=== PATIENT | female | born 1935 | race Caucasian/White ===

== ENCOUNTER → 2017-08-11 07:05 | Outpatient (REF) | payer MEDICARE, SELFPAY ==
[2017-08-11 09:21] LABS: Hematocrit 38.3 % (37-47); Hemoglobin 11.3 g/dl (12.0-15.0); Mean Corp Hgb Conc 29.5 g/gl (32-36); Mean Corpuscular Hgb 29.2 pg (27.0-32.0); Platelet Count 316 K/mm3 (150-450); RBC Distribution Width CV 13.9 % (11.6-14.6); RBC Distribution Width SD 49.9 fl (35.1-43.9); Red Blood Count 3.87 M/mm3 (4.2-5.4); White Blood Count 6.2 K/mm3 (4.4-11.0)
[2017-08-11 09:26] LABS: Scan Indicated on CBC? Y/N NO
[2017-08-11 09:39] LABS: Anion Gap 5 (5-15); BUN 55 mg/dL (7-18); BUN/Creat Ratio 31.4 RATIO (10-20); Calcium,Total 8.6 mg/dL (8.5-10.1); Chloride 108 mmol/L (98-107); Creatinine, Serum 1.75 mg/dL (0.55-1.02); EST Glomerular Filtration Rate 30 mL/min (>60); Est Glom Filt Rate - Afr Amer 36 mL/min (>60); Glucose 93 mg/dL (70-110); Sodium Level 140 mmol/L (136-145)
== END ==
LOC: OLS.WHLEAS 07:05
PROVIDERS: Visit Provider Family Medicine
DX: I10 Essential (primary) hypertension (principal); E03.9 Hypothyroidism, unspecified
CPT/HCPCS: 36415; 80048; 84443; 85027

== ENCOUNTER 2017-09-12 11:13 | Day surgery (SDC) | payer MEDICARE, SELFPAY ==
[2017-09-12] VITALS (7 sets, daily range): BP systolic 92–156; BP diastolic 38–65; PULSE 58–120; RESP 16–18; TEMP 36.4–36.6; O2SAT 94–100; BMI 54.5
--- OUTSIDE RECORDS SUMMARY | 2017-09-12 12:10 | XMS RPT_ITS ---
:1935 Author Organization OHIP Support Name Relationship Address Phone R Unavailable Unavailable Unavailable Maegan, Arianna Unavailable [address] [phone] [place] [address] R Unavailable Unavailable Unavailable MAEGAN, ARIANNA Unavailable [address] [facility] + [place] [address] R Unavailable Unavailable Unavailable MAEGAN, ARIANNA Unavailable [address] [phone] [place] [address] R Unavailable Unavailable Unavailable MAEGAN ARIANNA Unavailable [address] [facility] + [place] [address] R Unavailable Unavailable Unavailable MAEGAN, ARIANNA Unavailable [address] [phone] [place] [address] R Unavailable Unavailable Unavailable MAEGAN ARIANNA Unavailable [address] [facility] + [place] [address] R Unavailable Unavailable Unavailable MAEGAN, ARIANNA Unavailable [address] [phone] [place] [address] R Unavailable Unavailable Unavailable Care Team Providers Name Role Phone Tom Ramirez Attending Unavailable Tom Ramirez Attending Unavailable Tom Ramirez Primary Care Unavailable Chavo Richardson Admitting Unavailable Mildred Ochoa Attending Unavailable Tom Ramirez Attending Unavailable Tom Ramirez Primary Care Unavailable Tom Ramirez Attending Unavailable Tom Ramirez Attending Unavailable Tom Ramirez Attending Unavailable Lucho Mayen Attending Unavailable Lucho Mayen Referring Unavailable Tom Ramirez Primary Care Unavailable PROBLEMS PROBLEMS DATE TYPE CONDITION / CODE ATTENDING STATUS SOURCE 07/06/2017 Unknown CHRONIC KIDNEY Tom Ramirez Active [facility], Community UNSPECIFIED / Hospital N18.9(ICD-10) Repository 07/06/2017 Unknown ANEMIA, Tom Ramirez Active [facility] UNSPECIFIED / Community D64.9(ICD-10) Hospital Repository 07/06/2017 Unknown HYPOTHYROIDISM, Tom Ramirez Active [facility] UNSPECIFIED / Community E03.9(ICD-10) Hospital Repository 07/06/2017 Unknown HYPERTENSIVE HEART Tom Ramirez Active [facility] DISEASE WITH HEART Community FAILURE / Hospital I11.0(ICD-10) Repository 07/06/2017 Unknown HEART FAILURE, Tom Ramirez Active [facility] UNSPECIFIED / Community I50.9(ICD-10) Hospital Repository 03/02/2017 Unknown ACUTE ON CHRONIC Sementi, Active [facility] DIASTOLIC [facility] (CONGESTIVE) HEART Hospital FAILURE / Repository I50.33(ICD-10) 03/02/2017 Unknown ACUTE RESPIRATORY Sementi, Active [facility] FAILURE WITH [facility] HYPOXIA / Hospital J96.01(ICD-10) Repository 03/02/2017 Unknown HYP HRT [facility] Sementi, Active [facility] DIS W HRT FAIL AND [facility] STG 1-4/UNSP [facility] Hospital KDNY / Repository I13.0(ICD-10) 03/02/2017 Unknown URINARY TRACT Sementi, Active [facility] INFECTION, SITE [facility] NOT SPECIFIED / Hospital N39.0(ICD-10) Repository 03/02/2017 Unknown BODY MASS INDEX Sementi, Active [facility] (BMI) 50-59.9 , [facility] ADULT / Hospital Z68.43(ICD-10) Repository 03/02/2017 Unknown ANEMIA IN CHRONIC S[facility]i, Active [facility] KIDNEY DISEASE / [facility] D63.1(ICD-10) Hospital Repository 03/02/2017 Unknown MAJOR DEPRESSIVE Sementi, Active [facility] DISORDER, SINGLE [facility] EPISODE, Hospital UNSPECIFIED / Repository F32.9(ICD-10) 03/02/2017 Unknown CHRONIC KIDNEY Sementi, Active [facility] DISEASE, STAGE 3 [facility] (MODERATE) / Hospital N18.3(ICD-10) Repository 03/02/2017 Unknown POLYNEUROPATHY, Sementi, Active [facility] UNSPECIFIED / [facility] G62.9(ICD-10) Hospital Repository 03/02/2017 Unknown TREMOR, Sementi, Active [facility] UNSPECIFIED / [facility] R25.1(ICD-10) Hospital Repository 03/02/2017 Unknown MORBID (SEVERE) [facility], Active [facility] OBESITY DUE TO [facility] EXCESS CALORIES / Hospital E66.01(ICD-10) Repository 03/02/2017 Unknown ESSENTIAL Tom Ramirez Active [facility] (PRIMARY) Community HYPERTENSION / Hospital I10(ICD-10) Repository 03/02/2017 Unknown HYPERLIPIDEMIA, Tom Ramirez Active [facility] UNSPECIFIED / Community E78.5(ICD-10) Hospital Repository PROCEDURES PROCEDURES DATE CODE DESCRIPTION STATUS SOURCE 11/11/2016 [id number](ICD-10 ASSISTANCE WITH Completed [facility] ) RESPIRATORY Hospital Repository VENTILATION, <24 HRS, CPAP RESULTS RESULTS CBC-COMPLETE BLOOD CNT Collected: 08/11/2017 Status: F Source: [facility] NO DIFF 7:05 AM [facility] REPOSITORY TYPE CODE TESTS RESULT OUT OF RANGE REFERENCE UNITS LAB L100.1000 Normal 4.4-11.0 K/mm3 WBC 6.2 LAB L100.1200 Low 4.2-5.4 M/mm3 RBC 3.87 LAB L100.1300 Low 12.0-15.0 g/dl HGB 11.3 LAB L100.1400 Normal 37-47 % HCT 38.3 LAB L100.1500 Normal 81-99 fL MCV 99.0 LAB L100.1600 Normal 27.0-32.0 pg MCH 29.2 LAB L100.1700 Low 32-36 g/gl MCHC 29.5 LAB L100.1810 Normal 11.6-14.6 % RDW 13.9 CV LAB L100.1820 High 35.1-43.9 fl RDW 49.9 SD LAB L100.1900 Normal 150-450 K/mm3 PLT 316 LAB L100.2000 Normal 6.2-12.0 fl MPV 10.0 Performed By: #### L100.0500 ####[facility] [address] [place], [address] BASIC METABOLIC Collected: 08/11/2017 Status: F Source: [facility] PROFILE (BMP) 7:05 AM [facility] REPOSITORY TYPE CODE TESTS RESULT OUT OF RANGE REFERENCE UNITS LAB L501.0100 Normal 70-110 mg/dL GLU 93 LAB L501.1000 High 7-18 mg/dL BUN 55 LAB L501.1100 High 0.55-1.02 mg/dL 1.75 CREAT,SERUM Result Comment: The validity of the calculated GFR AND GFRAA in patients over70 years has not been determined. Clinical correlation isessential. LAB L501.1110 Low >60 mL/min EST GFR 30 Result Comment: Non- GFR Calc LAB L501.1115 Low >60 mL/min EST GFR - AA 36 Result Comment: GFR Calc LAB L501.1300 High 10-20 RATIO BUN/CRE 31.4 LAB L501.2200 Normal 8.5-10.1 mg/dL CA 8.6 LAB L501.5300 Normal 136-145 mmol/L NA 140 LAB L501.5600 Normal 3.5-5.1 mmol/L K 5.0 LAB L501.5900 High 98-107 mmol/L CL 108 LAB L501.6100 Normal 21.0-32.0 mmol/L CO2 27.0 LAB L501.6200 Normal 5-15 GAP 5 Performed By: #### L500.2500, L501.9520 ####[facility] [address] [facility] [place], [place], [address] THYROID STIM HORMONE Collected: 08/11/2017 Status: F Source: [facility] (TSH) 7:05 AM [facility] REPOSITORY TYPE CODE TESTS RESULT OUT OF RANGE REFERENCE UNITS LAB L501.9520 Normal 0.358-3.74 uIU/mL TSH 0.70 Performed By: #### L500.2500, L501.9520 ####[facility] [address] [place], [place], [address] BASIC METABOLIC Collected: 05/16/2017 Status: F Source: [facility] PROFILE (BMP) 6:07 AM [facility] REPOSITORY Order Comment: 501-1 TYPE CODE TESTS RESULT OUT OF RANGE REFERENCE UNITS LAB L501.0100 Normal 70-110 mg/dL GLU 91 LAB L501.1000 High 7-18 mg/dL BUN 63 LAB L501.1100 High 0.55-1.02 mg/dL 1.95 CREAT,SERUM Result Comment: The validity of the calculated GFR AND GFRAA in patients over70 years has not been determined. Clinical correlation isessential. LAB L501.1110 Low >60 mL/min EST GFR 26 Result Comment: Non- GFR Calc LAB L501.1115 Low >60 mL/min EST GFR - AA 32 Result Comment: GFR Calc LAB L501.1300 High 10-20 RATIO BUN/CRE 32.3 LAB L501.2200 Normal 8.5-10.1 mg/dL CA 8.5 LAB L501.5300 Normal 136-145 mmol/L NA 142 LAB L501.5600 Normal 3.5-5.1 mmol/L K 5.0 LAB L501.5900 High 98-107 mmol/L CL 112 LAB L501.6100 Normal 21.0-32.0 mmol/L CO2 22.0 LAB L501.6200 Normal 5-15 GAP 8 Performed By: #### L500.2500 ####[facility] [address] [place], [address] CBC W/DIFF, AUTOMATED Collected: 05/09/2017 Status: F Source: [place] 6:30 AM [facility] REPOSITORY Order Comment: 501-1 TYPE CODE TESTS RESULT OUT OF RANGE REFERENCE UNITS LAB L100.1000 Normal 4.4-11.0 K/mm3 WBC 6.2 LAB L100.1200 Low 4.2-5.4 M/mm3 RBC 3.72 LAB L100.1300 Low 12.0-15.0 g/dl HGB 11.2 LAB L100.1400 Low 37-47 % HCT 36.4 LAB L100.1500 Normal 81-99 fL MCV 97.8 LAB L100.1600 Normal 27.0-32.0 pg MCH 30.1 LAB L100.1700 Low 32-36 g/gl MCHC 30.8 LAB L100.1810 Normal 11.6-14.6 % RDW 14.0 CV LAB L100.1820 High 35.1-43.9 fl RDW 48.0 SD LAB L100.1900 Normal 150-450 K/mm3 PLT 240 LAB L100.2000 Normal 6.2-12.0 fl MPV 10.5 LAB L100.2100 Normal 47-70 % NEUT% 63.0 LAB L100.2200 Normal 19-41 % LY% 19.7 LAB L100.2300 High 0-10 % MONO% 11.2 LAB L100.2400 High 0-5 % EO% 5.3 LAB L100.2500 Normal 0-1 % BASO% 0.6 LAB L100.2550 Normal 0.0-0.9 % IM 0.200 GRAN % Result Comment: IG% - Immature Granulocytes (promyelocytes, myelocytes andmetamyelocytes) > 1% indicates that a LEFT SHIFT is Present. LAB L100.2620 Normal 2.0-7.7 X10 3/uL Absolute Neut 3.9 LAB L100.2720 Normal 0.83-4.51 X10 3/ul Absolute Lymph 1.23 Performed By: #### L100.0100 ####[facility] [address] [facility] [address] [place], [place], [id number] BASIC METABOLIC Collected: 05/09/2017 Status: F Source: [facility] PROFILE (BMP) 6:30 AM [facility] REPOSITORY Order Comment: 501-1 TYPE CODE TESTS RESULT OUT OF RANGE REFERENCE UNITS LAB L501.0100 Normal 70-110 mg/dL GLU 84 LAB L501.1000 High 7-18 mg/dL BUN 90 LAB L501.1100 High 0.55-1.02 mg/dL 2.60 CREAT,SERUM Result Comment: The validity of the calculated GFR AND GFRAA in patients over70 years has not been determined. Clinical correlation isessential. LAB L501.1110 Low >60 mL/min EST GFR 19 Result Comment: Non- GFR Calc LAB L501.1115 Low >60 mL/min EST GFR - AA 23 Result Comment: GFR Calc LAB L501.1300 High 10-20 RATIO BUN/CRE 34.6 LAB L501.2200 Normal 8.5-10.1 mg/dL CA 8.5 LAB L501.5300 Normal 136-145 mmol/L NA 141 LAB L501.5600 High 3.5-5.1 mmol/L K 5.2 LAB L501.5900 High 98-107 mmol/L CL 111 LAB L501.6100 Normal 21.0-32.0 mmol/L CO2 24.0 LAB L501.6200 Normal 5-15 GAP 6 Performed By: #### L500.2500 ####[facility] [address] [facility] [address] [place], [place], [address] CBC W/DIFF, AUTOMATED Collected: 03/02/2017 Status: F Source: [facility] 6:40 AM [facility] REPOSITORY Order Comment: 501-1 TYPE CODE TESTS RESULT OUT OF RANGE REFERENCE UNITS LAB L100.1000 Normal 4.4-11.0 K/mm3 WBC 6.9 LAB L100.1200 Low 4.2-5.4 M/mm3 RBC 3.82 LAB L100.1300 Low 12.0-15.0 g/dl HGB 11.3 LAB L100.1400 Normal 37-47 % HCT 37.0 LAB L100.1500 Normal 81-99 fL MCV 96.9 LAB L100.1600 Normal 27.0-32.0 pg MCH 29.6 LAB L100.1700 Low 32-36 g/gl MCHC 30.5 LAB L100.1810 Normal 11.6-14.6 % RDW 14.2 CV LAB L100.1820 High 35.1-43.9 fl RDW 50.3 SD LAB L100.1900 Normal 150-450 K/mm3 PLT 264 LAB L100.2000 Normal 6.2-12.0 fl MPV 9.7 LAB L100.2100 Normal 47-70 % NEUT% 62.9 LAB L100.2200 Normal 19-41 % LY% 20.3 LAB L100.2300 High 0-10 % MONO% 11.5 LAB L100.2400 Normal 0-5 % EO% 4.7 LAB L100.2500 Normal 0-1 % BASO% 0.3 LAB L100.2550 Normal 0.0-0.9 % IM 0.300 GRAN % Result Comment: IG% - Immature Granulocytes (promyelocytes, myelocytes andmetamyelocytes) > 1% indicates that a LEFT SHIFT is Present. LAB L100.2620 Normal 2.0-7.7 X10 3/uL Absolute Neut 4.3 LAB L100.2720 Normal 0.83-4.51 X10 3/ul Absolute Lymph 1.39 Performed By: #### L100.0100 ####[facility] [address] [place], [address] BASIC METABOLIC Collected: 03/02/2017 Status: F Source: [facility] PROFILE (BMP) 6:40 AM [facility] REPOSITORY Order Comment: 501-1 TYPE CODE TESTS RESULT OUT OF RANGE REFERENCE UNITS LAB L501.0100 Normal 70-110 mg/dL GLU 83 LAB L501.1000 High 7-18 mg/dL BUN 48 LAB L501.1100 High 0.55-1.02 mg/dL 1.54 CREAT,SERUM Result Comment: The validity of the calculated GFR AND GFRAA in patients over70 years has not been determined. Clinical correlation isessential. LAB L501.1110 Low >60 mL/min EST GFR 34 Result Comment: Non- GFR Calc LAB L501.1115 Low >60 mL/min EST GFR - AA 42 Result Comment: GFR Calc LAB L501.1300 High 10-20 RATIO BUN/CRE 31.2 LAB L501.2200 Normal 8.5-10.1 mg/dL CA 8.8 LAB L501.5300 Normal 136-145 mmol/L NA 141 LAB L501.5600 Normal 3.5-5.1 mmol/L K 5.1 LAB L501.5900 High 98-107 mmol/L CL 111 LAB L501.6100 Normal 21.0-32.0 mmol/L CO2 26.0 LAB L501.6200 Low 5-15 GAP 4 Performed By: #### L500.2500, L501.9520 ####[facility] [address] [facility] [place], [address] THYROID STIM HORMONE Collected: 03/02/2017 Status: F Source: [facility] (TSH) 6:40 AM [facility] REPOSITORY Order Comment: 501-1 TYPE CODE TESTS RESULT OUT OF RANGE REFERENCE UNITS LAB L501.9520 Normal 0.358-3.74 uIU/mL TSH 0.72 Performed By: #### L500.2500, L501.9520 ####[facility] [address] [facility] [place], [address] DISCHARGE SUMMARY Observed: 11/13/2016 Status: F Source: [facility] 9:20 AM [facility] RE[facility]ORY [facility] [address] [place], [place] [address]Hetotffyv Blwmvwk06/08/17 0911#: [id number] Acct : [id number]: KAILASH GILES Rep #: [id number]: 1935 80 From: Mustapha Kahn PAPCP: Tom Ramirez MD Status: ADM IN [facility] [id number] Date and Diagnosis- Problem ListPatient Problems:Active and Suspected ProblemsAcute exacerbation of CHF (congestive heart failure) (Acute)Respiratory failure with hypoxia (Acute)Date of Admission: 11/10/16Date of Discharge: 11/13/16- Primary Discharge DiagnosisActive and Suspected ProblemsAcute exacerbation of CHF (congestive heart failure) (Acute)Respiratory failure with hypoxia (Acute)- Secondary Discharge DiagnosisChronic ProblemsAnemia in chronic kidney disease (Chronic)CKD (chronic kidney disease) stage 3, GFR 30-59 ml/min (Chronic)Depression (Chronic)Generalized weakness (Chronic)HTN (hypertension) (Chronic)Hypothyroidism (Chronic)Neuropathy (Chronic)Tremor (Chronic)Hospital Course and TreatmentImaging Results:Last chest x-ray shows worsening aeration with increased interstitial pattern, inflammatoryprocess, interstitial lung disease, COPD, mild chronic vascular congestion, moderate cardiacenlargement.2D echo shows EF of 65 % in stage I diastolic dysfunction. Mild pulmonary hypertension.Severely enlarged left atrium. Mild to moderate aortic stenosis.NAProcedures: 2-D EchocardiogramSummary of Care Provided:The patient is a 80 year old F who presented to the ER from custodial facility withshortness of breath, productive cough with yellow-green mucus, and wheezing. Chest x-raydemonstrated congestive heart failure, she also had hypoxia in the ER. She was admitted put onIV Lasix as well as steroids and duo nebs. She diuresed well, respiratory panel demonstratedparainfluenza virus. Second day of admission patient had poor mentation. She was also foundto have a UTI and was treated with Rocephin for 3 days. Culture was sensitive. Hermedications were adjusted and this improved by the next day. Respiratory status improveddaily. She initially required BiPAP at night however this was not required after the firstnight and the patient did not want to continue using it. She was stable on as needed nasalcannula. We will adjust her medications going forward to the snf. She is chronicallyincontinent of urine, she can have her Howard removed going forward, it was in place for goodmeasurements of intake and output while she was here. She is stable and discharged back toskilled nursing. []Discharge Diet: 2000 mg Sodium DietDischarge Activity: Return to Normal ActivityHome Medications:Medications to take at DischargeAspirin [Aspirin, Baby] 81 mg PO DAILY@0800 05/15/16Docusate Sodium [Colace] 100 mg PO DAILY PRN PRN 05/15/16Escitalopram Oxalate [Lexapro] 20 mg PO DAILY 05/15/16Furosemide 40 mg PO DAILY 05/15/16Gabapentin 600 mg PO TID 05/15/16Levothyroxine [Synthroid] 100 mcg PO DAILY 05/15/16Amlodipine [Norvasc ] 10 mg PO DAILY tablet 05/18/16Zolpidem Tartrate [Ambien] 5 mg PO QHS PRN #10 tablet 05/18/16Acetaminophen [Tylenol Extra Strength] 500 mg PO Q4H PRN PRN 11/10/16cetaminophen [Tylenol] 650 mg PO Q4H PRN 11/10/16Dextran 70/ Hypromellose [Nature's Tears Eye Drops] 2 drop EACH EYE 4X/DAY PRN PRN 11/10/16Guaifenesin [Mucinex] 600 mg PO BID PRN 11/10/16Oxycodone HCl/Acetaminophen [Percocet 5/325 ] 1 - 2 tablet PO Q6H PRN 11/10/16Primidone [Mysoline] 100 mg PO QHS Trimethoprim [Trimpex] 100 mg PO QHS 11/10/16Primary Care Physician:Tom Ramirez MD [ Primary Care Provider] -Please follow up with your Primary Care Physician in: 4 weeksDis[facility] facilityMinutes spent on discharge:: 40Patient Condition:: StableMeaningful Use InfoMeaningful Use Diagnoses (Choose all that apply): CHF- AMIAspirin given w/in 24hrs of arrival?: Yes- CHFACE/ARB ordered at discharge?: YesDocumented LVEF (%): 0920 <Electronically signed by Mustapha PERAZA>Date Mustapha Kahn PACosigner Signature (if applicable): Date CC: KARMEN Kahn; Tom Ramirez MD Signed TRANSFER TO [facility] Observed: 11/13/2016 Status: F Source: [facility] 9:04 AM [facility]ORY [facility] [id number] [place] [address]Xvqxvxrw to [facility] CareMR#: [id number] Acct: [id number]: KAILASH GILES Rep #: [id number]: 1935 80 From: Mustapha Kahn PAPCP: Tom Ramirez MD Status: ADM INHUTKAILASH DAVILA(Patient) (Health Ins. Claim No.) (Day of Discharge to Facility) Certification of patient admission REQUIRED AT TIME OF ADMISSION. I CERTIFYTHAT POST- HOSPITAL ECF SERVICES ARE REQUIRED TO BE GIVEN ON AN IN-PATIENT BASIS BECAUSE OF THEABOVE NAMED PATIENT'S NEED FOR CUSTODIAL CARE ON A CONTINUING BASIS FOR THE CONDITION(S) FORWHICH HE/SHE WAS RECEIVING IN-PATIENT HOSPITAL SERVICES PRIOR TO HIS/HER TRANSFER TO THE ECF.11/13/16 0904 <Electronically signed by Mustapha PERAZA>Date Mustapha PERAZA- Diet11/10/16 13:10Diet:Sodium restricted not to exceed to G per day- Routine Orders/Code StatusO2 Liters per Minute: 3O2 Frequency: PRN - And at nightKeep PO Greater than or Equal to (%): 90Routine Lab Work: CBC, BMP- TherapiesWeight Bearing: Weight bearing as toleratedPhysical Therapy: Eval and TreatOccupational Therapy: Eval and Treat- Problem/Diagnosis(1) Acute exacerbation of CHF (congestive heart failure)Status : Acute Current Visit: Yes(2) Respiratory failure with hypoxiaStatus: Acute Current Visit: Yes(3) CKD (chronic kidney disease) stage 3, GFR 30-59 ml/minStatus: Chronic Current Visit: Yes(4) HypothyroidismStatus: Chronic Current Visit: Yes(5) NeuropathyStatus: Chronic Current Visit: Yes(6) TremorStatus: Chronic Current Visit: Yes(7) DepressionStatus: Chronic Current Visit: Yes(8) HTN (hypertension)Status: Chronic Current Visit: Yes(9) Generalized weaknessStatus: Chronic Current Visit: Yes(10) Anemia in chronic kidney diseaseStatus: Chronic Current Visit: Yes- Allergies/Procedures Done in HospitalAllergies/Adverse Reactions:AllergiesSulfa (Sulfonamide Antibiotics) Allergy (Verified 11/10/16 11:34)Hivesmorphine Adverse Reaction (Verified 11/11/16 17:22)Other- Type of Care/Length of StayEstimated LOS: More Than 30 DaysType of Care Needed: SkilledRehab Potential: PoorPrognosis: Fair- Additional Orders/Day of DischargeDay of Discharge: 11/13/16- Dietary and Speech RecommendationsDietitian Recommendations/Changes: Recommend diet change to low sodium, fluid restriction asneeded.- Follow Up CarePrimary Care Physician:Tom Ramirez MD [Primary Care Provider] -Please follow up with your Primary Care Physician in: 4 weeks11/13/16 0904 < Electronically signed by Mustapha PERAZA>Date Mustapha Kahn PACC: Tom Ramirez MD Signed CBC W/DIFF, AUTOMATED Collected: 11/13/2016 Status: F Source: TAMIKO 6:50 AM [facility] REPOSITORY TYPE CODE TESTS RESULT OUT OF RANGE REFERENCE UNITS LAB L100.1000 Normal 4.4-11.0 K/mm3 WBC 6.2 LAB L100.1200 Low 4.2-5.4 M/mm3 RBC 3.71 LAB L100.1300 Low 12.0-15.0 g/dl HGB 10.9 LAB L100.1400 Normal 37-47 % HCT 37.3 LAB L100.1500 High 81-99 fL MCV 100.5 LAB L100.1600 Normal 27.0-32.0 pg MCH 29.4 LAB L100.1700 Low 32-36 g/gl MCHC 29.2 LAB L100.1810 High 11.6-14.6 % RDW 14.7 CV LAB L100.1820 High 35.1-43.9 fl RDW 54.6 SD LAB L100.1900 Normal 150-450 K/mm3 PLT 254 LAB L100.2000 Normal 6.2-12.0 fl MPV 9.3 LAB L100.2100 High 47-70 % NEUT% 81.5 LAB L100.2200 Low 19-41 % LY% 11.2 LAB L100.2300 Normal 0-10 % MONO% 7.1 LAB L100.2400 Normal 0-5 % EO% 0.0 LAB L100.2500 Normal 0-1 % BASO% 0.0 LAB L100.2550 Normal 0.0-0.9 % IM 0.200 GRAN % Result Comment: IG% - Immature Granulocytes (promyelocytes, myelocytes andmetamyelocytes) > 1% indicates that a LEFT SHIFT is Present. LAB L100.2620 Normal 2.0-7.7 X10 3/uL Absolute Neut 5.0 LAB L100.2720 Low 0.83-4.51 X10 3/ul Absolute Lymph 0.69 Performed By: #### L100.0100 ####[facility] [address] [place], [place], [address] BASIC METABOLIC Collected: 11/13/2016 Status: F Source: [place] PROFILE (BMP) 6:50 AM [facility] REPOSITORY TYPE CODE TESTS RESULT OUT OF RANGE REFERENCE UNITS LAB L501.0100 High 70-110 mg/dL GLU 127 Result Comment: Fasting Glucose result greater than or equal to 126 mg/ dLsuggests DIABETES MELLITUS per A.D.A. criteria. LAB L501.1000 High 7-18 mg/dL BUN 67 LAB L501.1100 High 0.55-1.02 mg/dL CREAT,SERUM 1.55 Result Comment: The validity of the calculated GFR AND GFRAA in patients over70 years has not been determined. Clinical correlation isessential. LAB L501.1110 Low >60 mL/min EST GFR 34 Result Comment: Non- GFR Calc LAB L501.1115 Low >60 mL/min EST GFR - AA 41 Result Comment: GFR Calc LAB L501.1255 Normal ml/min Estimated 49.52 CRCL LAB L501.1300 High 10-20 RATIO BUN/CRE 43.2 LAB L501.2200 Low 8.5-10 mg/dL CA 8.3 .1 LAB L501.5300 Normal 136-14 mmol/L NA 139 5 LAB L501.5600 Normal 3.5-5. mmol/L K 5.0 1 LAB L501.5900 Normal 98-107 mmol/L CL 102 LAB L501.6100 Normal 21.0-3 mmol/L CO2 30.0 2.0 LAB L501.6200 Normal 5-15 GAP 7 Performed By: #### L500.2500 ####[facility] [address] [facility] [place], [address] 12 LEAD ELECTROCARDIOGRAM Observed: 11/12/2016 Status: F Source: [place] 1:41 PM [facility] RE[facility] [address] [place], [place] [address] Lead EKG04/12/22 1131MR#: [id number] Acct: [id number]: KAILASH GILES Rep #: [id number]: 1935 80 From: Luis Alonso MDAttending Dr: Mildred Ochoa Status: ADM INOrdering Dr: Edwin Willis MD Date: 11/10/16Location: PCU Sex: F CAdmitted: 11/10/16Test Reason : SOBBlood Pressure : / mmHGVent. Rate : 062 BPM Atrial Rate : 062 BPMP-R Int : 136 ms QRS Dur : 098 msQT Int : 428 ms P-R-T Axes : 062 -13 091 degreesQTc Int : 434 msSinus rhythm with marked sinus arrhythmiaT wave abnormality, consider lateral ischemiaAbnormal ECGConfirmed by LUIS ALONSO ([id number]), acquisition editor ZAHC RAMIREZ ([id number]) on 11/12/2016 1:41:02 PMReferred By: Confirmed By:LUIS ALONSO11/12/16 1341Date Luis Alonso [facility]: Tom Ramirez MD Date Dictated: 11/10/16 1131Date Transcribed: 11/10/16 1131Transcriptionist:Signed BASIC METABOLIC Collected: 11/12/2016 Status: F Source: TAMIKO PROFILE (BMP) 5:50 AM [facility] REPOSITORY TYPE CODE TESTS RESULT OUT OF RANGE REFERENCE UNITS LAB L501.0100 High 70-110 mg/dL GLU 123 Result Comment: Fasting Glucose result from 110 to <126 mg/dLsuggests IMPAIRED HOMEOSTASIS per A.D.A. criteria. LAB L501.1000 High 7-18 mg/dL BUN 53 LAB L501.1100 High 0.55-1.02 mg/dL CREAT,SERUM 1.82 Result Comment: The validity of the calculated GFR AND GFRAA in patients over70 years has not been determined. Clinical correlation isessential. LAB L501.1110 Low >60 mL/min EST GFR 28 Result Comment: Non- GFR Calc LAB L501.1115 Low >60 mL/min EST GFR - AA 34 Result Comment: GFR Calc LAB L501.1255 Normal ml/min Estimated 42.48 CRCL LAB L501.1300 High 10-20 RATIO BUN/CRE 29.1 LAB L501.2200 Normal 8.5-10 mg/dL CA 8.7 .1 LAB L501.5300 Normal 136-14 mmol/L NA 140 5 LAB L501.5600 Normal 3.5-5. mmol/L K 4.6 1 LAB L501.5900 Normal 98-107 mmol/L CL 104 LAB L501.6100 Normal 21.0-3 mmol/L CO2 30.0 2.0 LAB L501.6200 Normal 5-15 GAP 6 Performed By: #### L500.2500 ####[facility] [address] [place], [place], [id number] CBC W/DIFF, AUTOMATED Collected: 11/12/2016 Status: F Source: TAMIKO 5:50 AM [facility] REPOSITORY TYPE CODE TESTS RESULT OUT OF RANGE REFERENCE UNITS LAB L100.1000 Normal 4.4-11.0 K/mm3 WBC 4.7 LAB L100.1200 Low 4.2-5.4 M/mm3 RBC 3.63 LAB L100.1300 Low 12.0-15.0 g/dl HGB 10.7 LAB L100.1400 Low 37-47 % HCT 36.6 LAB L100.1500 High 81-99 fL MCV 100.8 LAB L100.1600 Normal 27.0-32.0 pg MCH 29.5 LAB L100.1700 Low 32-36 g/gl MCHC 29.2 LAB L100.1810 High 11.6-14.6 % RDW 15.0 CV LAB L100.1820 High 35.1-43.9 fl RDW 55.9 SD LAB L100.1900 Normal 150-450 K/mm3 PLT 255 LAB L100.2000 Normal 6.2-12.0 fl MPV 9.4 LAB L100.2100 High 47-70 % NEUT% 74.2 LAB L100.2200 Low 19-41 % LY% 16.2 LAB L100.2300 Normal 0-10 % MONO% 9.2 LAB L100.2400 Normal 0-5 % EO% 0.0 LAB L100.2500 Normal 0-1 % BASO% 0.2 LAB L100.2550 Normal 0.0-0.9 % IM 0.200 GRAN % Result Comment: IG% - Immature Granulocytes (promyelocytes, myelocytes andmetamyelocytes) > 1% indicates that a LEFT SHIFT is Present. LAB L100.2620 Normal 2.0-7.7 X10 3/uL Absolute Neut 3.5 LAB L100.2720 Low 0.83-4.51 X10 3/ul Absolute Lymph 0.76 Performed By: #### L100.0100 ####[facility] [address] [facility] [place], [address] CHEST 1 VIEW Observed: 11/12/2016 Status: F Source: [place] (PORTABLE) 12:01 AM [facility] REPOSITORY [facility] [address] [place], [place] [address]Tfnbsum 4dChest 1 View (Portable)MR#: [id number] Acct: [id number]: KAILASH GILES Rep #: [id number]: 1935 F 80 From: Juan Iniguez MDPCP: Tom Ramirez MD Status: ADM INStudy: Chest 1 View (Portable) Date of Exam: 11/12/16Exam# [id number] Ordering Dr: Chavo Richardson DOSTUDY: X-RAY CHESTREASON FOR EXAM: Female, 80 years old. Shortness of breath. CHF.TECHNIQUE: Single AP portable view of the chest.COMPARISON: Comparison is made with prior study dated November 11, 2016. FINDINGS:EKG electrodes are seen.There is evidence of vascular congestion. Mild degree of increasedmarkings of the lung bases suggestive of superimposed bibasilaratelectasis. There is no demonstrated pleural abnormality.There is moderate cardiac enlargement. Normal mediastinum and yolis.Normal visualized pulmonary arteries. There is atheroscleroticcalcification of the aortic arch with tortuosity.There are diffuse degenerative changes of the visualized thoracic spine.Normal visualized ribs, clavicles, and shoulders.There is no demonstrated abnormality of the visualized soft tissuestructures of the upper abdomen. ORDER #: [id number] RAD/Chest 1 View (Portable)IMPRESSION:Cardiomegaly and mild degree of CHF. This has worsened as compared [facility] study.Electronically Signed:Juan Iniguez MD at 8:32 EDTTel [phone], Service support [phone], RE: Tom Ramirez MD; Chavo Richardson DO Line Analyst:Signed ECHO, COMPLETE W/ Observed: 11/11/2016 Status: F Source: TAMIKO CONTRAST 12:44 PM [facility] REPOSITORY [facility] [address] [place], [place] [address]Uili Complete W/ Vdmrlazu90/06/17 0946MR#: [id number] Acct: [id number]: KAILASH GILES Rep #: [id number]: 1935 80 From: Luis Alonso MDAdejan Dr: Chavo Richardson DO Status: ADM INOrdering Dr: Chavo Richardson DO Date: 11/10/16Location: [facility] Sex: F CAdmitted: 11/10/16Reason For Study: CHFProcedureThis was a 2D Doppler, Color Flow transthoracic echocardiogram. The study was technicallydifficult. Contrast injection was performed. Exam performed portable in patient room.Left VentricleMild concentric left ventricular hypertrophy. The estimated ejection fraction is 65 %. Stage 1diastolic dysfunction. No regional wall motion abnormalities noted.Right VentricleNormal size and thickness. Normal systolic function.AtriaThe left atrium is severely enlarged. Normal right atrium. Normal atrial septum.Mitral ValveThe mitral valve is structurally normal. No prolapse or stenosis seen. Trivial mitral valveinsufficiency.Tricuspid ValveNormal tricuspid valve. Trivial tricuspid valve insufficiency. Right ventricular systolicpressureestimated to be 38 mmHg. Mild pulmonary hypertension.Aortic ValveTrisinus/trileaflet aortic valve. Mild diffuse aortic valve thickening. Moderate focal aorticvalvethickening. Mild restriction of the aortic valve. Mild to moderate aortic stenosis. Peakaorticvalve gradient 40 mmHg. Mean aortic valve gradient 18 mmHg.Pulmonic ValveNormal pulmonic valve.Great VesselsNormal aortic root. Normal arch. The inferior vena cava is dilated. Inferior vena cavacollapsewith sniff.Pericardium/PleuralNo pericardial effusion.MedicationDefinity0.5ml given slow IV push to enhance endocardial definition.MMode/2D Measurements & CalculationsLVIDd: 4.2 cm IVSd: 1.5 cm Ao root diam: 3.2 cmLVIDs: 2.4 cm LVPWd: 1.3 cm LA dimension: 4.6 cmRVDd: 3.4 cm FS: 43.6 % __LAV(MOD-sp4): 100.3 ml LA A4 area: 29.5 cm2 RA A4 area: 15.4 qy1Msgsqwq Measurements & CalculationsMV E max jose luis: 113.5 cm/sec Lat Peak E' Jose Luis: 9.2 cm/sec Med Peak E' Jose Luis: 5.9 cm/secMV A max jose luis: 150.7 cm/ sec E/E' lat: 12.4 E/E' med: 19.1MV E/A: 0.75 Ao V2 max: 315.8 cm/sec LV V1 max: 151.0 cm/sec PA V2 max: 114.1 cm/ secAo max P.9 mmHg LV V1 max P.1 mmHgAo V2 mean: 196.8 cm/sec LV V1 mean P.9 mmHgAo mean P.8 mmHg LV V1 mean: 104.4 cm/secAo V2 VTI: 64.8 cm LV V1 VTI: 35.4 cm ___TR max jose luis: 265.4 cm/secTR max P.3 mmHgInterpretation SummaryMild concentric left ventricular hypertrophy.The estimated ejection fraction is 65 %.Stage 1 diastolic dysfunction.The left atrium is severely enlarged.Trivial mitral valve insufficiency.Trivial tricuspid valve insufficiency.Right ventricular systolic pressure estimated to be 38 mmHg.Mild pulmonary hypertension.Mild to moderate aortic stenosis.Compared to echo report dated 11/06/2012, LV function has remained the same. LA has gone frommoderate to severe left atrial enlargement. Ordering Physician: Hallie Richardson Physician: Tom RamirezPerformed By: Priscilla Lucia, [facility], RVT 11/11/16 1243Date _ Luis Alonso MDCC: Tom Ramirez MD; Chavo Richardson DO Date Dictated: 11/11/1646Date Transcribed: 11/11/16 1243Transcriptionist:Signed BLOOD GAS SPECIMEN Collected: 11/11/2016 Status: F Source: TAMIKO TYPE 8:52 AM [facility] REPOSITORY TYPE CODE TESTS RESULT OUT OF RANGE REFERENCE UNITS LAB L9000.9990 Normal BLD ART GAS TYPE Performed By: #### L9000.9990 ####[facility] LaboratoryPoint [address] [place] [address] PH - I-STAT Collected: 11/11/2016 Status: F Source: TAMIKO 8:52 AM [facility] REPOSITORY TYPE CODE TESTS RESULT OUT OF RANGE REFERENCE UNITS LAB L9001.1110 Low 7.35-7.45 pH - 7.29 I-STAT Performed By: #### L9001.1110 ####[facility] LaboratoryPoint [address] [place] [address] PCO2 - ISTAT Collected: 11/11/2016 Status: F Source: TAMIKO 8:52 AM [facility] REPOSITORY TYPE CODE TESTS RESULT OUT OF RANGE REFERENCE UNITS LAB L9001.1210 High 35-45 mmHg pCO2 60.0 - ISTAT Performed By: #### L9001.1210 ####[facility]Point [address] [place] [address] PO2 I-STAT Collected: 11/11/2016 Status: F Source: TAMIKO 8:52 AM [facility] REPOSITORY TYPE CODE TESTS RESULT OUT OF RANGE REFERENCE UNITS LAB L9001.1310 Low 75-100 mmHG PO2 74 I-STAT Performed By: #### L9001.1310 ####[facility] [place] [address] BICARBONATE ISTAT Collected: 11/11/2016 Status: F Source: TAMIKO 8:52 AM [facility] REPOSITORY TYPE CODE TESTS RESULT OUT OF RANGE REFERENCE UNITS LAB L9001.2300 High 22-26 mmol/L HCO3 28 ISTAT Result Comment: Site=R RadialAllens Test=POSDevice=Nasal CanLPM=3Results To= HOSP MDTime Zjsdr=199 Performed By: #### L9001.2300 ####[facility] [place] [address] [place] [address] BASE EXCESS ISTAT Collected: 11/11/2016 Status: F Source: [place]TH [place] 8:52 AM [facility] REPOSITORY TYPE CODE TESTS RESULT OUT OF RANGE REFERENCE UNITS LAB L9001.2400 Normal -2 to +2 mmol/L BE 2 ISTAT Performed By: #### L9001.2400 ####[facility] [place] [address] TOTAL CARBON DIOXIDE Collected: 11/11/2016 Status: F Source: TAMIKO ISTAT 8:52 AM [facility] REPOSITORY TYPE CODE TESTS RESULT OUT OF RANGE REFERENCE UNITS LAB L9001.2415 Normal mmol/L TOTAL 30 CO2 ISTAT Performed By: #### L9001.2415 ####[facility] [place] [address] SO2 ISTAT Collected: 11/11/2016 Status: F Source: TAMIKO 8:52 AM [facility] REPOSITORY TYPE CODE TESTS RESULT OUT OF RANGE REFERENCE UNITS LAB L9001.2425 Low 95-99 % SO2 92 ISTAT Performed By: #### L9001.2425 ####[facility] [address] [place] [address] BASIC METABOLIC Collected: 11/11/2016 Status: F Source: TAMIKO PROFILE (BMP) 5:45 AM [facility] REPOSITORY TYPE CODE TESTS RESULT OUT OF RANGE REFERENCE UNITS LAB L501.0100 High 70-110 mg/dL GLU 130 Result Comment: Fasting Glucose result greater than or equal to 126 mg/ dLsuggests DIABETES MELLITUS per A.D.A. criteria. LAB L501.1000 High 7-18 mg/dL BUN 45 LAB L501.1100 High 0.55-1.02 mg/dL CREAT,SERUM 1.81 Result Comment: The validity of the calculated GFR AND GFRAA in patients over70 years has not been determined. Clinical correlation isessential. LAB L501.1110 Low >60 mL/min EST GFR 29 Result Comment: Non- GFR Calc LAB L501.1115 Low >60 mL/min EST GFR - AA 34 Result Comment: GFR Calc LAB L501.1255 Normal ml/min Estimated 42.72 CRCL LAB L501.1300 High 10-20 RATIO BUN/CRE 24.9 LAB L501.2200 Normal 8.5-10 mg/dL CA 8.5 .1 LAB L501.5300 Normal 136-14 mmol/L NA 139 5 LAB L501.5600 High 3.5-5. mmol/L K 5.4 1 LAB L501.5900 Normal 98-107 mmol/L CL 105 LAB L501.6100 Normal 21.0-3 mmol/L CO2 28.0 2.0 LAB L501.6200 Normal 5-15 GAP 6 Performed By: #### L500.2500 ####[facility] [address] [facility] [place], [place], [address] BLOOD GAS SPECIMEN Collected: 11/11/2016 Status: F Source: TAMIKO TYPE 3:53 AM [facility] REPOSITORY TYPE CODE TESTS RESULT OUT OF RANGE REFERENCE UNITS LAB L9000.9990 Normal BLD ART GAS TYPE Performed By: #### L9000.9990 ####[facility] LaboratoryPoint of [address] [place], [place] [address] PH - I-STAT Collected: 11/11/2016 Status: F Source: TAMIKO 3:53 AM [facility] REPOSITORY TYPE CODE TESTS RESULT OUT OF RANGE REFERENCE UNITS LAB L9001.1110 Low 7.35-7.45 pH - 7.28 I-STAT Performed By: #### L9001.1110 ####[facility] [place] [address] PCO2 - ISTAT Collected: 11/11/2016 Status: F Source: M[place]TH [place] 3:53 AM [facility] REPOSITORY TYPE CODE TESTS RESULT OUT OF RANGE REFERENCE UNITS LAB L9001.1210 High 35-45 mmHg pCO2 58.0 - ISTAT Performed By: #### L9001.1210 ####[facility] [place] [address] PO2 I-STAT Collected: 11/11/2016 Status: F Source: [place] 3:53 AM [facility] REPOSITORY TYPE CODE TESTS RESULT OUT OF RANGE REFERENCE UNITS LAB L9001.1310 Normal 75-100 mmHG PO2 75 I-STAT Performed By: #### L9001.1310 ####[facility] [place] [address] BICARBONATE ISTAT Collected: 11/11/2016 Status: F Source: [place] 3:53 AM [facility] REPOSITORY TYPE CODE TESTS RESULT OUT OF RANGE REFERENCE UNITS LAB L9001.2300 High 22-26 mmol/L HCO3 27 ISTAT Result Comment: Site=L RadialAllens Test=POSDevice=Bi PAPFIO2=35Results To=HOSP MDTime Licxd=152MM=52UECH=84JARI=5 Performed By: #### L9001.2300 ####[facility] [place] [address] BASE EXCESS ISTAT Collected: 11/11/2016 Status: F Source: [place] 3:53 AM [facility] REPOSITORY TYPE CODE TESTS RESULT OUT OF RANGE REFERENCE UNITS LAB L9001.2400 Normal -2 to +2 mmol/L BE 0 ISTAT Performed By: #### L9001.2400 ####[facility] [place] [address] TOTAL CARBON DIOXIDE Collected: 11/11/2016 Status: F Source: TAMIKO ISTAT 3:53 AM [facility] REPOSITORY TYPE CODE TESTS RESULT OUT OF RANGE REFERENCE UNITS LAB L9001.2415 Normal mmol/L TOTAL 29 CO2 ISTAT Performed By: #### L9001.2415 ####[facility] LaboratoryPoint of [address] [place] [address] SO2 ISTAT Collected: 11/11/2016 Status: F Source: TAMIKO 3:53 AM [facility] REPOSITORY TYPE CODE TESTS RESULT OUT OF RANGE REFERENCE UNITS LAB L9001.2425 Low 95-99 % SO2 92 ISTAT Performed By: #### L9001.2425 ####[facility] LaboratoryPoint of [address] [place] [address] CHEST 1 VIEW Observed: 11/11/2016 Status: F Source: TAMIKO (PORTABLE) 3:42 AM [facility] REPOSITORY [facility]ITAL[facility] [address] [place], [place] [address]Inpxhql 4dChest 1 View (Portable)MR#: [id number] Acct: [id number]: KAILASH GILES Ara Rep #: [id number]: 1935 F 80 From: Taylor Newberry MDPCP: Tom Ramirez MD Status: ADM INStudy: Chest 1 View (Portable) Date of Exam: 11/11/16Exam# [id number] Ordering Dr: Luis Reeder MDSTUDY: X-RAY CHESTREASON FOR EXAM: Female , 80 years old. Shortness of breathTECHNIQUE: Single AP portable view of the chest.COMPARISON: 11/10/2016. 05/15/2016. FINDINGS:There are superimposed monitor leads.There is interstitial opacification left greater than right, areas ofhyperinflation likely underlying COPD. Aeration is worsened since 2015.There is no demonstrated pleural abnormality.There is moderate cardiac enlargement. There are calcified mediastinallymph nodes. There is widening of the right para tracheal soft tissue.Normal visualized pulmonary arteries. There is atheroscleroticcalcification of the aortic arch with tortuosity.There is demineralization of the osseous structures. 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 ORDER #: [id number] RAD/Chest 1 View (Portable)IMPRESSION:Worsening aeration with increased interstitial pattern particularly in thelung possible due to an inflammatory process. Chronic underlyinginterstitial lung disease, COPD and possible mild chronic vascularcongestion are suspected.Moderate cardiac enlargement increased since previous exam.Widening of the right paratracheal soft tissue possible due to slightrotation of the patient. Attention on follow-up examination andconsideration of CT recommended.Electronically Signed:Taylor Newberry MD at 4:35 EDTTel , Service support [phone], TB: Luis Reeder MD ; Tom Ramirez MD Line Analyst:Signed TROPONIN-I Collected: 11/11/2016 Status: F Source: MOUTH OF [place]ILSON 1:48 AM [facility] REPOSITORY Order Comment: 'TROP' Serial specimen #1, #2, #3, or #4: 4 TYPE CODE TESTS RESULT OUT OF RANGE REFERENCE UNITS LAB L501.4010 High <0.06 ng/mL 0.10 TROPONIN-I Result Comment: TROPONIN-I EXPECTED VALUES <0.05 NEGATIVE 0.06 - 0.59 AT RISK OF ND > OR =0.60 SUGGEST ND Performed By: #### L501.4010 ####[facility] [address] [place], [address] Observed: 11/10/2016 Status: F Source: MOUTH OF [place]SON RESPIRATORY PANEL 7:25 PM [facility] MOLECULAR REPOSITORY RP PANELCopy of report sent to Infection Control Printer MS#[id number] 11/11/16 Bk ZULETA. RESULTS CALLED TO RASHMI 11/11/16 Diaz Dotson. REPORT READ BACK BY JERMAN. ADENOVIRUS Not DetectedHUMAN METAPHNEUMO Not DetectedINFLUENZA A Not DetectedINFLUENZA A (SUBTYPE H1) Not DetectedINFLUENZA A (SUBTYPE H3) Not DetectedINFLUENZA B Not DetectedPARAINFLUENZA 1 Not DetectedPARAINFLUENZA 2 Not DetectedPARAINFLUENZA 3 Positive for PARAINFLUENZA 3 by NAAT technologyPARAINFLUENZA 4 Not DetectedRHINOVIRUS Not DetectedRSV A Not DetectedRSV B Not DetectedVERIGENE METHOD Testing was performed using nucleic acid amplification Performed By: #### M100.638 ####[facility] [address], [address] HISTORY AND PHYSICAL Observed: 11/10/2016 Status: F Source: [place]TH OF [place] EXAM 6:16 PM [facility] REPOSITORY [facility]ITALMedical [facility] [address] [place], [place] [address]Pplhjso and Zlsjmdkn96/05/17 1449MR#: [id number] Acct: [id number]: KAILASH GILES Rep #: [id number]: 1935 80 From: Mustapha Kahn PAPCP: Tom Ramirez MD Status: ADM IN YLocation: [facility] [id number] by Chavo Richardson DO on 11/10/16 at 1816Patient seen and examined today in conjunction with Mustapha Kahn, patient was admitted throughthe emergency room with complaints of shortness of breath from a local extended care facility.Workup in the emergency room included chest x-ray which showed changes indicative of CHF, whiteblood cell count was normal at 7.8, creatinine was elevated at 1.97 and BUN was 47. Patienthas a history of chronic kidney disease however. Troponin was mildly elevated at 0.13.Patient had no complaints of any chest discomfort. In reviewing the patient's medical records,she has a history of diastolic congestive heart failure, her last echocardiogram was in 2012.On examination today, patient had expiratory wheezes bilaterally, heart rate and rhythm wasregular without ectopy, no murmurs were auscultated. Patient's abdomen was soft nontenderbowel sounds were present in all 4 quadrants, patient was obese, no hernias were noted.Examination of the lower extremities revealed no edema, neurological examination was nonfocal,patient was alert and oriented 3 and was appropriate. Assessment of this patient was asdocumented by Mustapha Kahn, treatment was outlined by Mustapha Kahn.11/10/16 1816 <Electronically signed by Chavo Richardson DO>Date Chavo Richardson DOcc: KARMEN Kahn; Tom Ramirez MD; Chavo Richardson DO *SignedProblem List(1) Acute exacerbation of CHF (congestive heart failure)Status: AcuteQualifiers:Congestive heart failure type : diastolic Qualified Code(s): I50.33 - Acute on chronicdiastolic (congestive) heart failure(2) Respiratory failure with hypoxiaStatus: Acute(3) CKD (chronic kidney disease) stage 3, GFR 30-59 ml/minStatus: Chronic(4) HypothyroidismStatus: Chronic(5) NeuropathyStatus: Chronic(6) TremorStatus: Chronic(7) DepressionStatus: Chronic (8) HTN (hypertension)Status: Chronic(9) Generalized weaknessStatus: Chronic(10) Anemia in chronic kidney diseaseStatus: ChronicHistory of Present IllnessDate of Admission: 11/10/16Chief Complaint: SOBThe patient is a 80 year old F with shortness of breath. This began 3 days ago suddenly. Ithas been worsening gradually. She states that she started feeling more short of breath and shedeveloped a cough is productive of yellow-green mucus. She states this is worse with any typeof exertion. Pulmonary her activity level is low as she has a snf resident who has hadmultiple back surgeries and is currently not ambulatory. Her usual activity level is workingwith physical therapy trying to stand and balance. She also describes an associated chestprint pain that has been going on for about 3 days as well. She describes this chest pain aspresent when she is coughing it is across her anterior chest wall bilaterally. She has notnoticed any swelling of her legs. In the emergency room she was satting in the 80s withoutoxygen. She has never required oxygen use before. She was recently told that she has COPD bythe alf. She denies fevers and chills, lightheadedness dizziness, worsening shortnessof breath when laying flat or at night. She is chronically incontinent and she does not haveany burning or dysuria she denies nausea vomiting diarrhea or constipation. []Past Medical HistoryPast Medical History (Chronic Problems):Chronic ProblemsAnemia in chronic kidney disease (Chronic)CKD (chronic kidney disease) stage 3, GFR 30-59 ml/min (Chronic) Depression (Chronic)Generalized weakness (Chronic)HTN (hypertension) (Chronic) Hypothyroidism (Chronic)Neuropathy (Chronic)Tremor (Chronic)AllergiesSulfa (Sulfonamide Antibiotics) Allergy (Verified 11/10/16 11:34)HivesHome Medications:Ambulatory OrdersMedication Instructions RecordedAspirin [Aspirin, Baby] 81 mg PO DAILY@0800 05/15/16Docusate Sodium [Colace] 100 mg PO DAILY PRN PRN 05/15/16Escitalopram Oxalate [Lexapro] 20 mg PO DAILY Furosemide 40 mg PO DAILY 05/15/16Gabapentin 600 mg PO TID 05/15/16Levothyroxine [Synthroid] 100 mcg PO DAILY 05/15/16Amlodipine [Norvasc] 10 mg PO DAILY tablet 05/18/16Zolpidem Tartrate [Ambien] 5 mg PO QHS PRN #10 tablet 05/18/16Acetaminophen [Tylenol Extra 500 mg PO Q4H PRN PRN 11/10/16Strength]Acetaminophen [Tylenol] 650 mg PO Q4H PRN 11/10/16Dextran 70/Hypromellose [Nature's 2 drop EACH EYE 4X/DAY PRN PRN 11/10/16Tears Eye Drops]Guaifenesin [Mucinex] 600 mg PO BID PRN 11/10/16Oxycodone HCl/Acetaminophen 1 - 2 tablet PO Q6H PRN 11/10/16[Percocet 5/325]Primidone [Mysoline] 100 mg PO QHS 11/10/16Trimethoprim [Trimpex] 100 mg PO QHS 11/10/16Surgical History: hysterectomy, - - 7 unspecified foot surgeries for her MRSA infection.Unspecified back surgeriesPsychiatric History: Anxiety, Depression, - - InsomniaGYN History: uterine fibroidsSmoking Status: Former smokerTobacco Use: Non-smoker.Review of SystemsConstitutional: Reports: Weakness. Denies: Chills, Fever, Weight ChangeEyes: Denies: Blurred vision, Cataracts, Vision ChangeHEENT : Denies: Difficulty Hearing, Hard of Hearing, Head AchesCardiovascular: Reports : Chest Pain. Denies: Chest Pressure, Edema, Light Headedness,Orthopnea, Palpitations, Paroxysmal Noc. DyspneaRespiratory: Reports: Cough, Shortness of Breath, Shortness of breath at rest, Shortness ofbreath upon exertion, Sputum production, - - Yellow -green mucus productionGastrointestinal: Denies: Constipation, Diarrhea, Nausea, VomitingGenitourinary: Reports: Incontinence. Denies: DysuriaSkin: Denies: Lesions, Rash, Skin Changes, WoundsNeurological: Reports: Tremor. Denies: Blurred vision, Confusion, Headaches, SeizuresHematologic/ Lymphatic: Reports: AnemiaVTE Information - Inpt OnlyVTE Present on Admission: NoVTE Mechan Device Prophylaxis: NoneVTE Pharm Prophylaxis ordered?: YesPatient Problems:Active and Suspected ProblemsAcute exacerbation of CHF (congestive heart failure) (Acute)Respiratory failure with hypoxia (Acute)- Physical ExamGeneral: Alert, Oriented [id number]: Atraumatic, PERRLA, NormocephalicOral: Moist MucosaNeck: Supple, No Nuchal Rigidity, Trachea Midline, Thyroid Normal Size and TextureLungs: Diminished, Rales, Short of Breath, WheezesCardiovascular: Regular rate, Regular Rhythm, Murmur, - - 3/6 systolic murmur best heard overthe aortic valveAbdomen: Bowel Sounds Present, Soft, Non Tender, Non-Distended, ObeseExtremities: No edema, - - Peripheral pulses 2+ and equal bilaterallySkin: No rashes, - - Warm and dry with normal turgorLymphatic: No Cervical, Supraclavicular, or Inguinal AdenopathyNeurological: Cranial nerves II-XII grossly intact, Neuro grossly intactPsych/Mental Status: Normal Affect, Alert and oriented to time, place, person, mood and affectVital SignsTemp Pulse Resp BP Pulse Ox98.3 F 66 17 165/64 11:52 11/10/16 13:36 11/10/16 13: 36 11/10/16 13:36 11/10/16 13:36Oxygen Flow Rate 4Oxygen Delivery Method Nasal CannulaWeight: 111.9 kgBody Mass Index (BMI) 51.5Assessment/PlanActive and Suspected ProblemsAcute exacerbation of CHF (congestive heart failure) (Acute)Respiratory failure with hypoxia (Acute)Assessment:#1 acute on chronic congestive heart failure diastolic. Patient has known CHF, indeterminantcardiac enzyme, she has both rales and wheezing on exam. She has a chest x-ray indicative ofCHF exacerbation, she has a productive cough, there is currently no swelling of the lowerextremities, BNP is pending, no fever or white count. She also has gurgling respirations andpossibly some dysphasia contributing to this.2. Acute hypoxic respiratory failure secondary to above- patient was hypoxic at 80% in theemergency room if you before being placed on oxygen by nasal cannula she is currently requiring3 L/min3. Questionable acute exacerbation of underlying COPD - on exam the patient is very wheezy andwas recently told that she has COPD by the nursing facility where she lives4. Chronic kidney disease stage III-patient appears at baseline creatinine5. Anemia of chronic disease secondary to chronic kidney disease6. Generalized weakness secondary to multiple back and foot surgeries. [facility] currently non[facility]ulatory.8. History includes hypothyroidism arthritis neuropathy spinal stenosis depression anxietyinsomnia urinary incontinence9. Morbid obesityPlan1. Patient will be admitted to telemetry2. IV Lasix was given in the ER and this will be continued at 20 q. 83. Oxygen will be continued, a new chest x-ray will be obtained tomorrow for interval changes.4. Speech-language pathology evaluation for possible dysphagia as patient does not seem to beclearing mucus properly.5. Consider aerosols and Solu-Medrol for possible COPD exacerbation6. Cycle troponin and repeat EKG in the morning7. Measure intake and output. Howard catheter as the patient is incontinent so we can getaccurate readings.8. Lovenox at renal dose9. 2D echo in the morningEstimated length of stay is greater than 2 midnights. Discharge planning is for patient to bestabilized and returned to the SNF.11/10/16 1525 <Electronically signed by Mustapha PERAZA>Date Mustapha Kahn PACosigner Signature (if applicable): Date CC: KARMEN Kahn; Tom Ramirez MD; Chavo Richardson DO Signed EMERGENCY DEPARTMENT Observed: 11/10/2016 Status: F Source: MOUTH OF WILSON SUMMARY 4:21 PM [facility] [address] [place], [place] [address]Ezorxljgm Department SummaryMR#: [id number] Acct: [id number]: CHANKATYALETTY Bullock Rep #: [id number]: 1935 80 From: Edwin Willis MDPCP: Tom Ramirez MD Status: ADM INDATE OF SERVICE: 11/10/2016CHIEF COMPLAINT:Shortness of breath.HISTORY OF PRESENT ILLNESS:An 80-year-old female in the alf secondary to a femur fracture presentingsecondary to 3 days of worsening shortness of breath. The patient states that it isassociated with a significant cough productive of yellow sputum. She denies any fevers.She has had 4 days of continuous chest pain, not necessarily worse with taking deepbreaths or coughing, it is a dull ache. The patient typically is not on any oxygen, butis required supplemental oxygen in the alf the last couple of days.REVIEW OF SYSTEMS:Otherwise, negative.PAST MEDICAL HISTORY:CHF, hypertension and hypothyroidism.PHYSICAL EXAMINATION:VITAL SIGNS: Notable pulse ox 88% on room air with hypoxia.GENERAL: Obese female in no acute distress.HEENT: Moist mucous membranes.NECK: Supple.HEART: Bradycardic with a regular rhythm.LUNGS: Lung sounds showed evidence of rhonchi and wheezes in the lower lung gill. Norespiratory distress or retractions.ABDOMEN: Soft.EXTREMITIES: Nontender. No significant peripheral edema noted.SKIN: No skin rashes.NEUROLOGIC: The patient alert and oriented.Remainder of physical otherwise unremarkable.EMERGENCY DEPARTMENT COURSE AND DECISION MAKING:The patient was evaluated with an EKG showed sinus rate of 62. Isoelectric ST segments,chronic T-wave flattening laterally, sinus arrhythmia was grossly unchanged from prior.Chest x-ray showed some pulmonary vascular congestion and interstitial infiltratesconsistent with CHF. Chemistry showed some renal insufficiency, creatinine 1.97.Troponin indeterminately elevated at 0.13. Lactate found to be negative. The patient wasgiven albuterol breathing treatment with some minimal improvement. At this point, Ibelieve the patient's presentation most consistent with CHF exacerbation. She was given adose of Lasix in the Emergency Department, I believe she requires admission. I discussedthis with the hospitalist.DISPOSITION:Admission.DIAGNOSES:1. Congestive heart failure exacerbation.2. Hypoxia.3. Elevated troponin.4. Acute kidney injury.Edwin Willis M.D.T: NTSJOB: [id number]/12/22 1621 <Electronically signed by Edwin Willis MD>Date Edwin Willis [facility] Signature (If Indicated): Date CC: Tom Ramirez MD Date Dictated: 1255Date Transcribed: 11/10/16 1255Transcriptionist:Signed Observed: 11/10/2016 Status: F Source: TAMIKO CULTURE, URINE 1:02 PM [facility] REPOSITORY Order Date: 11/10/16 Has pt arrived? Y Urine CultureRESULTS CALLED TO SAADIA STARKEY 11/12/16 1441 Alyssa Moss. REPORT READ BACK BY SAME. ORGANISM 1: Providencia stuartiiColony Count 50,000-80,000 Providencia stuartii: REACTION Amikacin $ <=2 S Aztreonam $$$ <=1 S Cefoxitin *NF $$ <=4 S Cefotaxime $ <=1 S Cefotetan $$ <=4 S Meropenem $ 0.5 S Tetracycline NF >=16 R(NF) indicates non-formulary drug at [facility]. Approval by Infectious Disease Specialist required before non- formulary drugs may be ordered and/or dispensed. Providencia stuartii: REACTION Ampicillin $ <=2 R Ampicillin/Sulbactam $ <=2 S Cefazolin $ <=4 R Cefepime $ <=1 S Ceftriaxone $ <=1 S Ciprofloxacin $ >=4 R Gentamicin $ 2 R Levofloxacin $ >=8 R Nitrofurantoin $ 128 R Piperacillin/Tazobactam $$ <=4 S Tobramycin $ 4 R Trimethoprim/Sulfametho $ >=320 R(NF) indicates non-formulary drug at [facility]. Approval by Infectious Disease Specialist required before non- formulary drugs may be ordered and/or dispensed. Performed By: #### M100.0650 ####[facility] [address] [place], [address] URINALYSIS, COMPLETE Collected: 11/10/2016 Status: F Source: MOUTH OF WILSON 1:00 PM [facility] REPOSITORY Order Comment: Order Date: 11/10/16Order Date: 11/10/16How was Urine Obtained? 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 Cloudy LAB L400.3200 Normal Normal mg/dl GLUCOSE, UR Normal LAB L400.3300 Normal Negative mg/dL BILIRUBIN Negative URINE LAB L400.3400 Normal Negative mg/dl KETONE UR Negative LAB L400.3465 Normal 1.002-1.030 SP.GR. 1.015 DIPSTX LAB L400.3550 Normal 5.0 - 8.0 pH UR 5.0 LAB L400.3600 High Negative mg/dl PROT DIPSTX 15 LAB L400.3700 Normal Normal mg/dl UROBILI Normal LAB L400.3750 Normal Negative NITRITE UR Negative LAB L400.3780 High Negative /ul OCCULT 250 BLOOD-UR LAB L400.3800 High Negative /ul LEUK 500 ESTERASE LAB L400.4050 Normal 0-5 /hpf WBC 50-100 SEEN LAB L400.4100 Normal 0-5 /hpf RBC-UA 25-50 SEEN LAB L400.4150 Normal 5-10 /hpf SQUAM EPI 0-5 SEEN LAB L400.4300 Normal None Seen /hpf BACTERIA 1+ LAB L400.4350 Normal <or=2+ /hpf MUCUS, 0 SEEN URINE Performed By: #### L400.0001 ####[facility] [address] [place], [address] Observed: 11/10/2016 Status: F Source: MOUTH OF [place] CULTURE, BLOOD (WB) 12:33 PM [facility] REPOSITORY BCNo growth in 5 days. Performed By: #### L500.4050, L501.4010, M200.1000 ####[facility] [address] [place], [address] CBC W/DIFF, AUTOMATED Collected: 11/10/2016 Status: F Source: TAMIKO 11:50 AM [facility] REPOSITORY TYPE CODE TESTS RESULT OUT OF RANGE REFERENCE UNITS LAB L100.1000 Normal 4.4-11.0 K/mm3 WBC 7.8 LAB L100.1200 Low 4.2-5.4 M/mm3 RBC 3.62 LAB L100.1300 Low 12.0-15.0 g/dl HGB 10.8 LAB L100.1400 Low 37-47 % HCT 36.9 LAB L100.1500 High 81-99 fL MCV 101.9 LAB L100.1600 Normal 27.0-32.0 pg MCH 29.8 LAB L100.1700 Low 32-36 g/gl MCHC 29.3 LAB L100.1810 High 11.6-14.6 % RDW 15.9 CV LAB L100.1820 High 35.1-43.9 fl RDW 58.4 SD LAB L100.1900 Normal 150-450 K/mm3 PLT 234 LAB L100.2000 Normal 6.2-12.0 fl MPV 9.7 LAB L100.2100 High 47-70 % NEUT% 75.3 LAB L100.2200 Low 19-41 % LY% 14.8 LAB L100.2300 Normal 0-10 % MONO% 7.3 LAB L100.2400 Normal 0-5 % EO% 1.8 LAB L100.2500 Normal 0-1 % BASO% 0.4 LAB L100.2550 Normal 0.0-0.9 % IM 0.400 GRAN % Result Comment: IG% - Immature Granulocytes (promyelocytes, myelocytes andmetamyelocytes) > 1% indicates that a LEFT SHIFT is Present. LAB L100.2620 Normal 2.0-7.7 X10 3/uL Absolute Neut 5.9 LAB L100.2720 Normal 0.83-4.51 X10 3/ul Absolute Lymph 1.15 Performed By: #### L100.0100, L503.6620 ####[facility] [address] [place], [place], [address] BNP,B-TYPE NATRIURETIC Collected: 11/10/2016 Status: F Source: MOUTH OF W[place] PEPTIDE 11:50 AM [facility] REPOSITORY TYPE CODE TESTS RESULT OUT OF RANGE REFERENCE UNITS LAB L503.6620 High 0-100 pg/mL 875.0 B-TYPE BAILEE PEP Performed By: #### L100.0100, L503.6620 ####[facility] [address] [place], [address] COMPREHENSIVE METABOLIC Collected: 11/10/2016 Status: F Source: TAMIKO PROFIL 11:50 AM [facility] REPOSITORY Order Comment: 'TROP' Serial specimen #1, #2, #3, or #4: 1 TYPE CODE TESTS RESULT OUT OF RANGE REFERENCE UNITS LAB L501.0100 High 70-110 mg/dL GLU 113 Result Comment: Fasting Glucose result from 110 to <126 mg/dLsuggests IMPAIRED HOMEOSTASIS per A.D.A. criteria. LAB L501.1000 High 7-18 mg/dL BUN 47 LAB L501.1100 High 0.55-1.02 mg/dL CREAT,SERUM 1.97 Result Comment: The validity of the calculated GFR AND GFRAA in patients over70 years has not been determined. Clinical correlation isessential. LAB L501.1110 Low >60 mL/min EST GFR 26 Result Comment: Non- GFR Calc LAB L501.1115 Low >60 mL/min EST GFR - AA 31 Result Comment: GFR Calc LAB L501.1255 Normal ml/min Estimated 43.84 CRCL LAB L501.1300 High 10-20 RATIO BUN/CRE 23.9 LAB L501.1500 Normal 6.4-8. g/dL T PROT 6.7 2 LAB L501.1800 Low 3.4-5. g/dL ALB 3.0 0 LAB L501.1950 High 2.3-3. g/dL GLOB 3.7 5 LAB L501.2000 Low 0.9-2. RATIO A/G 0.8 4 LAB L501.2200 Low 8.5-10 mg/dL CA 8.3 .1 LAB L501.4100 Normal 15-37 U/L AST 17 LAB L501.4305 Normal 45-117 U/L ALK P 93 LAB L501.4405 Normal 12-78 U/L ALT 22 LAB L501.4600 Normal 0.20-1 mg/dL T BILI 0.40 .00 LAB L501.5300 Normal 136-14 mmol/L NA 143 5 LAB L501.5600 Normal 3.5-5. mmol/L K 5.1 1 LAB L501.5900 Normal 98-107 mmol/L CL 106 LAB L501.6100 Normal 21.0-3 mmol/L CO2 26.0 2.0 LAB L501.6200 Normal 5-15 GAP 11 Performed By: #### L500.4050, L501.4010, M200.1000 ####[facility] [address] [place], [place], [address] TROPONIN-I Collected: 11/10/2016 Status: F Source: MOUTH OF WILSON 11:50 AM [facility] REPOSITORY Order Comment: 'TROP' Serial specimen #1, #2, #3, or #4: 1 TYPE CODE TESTS RESULT OUT OF RANGE REFERENCE UNITS LAB L501.4010 High <0.06 ng/mL 0.13 TROPONIN-I Result Comment: TROPONIN-I EXPECTED VALUES <0.05 NEGATIVE 0.06 - 0.59 AT RISK OF ND > OR =0.60 SUGGEST ND Performed By: #### L500.4050, L501.4010, M200.1000 ####[facility] [address] [place], [place], [address] LACTIC ACID Collected: 11/10/2016 Status: F Source: TAMIKO 11:50 AM [facility] REPOSITORY TYPE CODE TESTS RESULT OUT OF RANGE REFERENCE UNITS LAB L503.6005 Normal 0.4-2.0 mmol/L LACTIC 1.0 ACID Performed By: #### L503.6005, L300.3900, L300.4310 ####[facility] [address] [place], [address] PROTHROMBIN TIME W/INR Collected: 11/10/2016 Status: F Source: TAMIKO 11:50 AM [facility] REPOSITORY TYPE CODE TESTS RESULT OUT OF RANGE REFERENCE UNITS LAB L300.4150 Normal 11.7-14.9 SECONDS PROTIME 13.8 LAB L300.4200 Normal INR 1.1 Performed By: #### L503.6005, L300.3900, L300.4310 ####[facility] [address] [place], [place], [address] PARTIAL THROMBOPLAST Collected: 11/10/2016 Status: F Source: TAMIKO TIME 11:50 AM [facility] REPOSITORY TYPE CODE TESTS RESULT OUT OF REFERENCE UNITS RANGE LAB L300.4310 High 24.1-36.2 Seconds PTT 36.5 Performed By: #### L503.6005, L300.3900, L300.4310 ####[facility] [address] [place], [address] Observed: 11/10/2016 Status: F Source: TAMIKO CULTURE, BLOOD (WB) 11:50 AM [facility] REPOSITORY BCNo growth in 5 days. Performed By: #### M200.1000 ####[facility] [address] [place], [place], [address] CHEST 1 VIEW Observed: 11/10/2016 Status: F Source: TAMIKO (PORTABLE) 11:44 AM [facility] RE[facility]ITORY [facility] [address] [place], [place] [address]Rxxuyel 4dChest 1 View (Portable)MR#: [id number] Acct: [id number]: KAILASH GILES Rep #: [id number]: 1935 F 80 From: Juan Iniguze MDPCP: Tom Ramirez MD Status: REG ERStudy: Chest 1 View (Portable) Date of Exam: 11/10/16Exam# [id number] Ordering Dr: Edwin Willis MDSTUDY: X-RAY CHESTREASON FOR EXAM: Female, 80 years old. Shortness of breath. History ofcoronary artery disease.TECHNIQUE: Single AP portable view of the chest.COMPARISON: Comparison is made with prior study dated May 15, 2016. FINDINGS:EKG electrodes are seen.There is evidence of vascular congestion and mild CHF. There is nodemonstrated pleural abnormality.There is mild cardiac enlargement. Normal mediastinum and yolis. Normalvisualized pulmonary arteries. There is atherosclerotic calcification ofthe aortic arch with tortuosity.Normal visualized thoracic spine. Normal visualized ribs, clavicles, andshoulders.There is no demonstrated abnormality of the visualized soft tissuestructures of the upper abdomen. RAD/Chest 1 View (Portable)IMPRESSION:Basilar congestion and mild CHF.Electronically Signed:Juan Iniguez MD at 12:23 EDTTel [phone], Service support [phone], ZI: Tom Ramirez MD; Edwin Willis Line Analyst:Signed CBC-COMPLETE BLOOD CNT Collected: 11/08/2016 Status: F Source: TAMIKO NO DIFF 6:45 AM [facility] REPOSITORY Order Comment: 501*1501*1 TYPE CODE TESTS RESULT OUT OF RANGE REFERENCE UNITS LAB L100.1000 Normal 4.4-11.0 K/mm3 WBC 6.8 LAB L100.1200 Low 4.2-5.4 M/mm3 RBC 3.77 LAB L100.1300 Low 12.0-15.0 g/dl HGB 11.3 LAB L100.1400 Normal 37-47 % HCT 37.3 LAB L100.1500 Normal 81-99 fL MCV 98.9 LAB L100.1600 Normal 27.0-32.0 pg MCH 30.0 LAB L100.1700 Low 32-36 g/gl MCHC 30.3 LAB L100.1810 High 11.6-14.6 % RDW 15.6 CV LAB L100.1820 High 35.1-43.9 fl RDW 54.7 SD LAB L100.1900 Normal 150-450 K/mm3 PLT 248 LAB L100.2000 Normal 6.2-12.0 fl MPV 9.9 Performed By: #### L100.0500 ####[facility] [address] [place], [address] BASIC METABOLIC Collected: 11/08/2016 Status: F Source: MOUTH OF WILSON PROFILE (BMP) 6:45 AM [facility] REPOSITORY Order Comment: 501*1 TYPE CODE TESTS RESULT OUT OF RANGE REFERENCE UNITS LAB L501.0100 Normal 70-110 mg/dL GLU 107 LAB L501.1000 High 7-18 mg/dL BUN 37 LAB L501.1100 High 0.55-1.02 mg/dL 1.59 CREAT,SERUM Result Comment: The validity of the calculated GFR AND GFRAA in patients over70 years has not been determined. Clinical correlation isessential. LAB L501.1110 Low >60 mL/min EST GFR 33 Result Comment: Non- GFR Calc LAB L501.1115 Low >60 mL/min EST GFR - AA 40 Result Comment: GFR Calc LAB L501.1300 High 10-20 RATIO BUN/CRE 23.3 LAB L501.2200 Low 8.5-10.1 mg/dL CA 8.3 LAB L501.5300 Normal 136-145 mmol/L NA 142 LAB L501.5600 Normal 3.5-5.1 mmol/L K 4.9 LAB L501.5900 High 98-107 mmol/L CL 108 LAB L501.6100 Normal 21.0-32.0 mmol/L CO2 24.0 LAB L501.6200 Normal 5-15 GAP 10 Performed By: #### L500.2500 ####[facility] [address] [place], [place], [address] CBC-COMPLETE BLOOD CNT Collected: 10/04/2016 Status: F Source: TAMIKO NO DIFF 7:25 AM [facility] REPOSITORY Order Comment: [id number] TYPE CODE TESTS RESULT OUT OF RANGE REFERENCE UNITS LAB L100.1000 Normal 4.4-11.0 K/mm3 WBC 7.2 LAB L100.1200 Low 4.2-5.4 M/mm3 RBC 4.04 LAB L100.1300 Low 12.0-15.0 g/dl HGB 11.7 LAB L100.1400 Normal 37-47 % HCT 38.8 LAB L100.1500 Normal 81-99 fL MCV 96.0 LAB L100.1600 Normal 27.0-32.0 pg MCH 29.0 LAB L100.1700 Low 32-36 g/gl MCHC 30.2 LAB L100.1810 High 11.6-14.6 % RDW 15.5 CV LAB L100.1820 High 35.1-43.9 fl RDW 52.9 SD LAB L100.1900 Normal 150-450 K/mm3 PLT 411 LAB L100.2000 Normal 6.2-12.0 fl MPV 9.8 Performed By: #### L100.0500 ####[facility] [address] [place], [place], [address] BASIC METABOLIC Collected: 10/04/2016 Status: F Source: TAMIKO PROFILE (BMP) 7:25 AM [facility] REPOSITORY Order Comment: 409 TYPE CODE TESTS RESULT OUT OF RANGE REFERENCE UNITS LAB L501.0100 Normal 70-110 mg/dL GLU 83 LAB L501.1000 High 7-18 mg/dL BUN 38 LAB L501.1100 High 0.55-1.02 mg/dL 1.81 CREAT,SERUM Result Comment: The validity of the calculated GFR AND GFRAA in patients over70 years has not been determined. Clinical correlation isessential. LAB L501.1110 Low >60 mL/min EST GFR 29 Result Comment: Non- GFR Calc LAB L501.1115 Low >60 mL/min EST GFR - AA 34 Result Comment: GFR Calc LAB L501.1300 High 10-20 RATIO BUN/CRE 21.0 LAB L501.2200 Normal 8.5-10.1 mg/dL CA 9.0 LAB L501.5300 Normal 136-145 mmol/L NA 144 LAB L501.5600 Normal 3.5-5.1 mmol/L K 5.1 LAB L501.5900 Normal 98-107 mmol/L CL 107 LAB L501.6100 Normal 21.0-32.0 mmol/L CO2 28.0 LAB L501.6200 Normal 5-15 GAP 9 Performed By: #### L500.2500 ####[facility] [address] [place], [address] ALLERGIES ALLERGIES DATE TYPE / CODE NAME / CODE REACTION SEVERITY SOURCE 09/08/2017 Drug Sulfa Swelling Unknown [facility]/4160 ([place] [address](SNOMED Antibiotics)/ Repository CT) [id number](RX NORM) 09/08/2017 Drug morphine/F006 Unknown Unknown [facility]/4160 370214([place] 1434502(SNOMED ) Repository CT) 11/11/2016 Drug morphine/F006 Other [facility] Allergy/4160 354790([place] 1434[address](SNOMED ) Repository CT) 11/10/2016 Drug Sulfa Hives [facility] Allergy/4160 ([place] [address](SNOMED Antibiotics)/ Repository CT) [id number](RX NORM) ENCOUNTERS ENCOUNTERS ADMIT/DISCHARGE ACCOUNT ADMITTING ENCOUNTER LOCATION SOURCE NUMBER CLASS 09/12/2017 [id number] Ambulatory [facility] ing:ACRoom: Repository VW78Lvs: 1 08/11/2017 [id number] Ambulatory Tamiko [facility] ing:JANIE Repository S 05/16/2017 [id number] Ambulatory Tamiko [facility] ing:JANIE Repository S 05/09/2017 [id number] Ambulatory Tamiko [facility] ing:JANIE Repository S 03/02/2017 [id number] Ambulatory [facility] ing:BUFFYA Repository S 11/10/2016/ [id number] [place]re[place], Inpatient Tamiko [facility] 6 Chavo Encounter [facility] ing:PCURoom: Repository [id number]: 1 11/08/2016 [id number] Ambulatory Tamiko [facility] ing:BUFFYA Repository S 10/04/2016 [id number] Ambulatory Tamiko [facility] ing:NIMCO.WHLTC Repository C PAYERS PAYERS ENCOUNTER GUARANTOR PAYER SUBSCRIBER SOURCE 09/12/2017 LEOTA Ara Primary LEOTA M [facility] [id number] Insurance:MEDICARE HUTCHISONDOB: [facility] [id number], Number: Repository [place] [address]Yrt: 330 [id number] [phone] (HP) Date:2017-09-06 09/12/2017 Secondary NOT GIVENUNK Tamiko Insurance:SELF PAY [facility], [place] Number: Effective Repository Date:2017-09-06 08/11/2017 Dubach Ara Primary NOT GIVENUNK Tamiko [id number] Insurance:SELF PAY [place], [place] Number: Effective Repository [id number]: (330) Date:2017-08-11 [phone] (HP) 05/16/2017 KAILASH Bullock Primary LEOTA Ara Tamiko [id number] Insurance:MEDICARE HUTCHISONDOB: [facility] [id number] [place] Number: Repository [address]Tfx: 330 [id number] [phone] (HP) Date:1999-12-07 05/09/2017 LEOTA M Primary LEOTA M [facility] [id number] Insurance:MEDICARE HUTCHISONDOB: [facility] [id number], [place] Number: Repository [address]Ewi: 330 [id number] [phone] (HP) Date:1999-12-07 03/02/2017 LEOTA M Primary LEOTA M [facility] [id number] Insurance:MEDICARE HUTCHISONDOB: [facility] A [facility] [id number] [place] Number: Repository [address]Nxb: 330 [id number] [phone] (HP) Date:1999-12-07 11/10/2016 KATYALETTY Bullock Primary KAILASH Morrison [id number] Insurance:MEDICARE HUTCHISONDOB: [facility] [id number], [place] Number: Repository [address]Eoh: 330 [id number] [phone] (HP) Date:1999-12-07 11/08/2016 KAILASH Ara Primary KAILASH Morrison [id number] Insurance:MEDICARE HUTCHISONDOB: [facility] [id number] [place] Number: Repository [address]Fhz: 330 [id number] [phone] (HP) Date:1999-12-07 10/04/2016 KATYALETTY Bullock Primary KAILASH Morrison [id number] Insurance:MEDICARE HUTCHISONDOB: [facility] [id number] [place] Number: Repository [address]Kfh: 330 [id number] [phone] (HP) Date:1999-12-07
--- NOTE | 2017-09-12 12:40 | RAD_ITS ---
PROCEDURE: Caudal block. DATE OF EXAMINATION: September 12, 2017. INDICATION: Female, 81 years old. Chronic low back pain. FLUOROSCOPY TIME (if supplied): (0:08) minutes/seconds Imaging provided for caudal block. RAD/Fluor Guidance for Spine Inj IMPRESSION: Intraoperative imaging provided for caudal block. Electronically Signed: Juan Iniguez MD at 13:47 EST Tel [phone], Service support ,
[2017-09-12] MEDS: MethylPREDNISolone Acetate 80 MG/ML Vial (12:48)
[2017-09-12] MEDS: Bupivacaine 0.25% 30 ML Vial (12:49)
--- NOTE | 2017-09-12 14:39 | PCM.OPRPT ---
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 Report of Operation Date of Procedure: 09/12/17 Pre-Operative Diagnosis: Lumbosacral radiculopathy, lumbosacral degenerative disc disease, lumbosacral spinal stenosis, postlaminectomy syndrome of the lumbar spine Post-Operative Diagnosis: Lumbosacral radiculopathy, lumbosacral degenerative disc disease, lumbosacral spinal stenosis, postlaminectomy syndrome of the lumbar spine Surgery/Procedure Performed:: Diagnostic/therapeutic caudal epidural steroid injection Description of Surgical Findings:: PROCEDURE: Diagnostic/therapeutic caudal epidural steroid injection PREOPERATIVE DIAGNOSIS: Lumbosacral radiculopathy, lumbosacral degenerative disc disease, lumbosacral spinal stenosis, post laminectomy syndrome of the lumbar spine POSTOPERATIVE DIAGNOSIS: Lumbosacral radiculopathy, lumbosacral degenerative disc disease, lumbosacral spinal stenosis, postlaminectomy syndrome of the lumbar spine ANESTHESIA: MAC COMPLICATIONS: None BLOOD LOSS: Minimal PROCEDURE IN DETAIL: History and physical today was reviewed. Risks and benefits of the procedure were explained. The patient understood, agreed to our procedure, and informed consent was obtained. IV inserted per routine protocol. The patient was taken to the operating room, placed in a prone position with a pillow positioned underneath the abdomen. Lower back and tailbone area was prepped and draped in a sterile fashion using iodine ?3 under fluoroscopy guidance on the lateral view the caudal space was identified the skin and subcutaneous tissue and size approximately 3 cc of 1% lidocaine using a 25-gauge regular needle under direct visualization with fluoroscopy using a 22-gauge 3-1/2 inch spinal needle the needle was advanced via the skin through the sacral hiatus the peroneal passed through the sacrococcygeal ligament advanced approximately S4 area after negative aspiration for blood or CSF a total of 3 cc of contrast were injected to confirm correct placement of the needle as well as cephalad spread the spread was followed to approximately L5 area after confirmation AP as well as lateral view repeated negative aspiration a total of 15 cc of preservative-free 0.125% Marcaine with 80 mg of Depo-Medrol was injected easily. The needles were then removed intact. The patient experienced no signs or symptoms intrathecal, intravascular injection. The patient experienced no paraesthesia. The procedure was completed without any apparent difficult, any complication. The patient appeared to tolerate well. ASSESSMENT AND PLAN: This is a 81-year-old female with lumbosacral radiculopathy, lumbosacral degenerative disc disease, lumbosacral spinal stenosis, postlaminectomy syndrome of the lumbar spine status post diagnostic/therapeutic caudal epidural steroid injection. The patient will continue her current medications. The patient will follow in approximately 2 weeks for possible repeat of the procedure if indicated.
== END 2017-09-12 14:15 | disposition home or self-care (01) ==
LOC: SDC 11:16 → AC 11:16
PROVIDERS: Family Provider Family Medicine; PCP Family Medicine; Visit Provider Anesthesiology Pain Medicine
PROC: 3E0S3BZ Introduction of Anesthetic Agent into Epidural Space, Percutaneous Approach (ICD-10-PCS; CPT 62282; principal; 2017-09-12 12:35)
DX: M51.17 Intervertebral disc disorders with radiculopathy, lumbosacral region (principal); M48.07 Spinal stenosis, lumbosacral region; M96.1 Postlaminectomy syndrome, not elsewhere classified; I13.2 Hypertensive heart and chronic kidney disease with heart failure and with stage 5 chronic kidney disease, or end stage renal disease; N18.6 End stage renal disease; I50.9 Heart failure, unspecified; I35.0 Nonrheumatic aortic (valve) stenosis; G25.81 Restless legs syndrome; F32.9 Major depressive disorder, single episode, unspecified; F41.9 Anxiety disorder, unspecified; E06.9 Thyroiditis, unspecified; R06.09 Other forms of dyspnea; Z79.82 Long term (current) use of aspirin; Z79.899 Other long term (current) drug therapy
CPT/HCPCS: 62323; 64483; 77003; J7120; J3490

== ENCOUNTER 2017-10-10 09:13 | Day surgery (SDC) | payer MEDICARE, SELFPAY ==
[2017-10-10 09:39] VITALS: BP 140/59; PULSE 59; RESP 16; TEMP 36.1; O2SAT 99; BMI 55.0
--- NOTE | 2017-10-10 10:50 | RAD_ITS ---
STUDY: X-RAY - LEFT KNEE REASON FOR EXAM: Female, 81 years old. Intraoperative digital documentation images of left knee injection of the genicular nerve. TECHNIQUE: 3 intraoperative digital nondiagnostic documentation view(s) of the knee. COMPARISON: None. FINDINGS: 3 intraoperative digital nondiagnostic documentation views show a needle adjacent to the tibia. RAD/Knee 3 Views IMPRESSION: Intraoperative digital diagnostic views as described. Electronically Signed: Carlos Fuller MD at 17:03 EST , Service support ,
--- NOTE | 2017-10-10 11:00 | RAD_ITS ---
STUDY: X-RAY - LEFT KNEE REASON FOR EXAM: Female, 81 years old. . TECHNIQUE: 2 intraoperative digital documentation view(s) of the knee. COMPARISON: None. FINDINGS: 2 digital nondiagnostic documentation views show a vertical slightly oblique fracture of the distal femur with intra-articular extension and exuberant callus formation proximally. No distal callus formation is noted. RAD/Knee 1 or 2 Views IMPRESSION: Nondiagnostic digital documentation images. Electronically Signed: Carlos Fuller MD at 17:04 EST , Service support ,
[2017-10-10] MEDS: Bupivacaine 0.25% 30 ML Vial (11:05)
[2017-10-10] MEDS: MethylPREDNISolone Acetate 80 MG/ML Vial (11:05)
[2017-10-10 11:13] VITALS: BP 125/52; BP 140/59; PULSE 60; RESP 14; TEMP 36.2; O2SAT 100
[2017-10-10 11:20] VITALS: BP 140/59; BP 161/73; PULSE 62; RESP 16; O2SAT 97
[2017-10-10 11:25] VITALS: BP 140/59; BP 175/75; PULSE 61; RESP 16; O2SAT 98
[2017-10-10 11:30] VITALS: BP 140/59; BP 187/76; PULSE 66; RESP 16; TEMP 36.4; O2SAT 99
[2017-10-10 11:43] VITALS: BP 140/59
--- NOTE | 2017-10-10 11:55 | OP.PCM_ITS ---
Problem List (1) Primary osteoarthritis of left knee Status: Chronic Report of Operation Date of Procedure: 10/10/17 Pre-Operative Diagnosis: Osteoarthritis of the left knee Post-Operative Diagnosis: Osteoarthritis of the left knee Surgery/Procedure Performed:: Left knee superior medial, superior lateral, inferior medial genicular nerves steroid injection under fluoroscopic guidance Description of Surgical Findings:: PROCEDURE: Left knee superior medial, superior lateral, inferior medial genicular nerves steroid injection under fluoroscopic guidance PREOPERATIVE DIAGNOSES: None operative osteoarthritis of the left knee POSTOPERATIVE DIAGNOSES: Nonoperative osteoarthritis of the left knee ANESTHESIA: MAC COMPLICATIONS: None BLOOD LOSS: Minimal PROCEDURE IN DETAIL: History and physical today was reviewed. Risks and benefits of the procedure were explained. The patient understood, agreed to our procedure, and informed consent was obtained. IV inserted per routine protocol. The patient was taken to the operating room, placed in a supine position the left knee area was prepped and draped in a sterile fashion using iodine ?3 under direct visualization with fluoroscopy on AP view the left knee was visualized the skin and subcutaneous tissue and size approximately 5 cc of 1% lidocaine using a 25-gauge regular needle at the vicinity of the superior medial, superior lateral, inferior medial genicular nerves. Under direct visualization fluoroscopy on AP view using a 22-gauge 3-1/ 2 inch spinal needle starting on the left superior medial ending on the left inferior medial passing through the left superior lateral genicular nerves the needle passed through the skin the tip of the needle's maneuver and directed towards the diaphyseal junction of each corresponding nerve, once at the vicinity of the nerve and confirmation on AP as well as lateral view a total of 12 cc of preservative-free 0.25% Marcaine with 80 mg of Depo-Medrol were injected in divided doses between those 3 levels after negative aspiration for blood, the needle was then removed intact patient experienced no sinus symptoms or intravascular injection patient experienced no paresthesia the procedure was completed without any apparent difficulty any complication the patient appeared to tolerate well. ASSESSMENT AND PLAN: This is a 81-year-old female with osteoarthritis of the left knee status post super superior medial, superior lateral, inferior medial genicular nerve steroid injection under fluoroscopic guidance, patient will continue his current medications patient will follow approximately 2 weeks for reevaluation.
== END 2017-10-10 11:57 | disposition home or self-care (01) ==
LOC: SDC 09:13 → AC 09:16
PROVIDERS: Family Provider Family Medicine; PCP Family Medicine; Visit Provider Anesthesiology Pain Medicine
PROC: 3E0U3GC Introduction of Other Therapeutic Substance into Joints, Percutaneous Approach (ICD-10-PCS; CPT 20610; principal; 2017-10-10 10:45)
DX: M17.12 Unilateral primary osteoarthritis, left knee (principal); G89.29 Other chronic pain; I13.0 Hypertensive heart and chronic kidney disease with heart failure and stage 1 through stage 4 chronic kidney disease, or unspecified chronic kidney disease; N18.4 Chronic kidney disease, stage 4 (severe); I50.9 Heart failure, unspecified; Z87.891 Personal history of nicotine dependence; I49.9 Cardiac arrhythmia, unspecified; I42.9 Cardiomyopathy, unspecified; G25.81 Restless legs syndrome; E03.9 Hypothyroidism, unspecified; F32.9 Major depressive disorder, single episode, unspecified; F41.9 Anxiety disorder, unspecified; G40.909 Epilepsy, unspecified, not intractable, without status epilepticus; Z86.14 Personal history of Methicillin resistant Staphylococcus aureus infection; Z79.82 Long term (current) use of aspirin; Z79.891 Long term (current) use of opiate analgesic; Z79.899 Other long term (current) drug therapy; M96.1 Postlaminectomy syndrome, not elsewhere classified; M48.062 Spinal stenosis, lumbar region with neurogenic claudication; M47.817 Spondylosis without myelopathy or radiculopathy, lumbosacral region; M51.17 Intervertebral disc disorders with radiculopathy, lumbosacral region; M79.7 Fibromyalgia; M46.96 Unspecified inflammatory spondylopathy, lumbar region
CPT/HCPCS: 20610; 73560; 73562; 76000; J7120

== ENCOUNTER 2017-11-07 06:37 | Day surgery (SDC) | payer MEDICARE, SELFPAY ==
[2017-11-07 07:22] VITALS: BP 122/36; PULSE 57; RESP 16; TEMP 36.8; O2SAT 97; BMI 50.6
--- NOTE | 2017-11-07 08:20 | RAD_ITS ---
STUDY: X-RAY - LEFT KNEE REASON FOR EXAM: Female, 81 years old. Radiofrequency ablation in the genicular nerve TECHNIQUE: 9 view(s) of the knee. COMPARISON: None. FINDINGS: 9 views were performed , as radiology support for c-arm imaging in the operating room. This is not a diagnostic examination. Images for for documentation purposes only. Reported fluoroscopy time 0.18. RAD/Knee 1 or 2 Views IMPRESSION: Intraoperative fluoroscopic guidance. Electronically Signed: Taylor Newberry MD at 4:37 EDT , Service support ,
[2017-11-07] MEDS: Bupivacaine 0.25% 30 ML Vial (08:26)
[2017-11-07] MEDS: MethylPREDNISolone Acetate 80 MG/ML Vial (08:26)
[2017-11-07 08:45] VITALS: BP 111/58; BP 122/36; PULSE 47; RESP 16; TEMP 36.6; O2SAT 98
[2017-11-07 08:52] VITALS: BP 122/36; BP 149/58; PULSE 55; RESP 16; O2SAT 95
[2017-11-07 08:55] VITALS: BP 122/36; BP 137/53; PULSE 49; RESP 16; O2SAT 98
[2017-11-07 09:00] VITALS: BP 122/36; BP 153/60; PULSE 54; RESP 16; TEMP 36.7; O2SAT 98
[2017-11-07 09:56] VITALS: BP 122/36
--- NOTE | 2017-11-07 10:16 | PCM.OPRPT ---
Problem List (1) Unilateral primary osteoarthritis, left knee Status: Chronic (2) Chronic pain of left knee Status: Chronic Report of Operation Date of Procedure: 11/07/17 Pre-Operative Diagnosis: Osteoarthritis of the left knee, chronic nonoperative left knee pain Post-Operative Diagnosis: Osteoarthritis of the left knee, chronic nonoperative left knee pain Surgery/Procedure Performed:: Left sided radiofrequency ablation of the knee superior medial, superior lateral, inferior medial genicular nerves under fluoroscopic guidance Description of Surgical Findings:: PROCEDURE: Left sided radiofrequency ablation of the knee superior medial, superior lateral, inferior medial genicular nerves under fluoroscopic guidance PREOPERATIVE DIAGNOSIS: Osteoarthritis of the left knee, chronic nonoperative left knee pain POSTOPERATIVE DIAGNOSIS: Osteoarthritis of the left knee, chronic nonoperative left knee pain ANESTHESIA: MAC COMPLICATIONS: None BLOOD LOSS: Minimal PROCEDURE IN DETAIL: History and physical today was reviewed. Risks and benefits of the procedure were explained. The patient understood, agreed to our procedure, and informed consent was obtained. IV inserted per routine protocol. The patient was taken to the operating room, placed in a supine position with a pillow position underneath the left knee the left knee was prepped and draped in a sterile fashion using iodine ?3 under direct visualization fluoroscopy on AP view the left knee joint was visualized the skin and subcutaneous tissue were anesthetized with approximately 10 cc of 1% lidocaine using a 25-gauge regular needle under direct visualization fluoroscopy starting at the left superior medial ending at the left inferior medial passing through the left superior lateral genicular nerves using a 20-gauge 10 cm with a 10 mm curved active tip radiofrequency ablation needle the needle passed through the skin the tip of the needle's maneuver and directed towards the diaphyseal junction of each corresponding nerve once the tip of the needle was at the vicinity of the nerve and contact with the bone after confirmation of AP as well as lateral and oblique view the stylette of each needle was then removed after negative aspiration for blood the radiofrequency ablation probe was then inserted at each level impedance was recorded at the superior medial 274 at the superior lateral 272 at the inferior medial 230 ohm motor evoked potential was then initiated to 1.5 V without any motor response at each corresponding level the radiofrequency ablation probe was then removed after repeated negative aspiration for blood a total of 6 cc of preservative-free 1% lidocaine were injected in divided doses between those 3 levels the radiofrequency ablation probe was then reinserted after confirmation AP as well as lateral view radiofrequency ablation was then initiated to 80?C for 90 seconds at each level once concluded the probe was then removed intact and a total of 6 cc of preservative-free 0.25% Marcaine with 40 mg of Depo-Medrol were injected in divided doses between those 3 levels the needles were then removed intact patient experienced no sinus symptoms of intravascular injection patient experienced no paresthesia the procedure was completed without any apparent difficulty any complication the patient appeared to tolerate well sensory as well as motor exam was unchanged from prior to the procedure. ASSESSMENT AND PLAN: This is a 81-year-old female with osteoarthritis of the left knee, chronic nonoperative left knee pain status post left-sided radiofrequency ablation of the knee superior medial, superior lateral, inferior medial genicular nerves under fluoroscopic guidance guidance, patient will continue her current medications. The patient will follow in approximately 2 weeks for reevaluation.
--- NOTE | 2017-11-07 10:25 | OP.PCM_ITS ---
Problem List (1) Unilateral primary osteoarthritis, left knee Status: Chronic (2) Chronic pain of left knee Status: Chronic Report of Operation Date of Procedure: 11/07/17 Pre-Operative Diagnosis: Osteoarthritis of the left knee, chronic nonoperative left knee pain Post-Operative Diagnosis: Osteoarthritis of the left knee, chronic nonoperative left knee pain Surgery/Procedure Performed:: Left sided radiofrequency ablation of the knee superior medial, superior lateral, inferior medial genicular nerves under fluoroscopic guidance Description of Surgical Findings:: PROCEDURE: Left sided radiofrequency ablation of the knee superior medial, superior lateral , inferior medial genicular nerves under fluoroscopic guidance PREOPERATIVE DIAGNOSIS: Osteoarthritis of the left knee, chronic nonoperative left knee pain POSTOPERATIVE DIAGNOSIS: Osteoarthritis of the left knee, chronic nonoperative left knee pain ANESTHESIA: MAC COMPLICATIONS: None BLOOD LOSS: Minimal PROCEDURE IN DETAIL: History and physical today was reviewed. Risks and benefits of the procedure were explained. The patient understood, agreed to our procedure, and informed consent was obtained. IV inserted per routine protocol. The patient was taken to the operating room, placed in a supine position with a pillow position underneath the left knee the left knee was prepped and draped in a sterile fashion using iodine ?3 under direct visualization fluoroscopy on AP view the left knee joint was visualized the skin and subcutaneous tissue were anesthetized with approximately 10 cc of 1 % lidocaine using a 25-gauge regular needle under direct visualization fluoroscopy starting at the left superior medial ending at the left inferior medial passing through the left superior lateral genicular nerves using a 20- gauge 10 cm with a 10 mm curved active tip radiofrequency ablation needle the needle passed through the skin the tip of the needle's maneuver and directed towards the diaphyseal junction of each corresponding nerve once the tip of the needle was at the vicinity of the nerve and contact with the bone after confirmation of AP as well as lateral and oblique view the stylette of each needle was then removed after negative aspiration for blood the radiofrequency ablation probe was then inserted at each level impedance was recorded at the superior medial 274 at the superior lateral 272 at the inferior medial 230 ohm motor evoked potential was then initiated to 1.5 V without any motor response at each corresponding level the radiofrequency ablation probe was then removed after repeated negative aspiration for blood a total of 6 cc of preservative- free 1% lidocaine were injected in divided doses between those 3 levels the radiofrequency ablation probe was then reinserted after confirmation AP as well as lateral view radiofrequency ablation was then initiated to 80?C for 90 seconds at each level once concluded the probe was then removed intact and a total of 6 cc of preservative-free 0.25% Marcaine with 40 mg of Depo-Medrol were injected in divided doses between those 3 levels the needles were then removed intact patient experienced no sinus symptoms of intravascular injection patient experienced no paresthesia the procedure was completed without any apparent difficulty any complication the patient appeared to tolerate well sensory as well as motor exam was unchanged from prior to the procedure. ASSESSMENT AND PLAN: This is a 81-year-old female with osteoarthritis of the left knee, chronic nonoperative left knee pain status post left-sided radiofrequency ablation of the knee superior medial, superior lateral, inferior medial genicular nerves under fluoroscopic guidance guidance, patient will continue her current medications. The patient will follow in approximately 2 weeks for reevaluation.
== END 2017-11-07 09:57 | disposition home or self-care (01) ==
LOC: SDC 06:38 → AC 06:40
PROVIDERS: Visit Provider Anesthesiology Pain Medicine
PROC: (CPT 64640; principal; 2017-11-07 08:05)
DX: M17.12 Unilateral primary osteoarthritis, left knee (principal); G89.29 Other chronic pain; I13.0 Hypertensive heart and chronic kidney disease with heart failure and stage 1 through stage 4 chronic kidney disease, or unspecified chronic kidney disease; N18.3 Chronic kidney disease, stage 3 (moderate); I50.9 Heart failure, unspecified; Z87.891 Personal history of nicotine dependence; I42.9 Cardiomyopathy, unspecified; I49.9 Cardiac arrhythmia, unspecified; E03.9 Hypothyroidism, unspecified; F32.9 Major depressive disorder, single episode, unspecified; F41.9 Anxiety disorder, unspecified; Z86.14 Personal history of Methicillin resistant Staphylococcus aureus infection; M96.1 Postlaminectomy syndrome, not elsewhere classified; M48.062 Spinal stenosis, lumbar region with neurogenic claudication; M47.897 Other spondylosis, lumbosacral region; M51.17 Intervertebral disc disorders with radiculopathy, lumbosacral region; M79.1 Myalgia; Z79.82 Long term (current) use of aspirin; Z79.891 Long term (current) use of opiate analgesic; Z79.899 Other long term (current) drug therapy
CPT/HCPCS: 64640; 73560; 76000; J7120

== ENCOUNTER → 2017-11-09 05:00 | Outpatient (REF) | payer MEDICARE, SELFPAY ==
[2017-11-09 08:37] LABS: Hematocrit 37.2 % (37-47); Hemoglobin 11.5 g/dl (12.0-15.0); Mean Corp Hgb Conc 30.9 g/gl (32-36); Mean Corpuscular Hgb 30.5 pg (27.0-32.0); Mean Corpuscular Volume 98.7 fL (81-99); Mean Platelet Vol. 10.6 fl (6.2-12.0); Platelet Count 261 K/mm3 (150-450); RBC Distribution Width CV 13.9 % (11.6-14.6); Red Blood Count 3.77 M/mm3 (4.2-5.4); White Blood Count 5.4 K/mm3 (4.4-11.0)
[2017-11-09 09:00] LABS: Anion Gap 6 (5-15); BUN 53 mg/dL (7-18); BUN/Creat Ratio 27.3 RATIO (10-20); Calcium,Total 8.4 mg/dL (8.5-10.1); Chloride 111 mmol/L (98-107); Creatinine, Serum 1.94 mg/dL (0.55-1.02); EST Glomerular Filtration Rate 26 mL/min (>60); Est Glom Filt Rate - Afr Amer 32 mL/min (>60); Glucose 86 mg/dL (74-106); Potassium 5.8 mmol/L (3.5-5.1); Sodium Level 144 mmol/L (136-145)
[2017-11-09 09:02] LABS: Scan Indicated on CBC? Y/N NO
== END ==
LOC: OLS.WHLEAS 05:00
PROVIDERS: Visit Provider Family Medicine
DX: I10 Essential (primary) hypertension (principal)
CPT/HCPCS: 36415; 80048; 85027

== ENCOUNTER 2017-12-12 10:16 | Day surgery (SDC) | payer SELFPAY ==
[2017-12-12 10:48] VITALS: BP 113/94; PULSE 56; RESP 16; TEMP 36.4; O2SAT 95; BMI 50.5
--- NOTE | 2017-12-12 11:10 | RAD_ITS ---
STUDY: X-RAY - LUMBAR SPINE REASON FOR EXAM: Female, 81 years old. Nondiagnostic digital intraprocedural images. TECHNIQUE: 2 view(s) of the lumbar spine were obtained. COMPARISON: None FINDINGS: 2 nondiagnostic digital intraprocedural images show a needle with contrast. Post-fusion changes are noted in the lower cervical spine. RAD/Lumbar Spine 2 or 3 Views IMPRESSION: Nondiagnostic digital intraprocedural images as described. Electronically Signed: Carlos Fuller MD at 13:05 EDT , Service support ,
[2017-12-12 11:19] VITALS: BP 103/65; BP 113/94; PULSE 59; RESP 16; TEMP 36.1; O2SAT 96
[2017-12-12 11:24] VITALS: BP 113/94; BP 116/52; PULSE 57; RESP 16; O2SAT 97
[2017-12-12 11:29] VITALS: BP 106/73; BP 113/94; PULSE 57; RESP 16; O2SAT 94
[2017-12-12 11:34] VITALS: BP 107/52; BP 113/94; PULSE 55; RESP 16; TEMP 36; O2SAT 98
--- NOTE | 2017-12-12 11:46 | OP.PCM_ITS ---
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 (2) Radiculopathy of lumbosacral region Status: Chronic (3) Spinal stenosis of lumbosacral region Status: Chronic Report of Operation Date of Procedure: 12/12/17 Pre-Operative Diagnosis: Lumbosacral radiculopathy, lumbosacral degenerative disc disease, lumbosacral spinal stenosis, postlaminectomy syndrome of the lumbar spine Post-Operative Diagnosis: Lumbosacral radiculopathy, lumbosacral degenerative disc disease, lumbosacral spinal stenosis, postlaminectomy syndrome of the lumbar spine Surgery/Procedure Performed:: Left sided lumbar transforaminal epidural steroid injection L4-5, L5-S1 Description of Surgical Findings:: PROCEDURE: Left sided lumbar transforaminal epidural steroid injection L4-5, L5-S1 PREOPERATIVE DIAGNOSIS: Lumbosacral radiculopathy, lumbosacral degenerative disc disease, lumbosacral spinal stenosis, postlaminectomy syndrome of the lumbar spine POSTOPERATIVE DIAGNOSIS: Lumbosacral radiculopathy, lumbosacral degenerative disc disease, lumbosacral spinal stenosis, postlaminectomy syndrome of the lumbar spine ANESTHESIA: MAC COMPLICATIONS: None BLOOD LOSS: Minimal PROCEDURE IN DETAIL: History and physical today was reviewed. Risks and benefits of the procedure were explained. The patient understood, agreed to our procedure, and informed consent was obtained. IV inserted per routine protocol. The patient was taken to the operating room, placed in a prone position with a pillow positioned underneath the abdomen. The right side of his lower back was prepped and draped in a sterile fashion using iodine x3. Under fluoroscopy guidance, on AP view, the L4 through S1 vertebral bodies are visualized the skin and subcutaneous tissue anesthetized approximately 5 cc of 1 % lidocaine using a 25-gauge regular needle under direct visualization fluoroscopy at approximately 35? angle starting on the left L4 ending on the left L5 using a 22-gauge 5 inch spinal needle the needle was advanced via the skin the tip of the needle's maneuver and directed towards the inferior and medial gutter of the transverse process at the superiormost aspect of the neuroforamen once the tip of the needle is at the vicinity of the foramen after negative aspiration for blood or CSF a total of 1 cc of contrast was injected in divided doses between both levels to confirm correct placement of the needle as well as medial spread the confirmation was obtained on AP as well as lateral view after repeated negative aspiration for blood or CSF a total of 6 cc of preservative-free 0.25% Marcaine with 80 mg of Depo-Medrol were injected in divided doses between both levels, the needles were then removed intact. The patient experienced no signs or symptoms intrathecal, intravascular injection. The patient experienced no paraesthesia. The procedure was completed without any apparent difficult, any complication. The patient appeared to tolerate well. ASSESSMENT AND PLAN: This is a 81-year-old Female with Lumbosacral radiculopathy, lumbosacral degenerative disc disease, lumbosacral spinal stenosis, postlaminectomy syndrome of the lumbar spine status post left-sided lumbar transforaminal epidural steroid injection L4-5, L5-S1. The patient will continue her current medications. The patient will follow in approximately 2 weeks for possible repeat of the procedure if indicated.
[2017-12-12 12:08] VITALS: BP 113/94
== END 2017-12-12 12:15 | disposition home or self-care (01) ==
LOC: SDC 10:17 → AC 10:17
PROVIDERS: Family Provider Family Medicine; PCP Family Medicine; Visit Provider Anesthesiology Pain Medicine
PROC: 3E0S3BZ Introduction of Anesthetic Agent into Epidural Space, Percutaneous Approach (ICD-10-PCS; CPT 64484; principal; 2017-12-12 11:05)
DX: M51.17 Intervertebral disc disorders with radiculopathy, lumbosacral region (principal); M48.07 Spinal stenosis, lumbosacral region; M96.1 Postlaminectomy syndrome, not elsewhere classified; I13.0 Hypertensive heart and chronic kidney disease with heart failure and stage 1 through stage 4 chronic kidney disease, or unspecified chronic kidney disease; N18.3 Chronic kidney disease, stage 3 (moderate); I50.9 Heart failure, unspecified; I42.9 Cardiomyopathy, unspecified; E03.9 Hypothyroidism, unspecified; E55.9 Vitamin D deficiency, unspecified; Z86.14 Personal history of Methicillin resistant Staphylococcus aureus infection; E53.8 Deficiency of other specified B group vitamins; B19.20 Unspecified viral hepatitis C without hepatic coma; Z87.891 Personal history of nicotine dependence; Z79.82 Long term (current) use of aspirin; Z79.891 Long term (current) use of opiate analgesic; Z79.899 Other long term (current) drug therapy
CPT/HCPCS: 64484; 64483; 72100; J7120

== ENCOUNTER → 2018-02-10 06:15 | Outpatient (REF) | payer MEDICARE, SELFPAY ==
[2018-02-10 08:09] LABS: Absolute Lymphocyte Count 1.95 X10^3/ul (0.83-4.51); Absolute Neutrophil Count 4.9 X10^3/uL (2.0-7.7); Basophil# 0.05 X10^3/uL; Basophil% 0.6 % (0-1); Eosinophil# 0.46 X10^3/uL; Eosinophils% 5.8 % (0-5); Hematocrit 37.5 % (37-47); Hemoglobin 11.4 g/dl (12.0-15.0); Lymphocyte # 1.95 X10^3/ul (4.0); Lymphocyte % 24.7 % (19-41); Mean Corp Hgb Conc 30.4 g/gl (32-36); Mean Corpuscular Hgb 29.7 pg (27.0-32.0); Mean Corpuscular Volume 97.7 fL (81-99); Mean Platelet Vol. 9.8 fl (6.2-12.0); Monocyte% 5.1 % (0-10); Neutrophil # 4.94 X10^3/uL (2.7-7.7); Neutrophil % 62.8 % (47-70); Platelet Count 353 K/mm3 (150-450); RBC Distribution Width CV 13.7 % (11.6-14.6); Red Blood Count 3.84 M/mm3 (4.2-5.4); White Blood Count 7.9 K/mm3 (4.4-11.0)
[2018-02-10 08:10] LABS: POSITIVE COUNT NO; POSITIVE DIFFERENTIAL NO; POSITIVE MORPHOLOGY NO
[2018-02-10 08:29] LABS: Anion Gap 7 (5-15); BUN 61 mg/dL (7-18); BUN/Creat Ratio 30.2 RATIO (10-20); Calcium,Total 8.9 mg/dL (8.5-10.1); Chloride 111 mmol/L (98-107); Creatinine, Serum 2.02 mg/dL (0.55-1.02); EST Glomerular Filtration Rate 25 mL/min (>60); Est Glom Filt Rate - Afr Amer 30 mL/min (>60); Glucose 82 mg/dL (74-106); Potassium 4.9 mmol/L (3.5-5.1); Sodium Level 146 mmol/L (136-145); Thyroid Stim Hormone (TSH) 0.85 uIU/mL (0.358-3.74)
[2018-02-14 08:33] LABS: Phenobarbital,Serum 4 ug/mL (15-40); Primidone, Serum 4.3 ug/mL (5.0-12.0)
== END ==
LOC: OLS.WHLEAS 06:15
PROVIDERS: Visit Provider Family Medicine
DX: D64.9 Anemia, unspecified (principal); I50.9 Heart failure, unspecified; E03.9 Hypothyroidism, unspecified
CPT/HCPCS: 36415; 80048; 80184; 80188; 84443; 85025

== ENCOUNTER 2018-03-13 08:00 | Day surgery (SDC) | payer MEDICARE, SELFPAY ==
[2018-03-13 08:37] VITALS: BP 134/60; PULSE 58; RESP 18; TEMP 36.3; O2SAT 97; BMI 50.5
[2018-03-13] MEDS: Bupivacaine 0.25% 30 ML Vial (09:15)
[2018-03-13] MEDS: MethylPREDNISolone Acetate 80 MG/ML Vial (09:15)
[2018-03-13 09:26] VITALS: BP 119/61; BP 134/60; PULSE 55; RESP 16; TEMP 36.7; O2SAT 95
[2018-03-13 09:31] VITALS: BP 134/60; BP 137/53; PULSE 53; RESP 16; O2SAT 94
[2018-03-13 09:36] VITALS: BP 127/111; BP 134/60; PULSE 60; RESP 16; O2SAT 93
[2018-03-13 09:41] VITALS: BP 134/60; BP 151/51; PULSE 52; RESP 18; TEMP 36.6; O2SAT 95
[2018-03-13 09:51] VITALS: BP 134/60
--- NOTE | 2018-03-13 11:55 | PCM.OPRPT ---
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 (2) Failed back surgical syndrome Status: Chronic (3) Radiculopathy of lumbosacral region Status: Chronic (4) Spinal stenosis of lumbosacral region Status: Chronic Report of Operation Date of Procedure: 03/13/18 Pre-Operative Diagnosis: Lumbosacral radiculopathy, lumbosacral degenerative disc disease, lumbosacral spinal stenosis Post-Operative Diagnosis: Lumbosacral radiculopathy, lumbosacral degenerative disc disease, lumbosacral spinal stenosis Surgery/Procedure Performed:: Left-sided lumbar transforaminal epidural steroid injection L4-5, L5-S1 Description of Surgical Findings:: PROCEDURE: Left sided lumbar transforaminal epidural steroid injection L4-5, L5-S1 PREOPERATIVE DIAGNOSIS: Lumbosacral radiculopathy, lumbosacral degenerative disc disease, lumbosacral spinal stenosis POSTOPERATIVE DIAGNOSIS: Lumbosacral radiculopathy, lumbosacral degenerative disc disease, lumbosacral spinal stenosis ANESTHESIA: MAC COMPLICATIONS: None BLOOD LOSS: Minimal PROCEDURE IN DETAIL: History and physical today was reviewed. Risks and benefits of the procedure were explained. The patient understood, agreed to our procedure, and informed consent was obtained. IV inserted per routine protocol. The patient was taken to the operating room, placed in a prone position with a pillow positioned underneath the abdomen. The left side of the lower back was prepped and draped in a sterile fashion using iodine ?3 under direct visualization fluoroscopy at approximately 25? angle starting on the left L4 ending on the left L5 using a 22-gauge 5 inch spinal needle the needle was advanced via the skin tip of the needle's maneuver and directed towards the inferior and medial gutter of the transverse process at the superiormost aspect of the neuroforamen once the tip of the needle was at the vicinity of the foramen after negative aspiration for blood or CSF a total of 1 cc of contrast were injected in divided doses between both levels confirm correct placement of the needle as well as medial spread the confirmation was obtained on AP as well as lateral view after repeated negative aspiration and confirmation a total of 6 cc of preservative-free 0.25% Marcaine with 80 mg of Depo-Medrol were injected in divided doses between both levels , the needles were then removed intact. The patient experienced no signs or symptoms intrathecal, intravascular injection. The patient experienced no paraesthesia. The procedure was completed without any apparent difficult, any complication. The patient appeared to tolerate well. ASSESSMENT AND PLAN: This is a 82-year-old F female with lumbosacral radiculopathy, lumbosacral degenerative disc disease, lumbosacral spinal stenosis status post left-sided lumbar transforaminal epidural steroid injection L4-5, L5-S1. The patient will continue her current medications. The patient will follow in approximately 2 weeks for possible repeat of the procedure if indicated.
== END 2018-03-13 10:27 | disposition home or self-care (01) ==
LOC: SDC 08:01 → AC 08:04
PROVIDERS: Family Provider Family Medicine; PCP Family Medicine; Visit Provider Anesthesiology Pain Medicine
PROC: 3E0S3BZ Introduction of Anesthetic Agent into Epidural Space, Percutaneous Approach (ICD-10-PCS; CPT 64483; principal; 2018-03-13 09:05)
DX: M47.27 Other spondylosis with radiculopathy, lumbosacral region (principal); M51.37 Other intervertebral disc degeneration, lumbosacral region; M96.1 Postlaminectomy syndrome, not elsewhere classified; M48.061 Spinal stenosis, lumbar region without neurogenic claudication; M46.96 Unspecified inflammatory spondylopathy, lumbar region; M17.12 Unilateral primary osteoarthritis, left knee; I13.0 Hypertensive heart and chronic kidney disease with heart failure and stage 1 through stage 4 chronic kidney disease, or unspecified chronic kidney disease; N18.3 Chronic kidney disease, stage 3 (moderate); I50.9 Heart failure, unspecified; I42.9 Cardiomyopathy, unspecified; E03.9 Hypothyroidism, unspecified; Z86.14 Personal history of Methicillin resistant Staphylococcus aureus infection; Z86.19 Personal history of other infectious and parasitic diseases; Z79.82 Long term (current) use of aspirin; Z79.891 Long term (current) use of opiate analgesic; Z79.899 Other long term (current) drug therapy; Z87.891 Personal history of nicotine dependence
CPT/HCPCS: 01992; 64483; 64484; 72110; J7120

== ENCOUNTER → 2018-05-15 05:00 | Outpatient (REF) | payer MEDICARE, SELFPAY ==
[2018-05-15 08:13] LABS: Hematocrit 35.6 % (37-47); Mean Corp Hgb Conc 30.9 g/gl (32-36); Mean Corpuscular Hgb 30.3 pg (27.0-32.0); Mean Corpuscular Volume 98.1 fL (81-99); Mean Platelet Vol. 10.3 fl (6.2-12.0); Platelet Count 252 K/mm3 (150-450); RBC Distribution Width CV 14.4 % (11.6-14.6); RBC Distribution Width SD 49.8 fl (35.1-43.9); Red Blood Count 3.63 M/mm3 (4.2-5.4); White Blood Count 6.6 K/mm3 (4.4-11.0)
[2018-05-15 08:16] LABS: Anion Gap 8 (5-15); BUN 33 mg/dL (7-18); BUN/Creat Ratio 19.9 RATIO (10-20); Calcium,Total 8.5 mg/dL (8.5-10.1); Chloride 115 mmol/L (98-107); Creatinine, Serum 1.66 mg/dL (0.55-1.02); EST Glomerular Filtration Rate 31 mL/min (>60); Est Glom Filt Rate - Afr Amer 38 mL/min (>60); Glucose 81 mg/dL (74-106); Potassium 5.2 mmol/L (3.5-5.1); Sodium Level 146 mmol/L (136-145)
[2018-05-15 08:20] LABS: Scan Indicated on CBC? Y/N NO
== END ==
LOC: OLS.WHLEAS 05:00
PROVIDERS: Visit Provider Family Medicine
DX: D64.9 Anemia, unspecified (principal); I50.9 Heart failure, unspecified; E03.9 Hypothyroidism, unspecified
CPT/HCPCS: 36415; 80048; 85027

== ENCOUNTER → 2018-08-10 05:00 | Outpatient (REF) | payer MEDICARE, SELFPAY ==
[2018-08-10 06:39] LABS: Absolute Lymphocyte Count 1.05 X10^3/ul (0.83-4.51); Absolute Neutrophil Count 3.7 X10^3/uL (2.0-7.7); Basophil# 0.07 X10^3/uL; Basophil% 1.2 % (0-1); Eosinophil# 0.46 X10^3/uL; Eosinophils% 7.8 % (0-5); Hematocrit 38.2 % (37-47); Hemoglobin 11.5 g/dl (12.0-15.0); Lymphocyte # 1.05 X10^3/ul (4.0); Lymphocyte % 17.8 % (19-41); Mean Corp Hgb Conc 30.1 g/gl (32-36); Mean Corpuscular Hgb 29.9 pg (27.0-32.0); Mean Corpuscular Volume 99.2 fL (81-99); Mean Platelet Vol. 10.2 fl (6.2-12.0); Monocyte# 0.62 X10^3/uL; Monocyte% 10.5 % (0-10); Neutrophil % 62.5 % (47-70); Platelet Count 282 K/mm3 (150-450); RBC Distribution Width CV 14.3 % (11.6-14.6); RBC Distribution Width SD 50.8 fl (35.1-43.9); Red Blood Count 3.85 M/mm3 (4.2-5.4); White Blood Count 5.9 K/mm3 (4.4-11.0)
[2018-08-10 06:46] LABS: POSITIVE COUNT NO; POSITIVE DIFFERENTIAL NO; POSITIVE MORPHOLOGY NO
[2018-08-10 07:18] LABS: Anion Gap 7 (5-15); BUN 46 mg/dL (7-18); BUN/Creat Ratio 26.7 RATIO (10-20); Calcium,Total 8.5 mg/dL (8.5-10.1); Chloride 109 mmol/L (98-107); Creatinine, Serum 1.72 mg/dL (0.55-1.02); EST Glomerular Filtration Rate 30 mL/min (>60); Est Glom Filt Rate - Afr Amer 36 mL/min (>60); Glucose 91 mg/dL (74-106); Potassium 4.3 mmol/L (3.5-5.1); Sodium Level 143 mmol/L (136-145); Thyroid Stim Hormone (TSH) 1.29 uIU/mL (0.358-3.74)
[2018-08-14 08:18] LABS: Phenobarbital,Serum 3 ug/mL (15-40); Primidone, Serum 3.5 ug/mL (5.0-12.0)
== END ==
LOC: OLS.WHLEAS 05:00
PROVIDERS: Visit Provider Family Medicine
DX: D64.9 Anemia, unspecified (principal); I11.0 Hypertensive heart disease with heart failure; I50.9 Heart failure, unspecified; Z79.899 Other long term (current) drug therapy
CPT/HCPCS: 36415; 80048; 80184; 80188; 84443; 85025

== ENCOUNTER → 2018-08-28 04:30 | Outpatient (REF) | payer MEDICARE, SELFPAY ==
[2018-08-28 07:09] LABS: Hematocrit 38.8 % (37-47); Hemoglobin 10.8 g/dl (12.0-15.0); Mean Corp Hgb Conc 27.8 g/gl (32-36); Mean Corpuscular Hgb 28.7 pg (27.0-32.0); Mean Corpuscular Volume 103.2 fL (81-99); Mean Platelet Vol. 10.2 fl (6.2-12.0); Platelet Count 260 K/mm3 (150-450); RBC Distribution Width SD 52.6 fl (35.1-43.9); Red Blood Count 3.76 M/mm3 (4.2-5.4); White Blood Count 6.1 K/mm3 (4.4-11.0)
[2018-08-28 07:25] LABS: Scan Indicated on CBC? Y/N NO
[2018-08-28 07:35] LABS: ALB/GLOB Ratio 0.9 RATIO (0.9-2.4); AST(SGOT) 22 U/L (15-37); Alanine Aminotransfer ALT/SGPT 16 U/L (13-56); Albumin, Serum 2.8 g/dL (3.2-5.0); Alkaline Phosphatase 59 U/L (45-117); Anion Gap 7 (5-15); BUN 57 mg/dL (7-18); BUN/Creat Ratio 25.8 RATIO (10-20); Calcium,Total 8.3 mg/dL (8.5-10.1); Chloride 108 mmol/L (98-107); Creatinine, Serum 2.21 mg/dL (0.55-1.02); EST Glomerular Filtration Rate 23 mL/min (>60); Est Glom Filt Rate - Afr Amer 27 mL/min (>60); Globulin 3.2 g/dL (2.2-4.2); Glucose 93 mg/dL (74-106); Potassium 5.6 mmol/L (3.5-5.1); Prealbumin 16.2 mg/dL (20.0-40.0); Sodium Level 144 mmol/L (136-145)
[2018-08-28 08:04] LABS: Digoxin Level 0.08 ng/mL (0.80-2.00)
[2018-09-05 12:05] VITALS: BMI 54.5
--- OUTSIDE RECORDS SUMMARY | 2018-10-30 13:53 | XMS RPT_ITS ---
:1935 Author Organization OHIP Support Name Relationship Address Phone Arianna Issa Unavailable [address] + [place] [address] R Unavailable Unavailable Unavailable Arianna Issa Unavailable [address] + [place] [address] R Unavailable Unavailable Unavailable Arianna Issa Unavailable [address] + [place] [address] R Unavailable Unavailable Unavailable Arianna Issa Unavailable [address] + [place] [address] R Unavailable Unavailable Unavailable ARIANNA ISSA Unavailable [address] + [place] [address] R Unavailable Unavailable Unavailable ARIANNA ISSA Unavailable [address] + [place] [address] R Unavailable Unavailable Unavailable ARIANNA ISSA Unavailable [address] + [place] [address] R Unavailable Unavailable Unavailable ARIANNA ISSA Unavailable [address] + [place] [address] R Unavailable Unavailable Unavailable ARIANNA ISSA Unavailable [address] + [place] [address] R Unavailable Unavailable Unavailable ARIANNA ZAVALA Unavailable Unavailable + [place] [address] R Unavailable Unavailable Unavailable Arianna Issa Unavailable [address] + [place] [address] R Unavailable Unavailable Unavailable R Unavailable Unavailable Unavailable Care Team Providers Name Role Phone Tom Hernandez Attending Unavailable Tom Hernandez Attending Unavailable Lucho Mayen Attending Unavailable Lucho Mayen Referring Unavailable Tom Hernandez Primary Care Unavailable Tom Hernandez Attending Unavailable Faheem, Lucho Attending Unavailable Faheem, Lucho Referring Unavailable Hernandez, Tom Primary Care Unavailable Hernandez, Tom Attending Unavailable Faheem, Lucho Attending Unavailable Faheem, Lucho Referring Unavailable Primay Care Physicia, No Primary Care Unavailable David, Tom Attending Unavailable Faheem, Lucho Attending Unavailable Faheem, Lucho Referring Unavailable Hernandez, Tom Primary Care Unavailable Hernandez, Tom Attending Unavailable Faheem, Lucho Attending Unavailable Faheem, Lucho Referring Unavailable Hernandez, Tom Primary Care Unavailable Hernandez, Tom Attending Unavailable PROBLEMS PROBLEMS DATE TYPE CONDITION / CODE ATTENDING STATUS SOURCE 08/25/2018 Unknown D64.9 - Anemia, Tom Hernandez [place] unspecified / Community D64.9(ICD-10) Hospital Repository 08/25/2018 Unknown I50.9 - Heart Tom Hernandez Active [place] failure, Community unspecified / Hospital I50.9(ICD-10) Repository 08/25/2018 Unknown 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.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 Hospital therapy / Repository Z79.899(ICD-10) 06/15/2018 Unknown E03.9 - Tom Hernandez Active [place] Hypothyroidism, Community unspecified / Hospital E03.9(ICD-10) Repository 12/13/2017 Unknown I10 - Essential Tom Hernandez [place] (primary) Community hypertension / Hospital I10(ICD-10) Repository PROCEDURES PROCEDURES No Procedure Records FoundRESULTS RESULTS BASIC METABOLIC Collected: 08/30/2018 Status: F Source: [place] PROFILE (BMP) 6:50 AM [facility] REPOSITORY Order Comment: 510-1 TYPE CODE TESTS RESULT OUT OF RANGE REFERENCE UNITS LAB L501.0100 74-106 mg/dL Normal GLU 99 Result Comment: Please note revised GLUCOSE reference range effective 2017. LAB L501.1000 7-18 mg/dL High BUN 55 LAB L501.1100 0.55-1.02 mg/dL High CREAT,SERUM 1.56 Result Comment: The validity of the calculated GFR AND GFRAA in patients over 70 years has not been determined. Clinical correlation is essential. LAB L501.1110 >60 mL/min Low EST GFR 34 Result Comment: Non- GFR Calc LAB L501.1115 >60 mL/min Low EST GFR - AA 41 Result Comment: GFR Calc LAB L501.1300 10-20 RATIO High BUN/CRE 35.3 LAB L501.2200 8.5-10.1 mg/dL Low CA 8.1 LAB L501.5300 136-145 mmol/L High NA 147 LAB L501.5600 3.5-5.1 mmol/L K Normal 4.4 LAB L501.5900 98-107 mmol/L High CL 110 LAB L501.6100 21.0-32.0 mmol/L Normal CO2 32.0 LAB L501.6200 5-15 Normal GAP 5 Performed By: #### L500.2500 #### [facility] [address] [place], [place], [id number] CBC-COMPLETE BLOOD CNT Collected: 08/28/2018 Status: F Source: [place] NO DIFF 5:20 AM [facility] REPOSITORY Order Comment: 510/1 TYPE CODE TESTS RESULT OUT OF RANGE REFERENCE UNITS LAB L100.1000 4.4-11.0 K/mm3 Normal WBC 6.1 LAB L100.1200 4.2-5.4 M/mm3 Low RBC 3.76 LAB L100.1300 12.0-15.0 g/dl Low HGB 10.8 LAB L100.1400 37-47 % Normal HCT 38.8 LAB L100.1500 81-99 fL High MCV 103.2 LAB L100.1600 27.0-32.0 pg Normal MCH 28.7 LAB L100.1700 32-36 g/gl Low MCHC 27.8 LAB L100.1810 11.6-14.6 % Normal RDW CV 14.0 LAB L100.1820 35.1-43.9 fl High RDW SD 52.6 LAB L100.1900 150-450 K/mm3 Normal PLT 260 LAB L100.2000 6.2-12.0 fl Normal MPV 10.2 Performed By: #### L100.0500 #### [facility] [address] [place], [place], [id number] COMPREHENSIVE METABOLIC Collected: 08/28/2018 Status: F Source: [place] PROFIL 5:20 AM [facility] REPOSITORY Order Comment: 510/1 TYPE CODE TESTS RESULT OUT OF RANGE REFERENCE UNITS LAB L501.0100 74-106 mg/dL Normal GLU 93 Result Comment: Please note revised GLUCOSE reference range effective 2017. LAB L501.1000 7-18 mg/dL High BUN 57 LAB L501.1100 0.55-1.02 mg/dL High CREAT,SERUM 2.21 Result Comment: The validity of the calculated GFR AND GFRAA in patients over 70 years has not been determined. Clinical correlation is essential. LAB L501.1110 >60 mL/min Low EST GFR 23 Result Comment: Non- GFR Calc LAB L501.1115 >60 mL/min Low EST GFR - AA 27 Result Comment: GFR Calc LAB L501.1300 10-20 RATIO High BUN/CRE 25.8 LAB L501.1500 6.4-8.2 g/dL Low T PROT 6.0 LAB L501.1800 3.2-5.0 g/dL Low ALB 2.8 LAB L501.1950 2.2-4.2 g/dL Normal GLOB 3.2 LAB L501.2000 0.9-2.4 RATIO Normal A/G 0.9 LAB L501.2200 8.5-10.1 mg/dL Low CA 8.3 LAB L501.4100 15-37 U/L Normal AST 22 Result Comment: Moderate Hemolysis, Result may be falsely increased. LAB L501.4305 45-117 U/L Normal ALK P 59 LAB L501.4405 13-56 U/L Normal ALT 16 LAB L501.4600 0.20-1.00 mg/dL Normal T BILI 0.30 LAB L501.5300 136-145 mmol/L Normal NA 144 LAB L501.5600 3.5-5.1 mmol/L High K 5.6 Result Comment: Moderate Hemolysis, Result may be falsely increased. LAB L501.5900 98-107 mmol/L High CL 108 LAB L501.6100 21.0-32.0 mmol/L Normal CO2 29.0 LAB L501.6200 5-15 Normal 7 GAP Performed By: #### L500.4050, L506.0500 #### [facility] [address] [place], [address] PREALBUMIN Collected: 08/28/2018 Status: F Source: [place] 5:20 AM [facility] REPOSITORY Order Comment: 510/1 TYPE CODE TESTS RESULT OUT OF REFERENCE UNITS RANGE LAB L506.0500 20.0-40.0 mg/dL Low PREALBUMIN 16.2 Performed By: #### L500.4050, L506.0500 #### [facility] [address] [place], [address] DIGOXIN LEVEL Collected: 08/28/2018 Status: F Source: [place] 5:20 AM [facility] REPOSITORY Order Comment: 510/1 TYPE CODE TESTS RESULT OUT OF RANGE REFERENCE UNITS LAB L501.7510 0.80-2.00 ng/mL Low DIG 0.08 Performed By: #### L501.7510 #### [facility] [address] [facility] [place], [address] CBC W/DIFF, AUTOMATED Collected: 08/10/2018 Status: F Source: [place] 5:20 AM [facility] REPOSITORY Order Comment: 510/1 TYPE CODE TESTS RESULT OUT OF RANGE REFERENCE UNITS LAB L100.1000 4.4-11.0 K/mm3 Normal WBC 5.9 LAB L100.1200 4.2-5.4 M/mm3 Low RBC 3.85 LAB L100.1300 12.0-15.0 g/dl Low HGB 11.5 LAB L100.1400 37-47 % Normal HCT 38.2 LAB L100.1500 81-99 fL High MCV 99.2 LAB L100.1600 27.0-32.0 pg Normal MCH 29.9 LAB L100.1700 32-36 g/gl Low MCHC 30.1 LAB L100.1810 11.6-14.6 % Normal RDW CV 14.3 LAB L100.1820 35.1-43.9 fl High RDW SD 50.8 LAB L100.1900 150-450 K/mm3 Normal PLT 282 LAB L100.2000 6.2-12.0 fl Normal MPV 10.2 LAB L100.2100 47-70 % Normal NEUT% 62.5 LAB L100.2200 19-41 % Low LY% 17.8 LAB L100.2300 0-10 % High MONO% 10.5 LAB L100.2400 0-5 % High EO% 7.8 LAB L100.2500 0-1 % High BASO% 1.2 LAB L100.2550 0.0-0.9 % Normal IM GRAN % 0.200 Result Comment: IG% - Immature Granulocytes (promyelocytes, myelocytes and metamyelocytes) > 1% indicates that a LEFT SHIFT is Present. LAB L100.2620 2.0-7.7 X10 3/uL Normal Absolute Neut 3.7 LAB L100.2720 0.83-4.51 X10 3/ul Normal Absolute Lymph 1.05 Performed By: #### L100.0100 #### [facility] [address] [place], [address] PHENOBARBITAL Collected: 08/10/2018 Status: F Source: [place] 5:20 AM [facility] REPOSITORY Order Comment: 510/1 TYPE CODE TESTS RESULT OUT OF REFERENCE UNITS RANGE LAB L501.8500 10.0-40.0 ug/mL Low PHENOBARB 4.9 Performed By: #### L501.8500 #### [facility] [address] [place], [address] BASIC METABOLIC Collected: 08/10/2018 Status: F Source: [place] PROFILE (BMP) 5:20 AM [facility] REPOSITORY Order Comment: 510/1 TYPE CODE TESTS RESULT OUT OF RANGE REFERENCE UNITS LAB L501.0100 74-106 mg/dL Normal GLU 91 Result Comment: Please note revised GLUCOSE reference range effective 2017. LAB L501.1000 7-18 mg/dL High BUN 46 LAB L501.1100 0.55-1.02 mg/dL High CREAT,SERUM 1.72 Result Comment: The validity of the calculated GFR AND GFRAA in patients over 70 years has not been determined. Clinical correlation is essential. LAB L501.1110 >60 mL/min Low EST GFR 30 Result Comment: Non- GFR Calc LAB L501.1115 >60 mL/min Low EST GFR - AA 36 Result Comment: GFR Calc LAB L501.1300 10-20 RATIO High BUN/CRE 26.7 LAB L501.2200 8.5-10.1 mg/dL CA Normal 8.5 LAB L501.5300 136-145 mmol/L NA Normal 143 LAB L501.5600 3.5-5.1 mmol/L K Normal 4.3 LAB L501.5900 98-107 mmol/L High CL 109 LAB L501.6100 21.0-32.0 mmol/L Normal CO2 27.0 LAB L501.6200 5-15 Normal GAP 7 Performed By: #### L500.2500, L501.9520 #### [facility] [address] [facility]. [place], [place], [address] THYROID STIM HORMONE Collected: 08/10/2018 Status: F Source: [place] (TSH) 5:20 AM [facility] REPOSITORY Order Comment: 510/1 TYPE CODE TESTS RESULT OUT OF RANGE REFERENCE UNITS LAB L501.9520 0.358-3.74 uIU/mL Normal TSH 1.29 Performed By: #### L500.2500, L501.9520 #### [facility] [address] [facility] [place], [address] MYSOLINE (PRIMIDONE) Collected: 08/10/2018 Status: F Source: [place] 5:20 AM [facility] REPOSITORY Order Comment: 510/1 TYPE CODE TESTS RESULT OUT OF RANGE REFERENCE UNITS LAB L3400.2220 5.0-12.0 ug/mL Low 3.5 PRIMIDONE,SE RUM Result Comment: Detection Limit = 0.3 <0.3 indicates None Detected LAB L3400.2240 15-40 ug/mL PHENOBARB,SERUM Low 3 Result Comment: Detection Limit = 3 Performed at: - [address] [id number] Hospital Insurance Representative: Raul Carmichael MD, Phone: [phone] Performed By: #### L3400.2205 #### [facility] (refer to report for specific site) refer to report for address and phone number BASIC METABOLIC Collected: 05/15/2018 Status: F Source: [place] PROFILE (BMP) 5:50 AM [facility] REPOSITORY Order Comment: 510-1 TYPE CODE TESTS RESULT OUT OF RANGE REFERENCE UNITS LAB L501.0100 74-106 mg/dL Normal GLU 81 Result Comment: Please note revised GLUCOSE reference range effective 2017. LAB L501.1000 7-18 mg/dL High BUN 33 LAB L501.1100 0.55-1.02 mg/dL High CREAT,SERUM 1.66 Result Comment: The validity of the calculated GFR AND GFRAA in patients over 70 years has not been determined. Clinical correlation is essential. LAB L501.1110 >60 mL/min Low EST GFR 31 Result Comment: Non- GFR Calc LAB L501.1115 >60 mL/min Low EST GFR - AA 38 Result Comment: GFR Calc LAB L501.1300 10-20 RATIO Normal BUN/CRE 19.9 LAB L501.2200 8.5-10.1 mg/dL CA Normal 8.5 LAB L501.5300 136-145 mmol/L High NA 146 LAB L501.5600 3.5-5.1 mmol/L High K 5.2 LAB L501.5900 98-107 mmol/L High CL 115 LAB L501.6100 21.0-32.0 mmol/L Normal CO2 23.0 LAB L501.6200 5-15 Normal GAP 8 Performed By: #### L500.2500 #### [facility] [address] [place], [place], [address] CBC-COMPLETE BLOOD CNT Collected: 05/15/2018 Status: F Source: [place] NO DIFF 5:50 AM [facility] REPOSITORY Order Comment: 510-1 TYPE CODE TESTS RESULT OUT OF RANGE REFERENCE UNITS LAB L100.1000 4.4-11.0 K/mm3 Normal WBC 6.6 LAB L100.1200 4.2-5.4 M/mm3 Low RBC 3.63 LAB L100.1300 12.0-15.0 g/dl Low HGB 11.0 LAB L100.1400 37-47 % Low HCT 35.6 LAB L100.1500 81-99 fL Normal MCV 98.1 LAB L100.1600 27.0-32.0 pg Normal MCH 30.3 LAB L100.1700 32-36 g/gl Low MCHC 30.9 LAB L100.1810 11.6-14.6 % Normal RDW CV 14.4 LAB L100.1820 35.1-43.9 fl High RDW SD 49.8 LAB L100.1900 150-450 K/mm3 Normal PLT 252 LAB L100.2000 6.2-12.0 fl Normal MPV 10.3 Performed By: #### L100.0500 #### [facility] [address] [place], [address] OPERATIVE REPORT Observed: 03/13/2018 Status: F Source: [place] 12:00 PM [facility] REPOSITORY 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 (3) Radiculopathy of lumbosacral region Status: Chronic (4) Spinal stenosis of lumbosacral region Status: Chronic Report of Operation Date of Procedure: 03/13/18 Pre-Operative Diagnosis: Lumbosacral radiculopathy, lumbosacral degenerative disc disease, lumbosacral spinal stenosis Post-Operative Diagnosis: Lumbosacral radiculopathy, lumbosacral degenerative disc disease, lumbosacral spinal stenosis Surgery/Procedure Performed:: Left-sided lumbar transforaminal epidural steroid injection L4-5, L5-S1 Description of Surgical Findings:: PROCEDURE: Left sided lumbar transforaminal epidural steroid injection L4-5, L5-S1 PREOPERATIVE DIAGNOSIS: Lumbosacral radiculopathy, lumbosacral degenerative disc disease, lumbosacral spinal stenosis POSTOPERATIVE DIAGNOSIS: Lumbosacral radiculopathy, lumbosacral degenerative disc disease, lumbosacral spinal stenosis ANESTHESIA: MAC COMPLICATIONS: None BLOOD LOSS: Minimal PROCEDURE IN DETAIL: History and physical today was reviewed. Risks and benefits of the procedure were explained. The patient understood, agreed to our procedure, and informed consent was obtained. IV inserted per routine protocol. The patient was taken to the operating room, placed in a prone position with a pillow positioned underneath the abdomen. The left side of the lower back was prepped and draped in a sterile fashion using iodine 3 under direct visualization fluoroscopy at approximately 25 angle starting on the left L4 ending on the left L5 using a 22-gauge 5 inch spinal needle the needle was advanced via the skin tip of the needle's maneuver and directed towards the inferior and medial gutter of the transverse process at the superiormost aspect of the neuroforamen once the tip of the needle was at the vicinity of the foramen after negative aspiration for blood or CSF a total of 1 cc of contrast were injected in divided doses between both levels confirm correct placement of the needle as well as medial spread the confirmation was obtained on AP as well as lateral view after repeated negative aspiration and confirmation a total of 6 cc of preservative- free 0.25% Marcaine with 80 mg of Depo-Medrol were injected in divided doses between both levels , the needles were then removed intact. The patient experienced no signs or symptoms intrathecal, intravascular injection. The patient experienced no paraesthesia. The procedure was completed without any apparent difficult, any complication. The patient appeared to tolerate well. ASSESSMENT AND PLAN: This is a 82-year-old F female with lumbosacral radiculopathy, lumbosacral degenerative disc disease, lumbosacral spinal stenosis status post left-sided lumbar transforaminal epidural steroid injection L4-5, L5-S1. The patient will continue her current medications. The patient will follow in approximately 2 weeks for possible repeat of the procedure if indicated. 03/13/18 1200 <Electronically signed by Lucho Mayen MD> Date Lucho Mayen MD CC: Lucho Mayen; Tom Hernandez MD Signed L/S SPINE MIN 4 Observed: 03/13/2018 Status: F Source: [place] VIEWS 4:56 AM [facility] REPOSITORY [facility] Imaging Services [address] [place] [address] L/S Spine Min 4 Views MR#: [id number] Acct: [id number] Name: CORINNE GILES Rep #: [id number] : 1935 F 82 From: Juan Iniguez MD PCP: Tom Hernandez MD Status: [facility] Study: L/S Spine Min 4 Views Date of Exam: 03/13/18 Exam# [id number] Ordering Dr: Lucho Mayen MD PROCEDURE: Transforaminal block. DATE OF EXAMINATION: March 13, 2018. INDICATION: Female, 82 years old. Chronic low back pain. FLUOROSCOPY TIME (if supplied): (0:27) minutes/seconds Intraoperative fluoroscopic imaging provided for left L4-S1 transforaminal block. RAD/L/S Spine Min 4 Views IMPRESSION: Fluoroscopic services provided for left L4-S1 transforaminal block. Electronically Signed: Juan Iniguez MD at 8:27 EDT Tel [phone], Service support , CC: Lucho Mayen; Tom Hernandez MD Business Office Manager: Signed CBC W/DIFF, AUTOMATED Collected: 02/10/2018 Status: F Source: [place] 6:15 AM [facility] REPOSITORY TYPE CODE TESTS RESULT OUT OF RANGE REFERENCE UNITS LAB L100.1000 4.4-11.0 K/mm3 Normal WBC 7.9 LAB L100.1200 4.2-5.4 M/mm3 Low RBC 3.84 LAB L100.1300 12.0-15.0 g/dl Low HGB 11.4 LAB L100.1400 37-47 % Normal HCT 37.5 LAB L100.1500 81-99 fL Normal MCV 97.7 LAB L100.1600 27.0-32.0 pg Normal MCH 29.7 LAB L100.1700 32-36 g/gl Low MCHC 30.4 LAB L100.1810 11.6-14.6 % Normal RDW CV 13.7 LAB L100.1820 35.1-43.9 fl High RDW SD 49.0 LAB L100.1900 150-450 K/mm3 Normal PLT 353 LAB L100.2000 6.2-12.0 fl Normal MPV 9.8 LAB L100.2100 47-70 % Normal NEUT% 62.8 LAB L100.2200 19-41 % Normal LY% 24.7 LAB L100.2300 0-10 % Normal MONO% 5.1 LAB L100.2400 0-5 % High EO% 5.8 LAB L100.2500 0-1 % Normal BASO% 0.6 LAB L100.2550 0.0-0.9 % High IM GRAN % 1.000 Result Comment: IG% - Immature Granulocytes (promyelocytes, myelocytes and metamyelocytes) > 1% indicates that a LEFT SHIFT is Present. LAB L100.2620 2.0-7.7 X10 3/uL Normal Absolute Neut 4.9 LAB L100.2720 0.83-4.51 X10 3/ul Normal Absolute Lymph 1.95 Performed By: #### L100.0100 #### [facility] [address] [place], [place], [address] BASIC METABOLIC Collected: 02/10/2018 Status: F Source: [place] PROFILE (BMP) 6:15 AM [facility] REPOSITORY TYPE CODE TESTS RESULT OUT OF RANGE REFERENCE UNITS LAB L501.0100 74-106 mg/dL Normal GLU 82 Result Comment: Please note revised GLUCOSE reference range effective 2017. LAB L501.1000 7-18 mg/dL High BUN 61 LAB L501.1100 0.55-1.02 mg/dL High CREAT,SERUM 2.02 Result Comment: The validity of the calculated GFR AND GFRAA in patients over 70 years has not been determined. Clinical correlation is essential. LAB L501.1110 >60 mL/min Low EST GFR 25 Result Comment: Non- GFR Calc LAB L501.1115 >60 mL/min Low EST GFR - AA 30 Result Comment: GFR Calc LAB L501.1300 10-20 RATIO High BUN/CRE 30.2 LAB L501.2200 8.5-10.1 mg/dL CA Normal 8.9 LAB L501.5300 136-145 mmol/L High NA 146 LAB L501.5600 3.5-5.1 mmol/L K Normal 4.9 LAB L501.5900 98-107 mmol/L High CL 111 LAB L501.6100 21.0-32.0 mmol/L Normal CO2 28.0 LAB L501.6200 5-15 Normal GAP 7 Performed By: #### L500.2500, L501.9520 #### [facility] [address] [place], [address] THYROID STIM HORMONE Collected: 02/10/2018 Status: F Source: [place] (TSH) 6:15 AM [facility] REPOSITORY TYPE CODE TESTS RESULT OUT OF RANGE REFERENCE UNITS LAB L501.9520 0.358-3.74 uIU/mL Normal TSH 0.85 Performed By: #### L500.2500, L501.9520 #### [facility] [address] [place], [address] PHENOBARBITAL Collected: 02/10/2018 Status: F Source: [place] 6:15 AM [facility] REPOSITORY TYPE CODE TESTS RESULT OUT OF REFERENCE UNITS RANGE LAB L501.8500 10.0-40.0 ug/mL Low PHENOBARB 4.6 Performed By: #### L501.8500 #### [facility] [address] [place], [address] MYSOLINE (PRIMIDONE) Collected: 02/10/2018 Status: F Source: [place] 6:15 AM [facility] REPOSITORY TYPE CODE TESTS RESULT OUT OF RANGE REFERENCE UNITS LAB L3400.2220 5.0-12.0 ug/mL Low 4.3 PRIMIDONE,SE RUM Result Comment: Detection Limit = 0.3 <0.3 indicates None Detected LAB L3400.2240 15-40 ug/mL PHENOBARB,SERUM Low 4 Result Comment: Detection Limit = 3 Performed at: [address] [id number] Hospital Insurance Representative: Gopi Davila MD, Phone: [phone] Performed By: #### L3400.2205 #### [facility] (refer to report for specific site) refer to report for address and phone number OPERATIVE REPORT Observed: 12/12/2017 Status: F Source: [place] 11:46 AM [facility] REPOSITORY [facility] Medical Records Department [address] [place] [address] Operative Report 12/12/17 1141 MR#: [id number] Acct: [id number] Name: CORINNE GILES Rep #: [id number] : 1935 81 From: Lucho Mayen MD PCP: Tom Hernandez MD Status: [facility] Y Location: [place] [address] 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 (2) Radiculopathy of lumbosacral region Status: Chronic (3) Spinal stenosis of lumbosacral region Status: Chronic Report of Operation Date of Procedure: 12/12/17 Pre-Operative Diagnosis: Lumbosacral radiculopathy, lumbosacral degenerative disc disease, lumbosacral spinal stenosis, postlaminectomy syndrome of the lumbar spine Post-Operative Diagnosis: Lumbosacral radiculopathy, lumbosacral degenerative disc disease, lumbosacral spinal stenosis, postlaminectomy syndrome of the lumbar spine Surgery/Procedure Performed:: Left sided lumbar transforaminal epidural steroid injection L4-5, L5-S1 Description of Surgical Findings:: PROCEDURE: Left sided lumbar transforaminal epidural steroid injection L4-5, L5-S1 PREOPERATIVE DIAGNOSIS: Lumbosacral radiculopathy, lumbosacral degenerative disc disease, lumbosacral spinal stenosis, postlaminectomy syndrome of the lumbar spine POSTOPERATIVE DIAGNOSIS: Lumbosacral radiculopathy, lumbosacral degenerative disc disease, lumbosacral spinal stenosis, postlaminectomy syndrome of the lumbar spine ANESTHESIA: MAC COMPLICATIONS: None BLOOD LOSS: Minimal PROCEDURE IN DETAIL: History and physical today was reviewed. Risks and benefits of the procedure were explained. The patient understood, agreed to our procedure, and informed consent was obtained. IV inserted per routine protocol. The patient was taken to the operating room, placed in a prone position with a pillow positioned underneath the abdomen. The right side of his lower back was prepped and draped in a sterile fashion using iodine x3. Under fluoroscopy guidance, on AP view, the L4 through S1 vertebral bodies are visualized the skin and subcutaneous tissue anesthetized approximately 5 cc of 1% lidocaine using a 25-gauge regular needle under direct visualization fluoroscopy at approximately 35 angle starting on the left L4 ending on the left L5 using a 22-gauge 5 inch spinal needle the needle was advanced via the skin the tip of the needle's maneuver and directed towards the inferior and medial gutter of the transverse process at the superiormost aspect of the neuroforamen once the tip of the needle is at the vicinity of the foramen after negative aspiration for blood or CSF a total of 1 cc of contrast was injected in divided doses between both levels to confirm correct placement of the needle as well as medial spread the confirmation was obtained on AP as well as lateral view after repeated negative aspiration for blood or CSF a total of 6 cc of preservative-free 0.25% Marcaine with 80 mg of Depo-Medrol were injected in divided doses between both levels, the needles were then removed intact. The patient experienced no signs or symptoms intrathecal, intravascular injection. The patient experienced no paraesthesia. The procedure was completed without any apparent difficult, any complication. The patient appeared to tolerate well. ASSESSMENT AND PLAN: This is a 81-year-old Female with Lumbosacral radiculopathy, lumbosacral degenerative disc disease, lumbosacral spinal stenosis, postlaminectomy syndrome of the lumbar spine status post left-sided lumbar transforaminal epidural steroid injection L4-5, L5-S1. The patient will continue her current medications. The patient will follow in approximately 2 weeks for possible repeat of the procedure if indicated. 12/12/17 1146 <Electronically signed by Lucho Mayen MD> Date Lucho Mayen MD CC: Lucho Mayen; Tom Hernandez MD Signed LUMBAR SPINE 2 OR 3 Observed: 12/12/2017 Status: F Source: [place] VIEWS 1:01 AM [facility] REPOSITORY [facility] Imaging Services [address] [place] [address] Lumbar Spine 2 or 3 Views MR#: [id number] Acct: [id number] Name: CORINNE GILES Rep #: [id number] : 1935 F 81 From: Carlos Fuller MD PCP: Tom Hernandez MD Status: [facility] Study: Lumbar Spine 2 or 3 Views Date of Exam: 12/12/17 Exam# [id number] Ordering Dr: Lucho Mayen MD STUDY: X-RAY - LUMBAR SPINE REASON FOR EXAM: Female, 81 years old. Nondiagnostic digital intraprocedural images. TECHNIQUE: 2 view(s) of the lumbar spine were obtained. COMPARISON: None FINDINGS: 2 nondiagnostic digital intraprocedural images show a needle with contrast. Post-fusion changes are noted in the lower cervical spine. RAD/Lumbar Spine 2 or 3 Views IMPRESSION: Nondiagnostic digital intraprocedural images as described. Electronically Signed: Carlos Fuller MD at 13:05 EDT , Service support , CC: Lucho Mayen; Tom Hernandez MD Business Office Manager: Signed BASIC METABOLIC Collected: 11/09/2017 Status: F Source: [place] PROFILE (BMP) 6:12 AM [facility] REPOSITORY Order Comment: 501-1 TYPE CODE TESTS RESULT OUT OF RANGE REFERENCE UNITS LAB L501.0100 74-106 mg/dL Normal GLU 86 Result Comment: Please note revised GLUCOSE reference range effective 2017. LAB L501.1000 7-18 mg/dL High BUN 53 LAB L501.1100 0.55-1.02 mg/dL High CREAT,SERUM 1.94 Result Comment: The validity of the calculated GFR AND GFRAA in patients over 70 years has not been determined. Clinical correlation is essential. LAB L501.1110 >60 mL/min Low EST GFR 26 Result Comment: Non- GFR Calc LAB L501.1115 >60 mL/min Low EST GFR - AA 32 Result Comment: GFR Calc LAB L501.1300 10-20 RATIO High BUN/CRE 27.3 LAB L501.2200 8.5-10.1 mg/dL Low CA 8.4 LAB L501.5300 136-145 mmol/L NA Normal 144 LAB L501.5600 3.5-5.1 mmol/L High K 5.8 LAB L501.5900 98-107 mmol/L High CL 111 LAB L501.6100 21.0-32.0 mmol/L Normal CO2 27.0 LAB L501.6200 5-15 Normal GAP 6 Performed By: #### L500.2500 #### [facility] [address] [place], [address] CBC-COMPLETE BLOOD CNT Collected: 11/09/2017 Status: F Source: [place] NO DIFF 6:12 AM [facility] REPOSITORY Order Comment: 501-1 TYPE CODE TESTS RESULT OUT OF RANGE REFERENCE UNITS LAB L100.1000 4.4-11.0 K/mm3 Normal WBC 5.4 LAB L100.1200 4.2-5.4 M/mm3 Low RBC 3.77 LAB L100.1300 12.0-15.0 g/dl Low HGB 11.5 LAB L100.1400 37-47 % Normal HCT 37.2 LAB L100.1500 81-99 fL Normal MCV 98.7 LAB L100.1600 27.0-32.0 pg Normal MCH 30.5 LAB L100.1700 32-36 g/gl Low MCHC 30.9 LAB L100.1810 11.6-14.6 % Normal RDW CV 13.9 LAB L100.1820 35.1-43.9 fl High RDW SD 49.0 LAB L100.1900 150-450 K/mm3 Normal PLT 261 LAB L100.2000 6.2-12.0 fl Normal MPV 10.6 Performed By: #### L100.0500 #### [facility] [address] [place], [address] OPERATIVE REPORT Observed: 11/07/2017 Status: F Source: [place] 10:25 AM [facility] REPOSITORY [facility] Medical Records Department [address] [place] [address] Operative Report 11/07/17 1016 MR#: [id number] Acct: [id number] Name: CORINNE GILES Rep #: [id number] : 1935 81 From: Lucho Mayen MD PCP: Care Physician, No Primary Status: [facility] Y Location: [facility] Problem List (1) Unilateral primary osteoarthritis, left knee Status: Chronic (2) Chronic pain of left knee Status: Chronic Report of Operation Date of Procedure: 11/07/17 Pre-Operative Diagnosis: Osteoarthritis of the left knee, chronic nonoperative left knee pain Post-Operative Diagnosis: Osteoarthritis of the left knee, chronic nonoperative left knee pain Surgery/Procedure Performed:: Left sided radiofrequency ablation of the knee superior medial, superior lateral, inferior medial genicular nerves under fluoroscopic guidance Description of Surgical Findings:: PROCEDURE: Left sided radiofrequency ablation of the knee superior medial, superior lateral, inferior medial genicular nerves under fluoroscopic guidance PREOPERATIVE DIAGNOSIS: Osteoarthritis of the left knee, chronic nonoperative left knee pain POSTOPERATIVE DIAGNOSIS: Osteoarthritis of the left knee, chronic nonoperative left knee pain ANESTHESIA: MAC COMPLICATIONS: None BLOOD LOSS: Minimal PROCEDURE IN DETAIL: History and physical today was reviewed. Risks and benefits of the procedure were explained. The patient understood, agreed to our procedure, and informed consent was obtained. IV inserted per routine protocol. The patient was taken to the operating room, placed in a supine position with a pillow position underneath the left knee the left knee was prepped and draped in a sterile fashion using iodine 3 under direct visualization fluoroscopy on AP view the left knee joint was visualized the skin and subcutaneous tissue were anesthetized with approximately 10 cc of 1% lidocaine using a 25-gauge regular needle under direct visualization fluoroscopy starting at the left superior medial ending at the left inferior medial passing through the left superior lateral genicular nerves using a 20-gauge 10 cm with a 10 mm curved active tip radiofrequency ablation needle the needle passed through the skin the tip of the needle's maneuver and directed towards the diaphyseal junction of each corresponding nerve once the tip of the needle was at the vicinity of the nerve and contact with the bone after confirmation of AP as well as lateral and oblique view the stylette of each needle was then removed after negative aspiration for blood the radiofrequency ablation probe was then inserted at each level impedance was recorded at the superior medial 274 at the superior lateral 272 at the inferior medial 230 ohm motor evoked potential was then initiated to 1.5 V without any motor response at each corresponding level the radiofrequency ablation probe was then removed after repeated negative aspiration for blood a total of 6 cc of preservative-free 1% lidocaine were injected in divided doses between those 3 levels the radiofrequency ablation probe was then reinserted after confirmation AP as well as lateral view radiofrequency ablation was then initiated to 80 C for 90 seconds at each level once concluded the probe was then removed intact and a total of 6 cc of preservative- free 0.25% Marcaine with 40 mg of Depo-Medrol were injected in divided doses between those 3 levels the needles were then removed intact patient experienced no sinus symptoms of intravascular injection patient experienced no paresthesia the procedure was completed without any apparent difficulty any complication the patient appeared to tolerate well sensory as well as motor exam was unchanged from prior to the procedure. ASSESSMENT AND PLAN: This is a 81-year-old female with osteoarthritis of the left knee, chronic nonoperative left knee pain status post left-sided radiofrequency ablation of the knee superior medial, superior lateral, inferior medial genicular nerves under fluoroscopic guidance guidance, patient will continue her current medications. The patient will follow in approximately 2 weeks for reevaluation. 11/07/17 1025 <Electronically signed by Lucho Mayen MD> Date Lucho Mayen MD CC: No Primary Care Physician; Lucho Mayen Signed KNEE 1 OR 2 VIEWS Observed: 11/07/2017 Status: F Source: [place] 4:51 AM [facility] REPOSITORY [facility] Imaging Services [address] [place] [address] Knee 1 or 2 Views MR#: [id number] Acct: [id number] Name: CORINNE GILES Rep #: [id number] : 1935 F 81 From: Taylor Newberry MD PCP: Care Physician, No Primary Status: [facility] Study: Knee 1 or 2 Views Date of Exam: 11/07/17 Exam# [id number] Ordering Dr: Lucho Mayen MD STUDY: X-RAY - LEFT KNEE REASON FOR EXAM: Female, 81 years old. Radiofrequency ablation in the genicular nerve TECHNIQUE: 9 view(s) of the knee. COMPARISON: None. FINDINGS: 9 views were performed , as radiology support for c-arm imaging in the operating room. This is not a diagnostic examination. Images for for documentation purposes only. Reported fluoroscopy time 0.18. RAD/Knee 1 or 2 Views IMPRESSION: Intraoperative fluoroscopic guidance. Electronically Signed: Taylor Newberry MD at 4:37 EDT , Service support , CC: No Primary Care Physician; Lucho Mayen Business Office Manager: Signed OPERATIVE REPORT Observed: 10/10/2017 Status: F Source: [place] 11:55 AM [facility] REPOSITORY [facility] Medical Records Department [address] [place] [address] Operative Report 10/10/17 1151 MR#: [id number] Acct: [id number] Name: CORINNE GILES Rep #: [id number] : 1935 81 From: Lucho Mayen MD PCP: Tom Hernandez MD Status: [facility] Y Location: [place] [address] Problem List (1) Primary osteoarthritis of left knee Status: Chronic Report of Operation Date of Procedure: 10/10/17 Pre-Operative Diagnosis: Osteoarthritis of the left knee Post-Operative Diagnosis: Osteoarthritis of the left knee Surgery/Procedure Performed:: Left knee superior medial, superior lateral, inferior medial genicular nerves steroid injection under fluoroscopic guidance Description of Surgical Findings:: PROCEDURE: Left knee superior medial, superior lateral, inferior medial genicular nerves steroid injection under fluoroscopic guidance PREOPERATIVE DIAGNOSES: None operative osteoarthritis of the left knee POSTOPERATIVE DIAGNOSES: Nonoperative osteoarthritis of the left knee ANESTHESIA: MAC COMPLICATIONS: None BLOOD LOSS: Minimal PROCEDURE IN DETAIL: History and physical today was reviewed. Risks and benefits of the procedure were explained. The patient understood, agreed to our procedure, and informed consent was obtained. IV inserted per routine protocol. The patient was taken to the operating room, placed in a supine position the left knee area was prepped and draped in a sterile fashion using iodine 3 under direct visualization with fluoroscopy on AP view the left knee was visualized the skin and subcutaneous tissue and size approximately 5 cc of 1% lidocaine using a 25-gauge regular needle at the vicinity of the superior medial, superior lateral, inferior medial genicular nerves. Under direct visualization fluoroscopy on AP view using a 22-gauge 3-1/2 inch spinal needle starting on the left superior medial ending on the left inferior medial passing through the left superior lateral genicular nerves the needle passed through the skin the tip of the needle's maneuver and directed towards the diaphyseal junction of each corresponding nerve, once at the vicinity of the nerve and confirmation on AP as well as lateral view a total of 12 cc of preservative-free 0.25% Marcaine with 80 mg of Depo-Medrol were injected in divided doses between those 3 levels after negative aspiration for blood, the needle was then removed intact patient experienced no sinus symptoms or intravascular injection patient experienced no paresthesia the procedure was completed without any apparent difficulty any complication the patient appeared to tolerate well. ASSESSMENT AND PLAN: This is a 81-year-old female with osteoarthritis of the left knee status post super superior medial, superior lateral, inferior medial genicular nerve steroid injection under fluoroscopic guidance, patient will continue his current medications patient will follow approximately 2 weeks for reevaluation. 10/10/17 1155 <Electronically signed by Lucho Mayen MD> Date Lucho Mayen MD CC: Lucho Mayen; Tom Hernandez MD Signed KNEE 1 OR 2 VIEWS Observed: 10/10/2017 Status: F Source: [place] 11:29 AM [facility] REPOSITORY [facility] Imaging Services [address] [place] [address] Knee 1 or 2 Views MR#: [id number] Acct: [id number] Name: CORINNE GILES Rep #: [id number] : 1935 F 81 From: Carlos Fuller MD PCP: Tom Hernandez MD Status: [facility] Study: Knee 1 or 2 Views Date of Exam: 10/10/17 Exam# [id number] Ordering Dr: Lucho Mayen MD STUDY: X-RAY - LEFT KNEE REASON FOR EXAM: Female, 81 years old. . TECHNIQUE: 2 intraoperative digital documentation view(s) of the knee. COMPARISON: None. FINDINGS: 2 digital nondiagnostic documentation views show a vertical slightly oblique fracture of the distal femur with intra-articular extension and exuberant callus formation proximally. No distal callus formation is noted. RAD/Knee 1 or 2 Views IMPRESSION: Nondiagnostic digital documentation images. Electronically Signed: Carlos Fuller MD at 17:04 EST , Service support , CC: Lucho Mayen; Tom Hernandez MD Business Office Manager: Signed KNEE 3 VIEWS Observed: 10/09/2017 Status: F Source: [place] 11:54 PM [facility] REPOSITORY [facility] Imaging Services [address] [place], [place] [address] [place] [address] Knee 3 Views MR#: [id number] Acct: [id number] Name: CORINNE GILES Rep #: [id number] : 1935 81 From: Carlos Fuller MD PCP: Tom Hernandez MD Status: [facility] Study: Knee 3 Views Date of Exam: 10/10/17 Exam# [id number] Ordering Dr: Lucho Mayen MD STUDY: X-RAY - LEFT KNEE REASON FOR EXAM: Female, 81 years old. Intraoperative digital documentation images of left knee injection of the genicular nerve. TECHNIQUE: 3 intraoperative digital nondiagnostic documentation view(s) of the knee. COMPARISON: None. FINDINGS: 3 intraoperative digital nondiagnostic documentation views show a needle adjacent to the tibia. RAD/Knee 3 Views IMPRESSION: Intraoperative digital diagnostic views as described. Electronically Signed: Carlos Fuller MD at 17:03 EST , Service support , CC: Lucho Hernandez MD Business Office Manager: Signed Observed: 09/19/2017 Status: F Source: [place] CULTURE, URINE 10:00 PM [facility] REPOSITORY Urine Culture ORGANISM 1: Proteus mirabilis [place] Count >100,000 Proteus mirabilis: REACTION Amoxacillin/Clavulanic Acid $ 4 S Ampicillin $ >=32 R Ampicillin/Sulbactam $ 16 I Cefazolin $ <=4 S Cefepime $ <=1 S Ceftriaxone $ <=1 S Ciprofloxacin $ >=4 R Ertapenim $$$ <=0.5 S Gentamicin $ >=16 R Levofloxacin $ 4 I Nitrofurantoin $ 128 R Piperacillin/Tazobactam $$ <=4 S Tobramycin $ >=16 R Trimethoprim/Sulfametho $ >=320 R (NF) indicates non-formulary drug at [facility]. Approval by Infectious Disease Specialist required before non-formulary drugs may be ordered and/or dispensed. Performed By: #### M100.0650 #### [facility] [address] [facility] [place], [address] OPERATIVE REPORT Observed: 09/12/2017 Status: F Source: [place] 2:43 PM [facility] REPOSITORY [facility] Medical Records Department [address] [place] [address] Operative Report 09/12/17 1439 MR#: [id number] Acct: [id number] Name: CORINNE GILES Rep #: [id number] : 1935 81 From: Lucho Mayen MD PCP: Tom Hernandez MD Status: 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 Report of Operation Date of Procedure: 09/12/17 Pre-Operative Diagnosis: Lumbosacral radiculopathy, lumbosacral degenerative disc disease, lumbosacral spinal stenosis, postlaminectomy syndrome of the lumbar spine Post-Operative Diagnosis: Lumbosacral radiculopathy, lumbosacral degenerative disc disease, lumbosacral spinal stenosis, postlaminectomy syndrome of the lumbar spine Surgery/Procedure Performed:: Diagnostic/therapeutic caudal epidural steroid injection Description of Surgical Findings:: PROCEDURE: Diagnostic/therapeutic caudal epidural steroid injection PREOPERATIVE DIAGNOSIS: Lumbosacral radiculopathy, lumbosacral degenerative disc disease, lumbosacral spinal stenosis, post laminectomy syndrome of the lumbar spine POSTOPERATIVE DIAGNOSIS: Lumbosacral radiculopathy, lumbosacral degenerative disc disease, lumbosacral spinal stenosis, postlaminectomy syndrome of the lumbar spine ANESTHESIA: MAC COMPLICATIONS: None BLOOD LOSS: Minimal PROCEDURE IN DETAIL: History and physical today was reviewed. Risks and benefits of the procedure were explained. The patient understood, agreed to our procedure, and informed consent was obtained. IV inserted per routine protocol. The patient was taken to the operating room, placed in a prone position with a pillow positioned underneath the abdomen. Lower back and tailbone area was prepped and draped in a sterile fashion using iodine 3 under fluoroscopy guidance on the lateral view the caudal space was identified the skin and subcutaneous tissue and size approximately 3 cc of 1% lidocaine using a 25-gauge regular needle under direct visualization with fluoroscopy using a 22-gauge 3-1/2 inch spinal needle the needle was advanced via the skin through the sacral hiatus the peroneal passed through the sacrococcygeal ligament advanced approximately S4 area after negative aspiration for blood or CSF a total of 3 cc of contrast were injected to confirm correct placement of the needle as well as cephalad spread the spread was followed to approximately L5 area after confirmation AP as well as lateral view repeated negative aspiration a total of 15 cc of preservative-free 0.125% Marcaine with 80 mg of Depo-Medrol was injected easily. The needles were then removed intact. The patient experienced no signs or symptoms intrathecal, intravascular injection. The patient experienced no paraesthesia. The procedure was completed without any apparent difficult, any complication. The patient appeared to tolerate well. ASSESSMENT AND PLAN: This is a 81-year-old female with lumbosacral radiculopathy, lumbosacral degenerative disc disease, lumbosacral spinal stenosis, postlaminectomy syndrome of the lumbar spine status post diagnostic/therapeutic caudal epidural steroid injection. The patient will continue her current medications. The patient will follow in approximately 2 weeks for possible repeat of the procedure if indicated. 09/12/17 7252 <Electronically signed by Lucho Mayen MD> Date Lucho Mayen MD CC: Lucho Mayen; Tom Hernandez MD Signed FLUOR GUIDANCE FOR Observed: 09/12/2017 Status: F Source: [place] SPINE INJ 3:10 AM [facility] REPOSITORY [facility] Imaging Services [address] [place] [address] Fluor Guidance for Spine Inj MR#: [id number] Acct: [id number] Name: CORINNE GILES Rep #: [id number] : 1935 F 81 From: Juan Iniguez MD PCP: Tom Hernandez MD Status: [facility] Study: Fluor Guidance for Spine Inj Date of Exam: 09/12/17 Exam# [id number] Ordering Dr: Lucho Mayen MD PROCEDURE: Caudal block. DATE OF EXAMINATION: September 12, 2017. INDICATION: Female, 81 years old. Chronic low back pain. FLUOROSCOPY TIME (if supplied): (0:08) minutes/seconds Imaging provided for caudal block. RAD/Fluor Guidance for Spine Inj IMPRESSION: Intraoperative imaging provided for caudal block. Electronically Signed: Juan Iniguez MD at 13:47 EST Tel [phone], Service support , CC: Lucho Mayen; Tom Hernandez MD Business Office Manager: Signed ALLERGIES ALLERGIES DATE TYPE / CODE NAME / CODE REACTION SEVERITY SOURCE 09/08/2017 Drug Sulfa Swelling Unknown [facility] [facility] Allergy/4160 (Sulfonamide [facility] 98226(SNOMED Antibiotics)/ Repository CT) [id number](RX NORM) 09/08/2017 Drug morphine/F006 Unknown Unknown [facility] Allergy/4160 723153(RXNORM [facility] 37226(SNOMED ) Repository CT) ENCOUNTERS ENCOUNTERS ADMIT/DISCHARGE ACCOUNT ADMITTING ENCOUNTER LOCATION SOURCE NUMBER CLASS 08/30/2018 [id number] Ambulatory [place] [facility] 5 [facility] Repository S 08/28/2018 [id number] Ambulatory [place] 3 [facility] ing:[place]AN[place] Repository S 08/10/2018 [id number] Ambulatory [place] 3 [facility] ing[facility] Repository S 05/15/2018 [id number] Ambulatory [place] [facility] 6 [facility] ing:[place]ANIE Repository S 03/13/2018/ [id number] Ambulatory [place] 8 3 [facility] ing:[facility] Repository 02/10/2018 [id number] Ambulatory [place] 3 [facility] ing:JANIE Repository S 12/12/2017/ [id number] Ambulatory [place] 8 0 [facility] Hospital ing:[facility] Repository 11/09/2017 [id number] Ambulatory [place] [facility] 3 [facility] ing:[place]ANIE Repository S 11/07/2017/ [id number] Ambulatory [place] 8 1 [facility] ing:[place] Repository 10/10/2017/ [id number] Ambulatory [place] 8 8 [facility] ing:[facility] Repository 09/19/2017 [id number] Ambulatory [place] 7 [facility] ing:[place]ANIE Repository S 09/12/2017/ [id number] Ambulatory [place] 8 8 [facility] ing:[place]CRoom: Repository AC12 PAYERS PAYERS ENCOUNTER GUARANTOR PAYER SUBSCRIBER SOURCE 08/30/2018 CORINNE Ara Primary NOT GIVENUNK [place] Insurance:SELF PAY [address] Number: Effective Repository [place], ar Date:2018-08-30 [id number]: () 08/28/2018 KATYALETTY Bullock Primary NOT GIVENUNK [place] Insurance:SELF PAY [address] [facility] [place] Number: Effective Repository MAN ar Date:2018-08-28 [id number]: () 08/10/2018 CORINNE Bullock Primary CORINNE Bullock [place] Insurance:MEDICARE [place]: Community HEALTHY [id number] PART [address] [id number] Repository MAN ar [id number] [id number]: (330) Date:2018-08-10 [id number] (HP) 08/10/2018 Secondary NOT GIVENUNK [place] Insurance:SELF PAY [facility] Number: Effective Repository Date:2018-08-10 05/15/2018 CORINNE Bullock Primary CORINNE Bullock [place] Insurance:MEDICARE [place]ISONDOB: Community HEALTHY [id number] PART [address] [id number] Number: Repository CELINEWJHOAN ar [id number] [id number]: (330) Date:2018-05-15 [id number] () 05/15/2018 Secondary NOT GIVENUNK [place] Insurance:SELF PAY [facility] Number: Effective Repository Date:2018-05-15 03/13/2018 CORINNE Bullock Primary CORINNE Bullock [place] Insurance:MEDICARE HUTCHISONDOB: [facility] HEALTHY [id number] PART [address] [facility] [id number] Number: Repository CELINEWJHOAN ar [id number]: (330) Date:2018-03-08 [phone] () 03/13/2018 Secondary NOT GIVENUNK [place] Insurance:SELF PAY [facility] Number: Effective Repository Date:2018-03-08 02/10/2018 CORINNE Bullock Primary CORINNE Bullock [place] Insurance:MEDICARE [place]UT[place]ISONDOB: Community HEALTHY [id number] PART [address] [facility] [id number] Number: Repository MAN ar [id number]: (330) Date:2018-02-10 [id number] () 02/10/2018 Secondary NOT GIVENUNK Tamiko Insurance:SELF PAY [facility] Number: Effective Repository Date:2018-02-10 12/12/2017 Corinne Bullock Primary NOT GIVENUNK [place]SELF [place]Y [facility] HEALTHY [id number] [facility] Number: Effective Repository MAN ar Date:2017-12-07 [id number]: [phone]~330-6 (HP) 11/09/2017 CORINNE Bullock Primary CORINNE Bullock [place]MED[place]ARE H[place]ISONDOB: [facility] HEALTHY [id number] [id number] Number: [place] [id number]: Date:2017-11-09 ~330-6 (HP) 11/09/2017 Secondary NOT GIVENUNK [place] Insurance:SELF PAY [facility] Number: Effective Repository Date:2017-11-09 11/07/2017 Corinne Bullock Primary Corinne Bullock [place] Insurance:MEDICARE HutchisonDOB: [facility] HEALTHY [id number] [facility] [id number] Number: Repository [place], [place] [id number]: Date:2017-10-31 ~330-6 (HP) 11/07/2017 Secondary NOT GIVENUNK Tamiko Insurance:SELF PAY [facility] Number: Effective Repository Date:2017-10-31 10/10/2017 CORINNE LIZARRAGASON1715 Primary CORINNE Bullock [facility] [place] Insurance:MEDICARE HUTCHISONDOB: [address] [facility] [id number] [address]Qyj: (330) Number: Repository [phone] () [id number] Date:2017-10-04 10/10/2017 Secondary NOT GIVENUNK Tamiko Insurance:SELF PAY [facility] Number: Effective Repository Date:2017-10-04 09/19/2017 Corinne Lizarragason1715 Primary NOT GIVENUNK [facility] Insurance:SELF PAY [facility] [address]Kxe: (330) Number: Effective Repository [phone] () Date:2017-09-19 09/12/2017 CORINNE LIZARRAGASON1715 Primary CORINNE Morrison [facility] Insurance:MEDICARE [facility] [address] [place] [address], ar [address] [facility] [id number] [address]Eug: (330) Number: Repository [phone] () [id number] Date:2017-09-06 09/12/2017 [facility]Y [facility] Effective Repository Date:2017-09-06
== END ==
LOC: OLS.WHLEAS 04:30
PROVIDERS: Visit Provider Family Medicine
DX: I10 Essential (primary) hypertension (principal); Z79.899 Other long term (current) drug therapy
CPT/HCPCS: 36415; 80053; 80162; 84134; 85027

== ENCOUNTER → 2018-08-30 05:00 | Outpatient (REF) | payer MEDICARE, SELFPAY ==
[2018-08-30 08:33] LABS: Anion Gap 5 (5-15); BUN 55 mg/dL (7-18); BUN/Creat Ratio 35.3 RATIO (10-20); Calcium,Total 8.1 mg/dL (8.5-10.1); Chloride 110 mmol/L (98-107); Creatinine, Serum 1.56 mg/dL (0.55-1.02); EST Glomerular Filtration Rate 34 mL/min (>60); Est Glom Filt Rate - Afr Amer 41 mL/min (>60); Glucose 99 mg/dL (74-106); Potassium 4.4 mmol/L (3.5-5.1); Sodium Level 147 mmol/L (136-145)
[2018-09-05 12:05] VITALS: BMI 54.5
--- OUTSIDE RECORDS SUMMARY | 2018-11-01 01:18 | XMS RPT_ITS ---
:1935 Author Organization OHIP Support Name Relationship Address Phone Arianna Issa Unavailable [address] + [place] [address] R Unavailable Unavailable Unavailable Arianna Issa Unavailable [address] + [place] [address] R Unavailable Unavailable Unavailable Arianna Issa Unavailable [address] + [place] [address] R Unavailable Unavailable Unavailable Arianna Issa Unavailable [address] + [place] [address] R Unavailable Unavailable Unavailable ARIANNA ISSA Unavailable [address] + [place] [address] R Unavailable Unavailable Unavailable ARIANNA ISSA Unavailable [address] + [place] [address] R Unavailable Unavailable Unavailable ARIANNA ISSA Unavailable [address] + [place] [address] R Unavailable Unavailable Unavailable ARIANNA ISSA Unavailable [address] + [place] [address] R Unavailable Unavailable Unavailable ARIANNA ISSA Unavailable [address] + [place] [address] R Unavailable Unavailable Unavailable ARIANNA ZAVALA Unavailable Unavailable + [place] [address] R Unavailable Unavailable Unavailable Arianna Issa Unavailable [address] + [place] [address] R Unavailable Unavailable Unavailable R Unavailable Unavailable Unavailable Care Team Providers Name Role Phone Tom Hernandez Attending Unavailable Tom Hernandez Attending Unavailable Tom Hernandez Attending Unavailable Lucho Mayen Attending Unavailable Lucho Mayen Referring Unavailable Tom Hernandez Primary Care Unavailable Tom Hernandez Attending Unavailable Faheem, Lucho Attending Unavailable Faheem, Lucho Referring Unavailable Hernandez, Tom Primary Care Unavailable Faheem, Lucho Attending Unavailable Faheem, Lucho [...] 08/25/2018 Unknown I50.9 - Heart Tom Hernandez [place] failure, Community unspecified / Hospital I50.9(ICD-10) Repository 08/25/2018 Unknown 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 (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) drug Hospital therapy / Repository Z79.899(ICD-10) 06/15/2018 Unknown E03.9 - Tom Hernandez Active [place] Hypothyroidism, Community unspecified / Hospital E03.9(ICD-10) Repository 12/13/2017 Unknown I10 - Essential Tom Hernandez [place] (primary) Community hypertension / Hospital I10(ICD-10) Repository PROCEDURES PROCEDURES No Procedure Records FoundRESULTS RESULTS BASIC METABOLIC Collected: 08/30/2018 Status: F Source: [place] PROFILE (BMP) 6:50 AM [facility] REPOSITORY Order Comment: 510-1 TYPE CODE [...] GAP 5 Performed By: #### L500.2500 #### [facility] [address] [place], [place], [id number] CBC-COMPLETE BLOOD CNT Collected: 08/28/2018 Status: F [...] MPV 10.2 Performed By: #### L100.0500 #### [facility] [address] [place], [place], [address] COMPREHENSIVE METABOLIC Collected: 08/28/2018 Status: F Source: [...] GAP Performed By: #### L500.4050, L506.0500 #### [facility] [address] [place], [address] PREALBUMIN Collected: 08/28/2018 Status: F Source: [place] 5:20 AM [facility] REPOSITORY Order Comment: 510/1 TYPE CODE TESTS RESULT OUT OF REFERENCE UNITS RANGE LAB L506.0500 20.0-40.0 mg/dL Low PREALBUMIN 16.2 Performed By: #### L500.4050, L506.0500 #### [facility] [address] [place], [address] DIGOXIN LEVEL Collected: 08/28/2018 Status: F Source: [place] 5:20 AM [facility] REPOSITORY Order Comment: 510/1 TYPE CODE TESTS RESULT OUT OF RANGE REFERENCE UNITS LAB L501.7510 0.80-2.00 ng/mL Low DIG 0.08 Performed By: #### L501.7510 #### [facility] [address] [facility] [place], [address] CBC W/DIFF, AUTOMATED Collected: 08/10/2018 Status: F Source: [place] 5:20 AM [facility] REPOSITORY Order [...] Lymph 1.05 Performed By: #### L100.0100 #### [facility] [address] [place], [address] PHENOBARBITAL Collected: 08/10/2018 Status: F Source: [place] 5:20 AM [facility] REPOSITORY Order Comment: 510/1 TYPE CODE TESTS RESULT OUT OF REFERENCE UNITS RANGE LAB L501.8500 10.0-40.0 ug/mL Low PHENOBARB 4.9 Performed By: #### L501.8500 #### [facility] [address] [place], [address] BASIC METABOLIC Collected: 08/10/2018 Status: F Source: [place] PROFILE (BMP) 5:20 AM [facility] [...] 7 Performed By: #### L500.2500, L501.9520 #### [facility] [address] [facility] [place], [place], [address] THYROID STIM HORMONE Collected: 08/10/2018 Status: F Source: [place] (TSH) 5:20 AM [facility] REPOSITORY Order Comment: 510/1 TYPE CODE TESTS RESULT OUT OF RANGE REFERENCE UNITS LAB L501.9520 0.358-3.74 uIU/mL Normal TSH 1.29 Performed By: #### L500.2500, L501.9520 #### [facility] [address] [facility] [place], [address] MYSOLINE (PRIMIDONE) Collected: 08/10/2018 Status: F Source: [place] 5:20 AM [facility] REPOSITORY Order Comment: 510/1 TYPE CODE TESTS RESULT OUT OF RANGE REFERENCE UNITS LAB L3400.2220 5.0-12.0 ug/mL Low 3.5 PRIMIDONE,SE RUM Result Comment: Detection Limit = 0.3 <0.3 indicates None Detected LAB L3400.2240 15-40 ug/mL PHENOBARB,SERUM Low 3 Result Comment: Detection Limit = 3 Performed at: - [address] [id number] Warehouse Record Clerk: Raul Carmichael MD, Phone: [phone] Performed By: #### L3400.2205 #### [facility] (refer [...] GAP 8 Performed By: #### L500.2500 #### [facility] [address] [place], [place], [address] CBC-COMPLETE BLOOD CNT Collected: 05/15/2018 Status: F Source: [place] NO DIFF 5:50 AM [facility] [...] [facility] [address] [place], [address] OPERATIVE REPORT Observed: 03/13/2018 Status: F Source: [place] 12:00 PM [facility] REPOSITORY [facility] Medical Records Department [address] [place] [address] Operative Report 03/13/18 1155 MR#: [id number] Acct: [id number] Name: CORINNE GILES Rep #: [id number] : 1935 82 From: Lucho Mayen MD PCP: Tom Hernandez MD Status: [facility] Y Location: [facility] Problem List (1) Degeneration of intervertebral disc [...] MIN 4 Observed: 03/13/2018 Status: F Source: [place] VIEWS 4:56 AM [facility] REPOSITORY [facility] Imaging Services [address] [place] [address] L/S Spine Min 4 Views MR#: [id number] Acct: [id number] Name: CORINNE GILES Rep #: [id number] : 1935 F 82 From: Juan Iniguez MD PCP: Tom Hernandez MD Status: [facility] Study: L/S Spine Min 4 Views Date of Exam: 03/13/18 Exam# [id number] Ordering Dr: Lucho Mayen MD PROCEDURE: Transforaminal block. DATE OF EXAMINATION: March 13, 2018. INDICATION: Female, 82 years old. Chronic low back pain. FLUOROSCOPY TIME (if supplied): (0:27) minutes/seconds Intraoperative fluoroscopic imaging provided for left L4-S1 transforaminal block. RAD/L/S Spine Min 4 Views IMPRESSION: Fluoroscopic services provided for left L4-S1 transforaminal block. Electronically Signed: Juan Iniguez MD at 8:27 EDT Tel [phone], Service support , CC: Lucho Mayen; Tom Hernandez MD Patient Admitting Representative: Signed CBC W/DIFF, AUTOMATED Collected: 02/10/2018 Status: [...] Lymph 1.95 Performed By: #### L100.0100 #### [facility] [address] [place], [place], [address] BASIC METABOLIC Collected: 02/10/2018 Status: F Source: [place] PROFILE (BMP) 6:15 AM [facility] [...] 7 Performed By: #### L500.2500, L501.9520 #### [facility] [address] [place], [address] THYROID STIM HORMONE Collected: 02/10/2018 Status: F Source: [place] (TSH) 6:15 AM [facility] REPOSITORY TYPE CODE TESTS RESULT OUT OF RANGE REFERENCE UNITS LAB L501.9520 0.358-3.74 uIU/mL Normal TSH 0.85 Performed By: #### L500.2500, L501.9520 #### [facility] [address] [place], [address] PHENOBARBITAL Collected: 02/10/2018 Status: F Source: [place] 6:15 AM [facility] REPOSITORY TYPE CODE TESTS RESULT OUT OF REFERENCE UNITS RANGE LAB L501.8500 10.0-40.0 ug/mL Low PHENOBARB 4.6 Performed By: #### L501.8500 #### [facility] [address] [place], [address] MYSOLINE (PRIMIDONE) Collected: 02/10/2018 Status: F Source: [place] 6:15 AM [facility] REPOSITORY TYPE CODE TESTS RESULT OUT OF RANGE REFERENCE UNITS LAB L3400.2220 5.0-12.0 ug/mL Low 4.3 PRIMIDONE,SE RUM Result Comment: Detection Limit = 0.3 <0.3 indicates None Detected LAB L3400.2240 15-40 ug/mL PHENOBARB,SERUM Low 4 Result Comment: Detection Limit = 3 Performed at: [address] [id number] Warehouse Record Clerk: Gopi Davila MD, Phone: [phone] Performed By: #### L3400.2205 #### [facility]er to [facility] for specific site) refer to report for address and phone number OPERATIVE REPORT Observed: 12/12/2017 Status: F Source: [place] 11:46 AM [facility] REPOSITORY [facility] Medical Records Department [address] [place] [address] Operative Report 12/12/17 1141 MR#: [id number] Acct: [id number] Name: CORINNE GILES Rep #: [id number] : 1935 81 From: Lucho Mayen MD PCP: Tom Hernandez MD Status: REG [facility] Y Location: [place] [address] Problem List (1) Failed back surgical syndrome [...] OR 3 Observed: 12/12/2017 Status: F Source: [place] VIEWS 1:01 AM [facility] REPOSITORY [facility] Imaging Services [address] [place] [address] Lumbar Spine 2 or 3 Views MR#: [id number] Acct: [id number] Name: CORINNE GILES Rep #: [id number] : 1935 F 81 From: Carlos Fuller MD PCP: Tom Hernandez MD Status: [facility] Study: Lumbar Spine 2 or 3 Views Date of Exam: 12/12/17 Exam# [id number] Ordering Dr: Lucho Mayen MD STUDY: X-RAY [...] , CC: Lucho Mayen; Tom Hernandez MD Patient Admitting Representative: Signed BASIC METABOLIC Collected: 11/09/2017 Status: F Source: [place] PROFILE (BMP) 6:12 AM [facility] [...] GAP 6 Performed By: #### L500.2500 #### [facility] [address] [place], [address] CBC-COMPLETE BLOOD CNT Collected: 11/09/2017 Status: F [...] MPV 10.6 Performed By: #### L100.0500 #### [facility] [address] [place], [address] OPERATIVE REPORT Observed: 11/07/2017 Status: F Source: [place] 10:25 AM [facility] REPOSITORY [facility] Medical Records Department [address] [place] [address] Operative Report 11/07/17 1016 MR#: [id number] Acct: [id number] Name: CORINNE GILES Rep #: [id number] : 1935 81 From: Lucho Mayen MD PCP: Care Physician, No Primary Status: [facility] Y Location: [facility] Problem List (1) Unilateral primary osteoarthritis, left [...] 2 VIEWS Observed: 11/07/2017 Status: F Source: [place] 4:51 AM [facility] REPOSITORY [facility] Imaging Services [address] [place] [address] Knee 1 or 2 Views MR#: [id number] Acct: [id number] Name: CORINNE GILES Rep #: [id number] : 1935 F 81 From: Taylor Newberry MD PCP: Care Physician, No Primary Status: [facility] Study: Knee 1 or 2 Views Date of Exam: 11/07/17 Exam# [id number] Ordering Dr: Lucho Mayen MD STUDY: X-RAY [...] CC: No Primary Care Physician; Lucho Mayen Patient Admitting Representative: Signed OPERATIVE REPORT Observed: 10/10/2017 Status: F Source: [place] 11:55 AM [facility] REPOSITORY [facility] Medical Records Department [address] [place] [address] Operative Report 10/10/17 1151 MR#: [id number] Acct: [id number] Name: CORINNE GILES Rep #: [id number] : 1935 81 From: Lucho Mayen MD PCP: Tom Hernandez MD Status: REG [facility] Y Location: [place] [address] Problem List (1) Primary osteoarthritis of left [...] 2 VIEWS Observed: 10/10/2017 Status: F Source: [place] 11:29 AM [facility] REPOSITORY [facility] Imaging Services [address] [place] [address] Knee 1 or 2 Views MR#: [id number] Acct: [id number] Name: CORINNE GILES Rep #: [id number] : 1935 F 81 From: Carlos Fuller MD PCP: oTm Hernandez MD Status: [facility] Study: Knee 1 or 2 Views Date of Exam: 10/10/17 Exam# [id number] Ordering Dr: Lucho Mayen MD STUDY: X-RAY [...] , CC: Lucho Mayen; Tom Hernandez MD Patient Admitting Representative: Signed KNEE 3 VIEWS Observed: 10/09/2017 Status: F Source: [place] 11:54 PM [facility] REPOSITORY [facility] Imaging Services [address] [place], [place] [address] [place] [address] Knee 3 Views MR#: [id number] Acct: [id number] Name: CORINNE GILES Rep #: [id number] : 1935 81 From: Carlos Fuller MD PCP: Tom Hernandez MD Status: [facility] Study: Knee 3 Views Date of Exam: 10/10/17 Exam# [id number] Ordering Dr: Lucho Mayen MD STUDY: X-RAY [...] Service support , CC: Lucho Hernandez MD Patient Admitting Representative: Signed Observed: 09/19/2017 Status: F Source: [place] CULTURE, URINE 10:00 PM [facility] REPOSITORY Urine Culture ORGANISM 1: Proteus mirabilis [place] Count >100,000 Proteus mirabilis: REACTION Amoxacillin/Clavulanic Acid [...] >=320 R (NF) indicates non-formulary drug at [facility]. Approval by Infectious Disease Specialist required before non-formulary drugs may be ordered and/or dispensed. Performed By: #### M100.0650 #### [facility] [address] [facility] [place], [address] OPERATIVE REPORT Observed: 09/12/2017 Status: F Source: [place] 2:43 PM [facility] REPOSITORY [facility] Medical Records Department [address] [place] [address] Operative Report 09/12/17 1439 MR#: [id number] Acct: [id number] Name: CORINNE GILES Rep #: [id number] : 1935 81 From: Lucho Mayen MD PCP: Tom Hernandez MD Status: [facility] Y Location: [place] [address] Problem List (1) Radiculopathy of lumbosacral region [...] repeat of the procedure if indicated. 09/12/17 8732 <Electronically signed by Lucho Mayen MD> Date Lucho Mayen MD CC: Lucho Mayen; Tom Heranndez MD Signed FLUOR GUIDANCE FOR Observed: 09/12/2017 Status: F Source: [place] SPINE INJ 3:10 AM [facility] REPOSITORY [facility] Imaging Services [address] [place] [address] Fluor Guidance for Spine Inj MR#: [id number] Acct: [id number] Name: CORINNE GILES Rep #: [id number] : 1935 F 81 From: Juan Iniguez MD PCP: Tom Hernandez MD Status: [facility] Study: Fluor Guidance for Spine Inj Date of Exam: 09/12/17 Exam# [id number] Ordering Dr: Lucho Mayen MD PROCEDURE: Caudal block. DATE OF EXAMINATION: September 12, 2017. INDICATION: Female, 81 years old. Chronic low back pain. FLUOROSCOPY TIME (if supplied): (0:08) minutes/seconds Imaging provided for caudal block. RAD/Fluor Guidance for Spine Inj IMPRESSION: Intraoperative imaging provided for caudal block. Electronically Signed: Juan Iniguez MD at 13:47 EST Tel [phone], Service support , CC: Lucho Mayen; Tom Hernandez MD Patient Admitting Representative: Signed ALLERGIES ALLERGIES DATE TYPE / CODE NAME / CODE REACTION SEVERITY SOURCE 09/08/2017 Drug Sulfa Swelling Unknown [place] [facility] Allergy/4160 (Sulfonamide Hospital 10591(SNOMED Antibiotics)/ Repository CT) [id number](RX NORM) 09/08/2017 Drug morphine/F006 Unknown Unknown [place] [facility] Allergy/4160 764701(RXNORM Hospital 02032(SNOMED ) Repository CT) ENCOUNTERS ENCOUNTERS ADMIT/DISCHARGE ACCOUNT ADMITTING ENCOUNTER LOCATION SOURCE NUMBER CLASS 08/30/2018 [id number] Ambulatory [place] 5 [facility] ing:JANIE Repository S 08/28/2018 [id number] Ambulatory [place] 3 [facility] ing:JANIE Repository S 08/10/2018 [id number] Ambulatory [place] 3 [facility] ing:JANIE Repository S 05/15/2018 [id number] Ambulatory [place] 6 [facility] ing:JANIE Repository S 03/13/2018/ [id number] Ambulatory [place] 8 3 [facility] ing:[facility] Repository 02/10/2018 [id number] Ambulatory [place] 3 [facility] ing:JANIE Repository S 12/12/2017/ [id number] Ambulatory [place] 8 0 [facility] ing:[facility] Repository 11/09/2017 [id number] Ambulatory [place] 3 [facility] ing:JANIE Repository S 11/07/2017/ [id number] Ambulatory [place] 8 1 [facility] ing:DCC Repository 10/10/2017/ [id number] Ambulatory [place] 8 8 [facility] ing:[facility] Repository 09/19/2017 [id number] Ambulatory [place] 7 [facility] ing:JANIE Repository S 09/12/2017/ [id number] Ambulatory [place] 8 8 [facility] ing:SDCRoom: Repository AC12 PAYERS PAYERS ENCOUNTER GUARANTOR PAYER SUBSCRIBER SOURCE 08/30/2018 CORINNE Ara Primary NOT GIVENUNK [place] Insurance:SELF PAY [address] Number: Effective [place] Date:2018-08-30 [id number]: () 08/28/2018 KATYALETTY [place] Primary NOT GIVENUNK [place] Insurance:SELF PAY [address] [facility] [place] Number: Effective Repository [place] Date:2018-08-28 [id number]: () 08/10/2018 CORINNE Bullock Primary CORINNE Bullock [place] Insurance:MEDICARE [place]: Community HEALTHY [id number] PART A [facility] [id number] Number: [place]ository [place] [id number]: (330) Date:2018-08-10 [phone] (HP) 08/10/2018 Secondary NOT GIVENUNK [place] Insurance:SELF PAY [facility] Number: Effective Repository Date:2018-08-10 05/15/2018 CORINNE Bullock Primary CORINNE Bullock [place] Insurance:MEDICARE HUTCHISONDOB: Community HEALTHY [id number] PART A [facility] [id number] Number: [place]ository [place] [id number]: (330) Date:2018-05-15 [id number] () 05/15/2018 Secondary NOT GIVENUNK [place] Insurance:SELF PAY [facility] Number: Effective Repository Date:2018-05-15 03/13/2018 CORINNE Bullock Primary CORINNE Bullock [place] Insurance:MEDICARE HUTCHISONDOB: [facility]ly [facility] HEALTHY [id number] PART A [facility] [id number] For[facility] Number: [place]ository [place] [id number]: (330) Date:2018-03-08 [id number] () 03/13/2018 Secondary NOT GIVENUNK [place] Insurance:SELF PAY [facility] Number: Effective Repository Date:2018-03-08 02/10/2018 CORINNE Bullock Primary CORINNE Bullock [place] Insurance:MEDICARE [place]ISONDOB: Community HEALTHY [id number] PART A [facility] [id number] Forge [facility] Number: Repository [place] [id number]: (330) Date:2018-02-10 [phone] () 02/10/2018 Secondary NOT GIVENUNK [place] Insurance:SELF PAY [facility] Number: Effective Repository Date:2018-02-10 12/12/2017 Corinne Bullock Primary NOT GIVENUNK [place]SELF [place]Y [facility] HEALTHY [id number] [facility] Number: Effective Repository [place] Date:2017-12-07 657[address]Vlg: [phone]~330-6 (HP) 11/09/2017 CORINNE Bullock Primary CORINNE Bullock [place] Insurance:MEDICARE HUTCHISONDOB: [facility] HEALTHY [id number] PART A [facility] [id number] Forge [facility] Number: [place] [id number]: Date:2017-11-09 ~330-6 (HP) 11/09/2017 Secondary NOT GIVENUNK [place] Insurance:SELF PAY [facility] Number: Effective Repository Date:2017-11-09 11/07/2017 Corinne Bullock Primary Corinne Bullock [place] Insurance:MEDICARE HutchisonDOB: [facility]ly [facility] HEALTHY [id number] PART A [facility] [id number] Forge [facility] Number: Repository [place], [place] [id number]: Date:2017-10-31 ~330-6 (HP) 11/07/2017 Secondary NOT GIVENUNK [place] Insurance:SELF PAY [facility] Number: Effective Repository Date:2017-10-31 10/10/2017 CORINNE LIZARRAGASON1715 Primary CORINNE Bullock [facility] RDROOM Insurance:MEDICARE HUTCHISONDOB: [address] PART A [facility] [id number] Hospital [address]Ljs: (330) Number: Repository [phone] () [id number] Date:2017-10-04 10/10/2017 Secondary NOT GIVENUNK [place] Insurance:SELF PAY [facility] Number: Effective Repository Date:2017-10-04 09/19/2017 Corinne Lizarragason1715 Primary NOT GIVENUNK [facility] Insurance:SELF PAY [facility] [address]Yxy: (330) Number: Effective Repository [phone] () Date:2017-09-19 09/12/2017 CORINNE LIZARARGASON1715 Primary CORINNE Morrison [facility] Insurance:MEDICARE [facility]: Community [address] [place] [address], [place] PART A [facility] [id number] Hospital [address]Jic: (330) Number: Repository [phone] () [id number] Date:2017-09-06 09/12/2017 [facility]SELF [facility]Y [facility] Number: Effective Repository Date:2017-09-06
== END ==
LOC: OLS.WHLEAS 05:00
PROVIDERS: Visit Provider Family Medicine
DX: I50.9 Heart failure, unspecified (principal); R53.83 Other fatigue; E86.0 Dehydration; E87.5 Hyperkalemia
CPT/HCPCS: 36415; 80048

== ENCOUNTER 2018-09-25 08:10 | Day surgery (SDC) | payer MEDICARE, MEDICAID, SELFPAY ==
[2018-09-05 12:05] VITALS: BMI 54.5
[2018-09-25 08:47] VITALS: BP 95/65; PULSE 49; RESP 16; TEMP 36.3; O2SAT 95; BMI 50.5
[2018-09-25] MEDS: Bupivacaine 0.25% 30 ML Vial (09:27)
[2018-09-25] MEDS: MethylPREDNISolone Acetate 80 MG/ML Vial (09:27)
--- NOTE | 2018-09-25 09:30 | RAD_ITS ---
PROCEDURE: Left transforaminal L4-S1 block. DATE OF EXAMINATION: September 25, 2018. INDICATION: Female, 82 years old. Prior laminectomy and fusion. Pain. Intraoperative imaging was provided for left L4-S1 transforaminal block. RAD/Lumbar Spine 2 or 3 Views IMPRESSION: Intraoperative imaging provided for left L4-S1 transforaminal block. Electronically Signed: Juan Iniguez MD at 10:39 EST , Service support ,
[2018-09-25 09:35] VITALS: BP 102/65; BP 95/65; PULSE 73; RESP 16; TEMP 36.3; O2SAT 94
[2018-09-25 09:40] VITALS: BP 102/71; BP 95/65; PULSE 72; RESP 16; O2SAT 93
[2018-09-25 09:45] VITALS: BP 134/74; BP 95/65; PULSE 75; RESP 16; O2SAT 92
[2018-09-25 09:50] VITALS: BP 119/70; BP 95/65; PULSE 72; RESP 16; TEMP 36.3; O2SAT 92
--- NOTE | 2018-09-25 09:54 | PCM.OPRPT ---
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 (2) Radiculopathy of lumbosacral region Status: Chronic Report of Operation Date of Procedure: 09/25/18 Pre-Operative Diagnosis: Lumbosacral radiculopathy, lumbosacral degenerative disc disease, lumbosacral spinal stenosis Post-Operative Diagnosis: Lumbosacral radiculopathy, lumbosacral degenerative disc disease, lumbosacral spinal stenosis Surgery/Procedure Performed:: Left-sided lumbar transforaminal epidural steroid injection L4-5, L5-S1 Description of Surgical Findings:: PROCEDURE: Left-sided lumbar transforaminal epidural steroid injection L4-5, L5-S1 PREOPERATIVE DIAGNOSIS: Lumbosacral radiculopathy, lumbosacral degenerative disc disease, lumbosacral spinal stenosis POSTOPERATIVE DIAGNOSIS: Lumbosacral radiculopathy, lumbosacral degenerative disc disease, lumbosacral spinal stenosis ANESTHESIA: MAC COMPLICATIONS: None BLOOD LOSS: Minimal PROCEDURE IN DETAIL: History and physical today was reviewed. Risks and benefits of the procedure were explained. The patient understood, agreed to our procedure, and informed consent was obtained. IV inserted per routine protocol. The patient was taken to the operating room, placed in a prone position with a pillow positioned underneath the abdomen. The the left side of the back was prepped and draped in a sterile fashion using iodine x3 under fluoroscopy guidance on oblique view the L4 through S1 vertebral bodies are visualized the skin and subcutaneous tissue were anesthetized with approximately 5 cc of 1% lidocaine using a 25-gauge regular needle. Under direct visualization fluoroscopy at approximately 25 degree angle starting on the left L4 ending on the left L5 using a 22-gauge 5 inch spinal needle the needle was advanced via the skin tip of the needle's maneuver and directed towards the inferior medial gutter of the transverse process at the superiormost aspect of the neuroforamen once the tip of the needle was at the vicinity of the foramen after negative aspiration for blood or CSF a total of 1 cc of contrast were injected in divided doses between both levels to confirm correct placement of the needle as well as medial spread the confirmation was obtained on AP as well as lateral view after repeated negative aspiration and confirmation a total of 5 cc of preservative-free 0.25% Marcaine with 80 mg of Depo-Medrol were injected in divided doses between both levels the needles were then removed intact. The patient experienced no signs or symptoms intrathecal, intravascular injection. The patient experienced no paraesthesia. The procedure was completed without any apparent difficult, any complication. The patient appeared to tolerate well. ASSESSMENT AND PLAN: This is a 82-year-old female with lumbosacral radiculopathy lumbosacral degenerative disc disease and lumbosacral spinal stenosis status post left-sided lumbar transforaminal epidural steroid injection L4-5 L5-S1. The patient will continue her current medications. The patient will follow in approximately 2 weeks for reevaluation
== END 2018-09-25 10:38 | disposition home or self-care (01) ==
LOC: SDC 08:11 → AC 08:13
PROVIDERS: Family Provider Family Medicine; PCP Family Medicine; Referring Provider Anesthesiology Pain Medicine; Visit Provider Anesthesiology Pain Medicine
PROC: 3E0S3BZ Introduction of Anesthetic Agent into Epidural Space, Percutaneous Approach (ICD-10-PCS; CPT 64484; principal; 2018-09-25 09:25)
DX: M51.17 Intervertebral disc disorders with radiculopathy, lumbosacral region (principal); M48.07 Spinal stenosis, lumbosacral region; I25.10 Atherosclerotic heart disease of native coronary artery without angina pectoris; I11.0 Hypertensive heart disease with heart failure; I50.9 Heart failure, unspecified; E06.9 Thyroiditis, unspecified; B19.20 Unspecified viral hepatitis C without hepatic coma; Z79.82 Long term (current) use of aspirin; Z79.899 Other long term (current) drug therapy; Z87.891 Personal history of nicotine dependence
CPT/HCPCS: 01936; 64484; 64483; 72100; J7120

== ENCOUNTER → 2018-10-06 16:00 | Outpatient (REF) | payer MEDICARE, SELFPAY ==
[2018-09-25 08:47] VITALS: BMI 50.5
== END ==
LOC: OLS.WHLEAS 16:00
PROVIDERS: Visit Provider Family Medicine
DX: I11.0 Hypertensive heart disease with heart failure (principal); I50.9 Heart failure, unspecified
CPT/HCPCS: 87086; 87088

== ENCOUNTER → 2018-10-17 05:30 | Outpatient (REF) | payer MEDICARE, SELFPAY ==
[2018-09-25 08:47] VITALS: BMI 50.5
[2018-10-17 09:08] LABS: Hematocrit 35.9 % (37-47); Mean Corp Hgb Conc 30.6 g/gl (32-36); Mean Corpuscular Hgb 30.9 pg (27.0-32.0); Mean Corpuscular Volume 100.8 fL (81-99); Mean Platelet Vol. 11.5 fl (6.2-12.0); Platelet Count 164 K/mm3 (150-450); RBC Distribution Width CV 12.9 % (11.6-14.6); RBC Distribution Width SD 46.4 fl (35.1-43.9); Red Blood Count 3.56 M/mm3 (4.2-5.4); White Blood Count 4.9 K/mm3 (4.4-11.0)
[2018-10-17 09:09] LABS: Scan Indicated on CBC? Y/N NO
[2018-10-17 09:23] LABS: Anion Gap 9 (5-15); BUN 12 mg/dL (7-18); BUN/Creat Ratio 29.4 RATIO (10-20); Calcium,Total 8.2 mg/dL (8.5-10.1); Chloride 108 mmol/L (98-107); Creatinine, Serum 0.41 mg/dL (0.55-1.02); EST Glomerular Filtration Rate 158 mL/min (>60); Est Glom Filt Rate - Afr Amer 191 mL/min (>60); Glucose 91 mg/dL (74-106); Potassium 3.8 mmol/L (3.5-5.1); Sodium Level 143 mmol/L (136-145)
== END ==
LOC: OLS.WHLEAS 05:30
PROVIDERS: Visit Provider Family Medicine
DX: I10 Essential (primary) hypertension (principal); J44.9 Chronic obstructive pulmonary disease, unspecified
CPT/HCPCS: 36415; 80048; 85027

== ENCOUNTER 2018-11-06 08:31 | Day surgery (SDC) | payer MEDICARE, MEDICAID, SELFPAY ==
--- NOTE | 2018-11-02 08:53 | HP.PCM_ITS ---
History of Present Illness The patient is a 82 year old F [] Past Medical History Past Medical History (Chronic Problems): Chronic Problems (This Medical Record has been edited. Action required.) Unilateral primary osteoarthritis, left knee (Chronic) Chronic pain of left knee (Chronic) Radiculopathy of lumbosacral region (Chronic) Degeneration of intervertebral disc of lumbosacral region (Chronic) Spinal stenosis of lumbosacral region (Chronic) Failed back surgical syndrome (Chronic) Primary osteoarthritis of left knee (Chronic) Generalized weakness (Chronic) HTN (hypertension) (Chronic) Depression (Chronic) Tremor (Chronic) Neuropathy (Chronic) Hypothyroidism (Chronic) CKD (chronic kidney disease) stage 3, GFR 30-59 ml/min (Chronic) Anemia in chronic kidney disease (Chronic) Allergies Sulfa (Sulfonamide Antibiotics) Allergy (Verified 11/01/18 13:45) Hives morphine Adverse Reaction (Verified 11/01/18 13:45) Other Home Medications: Ambulatory Orders Medication Instructions Recorded Aspirin [Aspirin, Baby] 81 mg PO DAILY@0800 05/15/16 Levothyroxine [Synthroid] 100 mcg PO DAILY 05/15/16 Amlodipine [Norvasc] 10 mg PO DAILY tablet 05/18/16 Guaifenesin Dm [Robitussin Dm] 10 ml PO Q6H PRN PRN #0 udc 11/13/16 Docusate Sodium [Colace] 100 mg PO DAILY PRN PRN 09/08/17 Furosemide 40 mg PO BID 09/08/17 Gabapentin [Neurontin] 300 mg PO BID 09/08/17 Guaifenesin [Mucinex] 1,200 mg PO BID 09/08/17 Lisinopril [Prinivil] 5 mg PO DAILY 09/08/17 Loperamide HCl [Imodium A-D] 2 mg PO PRN PRN 09/08/17 Primidone [Mysoline] 25 mg PO DAILY 09/08/17 Primidone [Mysoline] 50 mg PO QHS 09/08/17 Ropinirole HCl [Requip] 1 mg PO QHS 09/08/17 Methylcellulose [Fiber Therapy] 1,250 mg PO DAILY 12/12/17 Hydrocodone/Acetaminophen [[place] 1 each PO TID PRN 09/25/18 5-325 Tablet] Albuterol Inhaler [Ventolin Hfa 2 puff INHALATION Q4H PRN PRN 11/01/18 (SP)] Diclofenac Sodium [Voltaren] 100 gm TP PRN PRN 11/01/18 Surgical History: hysterectomy, - - 7 unspecified foot surgeries for her MRSA infection. Unspecified back surgeries Psychiatric History: Anxiety, Depression, - - Insomnia [employer] History: uterine fibroids Smoking Status: Former smoker Subjective: NOTE (Tuesday October 23, 2018 10:58 AM) Chief Complaint: follow up for left hip pain History of Present Illness: This is a 82 Y/O Female who was seen and evaluated at our office today as a follow up. Pain: Lower back,left hip,left leg and left knee down to the toes (lt foot pain). Quality: constant but varies in intensity Region: Lower back radiates into left hip/leg.Pain in her left knee.Pain in lt foot/toes. Severity: dull-severe aching, burning in the lt hip,cramping in left foot.throbbing in left knee Timing: Since 1971 Aggravated by: everything Relieved by: medication, PT, injections Pain score (out of 10): 6/10 Other info: Patient is here for a follow up for left hip pain that goes into left leg down to ankle and is constant but varies in intensity. States pain is a severe aching and burning pain. States the last injection did help with her pain but it is starting to come back. Patient would like to discuss x-ray of right shoulder and injection. Review of Systems: Notes incontinence, sob on occasion, occasional headaches and has some wheezing and cough. Denies change in vision or hearing problems. Reports no change in weight.No cp or peripheral edema.They note no lumps or swollen glands, no new rashes, changing moles, or change in bowel function. Mood has been good overall. Past Medical History: h/o CHF h/o HTN h/o chronic kidney disease stage 3 h/o cardiomyopathy h/o hypothyroid h/o vitamin B12 deficiency h/o vitamin D deficiency h/o MRSA s/p hysterectomy s/p Left ankle sx. X7 s/p back surgery x2 Family History: Family History: Adopted/NA ======== Structured Family History ======== Patient does not know family's health history Social History: Patient denies any tobacco use or recreational drug use. Denies alcohol consumption. Pipe Smoker: No Cigar Smoker: No Chewing Tobacco User: No] Living situation: Occupation: retired Tobacco: former smoker EtOH: denies Rec. drugs: denies [Tobacco: Former smoker (0.5 pk yrs / 61 yrs quit) Start Date: 02/24/2015 End Date: 02/24/2015 Pipe Smoker: No Cigar Smoker: No Chewing Tobacco User: No] Allergies: sulfa drug, morphine Medications: 1) acetaminophen 325 mg oral tablet, 2 tabs po q6 hrs prn 2) amLODIPine 10 mg oral tablet, One tablet daily 3) aspirin 81 mg oral tablet, One tablet daily 4) benzonatate 100 mg oral capsule, Take 1 tablet by mouth 3 Times a Day prn 5) docusate sodium 100 mg oral capsule, One tablet daily prn 6) Ear Wax Removal 6.5% otic solution, 3 gtts effected ear qhs x3 days prn 7) fiber-lax tabs, 2 tabs po qday 8) furosemide 40 mg oral tablet, Take 1 tablet by mouth 2 times a Day 9) gabapentin 300 mg oral capsule, 1 PO BID 10) levothyroxine 100 mcg (0.1 mg) oral tablet, Take 1 tablet by mouth once daily 11) lisinopril 5 mg oral tablet, Take 1 tablet by mouth once daily 12) loperamide 2 mg oral capsule, as directed prn 13) Mucinex 600 mg oral tablet, extended release, Take 2 tablet by mouth 2 times a Day 14) natural balance tears eyedrop, 2 gtts each eye qid prn 15) [place] 5 mg-325 mg oral tablet, 1 PO TID PRN pain. 16) primidone 50 mg oral tablet, 1/2 tab po qam/1 tab po qhs 17) ProAir HFA 90 mcg/inh inhalation aerosol, 2 puffs every 4 hours prn 18) Proctosol-HC 2.5% rectal cream with applicator, as directed tid prn 19) PT Eval and Treat, Home Health Nursing for Admin and Discharge 20) rOPINIRole 1 mg oral tablet, Take 1 tablet by mouth every evening 21) Tessalon Perles 100 mg oral capsule, One tablet TID prn 22) Vitamin B12 Injection, 1x qmonth 23) Voltaren 1% topical gel, apply 4 gm to affected area up to 4 times a day 24) xray of left knee 25) xray of the lumbar spine, 3-4 views. Physical Examination: Wt: 238 lb Ht/Ln: 57 in BMI: 51.5 BP: 113/61 Pulse: 73 RR: 16 Temp: 98.4F Pain: 6 Well nourished and well developed in no acute distress. Affect is normal and appropriate. Mucosa pink and moist. Chest is labored breathing, pt is alert and oriented to place, person and time. Neck is supple without significant lymphadenopathy or thyromegaly. Abdomen soft & non-tender. No HSM or masses appreciated. Extremities show no cyanosis, clubbing, positive 2+ edema. Gait is Antalgic can stand with assist, in a motorized wheel chair Pain in left knee with light palpation worse on the medial aspect. Decrease ROM of right shoulder due to pain Pain elicited with light palpation of right shoulder. ROM of her left knee is limited due to pain. Lumbar paraspinal muscle tenderness much improved Bilateral lumbar facet loading is positive much improved. SLR is positive on the left. Motor and sensory exam is unchanged. 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 Xray of the right shoulder was reviewed with the pt today and they appear to understand. Reviewed her care home medications. UDS was reviewed and was compliant. SOAPP score is 4 PEG was reviewed today. OARRS was reviewed today and compliant. Life style modifications were also discussed today and the pt appears to understand. Weight loss was recommended today through diet and exercise. There are no signs of diversion or addiction with the pt, there is also no signs of abuse or misuse, continues to do well with their medications without any side effects, we will continue monitoring the pt closely. Risks and benefits of the above meds were discussed with the pt and they appear to understand. The common side effects of the medications were discussed and all of their questions and concerns were answered and they appear to understand. Pt is to continue with her HEP. Pt has tried multiple modalities with no success, we will schedule the pt for right shoulder intra articular steroid injection under fluoroscopy We have discussed the risks, benefits as well as alternatives of the procedure and the patient appears to understand and would like to proceed with the above plan. The above plan was discussed today with the pt in details and they appear to understand and agrees to continue with the plan. - Physical Exam Body Mass Index (BMI) 50.5 Assessment/Plan All Active Problems (This Medical Record has been edited. Action required.) Respiratory failure with hypoxia (Acute) Acute exacerbation of CHF (congestive heart failure) (Acute)
[2018-11-06 08:55] VITALS: BP 160/57; PULSE 67; RESP 16; TEMP 36.6; O2SAT 96; BMI 49.4
[2018-11-06] MEDS: Bupivacaine 0.25% 30 ML Vial (09:34)
[2018-11-06] MEDS: MethylPREDNISolone Acetate 80 MG/ML Vial (09:34)
[2018-11-06 09:40] VITALS: BP 154/136; BP 160/57; PULSE 57; RESP 16; TEMP 36.3; O2SAT 96
--- NOTE | 2018-11-06 09:40 | RAD_ITS ---
STUDY: X-RAY - RIGHT SHOULDER REASON FOR EXAM: Female, 82 years old. Intra-articular shoulder injection. TECHNIQUE: 2 intraoperative view(s) of the shoulder. COMPARISON: None. FINDINGS: A spinal needle is seen overlying the humeral head. Contrast is seen within the shoulder joint. RAD/Fluoro Guided Needle Placement IMPRESSION: Intra-articular injection. Electronically Signed: Juan Iniguez, at 8:49 EDT , Service support ,
[2018-11-06 09:45] VITALS: BP 151/64; BP 160/57; PULSE 60; RESP 16; O2SAT 92
--- NOTE | 2018-11-06 09:45 | OP.PCM_ITS ---
Problem List (1) Primary osteoarthritis of right shoulder Status: Chronic Report of Operation Date of Procedure: 11/06/18 Pre-Operative Diagnosis: Osteoarthritis of the right shoulder Post-Operative Diagnosis: Osteoarthritis of the right shoulder Surgery/Procedure Performed:: Right shoulder intra-articular steroid injection under fluoroscopic guidance Description of Surgical Findings:: PROCEDURE: Right shoulder intra-articular steroid injection under fluoroscopic guidance PREOPERATIVE DIAGNOSIS: Osteoarthritis of the right shoulder POSTOPERATIVE DIAGNOSIS: Osteoarthritis of the right shoulder ANESTHESIA: MAC COMPLICATIONS: None BLOOD LOSS: Minimal PROCEDURE IN DETAIL: History and physical today was reviewed. Risks and benefits of the procedure were explained. The patient understood, agreed to our procedure, and informed consent was obtained. IV inserted per routine protocol. The patient was taken to the operating room, placed in a supine position the right shoulder area was prepped and draped in a sterile fashion using iodine x3 and fluoroscopy guidance AP view of the right shoulder joint was visualized the skin and subcutaneous tissue and size approximately 3 cc of 1% lidocaine using a 25-gauge regular needle under direct visualization fluoroscopy on AP view using a 22-gauge 3-1/2 inch spinal needle the needle was advanced via the skin the tip of the needle's maneuver and directed towards the anterior articular joint on the right shoulder after negative aspiration for blood, positive aspiration of synovial fluid after repeated confirmation on AP as well as oblique view a total of 2 cc of contrast were injected to confirm correct placement of the needle as well as intra- articular spread of the contrast after repeated negative aspiration and confirmation a total of 4 cc of preservative-free 0.25% Marcaine with 40 mg of Depo-Medrol injected easily the needle was then removed intact patient experienced no signs or symptoms of intravascular injection patient experienced no paresthesia. The procedure was completed without any apparent difficult, any complication. The patient appeared to tolerate well. ASSESSMENT AND PLAN: This is a 82-year-old female with osteoarthritis of the right shoulder status post right shoulder intra-articular steroid injection under fluoroscopic guidance, the patient will continue her current medications. The patient will follow in approximately 2 weeks for reevaluation.
[2018-11-06 09:50] VITALS: BP 160/57; BP 172/55; PULSE 53; RESP 14; O2SAT 100
[2018-11-06 09:55] VITALS: BP 160/57; BP 178/57; PULSE 63; RESP 16; TEMP 36.7; O2SAT 92
[2018-11-06 10:15] VITALS: BP 160/57
== END 2018-11-06 10:43 | disposition intermediate care facility (04) ==
LOC: SDC 08:34 → AC 08:35
PROVIDERS: Family Provider Family Medicine; PCP Family Medicine; Referring Provider Anesthesiology Pain Medicine; Visit Provider Anesthesiology Pain Medicine
PROC: 3E0U3GC Introduction of Other Therapeutic Substance into Joints, Percutaneous Approach (ICD-10-PCS; CPT 20610; principal; 2018-11-06 09:35)
DX: M19.011 Primary osteoarthritis, right shoulder (principal); I13.0 Hypertensive heart and chronic kidney disease with heart failure and stage 1 through stage 4 chronic kidney disease, or unspecified chronic kidney disease; N18.3 Chronic kidney disease, stage 3 (moderate); I50.9 Heart failure, unspecified; E03.9 Hypothyroidism, unspecified; I42.9 Cardiomyopathy, unspecified; E55.9 Vitamin D deficiency, unspecified; E53.8 Deficiency of other specified B group vitamins; J44.9 Chronic obstructive pulmonary disease, unspecified; G25.81 Restless legs syndrome; Z99.81 Dependence on supplemental oxygen; Z79.82 Long term (current) use of aspirin; Z79.899 Other long term (current) drug therapy; Z79.891 Long term (current) use of opiate analgesic; Z87.891 Personal history of nicotine dependence
CPT/HCPCS: 20610; 76000; 77002; J7120

== ENCOUNTER → 2018-11-21 05:00 | Outpatient (REF) | payer MEDICARE, MEDICAID, SELFPAY ==
[2018-11-06 08:55] VITALS: BMI 49.4
[2018-11-21 08:52] LABS: Hematocrit 38.5 % (37-47); Hemoglobin 11.6 g/dl (12.0-15.0); Mean Corp Hgb Conc 30.1 g/gl (32-36); Mean Corpuscular Hgb 28.9 pg (27.0-32.0); Mean Platelet Vol. 10.3 fl (6.2-12.0); Platelet Count 279 K/mm3 (150-450); RBC Distribution Width CV 16.1 % (11.6-14.6); RBC Distribution Width SD 55.5 fl (35.1-43.9); Red Blood Count 4.01 M/mm3 (4.2-5.4); White Blood Count 6.5 K/mm3 (4.4-11.0)
[2018-11-21 09:01] LABS: Scan Indicated on CBC? Y/N NO
[2018-11-21 09:38] LABS: Anion Gap 2 (5-15); BUN 52 mg/dL (7-18); BUN/Creat Ratio 32.5 RATIO (10-20); Calcium,Total 8.8 mg/dL (8.5-10.1); Chloride 117 mmol/L (98-107); EST Glomerular Filtration Rate 33 mL/min (>60); Est Glom Filt Rate - Afr Amer 40 mL/min (>60); Glucose 81 mg/dL (74-106); Potassium 6.1 mmol/L (3.5-5.1); Sodium Level 141 mmol/L (136-145)
== END ==
LOC: OLS.WHLEAS 05:00
PROVIDERS: Visit Provider Family Medicine
DX: E03.9 Hypothyroidism, unspecified (principal); N18.3 Chronic kidney disease, stage 3 (moderate)
CPT/HCPCS: 36415; 80048; 85027

== ENCOUNTER → 2018-11-27 06:42 | Outpatient (REF) | payer MEDICARE, MEDICAID, SELFPAY ==
[2018-11-06 08:55] VITALS: BMI 49.4
[2018-11-27 08:12] LABS: Anion Gap 5 (5-15); BUN 62 mg/dL (7-18); BUN/Creat Ratio 35.6 RATIO (10-20); Calcium,Total 8.8 mg/dL (8.5-10.1); Chloride 116 mmol/L (98-107); Creatinine, Serum 1.74 mg/dL (0.55-1.02); EST Glomerular Filtration Rate 30 mL/min (>60); Est Glom Filt Rate - Afr Amer 36 mL/min (>60); Glucose 88 mg/dL (74-106); Potassium 5.3 mmol/L (3.5-5.1); Sodium Level 142 mmol/L (136-145)
== END ==
LOC: OLS.WHLEAS 06:42
PROVIDERS: Visit Provider Family Medicine
DX: I10 Essential (primary) hypertension (principal)
CPT/HCPCS: 36415; 80048

== ENCOUNTER 2019-01-08 09:44 | Day surgery (SDC) | payer MEDICARE, MEDICAID, SELFPAY ==
[2019-01-08] VITALS (7 sets, daily range): BP systolic 138–166; BP diastolic 59–67; PULSE 57–65; RESP 16; TEMP 36.3–36.6; O2SAT 94–100; BMI 50.5
[2019-01-08] MEDS: Bupivacaine 0.25% 30 ML Vial (11:43)
[2019-01-08] MEDS: MethylPREDNISolone Acetate 80 MG/ML Vial (11:43)
--- NOTE | 2019-01-08 11:46 | RAD_ITS ---
PROCEDURE: Caudal block. DATE OF EXAMINATION: January 08, 2019. INDICATION: Female, 83 years old. Chronic back pain. PHYSICIAN: FLUOROSCOPY TIME (if supplied): (0:12) minutes/seconds 2 intraoperative images were obtained. Fluoroscopic services provided for caudal block. RAD/Fluoro Guided Needle Placement IMPRESSION: Intraoperative fluoroscopic services provided for caudal block. Electronically Signed: Juan Iniguez, at 10:16 EDT , Service support ,
--- NOTE | 2019-01-08 12:29 | OP.PCM_ITS ---
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 (2) Failed back surgical syndrome Status: Chronic (3) Radiculopathy of lumbosacral region Status: Chronic (4) Spinal stenosis of lumbosacral region Status: Chronic Report of Operation Date of Procedure: 01/08/19 Pre-Operative Diagnosis: Lumbosacral radiculopathy, lumbosacral degenerative disc disease, lumbosacral spinal stenosis Post-Operative Diagnosis: Lumbosacral radiculopathy, lumbosacral degenerative disc disease, lumbosacral spinal stenosis Surgery/Procedure Performed:: Caudal epidural steroid injection Description of Surgical Findings:: PROCEDURE: Caudal epidural steroid injection PREOPERATIVE DIAGNOSIS: Lumbosacral radiculopathy, lumbosacral degenerative disc disease, lumbosacral spinal stenosis POSTOPERATIVE DIAGNOSIS: Lumbosacral radiculopathy, lumbosacral degenerative disc disease, lumbosacral spinal stenosis ANESTHESIA: MAC COMPLICATIONS: None BLOOD LOSS: Minimal PROCEDURE IN DETAIL: History and physical today was reviewed. Risks and benefits of the procedure were explained. The patient understood, agreed to our procedure, and informed consent was obtained. IV inserted per routine protocol. The patient was taken to the operating room, placed in a prone position with a pillow positioned underneath the abdomen. The lower back and tailbone area was prepped and draped in a sterile fashion using iodine ?3 under fluoroscopy guidance on the lateral view the caudal space was identified the skin and subcutaneous tissue and size approximately 3 cc of 1% lidocaine using a 25-gauge regular needle under direct visualization fluoroscopy using the lateral approach using a 22-gauge 3-1/2 inch spinal needle the needle was advanced via the skin through the sacral hiatus, tip of the needle passed through the sacrococcygeal ligament advanced approximately S4 area after negative aspiration for blood or CSF a total of 3 cc of contrast were injected to confirm correct placement of the needle as well as cephalad spread the spread was followed to approximately L5 area after confirmation on AP as well as lateral view and repeated negative aspiration, a total of 15 cc of preservative-free 0.125% Marcaine with 80 mg of the Depo-Medrol was injected easily. The needle was then removed intact. The patient experienced no signs or symptoms of intrathecal, intravascular injection. The patient experienced no paraesthesia. The procedure was completed without any apparent difficult, any complication. The patient appeared to tolerate well. ASSESSMENT AND PLAN: This is a 83-year-old female with lumbosacral radiculopathy, lumbosacral degen erative disc disease, lumbosacral spinal stenosis status post caudal epidural steroid injection. The patient will continue her current medications. The patient will follow in approximately 2 weeks for reevaluation.
== END 2019-01-08 13:02 | disposition home or self-care (01) ==
LOC: SDC 09:45 → AC 09:52
PROVIDERS: Family Provider Family Medicine; PCP Family Medicine; Referring Provider Anesthesiology Pain Medicine; Visit Provider Anesthesiology Pain Medicine
PROC: 3E0S3BZ Introduction of Anesthetic Agent into Epidural Space, Percutaneous Approach (ICD-10-PCS; CPT 62282; principal; 2019-01-08 11:05)
DX: M51.17 Intervertebral disc disorders with radiculopathy, lumbosacral region (principal); M48.07 Spinal stenosis, lumbosacral region; I13.0 Hypertensive heart and chronic kidney disease with heart failure and stage 1 through stage 4 chronic kidney disease, or unspecified chronic kidney disease; I50.9 Heart failure, unspecified; N18.3 Chronic kidney disease, stage 3 (moderate); J44.9 Chronic obstructive pulmonary disease, unspecified; E03.9 Hypothyroidism, unspecified; G25.81 Restless legs syndrome; F32.9 Major depressive disorder, single episode, unspecified; F41.9 Anxiety disorder, unspecified; E55.9 Vitamin D deficiency, unspecified; Z79.82 Long term (current) use of aspirin; Z79.891 Long term (current) use of opiate analgesic; Z79.899 Other long term (current) drug therapy; Z87.891 Personal history of nicotine dependence
CPT/HCPCS: 62323; 64483; 77002; J7120; J3490

== ENCOUNTER → 2019-02-21 | Outpatient (REF) | payer MEDICARE, MEDICAID, SELFPAY ==
[2019-01-08 10:18] VITALS: BMI 50.5
[2019-02-21 08:06] LABS: Hematocrit 40.3 % (37-47); Hemoglobin 12.2 g/dL (12.0-15.0); Mean Corp Hgb Conc 30.3 g/dL (32-36); Mean Corpuscular Hgb 30.6 pg (27.0-32.0); Platelet Count 285 K/mm3 (150-450); RBC Distribution Width CV 13.3 % (11.6-14.6); RBC Distribution Width SD 50.1 fl (35.1-43.9); Red Blood Count 3.99 M/mm3 (4.2-5.4); White Blood Count 6.3 K/mm3 (4.4-11.0)
[2019-02-21 08:31] LABS: Anion Gap 4 (5-15); BUN 46 mg/dL (7-18); BUN/Creat Ratio 34.3 RATIO (10-20); Calcium,Total 8.7 mg/dL (8.5-10.1); Chloride 114 mmol/L (98-107); Creatinine, Serum 1.34 mg/dL (0.55-1.02); EST Glomerular Filtration Rate 40 mL/min (>60); Est Glom Filt Rate - Afr Amer 48 mL/min (>60); Glucose 88 mg/dL (74-106); Potassium 4.9 mmol/L (3.5-5.1); Sodium Level 145 mmol/L (136-145); Thyroid Stim Hormone (TSH) 1.32 uIU/mL (0.358-3.74)
[2019-02-24 13:25] LABS: Phenobarbital,Serum 3 ug/mL (15-40); Primidone, Serum 3.8 ug/mL (5.0-12.0)
== END | disposition home or self-care (01) ==
LOC: OLS.WHLEAS 06:36
PROVIDERS: Visit Provider Family Medicine
DX: I11.0 Hypertensive heart disease with heart failure (principal); I50.9 Heart failure, unspecified; E03.9 Hypothyroidism, unspecified
CPT/HCPCS: 36415; 80048; 80184; 80188; 84443; 85027

== ENCOUNTER → 2019-02-27 | Outpatient (REF) | payer MEDICARE, MEDICAID, SELFPAY ==
[2019-01-08 10:18] VITALS: BMI 50.5
[2019-02-27 09:57] LABS: Color, Urine Brown (Yellow); Glucose, Dipstick Normal (Normal); Ketone-Dipstick 5 mg/dl (Negative); Leukocyte Esterase-Dipstick 500 /ul (Negative); Nitrite-Dipstick Negative (Negative); Occult Blood-Urine 250 /ul (Negative); Protein-Dipstick 100 mg/dl (Negative); Specific Gravity, Urine 1.015 (1.002-1.030); Urine Bilirubin Dipstick Negative (Negative); Urine Clarity Turbid (Clear); Urine Urobilinogen Normal (Normal)
== END | disposition home or self-care (01) ==
LOC: OLS.WHLEAS 07:00
PROVIDERS: Visit Provider Family Medicine
DX: R31.9 Hematuria, unspecified (principal); R35.0 Frequency of micturition
CPT/HCPCS: 81002; 87086; 87088

== ENCOUNTER → 2019-05-23 05:00 | Outpatient (REF) | payer MEDICARE, MEDICAID, SELFPAY ==
[2019-01-08 10:18] VITALS: BMI 50.5
[2019-05-23 07:54] LABS: Hematocrit 42.5 % (37-47); Hemoglobin 12.7 g/dL (12.0-15.0); Mean Corp Hgb Conc 29.9 g/dL (32-36); Mean Corpuscular Hgb 29.3 pg (27.0-32.0); Mean Corpuscular Volume 98.2 fL (81-99); Mean Platelet Vol. 9.5 fl (6.2-12.0); Platelet Count 421 K/mm3 (150-450); RBC Distribution Width CV 14.4 % (11.6-14.6); RBC Distribution Width SD 52.8 fl (35.1-43.9); Red Blood Count 4.33 M/mm3 (4.2-5.4); White Blood Count 7.1 K/mm3 (4.4-11.0)
[2019-05-23 08:05] LABS: Anion Gap 6 (5-15); BUN 56 mg/dL (7-18); BUN/Creat Ratio 29.6 RATIO (10-20); Calcium,Total 9.4 mg/dL (8.5-10.1); Chloride 110 mmol/L (98-107); Creatinine, Serum 1.89 mg/dL (0.55-1.02); EST Glomerular Filtration Rate 27 mL/min (>60); Est Glom Filt Rate - Afr Amer 33 mL/min (>60); Glucose 103 mg/dL (74-106); Potassium 5.4 mmol/L (3.5-5.1); Sodium Level 143 mmol/L (136-145)
== END ==
LOC: OLS.WHLEAS 05:00
PROVIDERS: Visit Provider Family Medicine
DX: I12.9 Hypertensive chronic kidney disease with stage 1 through stage 4 chronic kidney disease, or unspecified chronic kidney disease (principal); N18.3 Chronic kidney disease, stage 3 (moderate); I50.32 Chronic diastolic (congestive) heart failure; J44.9 Chronic obstructive pulmonary disease, unspecified
CPT/HCPCS: 36415; 80048; 85027

== ENCOUNTER → 2019-08-22 05:00 | Outpatient (REF) | payer MEDICARE, MEDICAID, SELFPAY ==
[2019-01-08 10:18] VITALS: BMI 50.5
[2019-08-22 08:31] LABS: Hematocrit 45.6 % (37-47); Hemoglobin 13.5 g/dL (12.0-15.0); Mean Corp Hgb Conc 29.6 g/dL (32-36); Mean Corpuscular Hgb 28.2 pg (27.0-32.0); Mean Corpuscular Volume 95.2 fL (81-99); Mean Platelet Vol. 9.6 fl (6.2-12.0); Platelet Count 330 K/mm3 (150-450); RBC Distribution Width SD 48.7 fl (35.1-43.9); Red Blood Count 4.79 M/mm3 (4.2-5.4); White Blood Count 6.4 K/mm3 (4.4-11.0)
[2019-08-22 09:02] LABS: Anion Gap 1 (5-15); BUN 44 mg/dL (7-18); BUN/Creat Ratio 24.6 RATIO (10-20); Calcium,Total 9.5 mg/dL (8.5-10.1); Chloride 110 mmol/L (98-107); Creatinine, Serum 1.79 mg/dL (0.55-1.02); EST Glomerular Filtration Rate 29 mL/min (>60); Est Glom Filt Rate - Afr Amer 35 mL/min (>60); Glucose 97 mg/dL (74-106); Potassium 4.2 mmol/L (3.5-5.1); Sodium Level 142 mmol/L (136-145); Thyroid Stim Hormone (TSH) 1.21 uIU/mL (0.358-3.74)
== END ==
LOC: OLS.WHLEAS 05:00
PROVIDERS: Family Provider Family Medicine; PCP Family Medicine; Visit Provider Family Medicine
DX: E03.9 Hypothyroidism, unspecified (principal); I50.32 Chronic diastolic (congestive) heart failure; J44.9 Chronic obstructive pulmonary disease, unspecified; I12.9 Hypertensive chronic kidney disease with stage 1 through stage 4 chronic kidney disease, or unspecified chronic kidney disease; N18.3 Chronic kidney disease, stage 3 (moderate)
CPT/HCPCS: 36415; 80048; 84443; 85027

== ENCOUNTER → 2019-12-07 06:30 | Outpatient (REF) | payer MEDICARE, SELFPAY ==
[2019-01-08 10:18] VITALS: BMI 50.5
== END ==
LOC: OLS.WHLEAS 06:30
PROVIDERS: PCP Family Medicine; Visit Provider Family Medicine
DX: R32 Unspecified urinary incontinence (principal); I50.32 Chronic diastolic (congestive) heart failure; J44.9 Chronic obstructive pulmonary disease, unspecified; I12.9 Hypertensive chronic kidney disease with stage 1 through stage 4 chronic kidney disease, or unspecified chronic kidney disease
CPT/HCPCS: 87077; 87086; 87088; 87186

== ENCOUNTER → 2020-02-20 05:00 | Outpatient (REF) | payer MEDICARE, SELFPAY ==
[2019-01-08 10:18] VITALS: BMI 50.5
[2020-02-20 07:06] LABS: Hematocrit 44.8 % (37-47); Hemoglobin 13.7 g/dL (12.0-15.0); Mean Corp Hgb Conc 30.6 g/dL (32-36); Mean Corpuscular Hgb 29.6 pg (27.0-32.0); Mean Corpuscular Volume 96.8 fL (81-99); Mean Platelet Vol. 9.5 fl (6.2-12.0); Platelet Count 440 K/mm3 (150-450); RBC Distribution Width CV 14.7 % (11.6-14.6); RBC Distribution Width SD 52.9 fl (35.1-43.9); Red Blood Count 4.63 M/mm3 (4.2-5.4); White Blood Count 6.8 K/mm3 (4.4-11.0)
[2020-02-20 07:27] LABS: Anion Gap 3 (5-15); BUN 46 mg/dL (7-18); BUN/Creat Ratio 26.4 RATIO (10-20); Calcium,Total 9.1 mg/dL (8.5-10.1); Chloride 105 mmol/L (98-107); Creatinine, Serum 1.74 mg/dL (0.55-1.02); EST Glomerular Filtration Rate 30 mL/min (>60); Est Glom Filt Rate - Afr Amer 36 mL/min (>60); Glucose 100 mg/dL (74-106); Potassium 4.4 mmol/L (3.5-5.1); Sodium Level 141 mmol/L (136-145); Thyroid Stim Hormone (TSH) 1.19 uIU/mL (0.358-3.74)
== END ==
LOC: OLS.WHLEAS 05:00
PROVIDERS: PCP Family Medicine; Referring Provider Family Medicine; Visit Provider Family Medicine
DX: I12.9 Hypertensive chronic kidney disease with stage 1 through stage 4 chronic kidney disease, or unspecified chronic kidney disease (principal); I50.32 Chronic diastolic (congestive) heart failure; N18.3 Chronic kidney disease, stage 3 (moderate); J44.9 Chronic obstructive pulmonary disease, unspecified; E03.9 Hypothyroidism, unspecified
CPT/HCPCS: 36415; 80048; 84443; 85027

== ENCOUNTER → 2020-05-28 05:00 | Outpatient (REF) | payer MEDICARE, SELFPAY ==
[2019-01-08 10:18] VITALS: BMI 50.5
[2020-05-28 08:28] LABS: Hematocrit 45.3 % (37-47); Hemoglobin 13.9 g/dL (12.0-15.0); Mean Corp Hgb Conc 30.7 g/dL (32-36); Mean Corpuscular Hgb 29.7 pg (27.0-32.0); Mean Corpuscular Volume 96.8 fL (81-99); Mean Platelet Vol. 9.6 fl (6.2-12.0); Platelet Count 250 K/mm3 (150-450); RBC Distribution Width CV 14.6 % (11.6-14.6); Red Blood Count 4.68 M/mm3 (4.2-5.4); White Blood Count 5.8 K/mm3 (4.4-11.0)
[2020-05-28 08:37] LABS: Anion Gap 4 (5-15); BUN 53 mg/dL (7-18); BUN/Creat Ratio 29.8 RATIO (10-20); Calcium,Total 9.4 mg/dL (8.5-10.1); Chloride 108 mmol/L (98-107); Creatinine, Serum 1.78 mg/dL (0.55-1.02); EST Glomerular Filtration Rate 29 mL/min (>60); Est Glom Filt Rate - Afr Amer 35 mL/min (>60); Glucose 103 mg/dL (74-106); Potassium 4.4 mmol/L (3.5-5.1); Sodium Level 141 mmol/L (136-145)
== END ==
LOC: OLS.WHLEAS 05:00
PROVIDERS: PCP Family Medicine; Referring Provider Family Medicine; Visit Provider Family Medicine
DX: I13.0 Hypertensive heart and chronic kidney disease with heart failure and stage 1 through stage 4 chronic kidney disease, or unspecified chronic kidney disease (principal); I50.32 Chronic diastolic (congestive) heart failure; N18.30 Chronic kidney disease, stage 3 unspecified; J44.9 Chronic obstructive pulmonary disease, unspecified
CPT/HCPCS: 36415; 80048; 85027

== ENCOUNTER 2020-07-08 14:15 | Inpatient (IN) | payer MEDICARE, MEDICAID, SELFPAY ==
[2019-01-08 10:18] VITALS: BMI 50.5
[2020-07-08] VITALS (19 sets, daily range): BP systolic 113–154; BP diastolic 57–79; PULSE 55–76; RESP 12–26; TEMP 35.9–36.8; O2SAT 88–98; BMI 33.8; BMI 32.8
--- NOTE | 2020-07-08 14:33 | ED.DCSUM_ITS ---
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 Her PCP did call ahead and she is from [facility] nursing [facility]. She was found to be hypoxic in the seventies. Per EMS on nonrebreather she was up to 88. In the room she is at 90 on nonrebreather. I initially asked her how she was feeling and she said fine however you but then began mumbling she is not able to give any medical history. - Past Medical History (1) Acute exacerbation of CHF (congestive heart failure) Status: Chronic (2) Anemia in chronic kidney disease Status: Chronic (3) CKD (chronic kidney disease) stage 3, GFR 30-59 ml/min Status: Chronic Past Medical History - Allergies and Home Meds Allergies/Adverse Reactions: Allergies Sulfa (Sulfonamide Antibiotics) Allergy (Verified 07/08/20 14:30) Hives morphine Adverse Reaction (Verified 07/08/20 17:39) confusion-difficult to wean off Prior records reviewed: Yes Surgical History: noncontributory, hysterectomy, - - 7 unspecified foot surgeries for her MRSA infection. Unspecified back surgeries Lives: Assisted Smoking Status: Former smoker Alcohol: None Drugs: None - Family History Maternal Family History: Reports: No pertinent history Paternal Family History: Reports: No pertinent history Review of Systems ROS: Unable to Obtain Physical Exam Vital Signs/Narrative: Vital Signs Temp Pulse Resp BP Pulse Ox 07/08/20 14:26 97.9 F 70 26 H 149/71 H 91 07/08/20 14:19 97.9 F 70 26 H 149/71 H 91 Inital Vital Signs reviewed: Yes General: Obese, Unkempt, Acute Distress Eyes: Perrl, EOMI ENT: Dry mucous membranes. Negative for: No rhinorrhea Neck: Supple, Nontender Cardiovascular: Regular rate, Regular rhythm Respiratory: Decreased Air Movement. Negative for: Wheezing Abdomen: Soft, Nontender, Nondistended, Normal bowel sounds Extremities: Nontender, No edema Skin: Normal color, Pallor Neurological: Alert, Oriented x3, Cranial nerves II-XII grossly intact Psychological: - - confused Diagnostic/Tx/Re-eval Clinical Impression(s) from Imaging Studies Chest X-Ray 07/08/20 15:43 IMPRESSION: 1. Hazy opacities consistent with pneumonia, including possible Covid pneumonia. Electronically Signed: Jackie Broussard MD at 17:39 EST Tel , Service support , Laboratory Data 07/08/20 07/08/20 07/08/20 14:54 15:05 15:05 WBC 7.2 RBC 4.95 Hgb 14.3 Hct 49.0 H MCV 99.0 MCH 28.9 MCHC 29.2 L RDW Std Deviation 52.0 H RDW Coeff of Toe 14.2 Plt Count 309 MPV 9.6 Immature Gran % (Auto) 0.600 Neut % (Auto) 87.8 H Lymph % (Auto) 6.1 L Andrews % (Auto) 5.1 Eos % (Auto) 0.0 Baso % (Auto) 0.4 Absolute Neuts (auto) 6.3 Absolute Lymphs (auto) 0.44 L Nucleated RBC % 0 Differential Comment SCANNED D-Dimer Quant (PE/DVT) Specimen Type ART Sample Site R Radial pH 7.18 L* Bicarbonate Actual 34.6 H Total CO2 38 Base Excess 6 H O2 Saturation 85 L ABG pCO2 93.0 H* ABG pO2 65 L O2 Delivery Device NRB Sodium Cancelled Potassium Cancelled Chloride Cancelled Carbon Dioxide Cancelled Anion Gap Cancelled BUN Cancelled Creatinine Cancelled Estim Creat Clear Calc Cancelled Est GFR (MDRD) Af Amer Cancelled Est GFR (MDRD) Non-Af Cancelled BUN/Creatinine Ratio Cancelled Glucose Cancelled Lactic Acid Calcium Cancelled Total Bilirubin Cancelled AST Cancelled ALT Cancelled Alkaline Phosphatase Cancelled Troponin I Cancelled B-Natriuretic Peptide Total Protein Cancelled Albumin Cancelled Globulin Cancelled Albumin/Globulin Ratio Cancelled Procalcitonin Urine Color Urine Clarity Urine pH Ur Specific Mcfall Urine Protein Urine Glucose (UA) Urine Ketones Urine Occult Blood Urine Nitrite Urine Bilirubin Urine Urobilinogen Ur Leukocyte Esterase Urine RBC Urine WBC Ur Squamous Epith Cells Urine Bacteria Urine Mucus 07/08/20 07/08/20 07/08/20 15:05 15:05 15:05 WBC RBC Hgb Hct MCV MCH MCHC RDW Std Deviation RDW Coeff of Teo Plt Count MPV Immature Gran % (Auto) Neut % (Auto) Lymph % (Auto) Andrews % (Auto) Eos % (Auto) Baso % (Auto) Absolute Neuts (auto) Absolute Lymphs (auto) Nucleated RBC % Differential Comment D-Dimer Quant (PE/DVT) Specimen Type Sample Site pH Bicarbonate Actual Total CO2 Base Excess O2 Saturation ABG pCO2 ABG pO2 O2 Delivery Device Sodium Potassium Chloride Carbon Dioxide Anion Gap BUN Creatinine Estim Creat Clear Calc Est GFR (MDRD) Af Amer Est GFR (MDRD) Non-Af BUN/Creatinine Ratio Glucose Lactic Acid Cancelled Calcium Total Bilirubin AST ALT Alkaline Phosphatase Troponin I B-Natriuretic Peptide 1165.2 H Total Protein Albumin Globulin Albumin/Globulin Ratio Procalcitonin 0.12 H Urine Color Urine Clarity Urine pH Ur Specific Mcfall Urine Protein Urine Glucose (UA) Urine Ketones Urine Occult Blood Urine Nitrite Urine Bilirubin Urine Urobilinogen Ur Leukocyte Esterase Urine RBC Urine WBC Ur Squamous Epith Cells Urine Bacteria Urine Mucus 07/08/20 07/08/20 15:05 15:20 WBC RBC Hgb Hct MCV MCH MCHC RDW Std Deviation RDW Coeff of Teo Plt Count MPV Immature Gran % (Auto) Neut % (Auto) Lymph % (Auto) Andrews % (Auto) Eos % (Auto) Baso % (Auto) Absolute Neuts (auto) Absolute Lymphs (auto) Nucleated RBC % Differential Comment D-Dimer Quant (PE/DVT) Cancelled Specimen Type Sample Site pH Bicarbonate Actual Total CO2 Base Excess O2 Saturation ABG pCO2 ABG pO2 O2 Delivery Device Sodium Potassium Chloride Carbon Dioxide Anion Gap BUN Creatinine Estim Creat Clear Calc Est GFR (MDRD) Af Amer Est GFR (MDRD) Non-Af BUN/Creatinine Ratio Glucose Lactic Acid Calcium Total Bilirubin AST ALT Alkaline Phosphatase Troponin I B-Natriuretic Peptide Total Protein Albumin Globulin Albumin/Globulin Ratio Procalcitonin Urine Color Yellow Urine Clarity Cloudy Urine pH 6.0 Ur Specific Mcfall 1.020 Urine Protein 30 H Urine Glucose (UA) Normal Urine Ketones Negative Urine Occult Blood 250 H Urine Nitrite Negative Urine Bilirubin Negative Urine Urobilinogen Normal Ur Leukocyte Esterase 500 H Urine RBC 0-5 SEEN Urine WBC >100 SEEN Ur Squamous Epith Cells 5-10 SEEN Urine Bacteria RARE Urine Mucus 0 SEEN - EKG Initial EKG Interpretation: Junctional, Non-Specific ST Changes - Medical Decision Making Patient was seen and evaluated on arrival. She was placed on BiPAP and did have some improvement in her oxygenation. Her ABG is abnormal her pH is 7.18 bicarb 34.6 PCO2 93. This was taken as she was placed on BiPAP. She is oxygenating much better currently on BiPAP. Her mentation is still about the same. I had a long discussion with her daughter Arianna Laguerre who confirmed that she is DNR CCA with no intubation. She talked with her mother's primary care about it today to confirm. She was okay with BiPAP. She reported that the patient has a devious history of alcohol abuse, codeine abuse, opioid abuse she states that she with Dr. Baugh for some of these medications. She also stated that she would sometimes drink mouthwash. This is distantly ever in the patient is currently does not have any narcotics or alcohol at the senior care. The daughter did request that we do not give her any morphine as it makes her more confused and she requested a limited amount of opioids are addictive because she will have trouble weaning off of them. Patient tested positive for Covid?18 already at outside facility. Her lab work is consistent with Covid. New a D- dimer which age-adjusted is negative. Hospitalist stated that they will anticoagulate her anyway. Patient was found to have UTI and treated with Rocephin. Impression: 1. Acute hypoxic hypercapnic respiratory failure 2. Covid?19 pneumonia 3. UTI ED Disposition - Plan for ED Patient: [facility]
--- NOTE | 2020-07-08 14:33 | EKG12_ITS ---
Test Reason : SOB Blood Pressure : / mmHG Vent. Rate : 077 BPM Atrial Rate : 234 BPM P-R Int : 000 ms QRS Dur : 114 ms QT Int : 418 ms P-R-T Axes : 000 -33 048 degrees QTc Int : 473 ms Sinus Tachycardia with 1st degree AV Block Left axis deviation Nonspecific ST and T wave abnormality Abnormal ECG Confirmed by ABBY IBARRA, MELLISA ([id number]), editor managing director GUADALUPE DELGADO ([id number]) on 07/11/2020 1:57:06 PM Referred By: QIAN Confirmed By:KIM MORA MD
--- NOTE | 2020-07-08 14:59 | CPS ---
Critical blood gas values, Dr. Holguin aware.
[2020-07-08 15:00] LABS: Base Excess 6 mmol/L (-2 to +2); Bicarbonate 34.6 mmol/L (22-26); Blood Gas Specimen Type ART; O2 Delivery Device NRB; PO2 65 mmHG (75-100); SITE R Radial; SO2 85 % (95-99); Total Carbon Dioxide 38 mmol/L; pH 7.18 (7.35-7.45)
--- NOTE | 2020-07-08 15:43 | RAD_ITS ---
STUDY: X-RAY CHEST REASON FOR EXAM: Female, 84 years old. hypoxia, decreased loc. pt 88% on 15l per ems. covid + TECHNIQUE: Single AP portable view of the chest. COMPARISON: 11/12/2016. FINDINGS: No pleural effusion. Bilateral hazy opacities suspicious for pneumonia. Normal size heart. Normal mediastinum and yolis. Normal visualized pulmonary arteries. Normal visualized aortic arch and descending thoracic aorta. Marked osteoarthrosis of the right shoulder. Thoracic spondylosis. Soft tissues and bony structures are otherwise unremarkable. RAD/Chest 1 View (Portable) IMPRESSION: 1. Hazy opacities consistent with pneumonia, including possible Covid pneumonia. Electronically Signed: Jackie Broussard MD at 17:39 EST Tel , Service support ,
[2020-07-08 15:53] LABS: Mucous, Urine 0 SEEN /hpf (<or=2+)
[2020-07-08 16:00] LABS: Color, Urine Yellow (Yellow); Glucose, Dipstick Normal (Normal); Ketone-Dipstick Negative (Negative); Leukocyte Esterase-Dipstick 500 /ul (Negative); Nitrite-Dipstick Negative (Negative); Occult Blood-Urine 250 /ul (Negative); Protein-Dipstick 30 mg/dl (Negative); Urine Bilirubin Dipstick Negative (Negative); Urine Clarity Cloudy (Clear); Urine Urobilinogen Normal (Normal)
[2020-07-08 16:13] LABS: Absolute Lymphocyte Count 0.44 X10^3/uL (0.83-4.51); Absolute Neutrophil Count 6.3 X10^3/uL (2.0-7.7); Basophil# 0.03 X10^3/uL; Basophil% 0.4 % (0-1); Hemoglobin 14.3 g/dL (12.0-15.0); Lymphocyte # 0.44 X10^3/ul (4.0); Lymphocyte % 6.1 % (19-41); Mean Corp Hgb Conc 29.2 g/dL (32-36); Mean Corpuscular Hgb 28.9 pg (27.0-32.0); Mean Platelet Vol. 9.6 fl (6.2-12.0); Monocyte# 0.37 X10^3/uL; Monocyte% 5.1 % (0-10); NRBC Flagged by Analyzer 0 % (0-5); Neutrophil # 6.33 X10^3/uL (2.7-7.7); Neutrophil % 87.8 % (47-70); POSITIVE DIFFERENTIAL YES; Platelet Count 309 K/mm3 (150-450); RBC Distribution Width CV 14.2 % (11.6-14.6); Red Blood Count 4.95 M/mm3 (4.2-5.4); White Blood Count 7.2 K/mm3 (4.4-11.0)
[2020-07-08 16:17] LABS: Differential Indicated SCAN CRITERIA MET
[2020-07-08 16:19] LABS: White Blood Cells >100 SEEN /hpf (0-5)
[2020-07-08 16:20] LABS: Bacteria RARE /hpf (None Seen); Red Blood Cells-Urine 0-5 SEEN /hpf (0-5); Squamous Epithelial Cells - UA 5-10 SEEN /hpf (5-10)
[2020-07-08 16:43] LABS: Differential Comment SCANNED
[2020-07-08 16:54] LABS: BNP,B-Type NATRIURETIC PEPTIDE 1165.2 pg/mL (0-100); Procalcitonin 0.12 ng/mL (0.00-0.09)
[2020-07-08] MEDS: Ceftriaxone 1 GM/50 ML BAG IV (17:06)
--- NOTE | 2020-07-08 18:10 | PCM.HP.STD ---
Problem List (1) Hypoxia Status: Acute (2) COVID-19 virus infection Status: Acute History of Present Illness Date of Admission: 07/08/20 Chief Complaint: Hypoxia, positive COVID-19 The patient is a 84 year old F who was seen in the emergency room at [facility] after being brought in from an extended care facility at which she resides due to a low pulse oximetry that was obtained at the detention along with a positive COVID-19 test that resulted in the last 2 days. Patient is on 15 L on admission to the ER and her pulse oximetry is only 88%. Conversations were carried out with the patient's POA (her daughter) who verified that the patient is a DNR CC arrest without intubation, patient is not alert enough to provide any information. Current medical problems at her nursing facility include chronic obstructive pulmonary disease, chronic kidney disease, and coronary artery disease. Patient is not on any oxygen at the detention. In the emergency room showed the patient to be hypoxic, on a nonrebreather her PO2 was 65 and her PCO2 was 93 on an arterial blood gas. Her pH was 7.18. Patient's white blood cell count was normal, chemistry profile showed a potassium of 5.4, creatinine of 2.29, BUN of 55, a glucose of 145, and her beta natruretic peptide was 1165. Patient's troponin was elevated at 0.269. Patient's urinalysis was indicative of a urinary tract infection with more than 100 white blood cells seen and positive leukocyte esterase. Patient's D-dimer had not resulted at the time of my dictation. Patient's chest x-ray showed bilateral infiltrates. Patient was not alert enough to give information to this examiner, she was placed on BiPAP and was able to maintain her pulse ox at 91. Patient will be admitted to [facility] 2, I feel that she should receive remdesivir even though her renal functions are not good, I have placed her on dexamethasone and I have written for infectious diseases to see the patient. Again the patient is a DNR CC arrest with no intubation. Prognosis is overall poor due to her age. Past Medical History Past Medical History (Chronic Problems): Chronic Problems (This Medical Record has been edited. Action required.) Unilateral primary osteoarthritis, left knee (Chronic) Chronic pain of left knee (Chronic) Primary osteoarthritis of right shoulder (Chronic) Radiculopathy of lumbosacral region (Chronic) Degeneration of intervertebral disc of lumbosacral region (Chronic) Spinal stenosis of lumbosacral region (Chronic) Failed back surgical syndrome (Chronic) Primary osteoarthritis of left knee (Chronic) Generalized weakness (Chronic) HTN (hypertension) (Chronic) Depression (Chronic) Tremor (Chronic) Neuropathy (Chronic) Hypothyroidism (Chronic) CKD (chronic kidney disease) stage 3, GFR 30-59 ml/min (Chronic) Anemia in chronic kidney disease (Chronic) Acute exacerbation of CHF (congestive heart failure) (Chronic) Allergies Sulfa (Sulfonamide Antibiotics) Allergy (Verified 07/08/20 14:30) Hives morphine Adverse Reaction (Verified 07/08/20 17:39) confusion-difficult to wean off Home Medications: Ambulatory Orders Medication Instructions Recorded Aspirin [Aspirin, Baby] 81 mg PO DAILY@0800 05/15/16 Levothyroxine [Synthroid] 100 mcg PO QHS 05/15/16 Furosemide 40 mg PO DAILY 09/08/17 Guaifenesin [Mucinex] 600 mg PO BID 09/08/17 Hydrocodone/Acetaminophen [[place] 1 each PO TID PRN 09/25/18 5-325 Tablet] Albuterol Inhaler [Ventolin Hfa 2 puff INHALATION Q2H PRN 11/01/18 (SP)] Amlodipine [Norvasc] 10 mg PO DAILY 07/08/20 Calcium Carbonate/Vitamin D3 1 tab PO DAILY 07/08/20 [Calcium 600 + Vit D Caplet] Calcium Polycarbophil [Fiber Lax] 1,250 mg PO DAILY 07/08/20 Cholecalciferol (Vitamin D3) 1,000 unit PO DAILY 07/08/20 [Vitamin D3] Dexamethasone [Decadron] 4 mg PO X1 07/08/20 Gabapentin [Neurontin] 300 mg PO BID 07/08/20 Loratadine 5 mg PO DAILY 07/08/20 Multivitamin with Minerals 1 tab PO DAILY 07/08/20 [Multiple Vitamin] Ropinirole HCl [Requip] 1 mg PO QHS 07/08/20 Zinc 50 mg PO DAILY 07/08/20 Surgical History: noncontributory, hysterectomy, - - 7 unspecified foot surgeries for her MRSA infection. Unspecified back surgeries Psychiatric History: Anxiety, Depression, - - Insomnia [employer] History: uterine fibroids Lives: [facility] Smoking Status: Unknown if ever smoked Tobacco Use: Non-smoker Alcohol: None Drugs: None - *Family History Maternal History Items: No pertinent history Paternal History Items: No pertinent history Review of Systems Comment: Review of systems was not obtainable from the patient due to her critical illness and severe respiratory failure. Information was gleaned from the patient's medical record VTE Information - Inpt Only VTE Present on Admission: No VTE Mechan Device Prophylaxis: None VTE Pharm Prophylaxis ordered?: Yes - Physical Exam Vitals/I&O's: Vital Signs Temp Pulse Resp BP Pulse Ox 97.3 F L 63 23 H 133/69 H 91 07/08/20 18:00 07/08/20 18:00 07/08/20 18:00 07/08/20 18:00 07/08/20 18:00 Oxygen Flow Rate (L/min) 15 Oxygen Delivery Method Bi-pap Weight: 107 kg Body Mass Index (BMI) 33.8 General: Well developed, Well nourished, Confused, Lethargic HEENT: Atraumatic, PERRLA, EOMI, Normocephalic Oral: Moist Mucosa Neck: Supple, No JVD, Negative Carotid Bruits, Trachea Midline, Thyroid Normal Size and Texture Lungs: No rhonchi, No wheeze, Diminished Cardiovascular: Regular rate, Regular Rhythm, Normal S1, Normal S2, No murmurs, PMI Normal, No rub noted, No Gallop Abdomen: Bowel Sounds Present, Soft, Non Tender, Non-Distended, No hernias noted Extremities: No clubbing, No cyanosis, No edema, Capillary Refill Less than 3 Seconds Skin: No rashes, No breakdown Musculoskeletal: No Tenderness to Palpation of Joints or Extremities Neurological: Cranial nerves II-XII grossly intact, Neuro grossly intact, Sensory exam intact to light touch and pain Psych/Mental Status: - - Patient is alert but confused, she was not able to answer questions appropriately Laboratory Results 07/08/20 14:54: Specimen Type ART, Sample Site R Radial, pH 7.18 L*, Bicarbonate Actual 34.6 H, Total CO2 38, Base Excess 6 H, O2 Saturation 85 L, ABG pCO2 93.0 H*, ABG pO2 65 L, O2 Delivery Device NRB 07/08/20 15:05: WBC 7.2, RBC 4.95, Hgb 14.3, Hct 49.0 H, MCV 99.0, MCH 28.9, MCHC 29.2 L, RDW Std Deviation 52.0 H, RDW Coeff of Teo 14.2, Plt Count 309, MPV 9.6, Immature Gran % (Auto) 0.600, Neut % (Auto) 87.8 H, Lymph % (Auto) 6.1 L, [place] % (Auto) 5.1, Eos % (Auto) 0.0, Baso % (Auto) 0.4, Absolute Neuts (auto) 6.3, Absolute Lymphs (auto) 0.44 L, Nucleated RBC % 0, Differential Comment SCANNED 07/08/20 15:05: Sodium Cancelled, Potassium Cancelled, Chloride Cancelled, Carbon Dioxide Cancelled, Anion Gap Cancelled, BUN Cancelled, Creatinine Cancelled, Estim Creat Clear Calc Cancelled, Est GFR (MDRD) Af Amer Cancelled, Est GFR (MDRD) Non-Af Cancelled, BUN/Creatinine Ratio Cancelled, Glucose Cancelled, Calcium Cancelled, Total Bilirubin Cancelled, AST Cancelled, ALT Cancelled, Alkaline Phosphatase Cancelled, Troponin I Cancelled, Total Protein Cancelled, Albumin Cancelled, Globulin Cancelled, Albumin/Globulin Ratio Cancelled 07/08/20 15:05: Lactic Acid Cancelled 07/08/20 15:05: B-Natriuretic Peptide 1165.2 H 07/08/20 15:05: Procalcitonin 0.12 H 07/08/20 15:05: D-Dimer Quant (PE/DVT) Cancelled 07/08/20 15:20: Urine Color Yellow, Urine Clarity Cloudy, Urine pH 6.0, Ur Specific [place] 1.020, Urine Protein 30 H, Urine Glucose (UA) Normal, Urine Ketones Negative, Urine Occult Blood 250 H, Urine Nitrite Negative, Urine Bilirubin Negative, Urine Urobilinogen Normal, Ur Leukocyte Esterase 500 H, Urine RBC 0-5 SEEN, Urine WBC >100 SEEN, Ur Squamous Epith Cells 5-10 SEEN, Urine Bacteria RARE, Urine Mucus 0 SEEN 07/08/20 17:18: Sodium Pending, Potassium Pending, Chloride Pending, Carbon Dioxide Pending, Anion Gap Pending, BUN Pending, Creatinine Pending, Est GFR (MDRD) Af Amer Pending, Est GFR (MDRD) Non-Af Pending, BUN/Creatinine Ratio Pending, Glucose Pending, Calcium Pending, Total Bilirubin Pending, AST Pending, ALT Pending, Alkaline Phosphatase Pending, Troponin I Pending, Total Protein Pending, Albumin Pending 07/08/20 17:48: Lactic Acid Pending 07/08/20 17:48: D-Dimer Quant (PE/DVT) Pending Current Medications Sodium Chloride (0.9% Saline Lock 10 Ml Syringe) 10 - 40 ml IV UD PRN PRN Reason: SALINE FLUSH Assessment/Plan All Active Problems (This Medical Record has been edited. Action required.) Hypoxia (Acute) COVID-19 virus infection (Acute) Respiratory failure with hypoxia (Acute) #1 COVID-19 pneumonia-patient will be admitted to [facility] 2, she will receive remdesivir, dexamethasone, and she will be seen by infectious diseases. #2 acute combined respiratory failure secondary to COVID-19 pneumonia with an overlie of COPD-patient will be maintained on BiPAP, again, family requests no intubation #3 stage IV chronic kidney disease-patient's most recent creatinine was in May of this year which was 1.78, her creatinine today is 2.29, part of this may be due to dehydration or acute kidney injury, I will give the patient fluids overnight and labs to be repeated #4 elevated troponin-etiology unknown, I do not think it would add to the patient's care to repeat her troponin #5 acute cystitis-patient was placed on Rocephin #6 elevated beta natruretic peptide-could be secondary to chronic kidney disease or undetected CHF, I believe that the patient is dehydrated at this time and would benefit from fluids, I am holding her furosemide #7 metabolic encephalopathy secondary to respiratory failure and [id number] will be n.p.o. and be reevaluated tomorrow for safety of oral administration of her meds. Overall prognosis is very guarded due to the patient's severe respiratory failure. Patient is a DNR CC arrest with no intubation. Inpatient E&M: 20059 Init Hosp L3
[2020-07-08 18:11] LABS: ALB/GLOB Ratio 0.7 RATIO (0.9-2.4); AST(SGOT) 44 U/L (15-37); Alanine Aminotransfer ALT/SGPT 40 U/L (13-56); Albumin, Serum 2.6 g/dL (3.2-5.0); Alkaline Phosphatase 78 U/L (45-117); Anion Gap 5 (5-15); BUN 55 mg/dL (7-18); Calcium,Total 9.5 mg/dL (8.5-10.1); Chloride 109 mmol/L (98-107); Creatinine, Serum 2.29 mg/dL (0.55-1.02); EST Glomerular Filtration Rate 22 mL/min (>60); Est Glom Filt Rate - Afr Amer 26 mL/min (>60); Estimated Creatinine Clearance 19.42 ml/min; Globulin 3.7 g/dL (2.2-4.2); Glucose 145 mg/dL (74-106); Potassium 5.4 mmol/L (3.5-5.1); Protein, Total 6.3 g/dL (6.4-8.2); Sodium Level 143 mmol/L (136-145)
[2020-07-08 18:30] LABS: Lactic Acid 1.1 mmol/L (0.4-1.9)
--- NOTE | 2020-07-08 18:39 | CPS ---
Patient IPAP increased to 18 during transport for shallow breathing with tidal volumes low 200s. Also, increased FiO2 to 60% for pulse ox 88% during transport.
[2020-07-08 18:52] LABS: D-Dimer Quantitative (DVT/PE) 0.82 FEU/ug/m (0.27-0.49)
[2020-07-08 19:10] LABS: Alkaline Phosphatase 81 U/L (45-117)
[2020-07-08] MEDS: 0.9% Normal Saline 1,000 ML 75 ML IV (19:22)
[2020-07-08] MEDS: Enoxaparin 30 MG/0.3 ML Syringe SC (20:17)
--- NOTE | 2020-07-08 22:30 | NURSING ---
pt removed bipap, cont pulse ox nursing in to assist, pt refused to have replaced, hitting at staff, confused, reorientation, reassurance not effective, call for additional assist, primary rn and cps into room assist. pt pulling at castano, iv tubing, bracelets. able to hold pt arms and get O2 @ 15L hi ravinder NC placed, cont pox back on, iv and castano tubing out of hands. pt blowing air at staff states she is going to spit shit balls at staff. pt can tell us her birthday and name only. notified dr, soft wrist restraints in place. abgs to be drawn. ativan x1 ordered. will monitor.
[2020-07-08 22:51] LABS: Allen Test Positive; Base Excess 4 mmol/L (-2 to +2); Bicarbonate 30.3 mmol/L (22-26); Blood Gas Specimen Type ART; O2 Delivery Device HFNC; PO2 79 mmHG (75-100); SITE L Radial; SO2 94 % (95-99); Total Carbon Dioxide 32 mmol/L; pH 7.32 (7.35-7.45)
[2020-07-08] MEDS: LORazepam 2 MG/ML Syringe 1 MG IV (22:59)
[2020-07-08] MEDS: 0.9% Saline Lock 10 ML Syringe IV (22:59)
[2020-07-09] VITALS (13 sets, daily range): BP systolic 116–186; BP diastolic 60–73; PULSE 59–70; RESP 12–31; TEMP 36.3–37.1; O2SAT 88–94
[2020-07-09 05:26] LABS: Hemoglobin 13.4 g/dL (12.0-15.0); Mean Corp Hgb Conc 28.5 g/dL (32-36); Mean Corpuscular Hgb 29.3 pg (27.0-32.0); Mean Corpuscular Volume 102.8 fL (81-99); Mean Platelet Vol. 9.4 fl (6.2-12.0); Platelet Count 261 K/mm3 (150-450); RBC Distribution Width CV 14.1 % (11.6-14.6); RBC Distribution Width SD 53.8 fl (35.1-43.9); Red Blood Count 4.57 M/mm3 (4.2-5.4); White Blood Count 7.7 K/mm3 (4.4-11.0)
[2020-07-09 05:57] LABS: ALB/GLOB Ratio 0.7 RATIO (0.9-2.4); AST(SGOT) 43 U/L (15-37); Alanine Aminotransfer ALT/SGPT 34 U/L (13-56); Albumin, Serum 2.3 g/dL (3.2-5.0); Alkaline Phosphatase 67 U/L (45-117); Anion Gap 8 (5-15); BUN 62 mg/dL (7-18); BUN/Creat Ratio 30.5 RATIO (10-20); Calcium,Total 8.9 mg/dL (8.5-10.1); Chloride 112 mmol/L (98-107); Creatinine, Serum 2.03 mg/dL (0.55-1.02); EST Glomerular Filtration Rate 25 mL/min (>60); Est Glom Filt Rate - Afr Amer 30 mL/min (>60); Estimated Creatinine Clearance 21.91 ml/min; Globulin 3.4 g/dL (2.2-4.2); Glucose 104 mg/dL (74-106); Potassium 5.2 mmol/L (3.5-5.1); Protein, Total 5.7 g/dL (6.4-8.2); Sodium Level 145 mmol/L (136-145)
--- NOTE | 2020-07-09 07:01 | NURSING ---
pt a & o x2. pt is cooperative with staff. removed left wrist restraint.
--- NOTE | 2020-07-09 07:21 | NURSING ---
pt removed oxygen and pulse ox sticker. reapplied oxygen and a new pulse ox sticker. re-applied left wrist restraint.
--- NOTE | 2020-07-09 08:33 | PCM.PN.HOSP ---
Patient Problems: Active and Suspected Problems (This Medical Record has been edited. Action required.) Hypoxia (Acute) COVID-19 virus infection (Acute) Reason for Visit: Follow-up for acute hypoxic respiratory failure secondary to COVID-19 pneumonia Objective: Patient found hypoxic 88% on 50 percent FiO2 . Requires BiPAP 80% FiO2 and AIRVO When I saw the patient, she was very hypoxic, tachypneic with labored breathing. Patient also revealed nasal cannula and is on soft restraint. Physical exam General: Awake, confused and disoriented x3. HEENT: Atraumatic, PERRLA, EOMI, Normocephalic Oral: No Gingival or Mucosal Lesions/ Ulcerations Neck: Supple, No JVD, Negative Carotid Bruits Lungs: Air entry severely diminished in bilateral lung bases. Bilateral expiratory rhonchi present Cardiovascular: Regular rate, Regular Rhythm, Normal S1, Normal S2, No murmurs Abdomen: Bowel Sounds Present, Soft, Non Tender, Non-Distended : No renal angle tenderness. No suprapubic tenderness. Extremities: No edema, Capillary Refill Less than 3 Seconds Skin: No rashes, No breakdown Musculoskeletal: No Tenderness to Palpation of Joints or Extremities Neurological: Cranial nerves II-XII grossly intact, patient does not follow command therefore complete neuro exam unobtainable Psych/Mental Status: Disoriented. baseline dementia. Vitals/I&O's: Vital Signs Temp Pulse Resp BP Pulse Ox 98.3 F 64 18 186/73 H 88 07/09/20 07:59 07/09/20 07:59 07/09/20 07:59 07/09/20 07:59 07/09/20 07:59 Oxygen Flow Rate (L/min) 15 Oxygen Delivery Method Nasal Cannula Weight: 229 lb 3.2 oz Body Mass Index (BMI) 32.8 Intake and Output for Last 24 Hours 07/07/20 07/08/20 07/09/20 23:59 23:59 23:59 Intake Total 361.25 / 361.25 Output Total 425 / 425 275 / 275 Balance -63.75 / -63.75 -275 / -275 Laboratory Results 07/08/20 14:54: Specimen Type ART, Sample Site R Radial, pH 7.18 L*, Bicarbonate Actual 34.6 H, Total CO2 38, Base Excess 6 H, O2 Saturation 85 L, ABG pCO2 93.0 H*, ABG pO2 65 L, O2 Delivery Device NRB 07/08/20 15:05: WBC 7.2, RBC 4.95, Hgb 14.3, Hct 49.0 H, MCV 99.0, MCH 28.9, MCHC 29.2 L, RDW Std Deviation 52.0 H, RDW Coeff of Teo 14.2, Plt Count 309, MPV 9.6, Immature Gran % (Auto) 0.600, Neut % (Auto) 87.8 H, Lymph % (Auto) 6.1 L, [place] % (Auto) 5.1, Eos % (Auto) 0.0, Baso % (Auto) 0.4, Absolute Neuts (auto) 6.3, Absolute Lymphs (auto) 0.44 L, Nucleated RBC % 0, Differential Comment SCANNED 07/08/20 15:05: Sodium Cancelled, Potassium Cancelled, Chloride Cancelled, Carbon Dioxide Cancelled, Anion Gap Cancelled, BUN Cancelled, Creatinine Cancelled, Estim Creat Clear Calc Cancelled, Est GFR (MDRD) Af Amer Cancelled, Est GFR (MDRD) Non-Af Cancelled, BUN/Creatinine Ratio Cancelled, Glucose Cancelled, Calcium Cancelled, Total Bilirubin Cancelled, AST Cancelled, ALT Cancelled, Alkaline Phosphatase Cancelled, Troponin I Cancelled, Total Protein Cancelled, Albumin Cancelled, Globulin Cancelled, Albumin/Globulin Ratio Cancelled 07/08/20 15:05: Lactic Acid Cancelled 07/08/20 15:05: B-Natriuretic Peptide 1165.2 H 07/08/20 15:05: Procalcitonin 0.12 H 07/08/20 15:05: D-Dimer Quant (PE/DVT) Cancelled 07/08/20 15:20: Urine Color Yellow, Urine Clarity Cloudy, Urine pH 6.0, Ur Specific [place] 1.020, Urine Protein 30 H, Urine Glucose (UA) Normal, Urine Ketones Negative, Urine Occult Blood 250 H, Urine Nitrite Negative, Urine Bilirubin Negative, Urine Urobilinogen Normal, Ur Leukocyte Esterase 500 H, Urine RBC 0-5 SEEN, Urine WBC >100 SEEN, Ur Squamous Epith Cells 5-10 SEEN, Urine Bacteria RARE, Urine Mucus 0 SEEN 07/08/20 17:18: Sodium 143, Potassium 5.4 H, Chloride 109 H, Carbon Dioxide 29.0, Anion Gap 5, BUN 55 H, Creatinine 2.29 H, Estim Creat Clear Calc 19.42, Est GFR (MDRD) Af Amer 26 L, Est GFR (MDRD) Non-Af 22 L, BUN/Creatinine Ratio 24.0 H, Glucose 145 H, Calcium 9.5, Total Bilirubin 0.40, AST 44 H, ALT 40, Alkaline Phosphatase 78, Troponin I 0.269 H, Total Protein 6.3 L, Albumin 2.6 L, Globulin 3.7, Albumin/Globulin Ratio 0.7 L 07/08/20 17:48: Lactic Acid 1.1 07/08/20 17:48: D-Dimer Quant (PE/DVT) 0.82 H* 07/08/20 17:48: Alkaline Phosphatase 81 07/08/20 22:45: Specimen Type ART, Sample Site L Radial, pH 7.32 L, Bicarbonate Actual 30.3 H, Total CO2 32, Base Excess 4 H, O2 Saturation 94 L, ABG pCO2 59.0 H, ABG pO2 79, Harshad Test Positive, O2 Delivery Device HFNC, Liter Flow 15.0 07/09/20 04:50: WBC 7.7, RBC 4.57, Hgb 13.4, Hct 47.0, MCV 102.8 H, MCH 29.3, MCHC 28.5 L, RDW Std Deviation 53.8 H, RDW Coeff of Teo 14.1, Plt Count 261, MPV 9.4 07/09/20 04:50: Sodium 145, Potassium 5.2 H, Chloride 112 H, Carbon Dioxide 25.0, Anion Gap 8, BUN 62 H, Creatinine 2.03 H, Estim Creat Clear Calc 21.91, Est GFR (MDRD) Af Amer 30 L, Est GFR (MDRD) Non-Af 25 L, BUN/Creatinine Ratio 30.5 H, Glucose 104, Calcium 8.9, Total Bilirubin 0.30, AST 43 H, ALT 34, Alkaline Phosphatase 67, Total Protein 5.7 L, Albumin 2.3 L, Globulin 3.4, Albumin/Globulin Ratio 0.7 L Current Medications Dexamethasone Sodium Phosphate (Dexamethasone 4 Mg/Ml Vial) 6 mg IV DAILY [facility] Enoxaparin Sodium (Enoxaparin 30 Mg/0.3 Ml Syringe) 30 mg SC BID [facility] Last Admin: 07/08/20 20:17 Dose: 30 mg Documented by: Sodium Chloride () 1,000 mls @ 75 mls/hr IV .[id number] YOBANI Last Infusion: 07/08/20 22:08 Dose: 75 mls/hr Documented by: Remdesivir 100 mg/ Sodium (Chloride) 250 mls @ 125 mls/hr IV DAILY@2200 YOBANI Stop: 07/12/20 23:59 Ceftriaxone Sodium (Rocephin) 1 gm in 50 mls @ 100 mls/hr IV Q24 [facility] Sodium Chloride (0.9% Saline Lock 10 Ml Syringe) 10 - 40 ml IV UD PRN PRN Reason: SALINE FLUSH Last Admin: 07/08/20 22:59 Dose: 10 ml Documented by: STROKE Vital Signs/Narrative: Vital Signs Temp Pulse Resp BP Pulse Ox 07/09/20 07:59 98.3 F 64 18 186/73 H 88 07/09/20 04:48 98.4 F 70 20 H 134/69 H 92 Medical Necessity - Tobacco Use Smoking Status: Unknown if ever smoked Tobacco Use: Non-smoker Assessment/Plan All Active Problems (This Medical Record has been edited. Action required.) Hypoxia (Acute) COVID-19 virus infection (Acute) Respiratory failure with hypoxia (Acute) This 84-year-old female was brought in for shortness of breath and hypoxia 88% on 50 L of oxygen from [facility] with 2-day history of COVID-19 positive and hypoxia. Patient is DNR CC arrest with no intubation #1 COVID-19 pneumonia: [facility], Decadron. ID consult. -patient will be admitted to [facility] 2, she will receive remdesivir, dexamethasone, and she will be seen by infectious diseases. D-dimer mildly elevated 0.82 but age corrected calculated D-dimer is 0.85 therefore in normal limit. ABG 7.1 on 15 L nonrebreather mask. Troponin mildly elevated 0.269, BNP 1165. #2 acute hypoxic and hypercarbic combined respiratory failure secondary to COVID-19 pneumonia with history of COPD-toppiece chopper has been consulted and consult reviewed and appreciated. On BiPAP alternating with AIR VO. No COPD exacerbation. On bronchodilator as needed. #3 stage IV chronic kidney disease-in May 2020 1.78. Admitted with his last creatinine 55/2.29. 07/09: Currently BUN/creatinine 62/2.03. BUN did not improve with IV fluid. #4 elevated troponin-May be inflammatory from COVID-19 infection. Patient does not have chest pain. #5 acute cystitis-UA WBC more than 100, RBC 0-5, LE 500 nitrite negative. Urine culture preliminary gram-negative gopi. Empirically on IV Rocephin. #6 HFpEF, chronic in nature: Echo in 2017 shows stage I diastolic dysfunction, EF 65% LA moderately enlarged and aortic is sclerosis no stenosis. BNP elevated. #7 metabolic encephalopathy, metabolic/infectious encephalopathy: Correct underlying disorder. Started on diet. As per nursing staff patient in afternoon more awake Prognosis guarded TO POOR. Patient is a DNR CC arrest with no intubation. Total time of the visit including total time spent in counseling or coordination of care, (more than 50% of the total time, spent in obtaining medical information from nurses and other ancillary care providers,explaining to the patient about labs, imaging, diagnosis and management), consult with consultants , review of labs and imaging is 30 minutes. Microbiology Past 72 Hours 07/08/20 15:20 Urine Catheter - Howard Urine Culture - Preliminary Gram negative gopi Laboratory Results 07/08/20 14:54: Specimen Type ART, Sample Site R Radial, pH 7.18 L*, Bicarbonate Actual 34.6 H, Total CO2 38, Base Excess 6 H, O2 Saturation 85 L, ABG pCO2 93.0 H*, ABG pO2 65 L, O2 Delivery Device NRB 07/08/20 15:05: WBC 7.2, RBC 4.95, Hgb 14.3, Hct 49.0 H, MCV 99.0, MCH 28.9, MCHC 29.2 L, RDW Std Deviation 52.0 H, RDW Coeff of Teo 14.2, Plt Count 309, MPV 9.6, Immature Gran % (Auto) 0.600, Neut % (Auto) 87.8 H, Lymph % (Auto) 6.1 L, [place] % (Auto) 5.1, Eos % (Auto) 0.0, Baso % (Auto) 0.4, Absolute Neuts (auto) 6.3, Absolute Lymphs (auto) 0.44 L, Nucleated RBC % 0, Differential Comment SCANNED 07/08/20 15:05: Lactic Acid Cancelled 07/08/20 15:05: B-Natriuretic Peptide 1165.2 H 07/08/20 15:05: Procalcitonin 0.12 H 07/08/20 15:05: D-Dimer Quant (PE/DVT) Cancelled 07/08/20 15:20: Urine Color Yellow, Urine Clarity Cloudy, Urine pH 6.0, Ur Specific [place] 1.020, Urine Protein 30 H, Urine Glucose (UA) Normal, Urine Ketones Negative, Urine Occult Blood 250 H, Urine Nitrite Negative, Urine Bilirubin Negative, Urine Urobilinogen Normal, Ur Leukocyte Esterase 500 H, Urine RBC 0-5 SEEN, Urine WBC >100 SEEN, Ur Squamous Epith Cells 5-10 SEEN, Urine Bacteria RARE, Urine Mucus 0 SEEN 07/08/20 17:18: Sodium 143, Potassium 5.4 H, Chloride 109 H, Carbon Dioxide 29.0, Anion Gap 5, BUN 55 H, Creatinine 2.29 H, Estim Creat Clear Calc 19.42, Est GFR (MDRD) Af Amer 26 L, Est GFR (MDRD) Non-Af 22 L, BUN/Creatinine Ratio 24.0 H, Glucose 145 H, Calcium 9.5, Total Bilirubin 0.40, AST 44 H, ALT 40, Alkaline Phosphatase 78, Troponin I 0.269 H, Total Protein 6.3 L, Albumin 2.6 L, Globulin 3.7, Albumin/Globulin Ratio 0.7 L 07/08/20 17:48: Lactic Acid 1.1 07/08/20 17:48: D-Dimer Quant (PE/DVT) 0.82 H* 07/08/20 17:48: Alkaline Phosphatase 81 07/08/20 22:45: Specimen Type ART, Sample Site L Radial, pH 7.32 L, Bicarbonate Actual 30.3 H, Total CO2 32, Base Excess 4 H, O2 Saturation 94 L, ABG pCO2 59.0 H, ABG pO2 79, Harshad Test Positive, O2 Delivery Device HFNC, Liter Flow 15.0 07/09/20 04:50: WBC 7.7, RBC 4.57, Hgb 13.4, Hct 47.0, MCV 102.8 H, MCH 29.3, MCHC 28.5 L, RDW Std Deviation 53.8 H, RDW Coeff of Teo 14.1, Plt Count 261, MPV 9.4 07/09/20 04:50: Sodium 145, Potassium 5.2 H, Chloride 112 H, Carbon Dioxide 25.0, Anion Gap 8, BUN 62 H, Creatinine 2.03 H, Estim Creat Clear Calc 21.91, Est GFR (MDRD) Af Amer 30 L, Est GFR (MDRD) Non-Af 25 L, BUN/Creatinine Ratio 30.5 H, Glucose 104, Calcium 8.9, Total Bilirubin 0.30, AST 43 H, ALT 34, Alkaline Phosphatase 67, Total Protein 5.7 L, Albumin 2.3 L, Globulin 3.4, Albumin/Globulin Ratio 0.7 L Clinical Impression(s) from Imaging Studies Chest X-Ray 07/08/20 15:43 IMPRESSION: 1. Hazy opacities consistent with pneumonia, including possible Covid pneumonia. Inpatient E&M: 20644 Subs Hosp L3
[2020-07-09] MEDS: Enoxaparin 30 MG/0.3 ML Syringe SC ×2 (08:40→23:03)
--- NOTE | 2020-07-09 09:52 | NURSING ---
Arianna Laguerre- pt daughter phones in for update. updated provided. Arianna states she can be combatitive, its normally when she is coming off of something but she was violent with me as a child. Arianna states pt has her marbles most days, but is forgetful. has history of drug-seeking behaviors/doctor shopping/sneaky about her drug addictions. states she is not aware of any mental-health diagnosis, does not receive any ETOH while in [facility], although i know she asks people to buy her stuff and bring it in. Arianna states that it is okay to give Angela information as well.
--- NOTE | 2020-07-09 09:53 | NURSING ---
cps notified of pt going back on bipap and sats.
--- NOTE | 2020-07-09 09:59 | NURSING ---
cps at bedside to eval bipap/status
--- NOTE | 2020-07-09 10:27 | CASEMGMT ---
Addendum entered by Susan Gomez 07/09/20 13:55: Social Work SW spoke with [facility] and pt is a [facility] [facility] [employer] resident. Pt can return to [facility] when medically ready. FORREST Sam Original Note: Social Work Pt is from [facility]. Clinical update faxed and VM left with [facility]. Will await return call. FORREST Sam
--- NOTE | 2020-07-09 11:44 | PCM.CONS.PUL ---
Reason for Consult Date of Consultation: 07/09/20 Reason for Consultation: Acute hypoxemic respiratory failure secondary to COVID-19 pneumonia History of Present Illness: The patient is an 84-year-old female, with a history as outlined below, who presented to the emergency department on [facility] with shortness of breath and hypoxemia. The patient apparently has a history of COPD, coronary artery disease and prior opiate dependency. She is not on supplemental oxygen at her baseline. Although the patient is a relatively poor historian, she does report the presence of both shortness of breath and nonproductive cough. She also reports the presence of generalized whole-body musculoskeletal pain. The exact chronicity of her symptoms is unclear in speaking with the patient. On presentation to the emergency department, the patient was noted to be afebrile and hemodynamically stable. She was, nevertheless, tachypneic and hypoxemic. Laboratory evaluation revealed a normal white blood cell count. D-dimer was mildly elevated to 0.82. Arterial blood gas obtained on a nonrebreather revealed a pH of 7.18 with a corresponding PCO2 of 93 and PO2 of 65. Troponin was elevated to 0.269. BNP was elevated to 1165. Creatinine was increased to 2.29. The patient had apparently been tested and found to be positive for coronavirus at an outside institution. She was also found to have signs concerning for urinary tract source of infection and was subsequently placed on antimicrobials. The patient did receive remdesivir and Decadron. She was subsequently admitted to the coronavirus cohort unit for further management. Past Medical History Past Medical History (Chronic Problems): Chronic Problems (This Medical Record has been edited. Action required.) Unilateral primary osteoarthritis, left knee (Chronic) Chronic pain of left knee (Chronic) Primary osteoarthritis of right shoulder (Chronic) Radiculopathy of lumbosacral region (Chronic) Degeneration of intervertebral disc of lumbosacral region (Chronic) Spinal stenosis of lumbosacral region (Chronic) Failed back surgical syndrome (Chronic) Primary osteoarthritis of left knee (Chronic) Generalized weakness (Chronic) HTN (hypertension) (Chronic) Depression (Chronic) Tremor (Chronic) Neuropathy (Chronic) Hypothyroidism (Chronic) CKD (chronic kidney disease) stage 3, GFR 30-59 ml/min (Chronic) Anemia in chronic kidney disease (Chronic) Acute exacerbation of CHF (congestive heart failure) (Chronic) Allergies Sulfa (Sulfonamide Antibiotics) Allergy (Verified 07/08/20 14:30) Hives morphine Adverse Reaction (Verified 07/08/20 17:39) confusion-difficult to wean off Home Medications: Ambulatory Orders Medication Instructions Recorded Aspirin [Aspirin, Baby] 81 mg PO DAILY@0800 05/15/16 Levothyroxine [Synthroid] 100 mcg PO QHS 05/15/16 Furosemide 40 mg PO DAILY 09/08/17 Guaifenesin [Mucinex] 600 mg PO BID 09/08/17 Hydrocodone/Acetaminophen [[place] 1 each PO TID PRN 09/25/18 5-325 Tablet] Albuterol Inhaler [Ventolin Hfa 2 puff INHALATION Q2H PRN 11/01/18 (SP)] Amlodipine [Norvasc] 10 mg PO DAILY 07/08/20 Calcium Carbonate/Vitamin D3 1 tab PO DAILY 07/08/20 [Calcium 600 + Vit D Caplet] Calcium Polycarbophil [Fiber Lax] 1,250 mg PO DAILY 07/08/20 Cholecalciferol (Vitamin D3) 1,000 unit PO DAILY 07/08/20 [Vitamin D3] Dexamethasone [Decadron] 4 mg PO X1 07/08/20 Gabapentin [Neurontin] 300 mg PO BID 07/08/20 Loratadine 5 mg PO DAILY 07/08/20 Multivitamin with Minerals 1 tab PO DAILY 07/08/20 [Multiple Vitamin] Ropinirole HCl [Requip] 1 mg PO QHS 07/08/20 Zinc 50 mg PO DAILY 07/08/20 Surgical History: noncontributory, hysterectomy, - - 7 unspecified foot surgeries for her MRSA infection. 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 Denies: Sputum production Gastrointestinal: Denies: Abdominal Pain, Nausea, Vomiting Genitourinary: Denies: Dysuria Musculoskeletal: Reports: Back Pain, Leg Pain Skin: Denies: Rash, Wounds Neurological: Denies: Numbness, Tingling, Focal weakness Psychiatric: Denies: Anxiety, Depression, Homicidal Ideations, Suicidal Ideations Hematologic/ Lymphatic: Denies: Easy Bruising, Easy Bleeding Patient Problems: Active and Suspected Problems (This Medical Record has been edited. Action required.) Hypoxia (Acute) COVID-19 virus infection (Acute) Objective: The patient's most recent lab work, culture data and imaging studies have all been personally reviewed. - Physical Exam Vitals/I&O's: Vital Signs Temp Pulse Resp BP Pulse Ox 98.8 F 69 20 H 138/62 H 89 07/09/20 09:48 07/09/20 09:48 07/09/20 09:48 07/09/20 09:48 07/09/20 09:48 Oxygen Flow Rate (L/min) 15 Oxygen Delivery Method Bi-pap Weight: 229 lb 3.2 oz Body Mass Index (BMI) 32.8 Intake and Output for Last 24 Hours 07/07/20 07/08/20 07/09/20 23:59 23:59 23:59 Intake Total 361.25 / 361.25 811.25 / 811.25 Output Total 425 / 425 275 / 275 Balance -63.75 / -63.75 536.25 / 536.25 General: Alert, Cooperative, No apparent distress HEENT: Atraumatic, Normocephalic Oral: No Gingival or Mucosal Lesions/ Ulcerations Neck: Supple, No Nodes, Trachea Midline Lungs: No rhonchi, No wheeze, No rales, Diminished Cardiovascular: Regular rate, Regular Rhythm Abdomen: Bowel Sounds Present, Soft, Non Tender, Obese Extremities: No clubbing, No cyanosis, No edema Skin: No breakdown Musculoskeletal: No Tenderness to Palpation of Joints or Extremities Lymphatic: No Cervical, Supraclavicular, or Inguinal Adenopathy Neurological: Cranial nerves II-XII grossly intact, Neuro grossly intact Psych/Mental Status: - - Somewhat forgetful at times. Labs (Last 48 Hours) 07/08/20 07/08/20 07/08/20 14:54 15:05 15:05 WBC 7.2 RBC 4.95 Hgb 14.3 Hct 49.0 H MCV 99.0 MCH 28.9 MCHC 29.2 L RDW Std Deviation 52.0 H RDW Coeff of Teo 14.2 Plt Count 309 MPV 9.6 Immature Gran % (Auto) 0.600 Neut % (Auto) 87.8 H Lymph % (Auto) 6.1 L [place] % (Auto) 5.1 Eos % (Auto) 0.0 Baso % (Auto) 0.4 Absolute Neuts (auto) 6.3 Absolute Lymphs (auto) 0.44 L Nucleated RBC % 0 Differential Comment SCANNED D-Dimer Quant (PE/DVT) Specimen Type ART Sample Site R Radial pH 7.18 L* Bicarbonate Actual 34.6 H Total CO2 38 Base Excess 6 H O2 Saturation 85 L ABG pCO2 93.0 H* ABG pO2 65 L Harshad Test O2 Delivery Device NRB Liter Flow Sodium Cancelled Potassium Cancelled Chloride Cancelled Carbon Dioxide Cancelled Anion Gap Cancelled BUN Cancelled Creatinine Cancelled Estim Creat Clear Calc Cancelled Est GFR (MDRD) Af Amer Cancelled Est GFR (MDRD) Non-Af Cancelled BUN/Creatinine Ratio Cancelled Glucose Cancelled Lactic Acid Calcium Cancelled Total Bilirubin Cancelled AST Cancelled ALT Cancelled Alkaline Phosphatase Cancelled Troponin I Cancelled B-Natriuretic Peptide Total Protein Cancelled Albumin Cancelled Globulin Cancelled Albumin/Globulin Ratio Cancelled Procalcitonin Urine Color Urine Clarity Urine pH Ur Specific [place] Urine Protein Urine Glucose (UA) Urine Ketones Urine Occult Blood Urine Nitrite Urine Bilirubin Urine Urobilinogen Ur Leukocyte Esterase Urine RBC Urine WBC Ur Squamous Epith Cells Urine Bacteria Urine Mucus 07/08/20 07/08/20 07/08/20 15:05 15:05 15:05 WBC RBC Hgb Hct MCV MCH MCHC RDW Std Deviation RDW Coeff of Teo Plt Count MPV Immature Gran % (Auto) Neut % (Auto) Lymph % (Auto) [place] % (Auto) Eos % (Auto) Baso % (Auto) Absolute Neuts (auto) Absolute Lymphs (auto) Nucleated RBC % Differential Comment D-Dimer Quant (PE/DVT) Specimen Type Sample Site pH Bicarbonate Actual Total CO2 Base Excess O2 Saturation ABG pCO2 ABG pO2 Harshad Test O2 Delivery Device Liter Flow Sodium Potassium Chloride Carbon Dioxide Anion Gap BUN Creatinine Estim Creat Clear Calc Est GFR (MDRD) Af Amer Est GFR (MDRD) Non-Af BUN/Creatinine Ratio Glucose Lactic Acid Cancelled Calcium Total Bilirubin AST ALT Alkaline Phosphatase Troponin I B-Natriuretic Peptide 1165.2 H Total Protein Albumin Globulin Albumin/Globulin Ratio Procalcitonin 0.12 H Urine Color Urine Clarity Urine pH Ur Specific [place] Urine Protein Urine Glucose (UA) Urine Ketones Urine Occult Blood Urine Nitrite Urine Bilirubin Urine Urobilinogen Ur Leukocyte Esterase Urine RBC Urine WBC Ur Squamous Epith Cells Urine Bacteria Urine Mucus 07/08/20 07/08/20 07/08/20 15:05 15:20 17:18 WBC RBC Hgb Hct MCV MCH MCHC RDW Std Deviation RDW Coeff of Teo Plt Count MPV Immature Gran % (Auto) Neut % (Auto) Lymph % (Auto) [place] % (Auto) Eos % (Auto) Baso % (Auto) Absolute Neuts (auto) Absolute Lymphs (auto) Nucleated RBC % Differential Comment D-Dimer Quant (PE/DVT) Cancelled Specimen Type Sample Site pH Bicarbonate Actual Total CO2 Base Excess O2 Saturation ABG pCO2 ABG pO2 Harshad Test O2 Delivery Device Liter Flow Sodium 143 Potassium 5.4 H Chloride 109 H Carbon Dioxide 29.0 Anion Gap 5 BUN 55 H Creatinine 2.29 H Estim Creat Clear Calc 19.42 Est GFR (MDRD) Af Amer 26 L Est GFR (MDRD) Non-Af 22 L BUN/Creatinine Ratio 24.0 H Glucose 145 H Lactic Acid Calcium 9.5 Total Bilirubin 0.40 AST 44 H ALT 40 Alkaline Phosphatase 78 Troponin I 0.269 H B-Natriuretic Peptide Total Protein 6.3 L Albumin 2.6 L Globulin 3.7 Albumin/Globulin Ratio 0.7 L Procalcitonin Urine Color Yellow Urine Clarity Cloudy Urine pH 6.0 Ur Specific [place] 1.020 Urine Protein 30 H Urine Glucose (UA) Normal Urine Ketones Negative Urine Occult Blood 250 H Urine Nitrite Negative Urine Bilirubin Negative Urine Urobilinogen Normal Ur Leukocyte Esterase 500 H Urine RBC 0-5 SEEN Urine WBC >100 SEEN Ur Squamous Epith Cells 5-10 SEEN Urine Bacteria RARE Urine Mucus 0 SEEN 07/08/20 07/08/20 07/08/20 17:48 17:48 17:48 WBC RBC Hgb Hct MCV MCH MCHC RDW Std Deviation RDW Coeff of Teo Plt Count MPV Immature Gran % (Auto) Neut % (Auto) Lymph % (Auto) [place] % (Auto) Eos % (Auto) Baso % (Auto) Absolute Neuts (auto) Absolute Lymphs (auto) Nucleated RBC % Differential Comment D-Dimer Quant (PE/DVT) 0.82 H* Specimen Type Sample Site pH Bicarbonate Actual Total CO2 Base Excess O2 Saturation ABG pCO2 ABG pO2 Harshad Test O2 Delivery Device Liter Flow Sodium Potassium Chloride Carbon Dioxide Anion Gap BUN Creatinine Estim Creat Clear Calc Est GFR (MDRD) Af Amer Est GFR (MDRD) Non-Af BUN/Creatinine Ratio Glucose Lactic Acid 1.1 Calcium Total Bilirubin AST ALT Alkaline Phosphatase 81 Troponin I B-Natriuretic Peptide Total Protein Albumin Globulin Albumin/Globulin Ratio Procalcitonin Urine Color Urine Clarity Urine pH Ur Specific [place] Urine Protein Urine Glucose (UA) Urine Ketones Urine Occult Blood Urine Nitrite Urine Bilirubin Urine Urobilinogen Ur Leukocyte Esterase Urine RBC Urine WBC Ur Squamous Epith Cells Urine Bacteria Urine Mucus 07/08/20 07/09/20 07/09/20 22:45 04:50 04:50 WBC 7.7 RBC 4.57 Hgb 13.4 Hct 47.0 MCV 102.8 H MCH 29.3 MCHC 28.5 L RDW Std Deviation 53.8 H RDW Coeff of Teo 14.1 Plt Count 261 MPV 9.4 Immature Gran % (Auto) Neut % (Auto) Lymph % (Auto) [place] % (Auto) Eos % (Auto) Baso % (Auto) Absolute Neuts (auto) Absolute Lymphs (auto) Nucleated RBC % Differential Comment D-Dimer Quant (PE/DVT) Specimen Type ART Sample Site L Radial pH 7.32 L Bicarbonate Actual 30.3 H Total CO2 32 Base Excess 4 H O2 Saturation 94 L ABG pCO2 59.0 H ABG pO2 79 Harshad Test Positive O2 Delivery Device HFNC Liter Flow 15.0 Sodium 145 Potassium 5.2 H Chloride 112 H Carbon Dioxide 25.0 Anion Gap 8 BUN 62 H Creatinine 2.03 H Estim Creat Clear Calc 21.91 Est GFR (MDRD) Af Amer 30 L Est GFR (MDRD) Non-Af 25 L BUN/Creatinine Ratio 30.5 H Glucose 104 Lactic Acid Calcium 8.9 Total Bilirubin 0.30 AST 43 H ALT 34 Alkaline Phosphatase 67 Troponin I B-Natriuretic Peptide Total Protein 5.7 L Albumin 2.3 L Globulin 3.4 Albumin/Globulin Ratio 0.7 L Procalcitonin Urine Color Urine Clarity Urine pH Ur Specific [place] Urine Protein Urine Glucose (UA) Urine Ketones Urine Occult Blood Urine Nitrite Urine Bilirubin Urine Urobilinogen Ur Leukocyte Esterase Urine RBC Urine WBC Ur Squamous Epith Cells Urine Bacteria Urine Mucus Microbiology 07/08/20 15:20 Urine Catheter - Howard Urine Culture - Preliminary Gram negative gopi Clinical Impression(s) from Imaging Studies Chest X-Ray 07/08/20 15:43 IMPRESSION: 1. Hazy opacities consistent with pneumonia, including possible Covid pneumonia. Electronically Signed: Jackie Broussard MD at 17:39 EST Tel , Service support , Current Medications Dexamethasone (Dexamethasone 4 Mg Tablet) 6 mg PO DAILY [facility] Enoxaparin Sodium (Enoxaparin 30 Mg/0.3 Ml Syringe) 30 mg SC BID YOBANI Last Admin: 07/09/20 08:40 Dose: 30 mg Documented by: Sodium Chloride () 1,000 mls @ 75 mls/hr IV .[id number] [facility] Last Infusion: 07/09/20 08:57 Dose: 0 mls/hr Documented by: Remdesivir 100 mg/ Sodium (Chloride) 250 mls @ 125 mls/hr IV DAILY@2200 YOBANI Stop: 07/12/20 23:59 Ceftriaxone Sodium (Rocephin) 1 gm in 50 mls @ 100 mls/hr IV Q24 [facility] Quetiapine Fumarate (Quetiapine 25 Mg Tablet) 25 mg PO BID [facility] Sodium Chloride (0.9% Saline Lock 10 Ml Syringe) 10 - 40 ml IV UD PRN PRN Reason: SALINE FLUSH Last Admin: 07/08/20 22:59 Dose: 10 ml Documented by: Assessment/Plan All Active Problems (This Medical Record has been edited. Action required.) Hypoxia (Acute) COVID-19 virus infection (Acute) Respiratory failure with hypoxia (Acute) RECOMMENDATIONS: 1. Wean supplemental oxygen to maintain saturations at or above 90%. 2. Start as needed bronchodilator therapy. 3. Continue BiPAP therapy as needed. 4. Avoid sedating medications. 5. Continue remdesivir and Decadron as ordered. Monitor liver and renal function closely. 6. Infectious diseases consultation is pending. 7. Encourage incentive spirometer use and mobilize patient as tolerated. IMPRESSIONS: 1. Acute combined respiratory failure secondary to COVID-19 pneumonia Clinical concern for underlying obstructive lung disease as well contributing to the patient's presenting symptoms. Although the patient initially required noninvasive positive pressure ventilatory support, she has been weaned to supplemental oxygen via nasal cannula. Recommend continuing to wean oxygen to maintain saturations at or above 90%. Infectious diseases consultation is currently pending. Recommend continuing remdesivir and Decadron as ordered. D-dimer was not significantly elevated. 2. Encephalopathy Likely metabolic in etiology with CO2 retention contributing. The patient's acid-base status has improved with BiPAP support. Recommend avoiding sedating medications. Continue BiPAP therapy as needed. 3. Heart failure with preserved ejection fraction Prior echocardiogram from 2017 did reveal evidence of stage I diastolic dysfunction along with mild pulmonary hypertension. Monitor I's and O's closely, with plans to initiate diuresis if oxygenation status does not begin to improve. 4. Advanced age/hypothyroidism/hypertension/history of opiate dependency Complicates care, management, recovery and prognosis. Continue home medications as indicated. This note was generated with [employer] dictation software. It may contain incorrect words, spelling, and punctuation that were not noted in checking the note before signing. Inpatient E&M: 99403 Init Hosp L3
[2020-07-09] MEDS: QUEtiapine 25 MG Tablet PO ×2 (12:06→23:34)
[2020-07-09] MEDS: dexAMETHasone 4 MG Tablet 6 MG PO (13:12)
[2020-07-09] MEDS: Haloperidol Lactate 5 MG/ML Vial 2 MG IM (13:12)
[2020-07-09] MEDS: Acetaminophen 325 MG Tablet 650 MG PO (13:12)
--- NOTE | 2020-07-09 16:24 | CON.PCM_ITS ---
Problem List (1) COVID-19 virus infection Status: Acute Reason for Consult: covid Consulted by: Dr. Richardson History of Present Illness: The patient is a 84 year old F presented with confusion yesterday. Covid (+), pt unable to provide history or ROS. History obtained from the chart. Admitted on ceftriaxone, dex, remdesivir. - Medical History Past Medical History (Chronic Problems): Chronic Problems (This Medical Record has been edited. Action required.) Unilateral primary osteoarthritis, left knee (Chronic) Chronic pain of left knee (Chronic) Primary osteoarthritis of right shoulder (Chronic) Radiculopathy of lumbosacral region (Chronic) Degeneration of intervertebral disc of lumbosacral region (Chronic) Spinal stenosis of lumbosacral region (Chronic) Failed back surgical syndrome (Chronic) Primary osteoarthritis of left knee (Chronic) Generalized weakness (Chronic) HTN (hypertension) (Chronic) Depression (Chronic) Tremor (Chronic) Neuropathy (Chronic) Hypothyroidism (Chronic) CKD (chronic kidney disease) stage 3, GFR 30-59 ml/min (Chronic) Anemia in chronic kidney disease (Chronic) Acute exacerbation of CHF (congestive heart failure) (Chronic) Allergies/Adverse Reactions: Allergies Sulfa (Sulfonamide Antibiotics) Allergy (Verified 07/08/20 14:30) Hives morphine Adverse Reaction (Verified 07/08/20 17:39) confusion-difficult to wean off Home Medications: Ambulatory Orders Medication Instructions Recorded Aspirin [Aspirin, Baby] 81 mg PO DAILY@0800 05/15/16 Levothyroxine [Synthroid] 100 mcg PO QHS 05/15/16 Furosemide 40 mg PO DAILY 09/08/17 Guaifenesin [Mucinex] 600 mg PO BID 09/08/17 Hydrocodone/Acetaminophen [[place]ory 1 each PO TID PRN 09/25/18 5-325 Tablet] Albuterol Inhaler [Ventolin Hfa 2 puff INHALATION Q2H PRN 11/01/18 (SP)] Amlodipine [Norvasc] 10 mg PO DAILY 07/08/20 Calcium Carbonate/Vitamin D3 1 tab PO DAILY 07/08/20 [Calcium 600 + Vit D Caplet] Calcium Polycarbophil [Fiber Lax] 1,250 mg PO DAILY 07/08/20 Cholecalciferol (Vitamin D3) 1,000 unit PO DAILY 07/08/20 [Vitamin D3] Dexamethasone [Decadron] 4 mg PO X1 07/08/20 Gabapentin [Neurontin] 300 mg PO BID 07/08/20 Loratadine 5 mg PO DAILY 07/08/20 Multivitamin with Minerals 1 tab PO DAILY 07/08/20 [Multiple Vitamin] Ropinirole HCl [Requip] 1 mg PO QHS 07/08/20 Zinc 50 mg PO DAILY 07/08/20 - Social History SMOKING STATUS:: Unknow if ever smoked Vital Signs Temp Pulse Resp BP Pulse Ox 97.8 F 67 20 H 149/64 H 90 07/09/20 12:02 07/09/20 12:02 07/09/20 14:55 07/09/20 12:02 07/09/20 13:16 Oxygen Flow Rate (L/min) 15 Oxygen Delivery Method Nasal Cannula Weight: 104 kg Body Mass Index (BMI) 32.8 Microbiology Past 72 Hours 07/08/20 15:20 Urine Culture - Preliminary Urine Catheter - Howard Gram negative gopi Laboratory Tests Past 24 Hrs 07/08/20 07/08/20 07/08/20 15:05 15:05 15:05 WBC RBC Hgb Hct MCV MCH MCHC RDW Std Deviation RDW Coeff of Teo Plt Count MPV Differential Comment SCANNED D-Dimer Quant (PE/DVT) Specimen Type Sample Site pH Bicarbonate Actual Total CO2 Base Excess O2 Saturation ABG pCO2 ABG pO2 Harshad Test O2 Delivery Device Liter Flow Sodium Cancelled Potassium Cancelled Chloride Cancelled Carbon Dioxide Cancelled Anion Gap Cancelled BUN Cancelled Creatinine Cancelled Estim Creat Clear Calc Cancelled Est GFR (MDRD) Af Amer Cancelled Est GFR (MDRD) Non-Af Cancelled BUN/Creatinine Ratio Cancelled Glucose Cancelled Lactic Acid Cancelled Calcium Cancelled Total Bilirubin Cancelled AST Cancelled ALT Cancelled Alkaline Phosphatase Cancelled Troponin I Cancelled B-Natriuretic Peptide Total Protein Cancelled Albumin Cancelled Globulin Cancelled Albumin/Globulin Ratio Cancelled Procalcitonin 07/08/20 07/08/20 07/08/20 15:05 15:05 15:05 WBC RBC Hgb Hct MCV MCH MCHC RDW Std Deviation RDW Coeff of Teo Plt Count MPV Differential Comment D-Dimer Quant (PE/DVT) Cancelled Specimen Type Sample Site pH Bicarbonate Actual Total CO2 Base Excess O2 Saturation ABG pCO2 ABG pO2 Harshad Test O2 Delivery Device Liter Flow Sodium Potassium Chloride Carbon Dioxide Anion Gap BUN Creatinine Estim Creat Clear Calc Est GFR (MDRD) Af Amer Est GFR (MDRD) Non-Af BUN/Creatinine Ratio Glucose Lactic Acid Calcium Total Bilirubin AST ALT Alkaline Phosphatase Troponin I B-Natriuretic Peptide 1165.2 H Total Protein Albumin Globulin Albumin/Globulin Ratio Procalcitonin 0.12 H 07/08/20 07/08/20 07/08/20 17:18 17:48 17:48 WBC RBC Hgb Hct MCV MCH MCHC RDW Std Deviation RDW Coeff of Teo Plt Count MPV Differential Comment D-Dimer Quant (PE/DVT) 0.82 H* Specimen Type Sample Site pH Bicarbonate Actual Total CO2 Base Excess O2 Saturation ABG pCO2 ABG pO2 Harshad Test O2 Delivery Device Liter Flow Sodium 143 Potassium 5.4 H Chloride 109 H Carbon Dioxide 29.0 Anion Gap 5 BUN 55 H Creatinine 2.29 H Estim Creat Clear Calc 19.42 Est GFR (MDRD) Af Amer 26 L Est GFR (MDRD) Non-Af 22 L BUN/Creatinine Ratio 24.0 H Glucose 145 H Lactic Acid 1.1 Calcium 9.5 Total Bilirubin 0.40 AST 44 H ALT 40 Alkaline Phosphatase 78 Troponin I 0.269 H B-Natriuretic Peptide Total Protein 6.3 L Albumin 2.6 L Globulin 3.7 Albumin/Globulin Ratio 0.7 L Procalcitonin 07/08/20 07/08/20 07/09/20 17:48 22:45 04:50 WBC 7.7 RBC 4.57 Hgb 13.4 Hct 47.0 MCV 102.8 H MCH 29.3 MCHC 28.5 L RDW Std Deviation 53.8 H RDW Coeff of Teo 14.1 Plt Count 261 MPV 9.4 Differential Comment D-Dimer Quant (PE/DVT) Specimen Type ART Sample Site L Radial pH 7.32 L Bicarbonate Actual 30.3 H Total CO2 32 Base Excess 4 H O2 Saturation 94 L ABG pCO2 59.0 H ABG pO2 79 Harshad Test Positive O2 Delivery Device HFNC Liter Flow 15.0 Sodium Potassium Chloride Carbon Dioxide Anion Gap BUN Creatinine Estim Creat Clear Calc Est GFR (MDRD) Af Amer Est GFR (MDRD) Non-Af BUN/Creatinine Ratio Glucose Lactic Acid Calcium Total Bilirubin AST ALT Alkaline Phosphatase 81 Troponin I B-Natriuretic Peptide Total Protein Albumin Globulin Albumin/Globulin Ratio Procalcitonin 07/09/20 04:50 WBC RBC Hgb Hct MCV MCH MCHC RDW Std Deviation RDW Coeff of Teo Plt Count MPV Differential Comment D-Dimer Quant (PE/DVT) Specimen Type Sample Site pH Bicarbonate Actual Total CO2 Base Excess O2 Saturation ABG pCO2 ABG pO2 Harshad Test O2 Delivery Device Liter Flow Sodium 145 Potassium 5.2 H Chloride 112 H Carbon Dioxide 25.0 Anion Gap 8 BUN 62 H Creatinine 2.03 H Estim Creat Clear Calc 21.91 Est GFR (MDRD) Af Amer 30 L Est GFR (MDRD) Non-Af 25 L BUN/Creatinine Ratio 30.5 H Glucose 104 Lactic Acid Calcium 8.9 Total Bilirubin 0.30 AST 43 H ALT 34 Alkaline Phosphatase 67 Troponin I B-Natriuretic Peptide Total Protein 5.7 L Albumin 2.3 L Globulin 3.4 Albumin/Globulin Ratio 0.7 L Procalcitonin - Other Studies Radiology: [] reviewed Other Studies: [] Route of nutrition/ use of supplements: [] Nutritional Intake: [] IV Site: [] Howard Catheter: [] - Physical Exam General: Lethargic, Non-Cooperative HEENT: Atraumatic, PERRLA, EOMI Neck: Supple, No Nodes Lungs: Diminished Cardiovascular: Regular rate, Regular Rhythm Abdomen: Soft, Non Tender, Non-Distended Extremities: Edema Skin: No rashes IV Site: Peripheral, without redness Musculoskeletal: No Tenderness to Palpation of Joints or Extremities Neurological: Cranial nerves II-XII grossly intact - Assessment/Plan Antibiotics: [] Assessment/Plan: [] Active and Suspected Problems (This Medical Record has been edited. Action required.) Hypoxia (Acute) COVID-19 virus infection (Acute) covid with hypoxia, encephalopathy - dex, remdesivir, lovenox 30mg bid. Will follow, thank you
--- NOTE | 2020-07-09 19:46 | NURSING ---
male phoned in- states he is [facility]- states nurse is unable to make it out tonight to have picc line placed- will be able to place line tomorrow 0900 or after. [facility] to inform.
[2020-07-09] MEDS: Ceftriaxone 1 GM Vial IM (23:48)
[2020-07-10] VITALS (12 sets, daily range): BP systolic 124–155; BP diastolic 58–82; PULSE 66–78; RESP 12–25; TEMP 36.4–36.8; O2SAT 86–96
--- NOTE | 2020-07-10 02:47 | NURSING ---
Spoke to daughter, Arianna. A doctor had left her a message regarding if patient had any heart history or if she sees a cotton classer. The daughter is not aware of any heart history or a cotton classer for the patient.
[2020-07-10] MEDS: QUEtiapine 25 MG Tablet PO ×2 (09:43→20:06)
[2020-07-10] MEDS: dexAMETHasone 4 MG Tablet 6 MG PO (09:44)
[2020-07-10] MEDS: Enoxaparin 30 MG/0.3 ML Syringe SC ×2 (09:44→19:54)
--- NOTE | 2020-07-10 12:35 | PCM.PN.PUL ---
Patient Problems: Active and Suspected Problems (This Medical Record has been edited. Action required.) Hypoxia (Acute) COVID-19 virus infection (Acute) Subjective: The patient was seen and examined at the bedside this morning. Events from the last 24 hours have been reviewed. The patient is currently afebrile, hemodynamically stable and maintaining appropriate oxygen saturations on 15 L/min via nasal cannula. The patient remains on antimicrobials, Decadron and remdesivir. PICC line has been placed. The patient remains short of breath. Objective: The patient's most recent lab work, culture data and imaging studies have all been personally reviewed. Urine culture was positive for Providencia. - Physical Exam Vitals/I&O's: Vital Signs Temp Pulse Resp BP Pulse Ox 97.6 F L 78 20 H 155/71 H 93 07/10/20 09:47 07/10/20 09:47 07/10/20 11:00 07/10/20 09:47 07/10/20 09:47 Oxygen Flow Rate (L/min) 15 Oxygen Delivery Method Nasal Cannula Weight: 229 lb 4.492 oz Body Mass Index (BMI) 32.8 Intake and Output for Last 24 Hours 07/08/20 07/09/20 07/10/20 23:59 23:59 23:59 Intake Total 361.25 / 361.25 986.25 / 1011.25 25 / 25 Output Total 425 / 425 825 / 1300 725 / 725 Balance -63.75 / -63.75 161.25 / -288.75 -700 / -700 General: Alert, Cooperative, Confused HEENT: Atraumatic, Normocephalic Oral: No Gingival or Mucosal Lesions/ Ulcerations Neck: Supple, No Nodes, Trachea Midline Lungs: Diminished, Rales, Tachypneic, - - Appears winded with talking. Cardiovascular: Regular rate, Regular Rhythm Abdomen: Bowel Sounds Present, Soft, Non Tender, Obese Extremities: No clubbing, No cyanosis Skin: No breakdown Musculoskeletal: No Tenderness to Palpation of Joints or Extremities Lymphatic: No Cervical, Supraclavicular, or Inguinal Adenopathy Neurological: - - No focal neurological deficits. Labs (Last 48 Hours) 07/08/20 07/08/20 07/08/20 14:54 15:05 15:05 WBC 7.2 RBC 4.95 Hgb 14.3 Hct 49.0 H MCV 99.0 MCH 28.9 MCHC 29.2 L RDW Std Deviation 52.0 H RDW Coeff of Teo 14.2 Plt Count 309 MPV 9.6 Immature Gran % (Auto) 0.600 Neut % (Auto) 87.8 H Lymph % (Auto) 6.1 L Carson % (Auto) 5.1 Eos % (Auto) 0.0 Baso % (Auto) 0.4 Absolute Neuts (auto) 6.3 Absolute Lymphs (auto) 0.44 L Nucleated RBC % 0 Differential Comment SCANNED D-Dimer Quant (PE/DVT) Specimen Type ART Sample Site R Radial pH 7.18 L* Bicarbonate Actual 34.6 H Total CO2 38 Base Excess 6 H O2 Saturation 85 L ABG pCO2 93.0 H* ABG pO2 65 L Harshad Test O2 Delivery Device NRB Liter Flow Sodium Cancelled Potassium Cancelled Chloride Cancelled Carbon Dioxide Cancelled Anion Gap Cancelled BUN Cancelled Creatinine Cancelled Estim Creat Clear Calc Cancelled Est GFR (MDRD) Af Amer Cancelled Est GFR (MDRD) Non-Af Cancelled BUN/Creatinine Ratio Cancelled Glucose Cancelled Lactic Acid Calcium Cancelled Total Bilirubin Cancelled AST Cancelled ALT Cancelled Alkaline Phosphatase Cancelled Troponin I Cancelled B-Natriuretic Peptide Total Protein Cancelled Albumin Cancelled Globulin Cancelled Albumin/Globulin Ratio Cancelled Procalcitonin Urine Color Urine Clarity Urine pH Ur Specific [place] Urine Protein Urine Glucose (UA) Urine Ketones Urine Occult Blood Urine Nitrite Urine Bilirubin Urine Urobilinogen Ur Leukocyte Esterase Urine RBC Urine WBC Ur Squamous Epith Cells Urine Bacteria Urine Mucus 07/08/20 07/08/20 07/08/20 15:05 15:05 15:05 WBC RBC Hgb Hct MCV MCH MCHC RDW Std Deviation RDW Coeff of Teo Plt Count MPV Immature Gran % (Auto) Neut % (Auto) Lymph % (Auto) Carson % (Auto) Eos % (Auto) Baso % (Auto) Absolute Neuts (auto) Absolute Lymphs (auto) Nucleated RBC % Differential Comment D-Dimer Quant (PE/DVT) Specimen Type Sample Site pH Bicarbonate Actual Total CO2 Base Excess O2 Saturation ABG pCO2 ABG pO2 Harshad Test O2 Delivery Device Liter Flow Sodium Potassium Chloride Carbon Dioxide Anion Gap BUN Creatinine Estim Creat Clear Calc Est GFR (MDRD) Af Amer Est GFR (MDRD) Non-Af BUN/Creatinine Ratio Glucose Lactic Acid Cancelled Calcium Total Bilirubin AST ALT Alkaline Phosphatase Troponin I B-Natriuretic Peptide 1165.2 H Total Protein Albumin Globulin Albumin/Globulin Ratio Procalcitonin 0.12 H Urine Color Urine Clarity Urine pH Ur Specific [place] Urine Protein Urine Glucose (UA) Urine Ketones Urine Occult Blood Urine Nitrite Urine Bilirubin Urine Urobilinogen Ur Leukocyte Esterase Urine RBC Urine WBC Ur Squamous Epith Cells Urine Bacteria Urine Mucus 07/08/20 07/08/20 07/08/20 15:05 15:20 17:18 WBC RBC Hgb Hct MCV MCH MCHC RDW Std Deviation RDW Coeff of Teo Plt Count MPV Immature Gran % (Auto) Neut % (Auto) Lymph % (Auto) Carson % (Auto) Eos % (Auto) Baso % (Auto) Absolute Neuts (auto) Absolute Lymphs (auto) Nucleated RBC % Differential Comment D-Dimer Quant (PE/DVT) Cancelled Specimen Type Sample Site pH Bicarbonate Actual Total CO2 Base Excess O2 Saturation ABG pCO2 ABG pO2 Harshad Test O2 Delivery Device Liter Flow Sodium 143 Potassium 5.4 H Chloride 109 H Carbon Dioxide 29.0 Anion Gap 5 BUN 55 H Creatinine 2.29 H Estim Creat Clear Calc 19.42 Est GFR (MDRD) Af Amer 26 L Est GFR (MDRD) Non-Af 22 L BUN/Creatinine Ratio 24.0 H Glucose 145 H Lactic Acid Calcium 9.5 Total Bilirubin 0.40 AST 44 H ALT 40 Alkaline Phosphatase 78 Troponin I 0.269 H B-Natriuretic Peptide Total Protein 6.3 L Albumin 2.6 L Globulin 3.7 Albumin/Globulin Ratio 0.7 L Procalcitonin Urine Color Yellow Urine Clarity Cloudy Urine pH 6.0 Ur Specific [place] 1.020 Urine Protein 30 H Urine Glucose (UA) Normal Urine Ketones Negative Urine Occult Blood 250 H Urine Nitrite Negative Urine Bilirubin Negative Urine Urobilinogen Normal Ur Leukocyte Esterase 500 H Urine RBC 0-5 SEEN Urine WBC >100 SEEN Ur Squamous Epith Cells 5-10 SEEN Urine Bacteria RARE Urine Mucus 0 SEEN 07/08/20 07/08/20 07/08/20 17:48 17:48 17:48 WBC RBC Hgb Hct MCV MCH MCHC RDW Std Deviation RDW Coeff of Teo Plt Count MPV Immature Gran % (Auto) Neut % (Auto) Lymph % (Auto) Carson % (Auto) Eos % (Auto) Baso % (Auto) Absolute Neuts (auto) Absolute Lymphs (auto) Nucleated RBC % Differential Comment D-Dimer Quant (PE/DVT) 0.82 H* Specimen Type Sample Site pH Bicarbonate Actual Total CO2 Base Excess O2 Saturation ABG pCO2 ABG pO2 Harshad Test O2 Delivery Device Liter Flow Sodium Potassium Chloride Carbon Dioxide Anion Gap BUN Creatinine Estim Creat Clear Calc Est GFR (MDRD) Af Amer Est GFR (MDRD) Non-Af BUN/Creatinine Ratio Glucose Lactic Acid 1.1 Calcium Total Bilirubin AST ALT Alkaline Phosphatase 81 Troponin I B-Natriuretic Peptide Total Protein Albumin Globulin Albumin/Globulin Ratio Procalcitonin Urine Color Urine Clarity Urine pH Ur Specific [place] Urine Protein Urine Glucose (UA) Urine Ketones Urine Occult Blood Urine Nitrite Urine Bilirubin Urine Urobilinogen Ur Leukocyte Esterase Urine RBC Urine WBC Ur Squamous Epith Cells Urine Bacteria Urine Mucus 07/08/20 07/09/20 07/09/20 22:45 04:50 04:50 WBC 7.7 RBC 4.57 Hgb 13.4 Hct 47.0 MCV 102.8 H MCH 29.3 MCHC 28.5 L RDW Std Deviation 53.8 H RDW Coeff of Teo 14.1 Plt Count 261 MPV 9.4 Immature Gran % (Auto) Neut % (Auto) Lymph % (Auto) Carson % (Auto) Eos % (Auto) Baso % (Auto) Absolute Neuts (auto) Absolute Lymphs (auto) Nucleated RBC % Differential Comment D-Dimer Quant (PE/DVT) Specimen Type ART Sample Site L Radial pH 7.32 L Bicarbonate Actual 30.3 H Total CO2 32 Base Excess 4 H O2 Saturation 94 L ABG pCO2 59.0 H ABG pO2 79 Harshad Test Positive O2 Delivery Device HFNC Liter Flow 15.0 Sodium 145 Potassium 5.2 H Chloride 112 H Carbon Dioxide 25.0 Anion Gap 8 BUN 62 H Creatinine 2.03 H Estim Creat Clear Calc 21.91 Est GFR (MDRD) Af Amer 30 L Est GFR (MDRD) Non-Af 25 L BUN/Creatinine Ratio 30.5 H Glucose 104 Lactic Acid Calcium 8.9 Total Bilirubin 0.30 AST 43 H ALT 34 Alkaline Phosphatase 67 Troponin I B-Natriuretic Peptide Total Protein 5.7 L Albumin 2.3 L Globulin 3.4 Albumin/Globulin Ratio 0.7 L Procalcitonin Urine Color Urine Clarity Urine pH Ur Specific [place] Urine Protein Urine Glucose (UA) Urine Ketones Urine Occult Blood Urine Nitrite Urine Bilirubin Urine Urobilinogen Ur Leukocyte Esterase Urine RBC Urine WBC Ur Squamous Epith Cells Urine Bacteria Urine Mucus Microbiology 07/08/20 15:20 Urine Catheter - Howard Urine Culture - Final Providencia stuartii Clinical Impression(s) from Imaging Studies Chest X-Ray 07/08/20 15:43 IMPRESSION: 1. Hazy opacities consistent with pneumonia, including possible Covid pneumonia. Electronically Signed: Jackie Broussard MD at 17:39 EST Tel , Service support , Current Medications Acetaminophen (Acetaminophen 325 Mg Tablet) 650 mg PO Q4H PRN PRN PRN Reason: Pain 1-10 or Fever Last Admin: 07/09/20 13:12 Dose: 650 mg Documented by: Albuterol/Ipratropium (Ipratropium/Albuterol Sulfate 3 Ml Ampul.Neb) 3 ml INHALATION Q6HWA.RT PRN PRN Reason: SHORTNESS OF BREATH Ceftriaxone Sodium (Ceftriaxone 1 Gm Vial) 1 gm IM QHS [facility] Last Admin: 07/09/20 23:48 Dose: 1 gm Documented by: Dexamethasone (Dexamethasone 4 Mg Tablet) 6 mg PO DAILY [facility] Last Admin: 07/10/20 09:44 Dose: 6 mg Documented by: Enoxaparin Sodium (Enoxaparin 30 Mg/0.3 Ml Syringe) 30 mg SC BID [facility] Last Admin: 07/10/20 09:44 Dose: 30 mg Documented by: Sodium Chloride () 1,000 mls @ 75 mls/hr IV .[id number] [facility] Last Infusion: 07/10/20 12:30 Dose: 75 mls/hr Documented by: Remdesivir 100 mg/ Sodium (Chloride) 250 mls @ 125 mls/hr IV DAILY@2200 [facility] Stop: 07/12/20 23:59 Last Admin: 07/10/20 00:55 Dose: Not Given Documented by: Quetiapine Fumarate (Quetiapine 25 Mg Tablet) 25 mg PO BID [facility] Last Admin: 07/10/20 09:43 Dose: 25 mg Documented by: Sodium Chloride (0.9% Saline Lock 10 Ml Syringe) 10 - 40 ml IV UD PRN PRN Reason: SALINE FLUSH Last Admin: 07/08/20 22:59 Dose: 10 ml Documented by: Medical Necessity - Tobacco Use Smoking Status: Unknown if ever smoked Tobacco Use: Non-smoker Assessment/Plan All Active Problems (This Medical Record has been edited. Action required.) Hypoxia (Acute) COVID-19 virus infection (Acute) Respiratory failure with hypoxia (Acute) RECOMMENDATIONS: 1. Wean supplemental oxygen to maintain saturations at or above 90%. 2. Continue scheduled bronchodilator therapy. 3. Continue BiPAP therapy as needed. 4. Avoid sedating medications. 5. Continue remdesivir and Decadron as ordered. Monitor liver and renal function closely. 6. Continue twice daily scheduled IV Lasix. Recheck BMP today. 7. Encourage incentive spirometer use and mobilize patient as tolerated. IMPRESSIONS: 1. Acute combined respiratory failure secondary to COVID-19 pneumonia Clinical concern for underlying obstructive lung disease as well contributing to the patient's presenting symptoms. Although the patient initially required noninvasive positive pressure ventilatory support, she has been weaned to supplemental oxygen via nasal cannula. Recommend continuing to wean oxygen to maintain saturations at or above 90%. Infectious diseases is following. Recommend continuing remdesivir and Decadron as ordered. D-dimer was not significantly elevated. The patient will be continued on IV diuretic therapy as tolerated by hemodynamics and renal function. 2. Encephalopathy Likely metabolic in etiology with CO2 retention contributing. The patient's acid-base status has improved with BiPAP support. Recommend avoiding sedating medications. Continue BiPAP therapy as needed. 3. Heart failure with preserved ejection fraction Prior echocardiogram from 2017 did reveal evidence of stage I diastolic dysfunction along with mild pulmonary hypertension. Accordingly, the patient will be maintained on IV diuretic therapy. 4. Advanced age/hypothyroidism/hypertension/history of opiate dependency Complicates care, management, recovery and prognosis. Continue home medications as indicated. This note was generated with [employer] software. It may contain incorrect words, spelling, and punctuation that were not noted in checking the note before signing. Inpatient E&M: 47[address] [facility] L[facility]
--- NOTE | 2020-07-10 13:02 | PN_ITS ---
Patient Problems: Active and Suspected Problems (This Medical Record has been edited. Action required.) Hypoxia (Acute) COVID-19 virus infection (Acute) Reason for Visit: Acute hypoxic respiratory failure secondary to COVID-19 pneumonia Objective: Patient is afebrile. Is still on high oxygen 15 L to keep pulse ox 93%. Mild tachypneic 20 to 22/min. I talked to the patient's daughter Arianna over phone [phone] Wants to keep DNR CCA no intubation. Physical exam General: Awake. Disoriented to time. Cooperative HEENT: Atraumatic, PERRLA, EOMI, Normocephalic Oral: No Gingival or Mucosal Lesions/ Ulcerations Neck: Supple, No JVD, Negative Carotid Bruits Lungs: Air entry severely diminished in bilateral lung bases. Bilateral coarse rhonchi on both lungs. Severely hypoxic Cardiovascular: Regular rate, Regular Rhythm, Normal S1, Normal S2, No murmurs Abdomen: Bowel Sounds Present, Soft, Non Tender, Non-Distended : No renal angle tenderness. No suprapubic tenderness. Extremities: No edema, Capillary Refill Less than 3 Seconds Skin: No rashes, No breakdown Musculoskeletal: No Tenderness to Palpation of Joints or Extremities Neurological: Cranial nerves II-XII grossly intact, Deep Tendon Reflexes 2+/4 and Symmetrical, Neuro grossly intact Psych/Mental Status: Normal Affect, Appropriate. Vitals/I&O's: Vital Signs Temp Pulse Resp BP Pulse Ox 97.6 F L 78 20 H 155/71 H 93 07/10/20 09:47 07/10/20 09:47 07/10/20 11:00 07/10/20 09:47 07/10/20 09:47 Oxygen Flow Rate (L/min) 15 Oxygen Delivery Method Nasal Cannula Weight: 229 lb 4.492 oz Body Mass Index (BMI) 32.8 Intake and Output for Last 24 Hours 07/08/20 07/09/20 07/10/20 23:59 23:59 23:59 Intake Total 361.25 / 361.25 986.25 / 1011.25 32.5 / 32.5 Output Total 425 / 425 825 / 1300 725 / 725 Balance -63.75 / -63.75 161.25 / -288.75 -692.5 / -692.5 Microbiology Past 72 Hours 07/08/20 15:20 Urine Catheter - Howard Urine Culture - Final Providencia stuartii Current Medications Acetaminophen (Acetaminophen 325 Mg Tablet) 650 mg PO Q4H PRN PRN PRN Reason: Pain 1-10 or Fever Last Admin: 07/09/20 13:12 Dose: 650 mg Documented by: Albuterol/Ipratropium (Ipratropium/Albuterol Sulfate 3 Ml Ampul.Neb) 3 ml INHALATION Q6HWA.RT [facility] Ceftriaxone Sodium (Ceftriaxone 1 Gm Vial) 1 gm IM QHS [facility] Last Admin: 07/09/20 23:48 Dose: 1 gm Documented by: Dexamethasone (Dexamethasone 4 Mg Tablet) 6 mg PO DAILY [facility] Last Admin: 07/10/20 09:44 Dose: 6 mg Documented by: Enoxaparin Sodium (Enoxaparin 30 Mg/0.3 Ml Syringe) 30 mg SC BID [facility] Last Admin: 07/10/20 09:44 Dose: 30 mg Documented by: Furosemide (Furosemide 40 Mg/4 Ml Vial) 40 mg IV BID@1000,1800 [facility] Remdesivir 100 mg/ Sodium (Chloride) 250 mls @ 125 mls/hr IV DAILY@2200 [facility] Stop: 07/12/20 23:59 Last Admin: 07/10/20 00:55 Dose: Not Given Documented by: Quetiapine Fumarate (Quetiapine 25 Mg Tablet) 25 mg PO BID [facility] Last Admin: 07/10/20 09:43 Dose: 25 mg Documented by: Sodium Chloride (0.9% Saline Lock 10 Ml Syringe) 10 - 40 ml IV UD PRN PRN Reason: SALINE FLUSH Last Admin: 07/08/20 22:59 Dose: 10 ml Documented by: STROKE Vital Signs/Narrative: Vital Signs Temp Pulse Resp BP Pulse Ox 07/10/20 11:00 20 H 07/10/20 09:47 97.6 F L 78 20 H 155/71 H 93 Medical Necessity - Tobacco Use Smoking Status: Unknown if ever smoked Tobacco Use: Non-smoker Assessment/Plan All Active Problems (This Medical Record has been edited. Action required.) Hypoxia (Acute) COVID-19 virus infection (Acute) Respiratory failure with hypoxia (Acute) This 84-year-old female was brought in for shortness of breath and hypoxia 88% on 50 L of oxygen from [facility] with 2-day history of COVID-19 positive and hypoxia. Patient is DNR CC arrest with no intubation #1 COVID-19 pneumonia: [facility], Decadron. ID consult. -patient will be admitted to [facility], she will receive remdesivir, dexamethasone, and she will be seen by infectious diseases. D-dimer mildly elevated 0.82 but age corrected calculated D-dimer is 0.85 therefore in normal limit. ABG 7.1 on 15 L nonrebreather mask. Troponin mildly elevated 0.269, BNP 1165. 07/11: No fever. PICC line is inserted. Chest x-ray is ordered. To confirmation, and start remdesivir. Meantime patient is getting ceftriaxone IM. I talked to the patient's daughter Arianna over phone [phone] and clinical updates were given including poor prognosis because of severe hypoxia. She has baseline history of COPD, heart failure and chronic kidney disease. Over the next 2 days she will make decision on DNR CC/hospice care if she does not improve or deteriorate. #2 acute hypoxic and hypercarbic combined respiratory failure secondary to COVID-19 pneumonia with history of COPD-runner out has been consulted and consult reviewed and appreciated. On BiPAP alternating with AIR VO. No COPD exacerbation. On bronchodilator as needed. 05/11: On high oxygen 15 L. BiPAP for rescue. #3 stage IV chronic kidney disease-in May 2020 1.78. Admitted with his last creatinine 55/2.29. 07/09: Currently BUN/creatinine 62/2.03. BUN did not improve with IV fluid. #4 elevated troponin-May be inflammatory from COVID-19 infection. Patient does not have chest pain. #5 acute cystitis- UA WBC more than 100, RBC 0-5, LE 500 nitrite negative. Preliminary urine culture shows Providencia stuartii 50,000-80,000 probably incompletely treated. Sensitive to ceftriaxone and will continue. #6 HFpEF, chronic in nature: Echo in 2016 shows stage I diastolic dysfunction, EF 65% LA moderately enlarged and aortic is sclerosis no stenosis. BNP elevated. #7 metabolic encephalopathy, metabolic/infectious encephalopathy: Correct underlying disorder. Started on diet. As per nursing staff patient in afternoon more awake Prognosis guarded TO POOR. Patient is a DNR CC arrest with no intubation. Total time of the visit including total time spent in counseling or coordination of care, (more than 50% of the total time, spent in obtaining medical information from nurses and other ancillary care providers,explaining to the patient about labs, imaging, diagnosis and management), consult with consultants, talking to the daughter on phone, review of labs and imaging is 30 minutes. Microbiology Past 72 Hours 07/08/20 15:20 Urine Catheter - Howard Urine Culture - Final Providencia stuartii Clinical Impression(s) from Imaging Studies Chest X-Ray 07/08/20 15:43 IMPRESSION: 1. Hazy opacities consistent with pneumonia, including possible Covid pneumonia. Inpatient E&M: [id number] Subs Hosp L3
--- NOTE | 2020-07-10 13:10 | RAD_ITS ---
STUDY: X-RAY CHEST REASON FOR EXAM: Female, 84 years old. CHEST XRAY FOR LINE PLACEMENT. TECHNIQUE: Single AP portable view of the chest. COMPARISON: Comparison is made with prior study dated 07/08/2020. FINDINGS: A right-sided PICC line catheter has been placed. The tip is at the junction of the superior vena cava and right atrium. Persistent bilateral patchy infiltrates. There has been mild improvement. There is no demonstrated pleural abnormality. There is borderline cardiomegaly. Normal mediastinum and yolis. Normal visualized pulmonary arteries. There is atherosclerotic calcification of the aortic arch with tortuosity. Normal visualized thoracic spine. There is degenerative osteoarthritis of the bilateral shoulders. There is no demonstrated abnormality of the visualized soft tissue structures of the upper abdomen. RAD/CXR for Line Placement IMPRESSION: A right-sided PICC line catheter as been placed. The tip is at the junction of the superior vena cava and right atrium. Persistent bilateral pulmonary infiltrates although there has been improvement as compared to prior study. Pending Final Proof Editing
[2020-07-10] MEDS: Ipratropium/Albuterol Sulfate 3 ML AMPUL.NEB INHALATION ×2 (13:38→19:18)
--- NOTE | 2020-07-10 14:54 | PN.ID_ITS ---
Patient Problems: Active and Suspected Problems (This Medical Record has been edited. Action required.) Hypoxia (Acute) COVID-19 virus infection (Acute) Subjective: Not feeling well this afternoon, O2 is off face during my exam and sat is 65%. No fever. - Physical Exam Vitals/I&O's: Vital Signs Temp Pulse Resp BP Pulse Ox 97.6 F L 74 18 155/71 H 91 07/10/20 09:47 07/10/20 13:39 07/10/20 13:39 07/10/20 09:47 07/10/20 13:39 Oxygen Flow Rate (L/min) 15 Oxygen Delivery Method Nasal Cannula Weight: 104 kg Body Mass Index (BMI) 32.8 Intake and Output for Last 24 Hours 07/08/20 07/09/20 07/10/20 23:59 23:59 23:59 Intake Total 361.25 / 361.25 986.25 / 1011.25 32.5 / 32.5 Output Total 425 / 425 825 / 1300 725 / 725 Balance -63.75 / -63.75 161.25 / -288.75 -692.5 / -692.5 General: Alert, Cooperative, No apparent distress Lungs: Diminished Cardiovascular: Regular rate, Regular Rhythm Abdomen: Soft, Non Tender, Non-Distended Skin: No rashes Microbiology Past 72 Hours 07/08/20 15:37 Blood Culture (Wb) - Right Hand Blood Culture - Preliminary No growth in 48 hours. 07/08/20 15:20 Urine Catheter - Howard Urine Culture - Final Providencia stuartii Current Medications Acetaminophen (Acetaminophen 325 Mg Tablet) 650 mg PO Q4H PRN PRN PRN Reason: Pain 1-10 or Fever Last Admin: 07/09/20 13:12 Dose: 650 mg Documented by: Albuterol/Ipratropium (Ipratropium/Albuterol Sulfate 3 Ml Ampul.Neb) 3 ml INHALATION Q6HWA.RT [facility] Last Admin: 07/10/20 13:38 Dose: 3 ml Documented by: Ceftriaxone Sodium (Ceftriaxone 1 Gm Vial) 1 gm IM QHS [facility] Last Admin: 07/09/20 23:48 Dose: 1 gm Documented by: Dexamethasone (Dexamethasone 4 Mg Tablet) 6 mg PO DAILY [facility] Last Admin: 07/10/20 09:44 Dose: 6 mg Documented by: Enoxaparin Sodium (Enoxaparin 30 Mg/0.3 Ml Syringe) 30 mg SC BID [facility] Last Admin: 07/10/20 09:44 Dose: 30 mg Documented by: Furosemide (Furosemide 40 Mg/4 Ml Vial) 40 mg IV BID@1000,1800 [facility] Remdesivir 100 mg/ Sodium (Chloride) 250 mls @ 125 mls/hr IV DAILY@2200 [facility] Stop: 07/12/20 23:59 Last Admin: 07/10/20 00:55 Dose: Not Given Documented by: Quetiapine Fumarate (Quetiapine 25 Mg Tablet) 25 mg PO BID [facility] Last Admin: 07/10/20 09:43 Dose: 25 mg Documented by: Sodium Chloride (0.9% Saline Lock 10 Ml Syringe) 10 - 40 ml IV UD PRN PRN Reason: SALINE FLUSH Last Admin: 07/08/20 22:59 Dose: 10 ml Documented by: Medical Necessity - Tobacco Use Smoking Status: Unknown if ever smoked Tobacco Use: Non-smoker Route of nutrition/ use of supplements: [] Nutritional Intake: [] IV Site: [] Howard Catheter: [] - Assessment/Plan Antibiotics: [] Assessment/Plan: [] Active and Suspected Problems (This Medical Record has been edited. Action required.) Hypoxia (Acute) COVID-19 virus infection (Acute) covid with hypoxia, encephalopathy - dex, remdesivir, lovenox 30mg bid. Mental status much improved today. On ceftriaxone for providencia uti. Pulm following. D-dimer 0.8. Will follow
[2020-07-10] MEDS: Acetaminophen 325 MG Tablet 650 MG PO ×2 (15:11→20:06)
[2020-07-10 15:26] LABS: Absolute Lymphocyte Count 0.41 X10^3/uL (0.83-4.51); Absolute Neutrophil Count 7.6 X10^3/uL (2.0-7.7); Basophil# 0.01 X10^3/uL; Basophil% 0.1 % (0-1); Hematocrit 44.7 % (37-47); Hemoglobin 14.1 g/dL (12.0-15.0); Lymphocyte # 0.41 X10^3/ul (4.0); Lymphocyte % 4.8 % (19-41); Mean Corp Hgb Conc 31.5 g/dL (32-36); Mean Corpuscular Hgb 29.7 pg (27.0-32.0); Mean Corpuscular Volume 94.3 fL (81-99); Mean Platelet Vol. 9.7 fl (6.2-12.0); Monocyte# 0.38 X10^3/uL; Monocyte% 4.5 % (0-10); NRBC Flagged by Analyzer 0 % (0-5); Neutrophil # 7.62 X10^3/uL (2.7-7.7); POSITIVE DIFFERENTIAL YES; Platelet Count 332 K/mm3 (150-450); RBC Distribution Width CV 13.8 % (11.6-14.6); RBC Distribution Width SD 48.4 fl (35.1-43.9); Red Blood Count 4.74 M/mm3 (4.2-5.4); White Blood Count 8.5 K/mm3 (4.4-11.0)
[2020-07-10 15:38] LABS: Differential Indicated SCAN CRITERIA MET
[2020-07-10 15:56] LABS: Platelet Estimate ADEQUATE (ADEQ); Red Cell Morphology N CHROM NORMAL (NORM C&C); Toxic Granulation RARE
[2020-07-10 15:59] LABS: ALB/GLOB Ratio 0.6 RATIO (0.9-2.4); AST(SGOT) 44 U/L (15-37); Alanine Aminotransfer ALT/SGPT 38 U/L (13-56); Albumin, Serum 2.3 g/dL (3.2-5.0); Alkaline Phosphatase 68 U/L (45-117); Anion Gap 6 (5-15); BNP,B-Type NATRIURETIC PEPTIDE 235.1 pg/mL (0-100); BUN 69 mg/dL (7-18); BUN/Creat Ratio 39.9 RATIO (10-20); Calcium,Total 8.9 mg/dL (8.5-10.1); Chloride 108 mmol/L (98-107); Creatinine, Serum 1.73 mg/dL (0.55-1.02); EST Glomerular Filtration Rate 30 mL/min (>60); Est Glom Filt Rate - Afr Amer 36 mL/min (>60); Estimated Creatinine Clearance 25.71 ml/min; Globulin 3.9 g/dL (2.2-4.2); Glucose 155 mg/dL (74-106); Magnesium 2.4 mg/dL (1.6-2.6); Potassium 4.1 mmol/L (3.5-5.1); Protein, Total 6.2 g/dL (6.4-8.2); Sodium Level 146 mmol/L (136-145)
[2020-07-10] MEDS: Furosemide 40 MG/4 ML Vial IV (16:38)
[2020-07-10] MEDS: Ceftriaxone 1 GM/50 ML BAG IV (22:36)
[2020-07-10] MEDS: MELATONIN 3 MG TABLET PO (23:04)
[2020-07-10] MEDS: 0.9% Saline Lock 10 ML Syringe IV (23:10)
[2020-07-11] VITALS (11 sets, daily range): BP systolic 130–155; BP diastolic 67–87; PULSE 64–83; RESP 12–30; TEMP 36.7; O2SAT 89–93
[2020-07-11] MEDS: Acetaminophen 325 MG Tablet 650 MG PO (02:56)
[2020-07-11] MEDS: Haloperidol Lactate 5 MG/ML Vial 2 MG IM (04:51)
--- NOTE | 2020-07-11 07:12 | PCM.PN.PUL ---
Patient Problems: Active and Suspected Problems (This Medical Record has been edited. Action required.) Hypoxia (Acute) COVID-19 virus infection (Acute) Subjective: The patient was seen and examined at the bedside this morning. Events from the last 24 hours have been reviewed. The patient is currently afebrile, hemodynamically stable and maintaining appropriate oxygen saturations on 15 L/min high flow nasal cannula. The patient was on BiPAP for period of time overnight. She does report feeling better today with less shortness of breath. Renal and liver function are stable. The patient remains on twice daily scheduled IV Lasix. Objective: The patient's most recent lab work, culture data and imaging studies have all been personally reviewed. Surface echocardiogram from 2017 revealed mild concentric LVH with an ejection fraction of 65% and stage I diastolic dysfunction. Right ventricular systolic pressure was estimated to be 38 mmHg. Mild to moderate aortic stenosis was also noted. Urine culture was positive for Providencia. - Physical Exam Vitals/I&O's: Vital Signs Temp Pulse Resp BP Pulse Ox 98.1 F 67 24 H 152/67 H 93 07/11/20 02:49 07/11/20 03:45 07/11/20 03:45 07/11/20 02:49 07/11/20 03:45 Oxygen Flow Rate (L/min) 15 Oxygen Delivery Method Bi-pap Weight: 229 lb 4.492 oz Body Mass Index (BMI) 32.8 Intake and Output for Last 24 Hours 07/09/20 07/10/20 07/11/20 23:59 23:59 23:59 Intake Total 986.25 / 1011.25 452.5 / 792.5 340 / 340 Output Total 825 / 1300 1325 / 2250 1375 / 1375 Balance 161.25 / -288.75 -872.5 / -1457.5 -1035 / -1035 General: Alert, Cooperative, No apparent distress HEENT: Atraumatic, PERRLA, Normocephalic Oral: Moist Mucosa Neck: Supple, No Nodes, Trachea Midline Lungs: Diminished, Tachypneic Cardiovascular: Regular rate, Regular Rhythm Abdomen: Bowel Sounds Present, Soft, Non Tender, Obese Extremities: No clubbing, No cyanosis Skin: No breakdown Musculoskeletal: No Muscle Wasting Lymphatic: No Cervical, Supraclavicular, or Inguinal Adenopathy Neurological: - - No focal neurological deficits. Psych/Mental Status: Normal Affect Labs (Last 48 Hours) 07/10/20 07/10/20 07/10/20 15:15 15:15 15:15 WBC 8.5 RBC 4.74 Hgb 14.1 Hct 44.7 MCV 94.3 D MCH 29.7 MCHC 31.5 L D RDW Std Deviation 48.4 H RDW Coeff of Teo 13.8 Plt Count 332 MPV 9.7 Immature Gran % (Auto) 0.600 Neut % (Auto) 90.0 H Lymph % (Auto) 4.8 L [place] % (Auto) 4.5 Eos % (Auto) 0.0 Baso % (Auto) 0.1 Absolute Neuts (auto) 7.6 Absolute Lymphs (auto) 0.41 L Nucleated RBC % 0 Differential Comment SEE COMMENT Toxic Granulation RARE Platelet Estimate ADEQUATE RBC Morphology N CHROM Sodium 146 H Potassium 4.1 Chloride 108 H Carbon Dioxide 32.0 Anion Gap 6 BUN 69 H Creatinine 1.73 H Estim Creat Clear Calc 25.71 Est GFR (MDRD) Af Amer 36 L Est GFR (MDRD) Non-Af 30 L BUN/Creatinine Ratio 39.9 H Glucose 155 H Calcium 8.9 Magnesium 2.4 Total Bilirubin 0.40 AST 44 H ALT 38 Alkaline Phosphatase 68 C-React Prot Ext Range 88.90 H B-Natriuretic Peptide 235.1 H Total Protein 6.2 L Albumin 2.3 L Globulin 3.9 Albumin/Globulin Ratio 0.6 L 07/11/20 07/11/20 06:50 06:50 WBC Pending RBC Pending Hgb Pending Hct Pending MCV Pending MCH Pending MCHC Pending RDW Std Deviation Pending RDW Coeff of Teo Pending Plt Count Pending MPV Immature Gran % (Auto) Neut % (Auto) Pending Lymph % (Auto) [place] % (Auto) Eos % (Auto) Baso % (Auto) Absolute Neuts (auto) Pending Absolute Lymphs (auto) Nucleated RBC % Differential Comment Toxic Granulation Platelet Estimate RBC Morphology Sodium Pending Potassium Pending Chloride Pending Carbon Dioxide Pending Anion Gap Pending BUN Pending Creatinine Pending Estim Creat Clear Calc Est GFR (MDRD) Af Amer Pending Est GFR (MDRD) Non-Af Pending BUN/Creatinine Ratio Pending Glucose Pending Calcium Pending Magnesium Total Bilirubin Pending AST Pending ALT Pending Alkaline Phosphatase Pending C-React Prot Ext Range B-Natriuretic Peptide Total Protein Pending Albumin Pending Globulin Albumin/Globulin Ratio Microbiology 07/08/20 15:37 Blood Culture (Wb) - Right Hand Blood Culture - Preliminary No growth in 48 hours. 07/08/20 15:20 Urine Catheter - Howard Urine Culture - Final Providencia stuartii Clinical Impression(s) from Imaging Studies Chest X-Ray 07/08/20 15:43 IMPRESSION: 1. Hazy opacities consistent with pneumonia, including possible Covid pneumonia. Electronically Signed: Jackie Broussard MD at 17:39 EST Tel , Service support , Chest X-Ray 07/10/20 13:10 IMPRESSION: A right-sided PICC line catheter as been placed. The tip is at the junction of the superior vena cava and right atrium. Persistent bilateral pulmonary infiltrates although there has been improvement as compared to prior study. Pending Final Proof Editing Current Medications Acetaminophen (Acetaminophen 325 Mg Tablet) 650 mg PO Q4H PRN PRN PRN Reason: Pain 1-10 or Fever Last Admin: 07/11/20 02:56 Dose: 650 mg Documented by: Albuterol/Ipratropium (Ipratropium/Albuterol Sulfate 3 Ml Ampul.Neb) 3 ml INHALATION Q6HWA.RT [facility] Last Admin: 07/10/20 19:18 Dose: 3 ml Documented by: Dexamethasone (Dexamethasone 4 Mg Tablet) 6 mg PO DAILY [facility] Last Admin: 07/10/20 09:44 Dose: 6 mg Documented by: Enoxaparin Sodium (Enoxaparin 30 Mg/0.3 Ml Syringe) 30 mg SC BID [facility] Last Admin: 07/10/20 19:54 Dose: 30 mg Documented by: Furosemide (Furosemide 40 Mg/4 Ml Vial) 40 mg IV BID@1000,1800 [facility] Last Admin: 07/10/20 16:38 Dose: 40 mg Documented by: Haloperidol Lactate (Haloperidol Lactate 5 Mg/Ml Vial) 2 mg IM QHS PRN PRN Reason: INSOMNIA Remdesivir 100 mg/ Sodium (Chloride) 250 mls @ 125 mls/hr IV DAILY@2200 [facility] Stop: 07/12/20 23:59 Last Infusion: 07/10/20 18:37 Dose: Infused Documented by: Ceftriaxone Sodium (Rocephin) 1 gm in 50 mls @ 100 mls/hr IV Q24H [facility] Last Infusion: 07/10/20 23:23 Dose: Infused Documented by: Quetiapine Fumarate (Quetiapine 25 Mg Tablet) 25 mg PO BID [facility] Last Admin: 07/10/20 20:06 Dose: 25 mg Documented by: Sodium Chloride (0.9% Saline Lock 10 Ml Syringe) 10 - 40 ml IV UD PRN PRN Reason: SALINE FLUSH Last Admin: 07/10/20 23:10 Dose: 20 ml Documented by: Sodium Chloride (0.9% Saline Lock 10 Ml Syringe) 10 - 40 ml IV UD PRN PRN Reason: Closed End PICC Flush Sodium Chloride (0.9 % Nacl (Sterile) Posiflush 10 Ml) 10 - 40 ml IV UD PRN PRN Reason: Port access or dressing change Medical Necessity - Tobacco Use Smoking Status: Unknown if ever smoked Tobacco Use: Non-smoker Assessment/Plan All Active Problems (This Medical Record has been edited. Action required.) Hypoxia (Acute) COVID-19 virus infection (Acute) Respiratory failure with hypoxia (Acute) RECOMMENDATIONS: 1. Wean supplemental oxygen to maintain saturations at or above 90%. 2. Continue scheduled bronchodilator therapy. 3. Continue BiPAP therapy as needed. 4. Avoid sedating medications. 5. Continue remdesivir and Decadron as ordered. Monitor liver and renal function closely. 6. Continue twice daily scheduled IV Lasix, as tolerated by hemodynamics and renal function. 7. Encourage incentive spirometer use and mobilize patient as tolerated. IMPRESSIONS: 1. Acute combined respiratory failure secondary to COVID-19 pneumonia Clinical concern for underlying obstructive lung disease as well contributing to the patient's presenting symptoms. Although the patient initially required noninvasive positive pressure ventilatory support, she has been weaned to supplemental oxygen via nasal cannula. Recommend continuing to wean oxygen to maintain saturations at or above 90%. Infectious diseases is following. Recommend continuing remdesivir and Decadron as ordered. D-dimer was not significantly elevated. The patient will be continued on IV diuretic therapy as tolerated by hemodynamics and renal function. 2. Encephalopathy Improved. Likely metabolic in etiology with CO2 retention contributing. The patient's acid-base status has improved with BiPAP support. Recommend avoiding sedating medications. Continue BiPAP therapy as needed. 3. Heart failure with preserved ejection fraction Prior echocardiogram from 2017 did reveal evidence of stage I diastolic dysfunction along with mild pulmonary hypertension. Accordingly, the patient will be maintained on IV diuretic therapy. 4. Advanced age/hypothyroidism/hypertension/history of opiate dependency Complicates care, management, recovery and prognosis. Continue home medications as indicated. This note was generated with [employer] dictation software. It may contain incorrect words, spelling, and punctuation that were not noted in checking the note before signing. Inpatient E&M: [id number] [facility] Hosp L3
[2020-07-11 07:15] LABS: Absolute Lymphocyte Count 0.59 X10^3/uL (0.83-4.51); Absolute Neutrophil Count 6.5 X10^3/uL (2.0-7.7); Basophil# 0.01 X10^3/uL; Basophil% 0.1 % (0-1); Hemoglobin 13.7 g/dL (12.0-15.0); Lymphocyte # 0.59 X10^3/ul (4.0); Lymphocyte % 7.5 % (19-41); Mean Corp Hgb Conc 31.1 g/dL (32-36); Mean Corpuscular Hgb 28.7 pg (27.0-32.0); Mean Corpuscular Volume 92.2 fL (81-99); Mean Platelet Vol. 9.7 fl (6.2-12.0); Monocyte# 0.68 X10^3/uL; Monocyte% 8.7 % (0-10); NRBC Flagged by Analyzer 0 % (0-5); Neutrophil # 6.49 X10^3/uL (2.7-7.7); Neutrophil % 82.9 % (47-70); POSITIVE DIFFERENTIAL YES; Platelet Count 329 K/mm3 (150-450); RBC Distribution Width CV 13.7 % (11.6-14.6); RBC Distribution Width SD 47.2 fl (35.1-43.9); Red Blood Count 4.77 M/mm3 (4.2-5.4); White Blood Count 7.8 K/mm3 (4.4-11.0)
[2020-07-11 07:19] LABS: Differential Indicated SCAN CRITERIA MET
[2020-07-11] MEDS: Ipratropium/Albuterol Sulfate 3 ML AMPUL.NEB INHALATION ×3 (07:23→19:08)
[2020-07-11 07:38] LABS: ALB/GLOB Ratio 0.6 RATIO (0.9-2.4); AST(SGOT) 41 U/L (15-37); Alanine Aminotransfer ALT/SGPT 41 U/L (13-56); Albumin, Serum 2.4 g/dL (3.2-5.0); Alkaline Phosphatase 67 U/L (45-117); Anion Gap 4 (5-15); BUN 67 mg/dL (7-18); BUN/Creat Ratio 40.4 RATIO (10-20); Chloride 109 mmol/L (98-107); Creatinine, Serum 1.66 mg/dL (0.55-1.02); EST Glomerular Filtration Rate 31 mL/min (>60); Est Glom Filt Rate - Afr Amer 38 mL/min (>60); Estimated Creatinine Clearance 26.79 ml/min; Globulin 3.8 g/dL (2.2-4.2); Glucose 142 mg/dL (74-106); Protein, Total 6.2 g/dL (6.4-8.2); Sodium Level 146 mmol/L (136-145)
--- NOTE | 2020-07-11 09:34 | PCM.PN.HOSP ---
Patient Problems: Active and Suspected Problems (This Medical Record has been edited. Action required.) Hypoxia (Acute) COVID-19 virus infection (Acute) Reason for Visit: Follow-up for acute hypoxic respiratory failure secondary to COVID-19 pneumonia Objective: Overall, patient feels better with regards to shortness of breath. She is more awake and alert. She had her breakfast and her appetite back and can taste food. See further surgery did not had breakfast yesterday and her last BM was yesterday. No fever or chills. Pulse ox 93% on BiPAP 65% FiO2 and 92% on 5 L. 82% on 15 L oxygen Physical exam General: Alert, Oriented x3, Cooperative HEENT: Atraumatic, PERRLA, EOMI, Normocephalic Oral: No Gingival or Mucosal Lesions/ Ulcerations Neck: Supple, No JVD, Negative Carotid Bruits Lungs: Air entry diminished in bilateral lung bases. No crepitation/rhonchi Cardiovascular: Regular rate, Regular Rhythm, Normal S1, Normal S2, No murmurs Abdomen: Bowel Sounds Present, Soft, Non Tender, Non-Distended : Dark urine in the Howard catheter. No renal angle tenderness. No suprapubic tenderness. Extremities: No edema, Capillary Refill Less than 3 Seconds Skin: No rashes, No breakdown Musculoskeletal: No Tenderness to Palpation of Joints or Extremities Neurological: Cranial nerves II-XII grossly intact, Deep Tendon Reflexes 2+/4 and Symmetrical, Neuro grossly intact Psych/Mental Status: Normal Affect, Appropriate. Vitals/I&O's: Vital Signs Temp Pulse Resp BP Pulse Ox 98.1 F 70 20 H 155/86 H 89 07/11/20 08:00 07/11/20 08:00 07/11/20 08:00 07/11/20 08:00 07/11/20 08:00 Oxygen Flow Rate (L/min) 15 Oxygen Delivery Method Nasal Cannula Weight: 229 lb 4.492 oz Body Mass Index (BMI) 32.8 Intake and Output for Last 24 Hours 07/09/20 07/10/20 07/11/20 23:59 23:59 23:59 Intake Total 986.25 / 1011.25 452.5 / 792.5 340 / 340 Output Total 825 / 1300 1325 / 2250 1375 / 1375 Balance 161.25 / -288.75 -872.5 / -1457.5 -1035 / -1035 Microbiology Past 72 Hours 07/08/20 15:37 Blood Culture (Wb) - Right Hand Blood Culture - Preliminary No growth in 48 hours. 07/08/20 15:20 Urine Catheter - Howard [facility] Laboratory Results 07/10/20 15:15: WBC 8.5, RBC 4.74, Hgb 14.1, Hct 44.7, MCV 94.3 D, MCH 29.7, MCHC 31.5 L D, RDW Std Deviation 48.4 H, RDW Coeff of Teo 13.8, Plt Count 332, MPV 9.7, Immature Gran % (Auto) 0.600, Neut % (Auto) 90.0 H, Lymph % (Auto) 4.8 L, [place] % (Auto) 4.5, Eos % (Auto) 0.0, Baso % (Auto) 0.1, Absolute Neuts (auto) 7.6, Absolute Lymphs (auto) 0.41 L, Nucleated RBC % 0, Differential Comment SEE COMMENT, Toxic Granulation RARE, Platelet Estimate ADEQUATE, RBC Morphology N CHROM 07/10/20 15:15: Sodium 146 H, Potassium 4.1, Chloride 108 H, Carbon Dioxide 32.0, Anion Gap 6, BUN 69 H, Creatinine 1.73 H, Estim Creat Clear Calc 25.71, Est GFR (MDRD) Af Amer 36 L, Est GFR (MDRD) Non-Af 30 L, BUN/Creatinine Ratio 39.9 H, Glucose 155 H, Calcium 8.9, Magnesium 2.4, Total Bilirubin 0.40, AST 44 H, ALT 38, Alkaline Phosphatase 68, C-React Prot Ext Range 88.90 H, Total Protein 6.2 L, Albumin 2.3 L, Globulin 3.9, Albumin/Globulin Ratio 0.6 L 07/10/20 15:15: B-Natriuretic Peptide 235.1 H 07/11/20 06:50: WBC 7.8, RBC 4.77, Hgb 13.7, Hct 44.0, MCV 92.2, MCH 28.7, MCHC 31.1 L, RDW Std Deviation 47.2 H, RDW Coeff of Teo 13.7, Plt Count 329, MPV 9.7, Immature Gran % (Auto) 0.800, Neut % (Auto) 82.9 H, Lymph % (Auto) 7.5 L, [place] % (Auto) 8.7, Eos % (Auto) 0.0, Baso % (Auto) 0.1, Absolute Neuts (auto) 6.5, Absolute Lymphs (auto) 0.59 L, Nucleated RBC % 0, Differential Comment COMMENT 07/11/20 06:50: Sodium 146 H, Potassium 4.0, Chloride 109 H, Carbon Dioxide 33.0 H, Anion Gap 4 L, BUN 67 H, Creatinine 1.66 H, Estim Creat Clear Calc 26.79, Est GFR (MDRD) Af Amer 38 L, Est GFR (MDRD) Non-Af 31 L, BUN/Creatinine Ratio 40.4 H, Glucose 142 H, Calcium 9.0, Total Bilirubin 0.50, AST 41 H, ALT 41, Alkaline Phosphatase 67, Total Protein 6.2 L, Albumin 2.4 L, Globulin 3.8, Albumin/Globulin Ratio 0.6 L Current Medications Acetaminophen (Acetaminophen 325 Mg Tablet) 650 mg PO Q4H PRN PRN PRN Reason: Pain 1-10 or Fever Last Admin: 07/11/20 02:56 Dose: 650 mg Documented by: Albuterol/Ipratropium (Ipratropium/Albuterol Sulfate 3 Ml Ampul.Neb) 3 ml INHALATION Q6HWA.RT [facility] Last Admin: 07/11/20 07:23 Dose: 3 ml Documented by: Dexamethasone (Dexamethasone 4 Mg Tablet) 6 mg PO DAILY [facility] Last Admin: 07/10/20 09:44 Dose: 6 mg Documented by: Enoxaparin Sodium (Enoxaparin 30 Mg/0.3 Ml Syringe) 30 mg SC BID [facility] Last Admin: 07/10/20 19:54 Dose: 30 mg Documented by: Furosemide (Furosemide 40 Mg/4 Ml Vial) 40 mg IV BID@1000,1800 [facility] Last Admin: 07/10/20 16:38 Dose: 40 mg Documented by: Haloperidol Lactate (Haloperidol Lactate 5 Mg/Ml Vial) 2 mg IM QHS PRN PRN Reason: INSOMNIA Remdesivir 100 mg/ Sodium (Chloride) 250 mls @ 125 mls/hr IV DAILY@2200 [facility] Stop: 07/12/20 23:59 Last Infusion: 07/10/20 18:37 Dose: Infused Documented by: Ceftriaxone Sodium (Rocephin) 1 gm in 50 mls @ 100 mls/hr IV Q24H [facility] Last Infusion: 07/10/20 23:23 Dose: Infused Documented by: Quetiapine Fumarate (Quetiapine 25 Mg Tablet) 25 mg PO BID [facility] Last Admin: 07/10/20 20:06 Dose: 25 mg Documented by: Sodium Chloride (0.9% Saline Lock 10 Ml Syringe) 10 - 40 ml IV UD PRN PRN Reason: SALINE FLUSH Last Admin: 07/10/20 23:10 Dose: 20 ml Documented by: Sodium Chloride (0.9% Saline Lock 10 Ml Syringe) 10 - 40 ml IV UD PRN PRN Reason: Closed End PICC Flush Sodium Chloride (0.9 % Nacl (Sterile) Posiflush 10 Ml) 10 - 40 ml IV UD PRN PRN Reason: Port access or dressing change STROKE Vital Signs/Narrative: Vital Signs Temp Pulse Resp BP Pulse Ox 07/11/20 08:00 98.1 F 70 20 H 155/86 H 89 07/11/20 07:24 64 17 92 Medical Necessity - Tobacco Use Smoking Status: Unknown if ever smoked Tobacco Use: Non-smoker Assessment/Plan All Active Problems (This Medical Record has been edited. Action required.) Hypoxia (Acute) COVID-19 virus infection (Acute) Respiratory failure with hypoxia (Acute) This 84-year-old female was brought in for shortness of breath and hypoxia 88% on 50 L of oxygen [facility] with 2-day history of COVID-19 positive and hypoxia. Patient is DNR CC arrest with no intubation #1 COVID-19 pneumonia: Patient is admitted on MedSurg. On remdesivir, Decadron. ID consult. -patient will be admitted to [facility], she will receive remdesivir, dexamethasone, and she will be seen by infectious diseases. D-dimer mildly elevated 0.82 but age corrected calculated D-dimer is 0.85 therefore in normal limit. ABG 7.1 / on 15 L nonrebreather mask. Troponin mildly elevated 0.269, BNP 1165. 12/4: No fever. PICC line is inserted. Chest x-ray is ordered. To confirmation, and start remdesivir. Meantime patient is getting ceftriaxone IM. I talked to the patient's daughter Arianna over phone [phone] and clinical updates were given including poor prognosis because of severe hypoxia. She has baseline history of COPD, heart failure and chronic kidney disease. Over the next 2 days she will make decision on DNR CC/hospice care if she does not improve or deteriorate. 07/12: Patient mentation has improved. #2 acute hypoxic and hypercarbic combined respiratory failure secondary to COVID-19 pneumonia with history of COPD-rn orthopaedics has been consulted and consult reviewed and appreciated. On BiPAP alternating with AIR VO. No COPD exacerbation. On bronchodilator as needed. .5: On high oxygen 15 L. BiPAP 65%. On ceftriaxone on remdesivir and Decadron. #3 stage IV chronic kidney disease-in May 2020 1.78. Admitted with his last creatinine 55/2.29. 07/09: Currently BUN/creatinine 62/2.03. BUN did not improve with IV fluid. 07/12: BUN/creatinine 67/1.66. #4 elevated troponin-May be inflammatory from COVID-19 infection. Patient does not have chest pain. #5 acute cystitis- UA WBC more than 100, RBC 0-5, LE 500 nitrite negative. Preliminary urine culture shows Providencia stuartii 50,000-80,000 probably incompletely treated. Sensitive to ceftriaxone and will continue. #6 HFpEF, chronic in nature: Echo in 2017 shows stage I diastolic dysfunction, EF 65% LA moderately enlarged and aortic is sclerosis no stenosis. BNP elevated. #7 metabolic encephalopathy, metabolic/infectious encephalopathy: Correct underlying disorder. Started on diet. As per nursing staff patient in afternoon more awake Prognosis guarded TO POOR. Patient is a DNR CC arrest with no intubation. Total time of the visit including total time spent in counseling or coordination of care, (more than 50% of the total time, spent in obtaining medical information from nurses and other ancillary care providers,explaining to the patient about labs, imaging, diagnosis and management), consult with consultants, talking to the daughter on phone, review of labs and imaging is 30 minutes. Microbiology Past 72 Hours 07/08/20 15:20 Urine Catheter - Howard Urine Culture - Final Providencia stuartii Clinical Impression(s) from Imaging Studies Chest X-Ray 07/08/20 15:43 IMPRESSION: 1. Hazy opacities consistent with pneumonia, including possible Covid pneumonia. Microbiology Past 72 Hours 07/08/20 15:37 Blood Culture (Wb) - Right Hand Blood Culture - Preliminary No growth in 48 hours. 07/08/20 15:20 Urine Catheter - Howard Urine Culture - Final Providencia stuartii Laboratory Results 07/10/20 15:15: WBC 8.5, RBC 4.74, Hgb 14.1, Hct 44.7, MCV 94.3 D, MCH 29.7, MCHC 31.5 L D, RDW Std Deviation 48.4 H, RDW Coeff of Teo 13.8, Plt Count 332, MPV 9.7, Immature Gran % (Auto) 0.600, Neut % (Auto) 90.0 H, Lymph % (Auto) 4.8 L, [place] % (Auto) 4.5, Eos % (Auto) 0.0, Baso % (Auto) 0.1, Absolute Neuts (auto) 7.6, Absolute Lymphs (auto) 0.41 L, Nucleated RBC % 0, Differential Comment SEE COMMENT, Toxic Granulation RARE, Platelet Estimate ADEQUATE, RBC Morphology N CHROM 07/10/20 15:15: Sodium 146 H, Potassium 4.1, Chloride 108 H, Carbon Dioxide 32.0, Anion Gap 6, BUN 69 H, Creatinine 1.73 H, Estim Creat Clear Calc 25.71, Est GFR (MDRD) Af Amer 36 L, Est GFR (MDRD) Non-Af 30 L, BUN/Creatinine Ratio 39.9 H, Glucose 155 H, Calcium 8.9, Magnesium 2.4, Total Bilirubin 0.40, AST 44 H, ALT 38, Alkaline Phosphatase 68, C-React Prot Ext Range 88.90 H, Total Protein 6.2 L, Albumin 2.3 L, Globulin 3.9, Albumin/Globulin Ratio 0.6 L 07/10/20 15:15: B-Natriuretic Peptide 235.1 H 07/11/20 06:50: WBC 7.8, RBC 4.77, Hgb 13.7, Hct 44.0, MCV 92.2, MCH 28.7, MCHC 31.1 L, RDW Std Deviation 47.2 H, RDW Coeff of Teo 13.7, Plt Count 329, MPV 9.7, Immature Gran % (Auto) 0.800, Neut % (Auto) 82.9 H, Lymph % (Auto) 7.5 L, [place] % (Auto) 8.7, Eos % (Auto) 0.0, Baso % (Auto) 0.1, Absolute Neuts (auto) 6.5, Absolute Lymphs (auto) 0.59 L, Nucleated RBC % 0, Differential Comment COMMENT 07/11/20 06:50: Sodium 146 H, Potassium 4.0, Chloride 109 H, Carbon Dioxide 33.0 H, Anion Gap 4 L, BUN 67 H, Creatinine 1.66 H, Estim Creat Clear Calc 26.79, Est GFR (MDRD) Af Amer 38 L, Est GFR (MDRD) Non-Af 31 L, BUN/Creatinine Ratio 40.4 H, Glucose 142 H, Calcium 9.0, Total Bilirubin 0.50, AST 41 H, ALT 41, Alkaline Phosphatase 67, Total Protein 6.2 L, Albumin 2.4 L, Globulin 3.8, Albumin/Globulin Ratio 0.6 L Inpatient E&M: [id number] Subs Hosp L2
[2020-07-11] MEDS: QUEtiapine 25 MG Tablet PO ×2 (10:54→21:16)
[2020-07-11] MEDS: Furosemide 40 MG/4 ML Vial IV ×2 (10:54→17:12)
[2020-07-11] MEDS: Enoxaparin 30 MG/0.3 ML Syringe SC ×2 (10:54→21:15)
[2020-07-11] MEDS: dexAMETHasone 4 MG Tablet 6 MG PO (10:55)
[2020-07-11] MEDS: 0.9% Saline Lock 10 ML Syringe IV ×2 (11:01→17:12)
--- NOTE | 2020-07-11 12:27 | CASEMGMT ---
Addendum entered by Susan Gomez 07/11/20 12:41: Social Work Return call from pt daughter Arianna. Emotional support provided as Arianna discussed her relationship with pt and feelings regarding illness. Plan would be for pt to return to [facility] if able. FORREST Matias Original Note: Social Work Clinical Updates faxed to [facility] and JESSICA spoke with Baylee at [facility] with update. Phone call to pt dgt Arianna and VM left. Plan: Return to [facility] when medically ready FORREST Sam
--- NOTE | 2020-07-11 15:08 | PN.ID_ITS ---
Patient Problems: Active and Suspected Problems (This Medical Record has been edited. Action required.) Hypoxia (Acute) COVID-19 virus infection (Acute) Subjective: Feeling about the same, no fever - Physical Exam Vitals/I&O's: Vital Signs Temp Pulse Resp BP Pulse Ox 98.1 F 83 19 H 155/86 H 91 07/11/20 08:00 07/11/20 13:18 07/11/20 13:18 07/11/20 08:00 07/11/20 13:24 Oxygen Flow Rate (L/min) 15 Oxygen Delivery Method Nasal Cannula Weight: 104 kg Body Mass Index (BMI) 32.8 Intake and Output for Last 24 Hours 07/09/20 07/10/20 07/11/20 23:59 23:59 23:59 Intake Total 986.25 / 1011.25 452.5 / 792.5 340 / 340 Output Total 825 / 1300 1325 / 2250 1375 / 1375 Balance 161.25 / -288.75 -872.5 / -1457.5 -1035 / -1035 General: Alert, Cooperative, No apparent distress Lungs: Diminished Cardiovascular: Regular rate, Regular Rhythm Abdomen: Soft, Non Tender, Non-Distended Skin: No rashes Microbiology Past 72 Hours 07/08/20 15:37 Blood Culture (Wb) - Right Hand Blood Culture - Preliminary No growth in 48 hours. 07/08/20 15:20 Urine Catheter - Howard Urine Culture - Final Providencia stuartii Laboratory Results 07/10/20 15:15: WBC 8.5, RBC 4.74, Hgb 14.1, Hct 44.7, MCV 94.3 D, MCH 29.7, MCHC 31.5 L D, RDW Std Deviation 48.4 H, RDW Coeff of Teo 13.8, Plt Count 332, MPV 9.7, Immature Gran % (Auto) 0.600, Neut % (Auto) 90.0 H, Lymph % (Auto) 4.8 L, Whitley % (Auto) 4.5, Eos % (Auto) 0.0, Baso % (Auto) 0.1, Absolute Neuts (auto) 7.6, Absolute Lymphs (auto) 0.41 L, Nucleated RBC % 0, Differential Comment SEE COMMENT, Toxic Granulation RARE, Platelet Estimate ADEQUATE, RBC Morphology N CHROM 07/10/20 15:15: Sodium 146 H, Potassium 4.1, Chloride 108 H, Carbon Dioxide 32.0, Anion Gap 6, BUN 69 H, Creatinine 1.73 H, Estim Creat Clear Calc 25.71, Est GFR (MDRD) Af Amer 36 L, Est GFR (MDRD) Non-Af 30 L, BUN/Creatinine Ratio 39.9 H, Glucose 155 H, Calcium 8.9, Magnesium 2.4, Total Bilirubin 0.40, AST 44 H, ALT 38, Alkaline Phosphatase 68, C-React Prot Ext Range 88.90 H, Total Protein 6.2 L, Albumin 2.3 L, Globulin 3.9, Albumin/Globulin Ratio 0.6 L 07/10/20 15:15: B-Natriuretic Peptide 235.1 H 07/11/20 06:50: WBC 7.8, RBC 4.77, Hgb 13.7, Hct 44.0, MCV 92.2, MCH 28.7, MCHC 31.1 L, RDW Std Deviation 47.2 H, RDW Coeff of Teo 13.7, Plt Count 329, MPV 9.7, Immature Gran % (Auto) 0.800, Neut % (Auto) 82.9 H, Lymph % (Auto) 7.5 L, Whitley % (Auto) 8.7, Eos % (Auto) 0.0, Baso % (Auto) 0.1, Absolute Neuts (auto) 6.5, Absolute Lymphs (auto) 0.59 L, Nucleated RBC % 0, Differential Comment COMMENT 07/11/20 06:50: Sodium 146 H, Potassium 4.0, Chloride 109 H, Carbon Dioxide 33.0 H, Anion Gap 4 L, BUN 67 H, Creatinine 1.66 H, Estim Creat Clear Calc 26.79, Est GFR (MDRD) Af Amer 38 L, Est GFR (MDRD) Non-Af 31 L, BUN/Creatinine Ratio 40.4 H , Glucose 142 H, Calcium 9.0, Total Bilirubin 0.50, AST 41 H, ALT 41, Alkaline Phosphatase 67, Total Protein 6.2 L, Albumin 2.4 L, Globulin 3.8, Albumin/Globulin Ratio 0.6 L Current Medications Acetaminophen (Acetaminophen 325 Mg Tablet) 650 mg PO Q4H PRN PRN PRN Reason: Pain 1-10 or Fever Last Admin: 07/11/20 02:56 Dose: 650 mg Documented by: Albuterol/Ipratropium (Ipratropium/Albuterol Sulfate 3 Ml Ampul.Neb) 3 ml INHALATION Q6HWA.RT [facility] Last Admin: 07/11/20 13:18 Dose: 3 ml Documented by: Dexamethasone (Dexamethasone 4 Mg Tablet) 6 mg PO DAILY [facility] Last Admin: 07/11/20 10:55 Dose: 6 mg Documented by: Enoxaparin Sodium (Enoxaparin 30 Mg/0.3 Ml Syringe) 30 mg SC BID [facility] Last Admin: 07/11/20 10:54 Dose: 30 mg Documented by: Furosemide (Furosemide 40 Mg/4 Ml Vial) 40 mg IV BID@1000,1800 [facility] Last Admin: 07/11/20 10:54 Dose: 40 mg Documented by: Haloperidol Lactate (Haloperidol Lactate 5 Mg/Ml Vial) 2 mg IM QHS PRN PRN Reason: INSOMNIA Remdesivir 100 mg/ Sodium (Chloride) 250 mls @ 125 mls/hr IV DAILY@2200 [facility] Stop: 07/12/20 23:59 Last Infusion: 07/10/20 18:37 Dose: Infused Documented by: Ceftriaxone Sodium (Rocephin) 1 gm in 50 mls @ 100 mls/hr IV Q24H [facility] Last Infusion: 07/10/20 23:23 Dose: Infused Documented by: Quetiapine Fumarate (Quetiapine 25 Mg Tablet) 25 mg PO BID [facility] Last Admin: 07/11/20 10:54 Dose: 25 mg Documented by: Sodium Chloride (0.9% Saline Lock 10 Ml Syringe) 10 - 40 ml IV UD PRN PRN Reason: SALINE FLUSH Last Admin: 07/11/20 11:01 Dose: 10 ml Documented by: Sodium Chloride (0.9% Saline Lock 10 Ml Syringe) 10 - 40 ml IV UD PRN PRN Reason: Closed End PICC Flush Sodium Chloride (0.9 % Nacl (Sterile) Posiflush 10 Ml) 10 - 40 ml IV UD PRN PRN Reason: Port access or dressing change Medical Necessity - Tobacco Use Smoking Status: Unknown if ever smoked Tobacco Use: Non-smoker Route of nutrition/ use of supplements: [] Nutritional Intake: [] IV Site: [] Howard Catheter: [] - Assessment/Plan Antibiotics: [] Assessment/Plan: [] Active and Suspected Problems (This Medical Record has been edited. Action required.) Hypoxia (Acute) COVID-19 virus infection (Acute) covid with hypoxia, encephalopathy - dex, remdesivir, lovenox 30mg bid. Mental status improved. On ceftriaxone for providencia uti. Pulm following. D-dimer 0.8. Will follow
[2020-07-11] MEDS: Ceftriaxone 1 GM/50 ML BAG IV (21:15)
[2020-07-12] VITALS (15 sets, daily range): BP systolic 142–159; BP diastolic 67–80; PULSE 69–86; RESP 12–28; TEMP 36.4–36.8; O2SAT 91–96
[2020-07-12] MEDS: Ipratropium/Albuterol Sulfate 3 ML AMPUL.NEB INHALATION ×3 (07:02→19:02)
[2020-07-12 07:08] LABS: Absolute Lymphocyte Count 0.53 X10^3/uL (0.83-4.51); Basophil# 0.02 X10^3/uL; Basophil% 0.2 % (0-1); Eosinophil# 0.01 X10^3/uL; Eosinophils% 0.1 % (0-5); Hematocrit 47.3 % (37-47); Hemoglobin 15.2 g/dL (12.0-15.0); Lymphocyte # 0.53 X10^3/ul (4.0); Lymphocyte % 5.6 % (19-41); Mean Corp Hgb Conc 32.1 g/dL (32-36); Mean Corpuscular Hgb 29.6 pg (27.0-32.0); Mean Corpuscular Volume 92.2 fL (81-99); Mean Platelet Vol. 9.7 fl (6.2-12.0); Monocyte% 8.5 % (0-10); NRBC Flagged by Analyzer 0 % (0-5); Neutrophil # 7.97 X10^3/uL (2.7-7.7); Neutrophil % 84.4 % (47-70); POSITIVE DIFFERENTIAL YES; Platelet Count 341 K/mm3 (150-450); RBC Distribution Width CV 13.7 % (11.6-14.6); RBC Distribution Width SD 46.9 fl (35.1-43.9); Red Blood Count 5.13 M/mm3 (4.2-5.4); White Blood Count 9.4 K/mm3 (4.4-11.0)
[2020-07-12 07:18] LABS: Differential Indicated SCAN CRITERIA MET
[2020-07-12 07:43] LABS: ALB/GLOB Ratio 0.6 RATIO (0.9-2.4); AST(SGOT) 43 U/L (15-37); Alanine Aminotransfer ALT/SGPT 48 U/L (13-56); Albumin, Serum 2.5 g/dL (3.2-5.0); Alkaline Phosphatase 69 U/L (45-117); Anion Gap 6 (5-15); BUN 61 mg/dL (7-18); BUN/Creat Ratio 38.9 RATIO (10-20); Calcium,Total 8.8 mg/dL (8.5-10.1); Chloride 102 mmol/L (98-107); Creatinine, Serum 1.57 mg/dL (0.55-1.02); EST Glomerular Filtration Rate 33 mL/min (>60); Est Glom Filt Rate - Afr Amer 40 mL/min (>60); Estimated Creatinine Clearance 28.33 ml/min; Globulin 3.9 g/dL (2.2-4.2); Glucose 133 mg/dL (74-106); Protein, Total 6.4 g/dL (6.4-8.2); Sodium Level 142 mmol/L (136-145)
[2020-07-12 07:54] LABS: Differential Comment SCANNED
[2020-07-12] MEDS: QUEtiapine 25 MG Tablet PO ×2 (08:12→22:57)
[2020-07-12] MEDS: dexAMETHasone 4 MG Tablet 6 MG PO (08:12)
[2020-07-12] MEDS: 0.9% Saline Lock 10 ML Syringe IV ×3 (08:13→22:57)
[2020-07-12] MEDS: Furosemide 40 MG/4 ML Vial IV ×2 (08:13→17:30)
[2020-07-12] MEDS: Enoxaparin 30 MG/0.3 ML Syringe SC ×2 (08:13→22:56)
--- NOTE | 2020-07-12 10:36 | PN_ITS ---
Patient Problems: Active and Suspected Problems (This Medical Record has been edited. Action required.) Hypoxia (Acute) COVID-19 virus infection (Acute) Reason for Visit: Follow-up for acute hypoxic respiratory failure secondary to acute COVID-19 pneumonia Objective: Patient is still on 15 L of oxygen alternating with BiPAP. Mild tachypnea. Patient subjectively feels better. Patient gets confused overnight and disoriented. Patient H&H is stable. Physical exam General: Alert, Oriented x3, Cooperative HEENT: Atraumatic, PERRLA, EOMI, Normocephalic Oral: No Gingival or Mucosal Lesions/ Ulcerations Neck: Supple, No JVD, Negative Carotid Bruits Lungs: Air entry diminished in bilateral lung bases. No crepitation/rhonchi Cardiovascular: Regular rate, Regular Rhythm, Normal S1, Normal S2, No murmurs Abdomen: Bowel Sounds Present, Soft, Non Tender, Non-Distended : Dark urine in the Howard catheter. No renal angle tenderness. No suprapubic tenderness. Extremities: No edema, Capillary Refill Less than 3 Seconds Skin: No rashes, No breakdown Musculoskeletal: No Tenderness to Palpation of Joints or Extremities. Bilateral hips and knee joints arthritis, chronic in nature Neurological: Cranial nerves II-XII grossly intact, Deep Tendon Reflexes 2+/4 and Symmetrical, Neuro grossly intact Psych/Mental Status: Normal Affect, Appropriate. Vitals/I&O's: Vital Signs Temp Pulse Resp BP Pulse Ox 98.2 F 79 24 H 142/80 H 93 07/12/20 06:24 07/12/20 07:02 07/12/20 07:02 07/12/20 06:24 07/12/20 07:02 Oxygen Flow Rate (L/min) 15 Oxygen Delivery Method Nasal Cannula Weight: 229 lb 4.492 oz Body Mass Index (BMI) 32.8 Intake and Output for Last 24 Hours 07/10/20 07/11/20 07/12/20 23:59 23:59 23:59 Intake Total 452.5 / 792.5 640 / 640 Output Total 1325 / 2250 1375 / 1375 200 / 200 Balance -872.5 / -1457.5 -735 / -735 -200 / -200 Microbiology Past 72 Hours 07/08/20 15:37 Blood Culture (Wb) - Right Hand Blood Culture - Preliminary No growth in 48 hours. 07/08/20 15:20 Urine Catheter - Howard Urine Culture - Final Providencia stuartii Laboratory Results 07/12/20 05:35: WBC 9.4, RBC 5.13, Hgb 15.2 H, Hct 47.3 H, MCV 92.2, MCH 29.6, MCHC 32.1, RDW Std Deviation 46.9 H, RDW Coeff of Teo 13.7, Plt Count 341, MPV 9.7, Immature Gran % (Auto) 1.200 H, Neut % (Auto) 84.4 H, Lymph % (Auto) 5.6 L, Fisher % (Auto) 8.5, Eos % (Auto) 0.1, Baso % (Auto) 0.2, Absolute Neuts (auto) 8.0 H, Absolute Lymphs (auto) 0.53 L, Nucleated RBC % 0, Differential Comment SCANNED 07/12/20 05:35: Sodium 142, Potassium 4.0, Chloride 102, Carbon Dioxide 34.0 H, Anion Gap 6, BUN 61 H, Creatinine 1.57 H, Estim Creat Clear Calc 28.33, Est GFR (MDRD) Af Amer 40 L, Est GFR (MDRD) Non-Af 33 L, BUN/Creatinine Ratio 38.9 H, Glucose 133 H, Calcium 8.8, Total Bilirubin 0.50, AST 43 H, ALT 48, Alkaline Phosphatase 69, Total Protein 6.4, Albumin 2.5 L, Globulin 3.9, Albumin/Globulin Ratio 0.6 L Current Medications Acetaminophen (Acetaminophen 325 Mg Tablet) 650 mg PO Q4H PRN PRN PRN Reason: Pain 1-10 or Fever Last Admin: 07/11/20 02:56 Dose: 650 mg Documented by: Albuterol/Ipratropium (Ipratropium/Albuterol Sulfate 3 Ml Ampul.Neb) 3 ml INHALATION Q6HWA.RT [facility] Last Admin: 07/12/20 07:02 Dose: 3 ml Documented by: Dexamethasone (Dexamethasone 4 Mg Tablet) 6 mg PO DAILY [facility] Last Admin: 07/12/20 08:12 Dose: 6 mg Documented by: Enoxaparin Sodium (Enoxaparin 30 Mg/0.3 Ml Syringe) 30 mg SC BID [facility] Last Admin: 07/12/20 08:13 Dose: 30 mg Documented by: Furosemide (Furosemide 40 Mg/4 Ml Vial) 40 mg IV BID@1000,1800 [facility] Last Admin: 07/12/20 08:13 Dose: 40 mg Documented by: Haloperidol Lactate (Haloperidol Lactate 5 Mg/Ml Vial) 2 mg IM QHS PRN PRN Reason: INSOMNIA Remdesivir 100 mg/ Sodium (Chloride) 250 mls @ 125 mls/hr IV DAILY@2200 [facility] Stop: 07/12/20 23:59 Last Infusion: 07/11/20 23:46 Dose: Infused Documented by: Ceftriaxone Sodium (Rocephin) 1 gm in 50 mls @ 100 mls/hr IV Q24H [facility] Last Infusion: 07/11/20 21:45 Dose: Infused Documented by: Quetiapine Fumarate (Quetiapine 25 Mg Tablet) 25 mg PO BID [facility] Last Admin: 07/12/20 08:12 Dose: 25 mg Documented by: Sodium Chloride (0.9% Saline Lock 10 Ml Syringe) 10 - 40 ml IV UD PRN PRN Reason: SALINE FLUSH Last Admin: 07/12/20 08:13 Dose: 10 ml Documented by: Sodium Chloride (0.9% Saline Lock 10 Ml Syringe) 10 - 40 ml IV UD PRN PRN Reason: Closed End PICC Flush Sodium Chloride (0.9 % Nacl (Sterile) Posiflush 10 Ml) 10 - 40 ml IV UD PRN PRN Reason: Port access or dressing change STROKE Vital Signs/Narrative: Vital Signs Pulse Resp Pulse Ox 07/12/20 07:02 79 24 H 93 Medical Necessity - Tobacco Use Smoking Status: Unknown if ever smoked Tobacco Use: Non-smoker Assessment/Plan All Active Problems (This Medical Record has been edited. Action required.) Hypoxia (Acute) COVID-19 virus infection (Acute) Respiratory failure with hypoxia (Acute) This 84-year-old female was brought in for shortness of breath and hypoxia 88% on 50 L of oxygen from extended-care facility with 2-day history of COVID-19 positive and hypoxia. Patient is DNR CC arrest with no intubation #1 COVID-19 pneumonia: Patient is admitted on MedSurg. On remdesivir, Decadron. ID consult. -patient will be [facility], she will receive remdesivir, dexamethasone, and she will be seen by infectious diseases. D-dimer mildly elevated 0.82 but age corrected calculated D-dimer is 0.85 therefore in normal limit. ABG 7.1 on 15 L nonrebreather mask. Troponin mildly elevated 0.269, BNP 1165. 07/11: No fever. PICC line is inserted. Chest x-ray is ordered. To confirmation, and start remdesivir. Meantime patient is getting ceftriaxone IM. I talked to the patient's daughter Arianna over phone [phone] and clinical updates were given including poor prognosis because of severe hypoxia. She has baseline history of COPD, heart failure and chronic kidney disease. Over the next 2 days she will make decision on DNR CC/hospice care if she does not improve or deteriorate. 07/12: Patient mentation has improved. 07/13: Patient overall talk to me and understood. Has good comprehension. Patient intermittently gets confused and disoriented at night. I talked to the patient's daughter Arianna and her granddaughter over the phone and clinical updates were given. Continue the oxygen to keep pulse ox 94%. Today will be her last dose of remdesivir. Had mild nausea and indigestion and symptomatic treatment was given. #2 acute hypoxic and hypercarbic combined respiratory failure secondary to COVID-19 pneumonia with history of COPD-insect control aide has been consulted and consult reviewed and appreciated. On BiPAP alternating with AIR VO. No COPD exacerbation. On bronchodilator as needed. .5: On high oxygen 15 L. BiPAP 65%. On ceftriaxone on remdesivir and Decadron. #3 stage IV chronic kidney disease-in May 2020 1.78. Admitted with his last creatinine 55/2.29. 07/09: Currently BUN/creatinine 62/2.03. BUN did not improve with IV fluid. 07/12: BUN/creatinine 67/1.66. 07/13: BUN/creatinine 61/1.57. Gradual improvement #4 elevated troponin-May be inflammatory from COVID-19 infection. Patient does not have chest pain. #5 acute cystitis- UA WBC more than 100, RBC 0-5, LE 500 nitrite negative. Preliminary urine culture shows Providencia stuartii 50,000-80,000 probably incompletely treated. Sensitive to ceftriaxone and will continue. #6 HFpEF, chronic in nature: Echo in 2017 shows stage I diastolic dysfunction, EF 65% LA moderately enlarged and aortic is sclerosis no stenosis. BNP elevated. #7 metabolic encephalopathy, metabolic/infectious encephalopathy: Correct underlying disorder. Started on diet. As per nursing staff patient in afternoon more awake Prognosis guarded TO POOR. Patient is a DNR CC arrest with no intubation. Total time of the visit including total time spent in counseling or coordination of care, (more than 50% of the total time, spent in obtaining medical information from nurses and other ancillary care providers,explaining to the patient about labs, imaging, diagnosis and management), consult with consultants, talking to the daughter on phone, review of labs and imaging is 30 minutes. Microbiology Past 72 Hours 07/08/20 15:20 Urine Catheter - Howard Urine Culture - Final Providencia stuartii Clinical Impression(s) from Imaging Studies Chest X-Ray 07/08/20 15:43 IMPRESSION: 1. Hazy opacities consistent with pneumonia, including possible Covid pneumonia. Microbiology Past 72 Hours 07/08/20 15:37 Blood Culture (Wb) - Right Hand Blood Culture - Preliminary No growth in 48 hours. 07/08/20 15:20 Urine Catheter - Howard Urine Culture - Final Providencia stuartii Laboratory Results 07/12/20 05:35: WBC 9.4, RBC 5.13, Hgb 15.2 H, Hct 47.3 H, MCV 92.2, MCH 29.6, MCHC 32.1, RDW Std Deviation 46.9 H, RDW Coeff of Teo 13.7, Plt Count 341, MPV 9.7, Immature Gran % (Auto) 1.200 H, Neut % (Auto) 84.4 H, Lymph % (Auto) 5.6 L, Fisher % (Auto) 8.5, Eos % (Auto) 0.1, Baso % (Auto) 0.2, Absolute Neuts (auto) 8.0 H, Absolute Lymphs (auto) 0.53 L, Nucleated RBC % 0, Differential Comment SCANNED 07/12/20 05:35: Sodium 142, Potassium 4.0, Chloride 102, Carbon Dioxide 34.0 H, Anion Gap 6, BUN 61 H, Creatinine 1.57 H, Estim Creat Clear Calc 28.33, Est GFR (MDRD) Af Amer 40 L, Est GFR (MDRD) Non-Af 33 L, BUN/Creatinine Ratio 38.9 H, Glucose 133 H, Calcium 8.8, Total Bilirubin 0.50, AST 43 H, ALT 48, Alkaline Phosphatase 69, Total Protein 6.4, Albumin 2.5 L, Globulin 3.9, Albumin/Globulin Ratio 0.6 L Inpatient E&M: 37040 Subs Hosp L2
[2020-07-12] MEDS: Mag Hydrox/Al Hydrox/Simeth 30 ML UDC PO (14:05)
[2020-07-12] MEDS: Ceftriaxone 1 GM/50 ML BAG IV (22:47)
[2020-07-12] MEDS: Menthol/Lanolin/Calamine/Znox 113 GM Tube 1 APPLIC TOPICAL (22:55)
[2020-07-12] MEDS: Nystatin Powder 15gm Bottle 1 APPLIC TOPICAL (22:56)
[2020-07-13] VITALS (10 sets, daily range): BP systolic 136–161; BP diastolic 67–89; PULSE 76–90; RESP 18–22; TEMP 36.4–36.7; O2SAT 93–97
--- NOTE | 2020-07-13 07:02 | PCM.PN.PUL ---
Patient Problems: Active and Suspected Problems (This Medical Record has been edited. Action required.) Hypoxia (Acute) COVID-19 virus infection (Acute) Subjective: The patient was seen and examined at the bedside this morning. Events from the last 24 hours have been reviewed. The patient is currently afebrile, hemodynamically stable and maintaining appropriate oxygen saturations on 15 L high flow nasal cannula. The patient has completed her treatment course of remdesivir. She remains on Decadron accordingly. Creatinine continues to improve. Objective: The patient's most recent lab work, culture data and imaging studies have all been personally reviewed. Surface echocardiogram from 2017 revealed mild concentric LVH with an ejection fraction of 65% and stage I diastolic dysfunction. Right ventricular systolic pressure was estimated to be 38 mmHg. Mild to moderate aortic stenosis was also noted. Urine culture was positive for Providencia. - Physical Exam Vitals/I&O's: Vital Signs Temp Pulse Resp BP Pulse Ox 98.1 F 81 18 145/89 H 96 07/13/20 02:30 07/13/20 02:30 07/13/20 02:30 07/13/20 02:30 07/13/20 03:00 Oxygen Flow Rate (L/min) 15 Oxygen Delivery Method Airvo Weight: 229 lb 4.492 oz Body Mass Index (BMI) 32.8 Intake and Output for Last 24 Hours 07/11/20 07/12/20 07/13/20 23:59 23:59 23:59 Intake Total 640 / 640 1210 / 1610 1000 / 1000 Output Total 1375 / 1375 900 / 1350 750 / 750 Balance -735 / -735 310 / 260 250 / 250 General: Alert, Cooperative, No apparent distress, - - Sitting upright in bed eating breakfast. HEENT: Atraumatic, Normocephalic Oral: No Gingival or Mucosal Lesions/ Ulcerations, - - Edentulous Neck: Supple, No Nodes, Trachea Midline Lungs: No rhonchi, No wheeze, No rales, Diminished Cardiovascular: Regular rate, Regular Rhythm Abdomen: Bowel Sounds Present, Soft, Non Tender, Obese Extremities: No clubbing, No cyanosis, Edema Skin: No breakdown Musculoskeletal: No Muscle Wasting Lymphatic: No Cervical, Supraclavicular, or Inguinal Adenopathy Neurological: Cranial nerves II-XII grossly intact, Neuro grossly intact Psych/Mental Status: Normal Affect Labs (Last 48 Hours) 07/11/20 07/11/20 07/12/20 06:50 06:50 05:35 WBC 7.8 9.4 RBC 4.77 5.13 Hgb 13.7 15.2 H Hct 44.0 47.3 H MCV 92.2 92.2 MCH 28.7 29.6 MCHC 31.1 L 32.1 RDW Std Deviation 47.2 H 46.9 H RDW Coeff of Teo 13.7 13.7 Plt Count 329 341 MPV 9.7 9.7 Immature Gran % (Auto) 0.800 1.200 H Neut % (Auto) 82.9 H 84.4 H Lymph % (Auto) 7.5 L 5.6 L Butts % (Auto) 8.7 8.5 Eos % (Auto) 0.0 0.1 Baso % (Auto) 0.1 0.2 Absolute Neuts (auto) 6.5 8.0 H Absolute Lymphs (auto) 0.59 L 0.53 L Nucleated RBC % 0 0 Differential Comment COMMENT SCANNED Sodium 146 H Potassium 4.0 Chloride 109 H Carbon Dioxide 33.0 H Anion Gap 4 L BUN 67 H Creatinine 1.66 H Estim Creat Clear Calc 26.79 Est GFR (MDRD) Af Amer 38 L Est GFR (MDRD) Non-Af 31 L BUN/Creatinine Ratio 40.4 H Glucose 142 H Calcium 9.0 Total Bilirubin 0.50 AST 41 H ALT 41 Alkaline Phosphatase 67 Total Protein 6.2 L Albumin 2.4 L Globulin 3.8 Albumin/Globulin Ratio 0.6 L 07/12/20 05:35 WBC RBC Hgb Hct MCV MCH MCHC RDW Std Deviation RDW Coeff of Teo Plt Count MPV Immature Gran % (Auto) Neut % (Auto) Lymph % (Auto) Butts % (Auto) Eos % (Auto) Baso % (Auto) Absolute Neuts (auto) Absolute Lymphs (auto) Nucleated RBC % Differential Comment Sodium 142 Potassium 4.0 Chloride 102 Carbon Dioxide 34.0 H Anion Gap 6 BUN 61 H Creatinine 1.57 H Estim Creat Clear Calc 28.33 Est GFR (MDRD) Af Amer 40 L Est GFR (MDRD) Non-Af 33 L BUN/Creatinine Ratio 38.9 H Glucose 133 H Calcium 8.8 Total Bilirubin 0.50 AST 43 H ALT 48 Alkaline Phosphatase 69 Total Protein 6.4 Albumin 2.5 L Globulin 3.9 Albumin/Globulin Ratio 0.6 L Clinical Impression(s) from Imaging Studies Chest X-Ray 07/08/20 15:43 IMPRESSION: 1. Hazy opacities consistent with pneumonia, including possible Covid pneumonia. Electronically Signed: Jackie Broussard MD at 17:39 EST Tel , Service support , Chest X-Ray 07/10/20 13:10 IMPRESSION: A right-sided PICC line catheter as been placed. The tip is at the junction of the superior vena cava and right atrium. Persistent bilateral pulmonary infiltrates although there has been improvement as compared to prior study. Pending Final Proof Editing Current Medications Acetaminophen (Acetaminophen 325 Mg Tablet) 650 mg PO Q4H PRN PRN PRN Reason: Pain 1-10 or Fever Last Admin: 07/11/20 02:56 Dose: 650 mg Documented by: Al Hydroxide/Mg Hydroxide (Mag Hydrox/Al Hydrox/Simeth 30 Ml Udc) 30 ml PO Q6H PRN PRN PRN Reason: INDIGESATION Last Admin: 07/12/20 14:05 Dose: 30 ml Documented by: Albuterol/Ipratropium (Ipratropium/Albuterol Sulfate 3 Ml Ampul.Neb) 3 ml INHALATION Q6HWA.RT [facility] Last Admin: 07/12/20 19:02 Dose: 3 ml Documented by: Calamine/Phenol (Menthol/Lanolin/Calamine/Znox 113 Gm Tube) 1 applic TOPICAL BID YOBANI; Protocol Last Admin: 07/12/20 22:55 Dose: 1 applicatio Documented by: Dexamethasone (Dexamethasone 4 Mg Tablet) 6 mg PO DAILY [facility] Last Admin: 07/12/20 08:12 Dose: 6 mg Documented by: Enoxaparin Sodium (Enoxaparin 30 Mg/0.3 Ml Syringe) 30 mg SC BID [facility] Last Admin: 07/12/20 22:56 Dose: 30 mg Documented by: Furosemide (Furosemide 40 Mg/4 Ml Vial) 40 mg IV BID@1000,1800 [facility] Last Admin: 07/12/20 17:30 Dose: 40 mg Documented by: Haloperidol Lactate (Haloperidol Lactate 5 Mg/Ml Vial) 2 mg IM QHS PRN PRN Reason: INSOMNIA Ceftriaxone Sodium (Rocephin) 1 gm in 50 mls @ 100 mls/hr IV Q24H [facility] Last Infusion: 07/12/20 23:32 Dose: Infused Documented by: Nystatin (Nystatin Powder 15gm Bottle) 1 applic TOPICAL BID [facility]; Protocol Last Admin: 07/12/20 22:56 Dose: 1 applicatio Documented by: Prochlorperazine Edisylate (Prochlorperazine 10 Mg/2 Ml Vial) 5 mg IV Q6H PRN PRN PRN Reason: NAUSEA/VOMITING Quetiapine Fumarate (Quetiapine 25 Mg Tablet) 25 mg PO BID [facility] Last Admin: 07/12/20 22:57 Dose: 25 mg Documented by: Sodium Chloride (0.9% Saline Lock 10 Ml Syringe) 10 - 40 ml IV UD PRN PRN Reason: SALINE FLUSH Last Admin: 07/12/20 22:57 Dose: 10 ml Documented by: Sodium Chloride (0.9% Saline Lock 10 Ml Syringe) 10 - 40 ml IV UD PRN PRN Reason: Closed End PICC Flush Sodium Chloride (0.9 % Nacl (Sterile) Posiflush 10 Ml) 10 - 40 ml IV UD PRN PRN Reason: Port access or dressing change Medical Necessity - Tobacco Use Smoking Status: Unknown if ever smoked Tobacco Use: Non-smoker Assessment/Plan All Active Problems (This Medical Record has been edited. Action required.) Hypoxia (Acute) COVID-19 virus infection (Acute) Respiratory failure with hypoxia (Acute) RECOMMENDATIONS: 1. Wean supplemental oxygen to maintain saturations at or above 90%. 2. Continue scheduled bronchodilator therapy. 3. Continue BiPAP therapy as needed. 4. Avoid sedating medications. 5. Continue Decadron as ordered. 6. Continue twice daily scheduled IV Lasix, as tolerated by hemodynamics and renal function. 7. Encourage incentive spirometer use and mobilize patient as tolerated. IMPRESSIONS: 1. Acute combined respiratory failure secondary to COVID-19 pneumonia Clinical concern for underlying obstructive lung disease as well contributing to the patient's presenting symptoms. Although the patient initially required noninvasive positive pressure ventilatory support, she has been weaned to supplemental oxygen via nasal cannula. Recommend continuing to wean oxygen to maintain saturations at or above 90%. Infectious diseases is following. The patient has completed her treatment course of remdesivir and remains on Decadron daily. D-dimer was not significantly elevated at presentation. The patient will be continued on diuretic therapy as tolerated by hemodynamics and renal function. Encourage incentive spirometer use and mobilize patient as tolerated. 2. Encephalopathy Improved. Likely metabolic in etiology with CO2 retention contributing. The patient's acid-base status has improved with BiPAP support. Recommend avoiding sedating medications. Continue BiPAP therapy as needed. 3. Heart failure with preserved ejection fraction Prior echocardiogram from 2017 did reveal evidence of stage I diastolic dysfunction along with mild pulmonary hypertension. Accordingly, the patient will be maintained on IV diuretic therapy. 4. Advanced age/hypothyroidism/hypertension/history of opiate dependency Complicates care, management, recovery and prognosis. Continue home medications as indicated. This note was generated with [employer] dictation software. It may contain incorrect words, spelling, and punctuation that were not noted in checking the note before signing. Inpatient E&M: 74000 Subs Hosp L2
[2020-07-13] MEDS: Ipratropium/Albuterol Sulfate 3 ML AMPUL.NEB INHALATION ×3 (07:06→19:36)
[2020-07-13] MEDS: Menthol/Lanolin/Calamine/Znox 113 GM Tube 1 APPLIC TOPICAL ×2 (08:34→21:19)
[2020-07-13] MEDS: Nystatin Powder 15gm Bottle 1 APPLIC TOPICAL ×2 (08:34→21:19)
[2020-07-13] MEDS: QUEtiapine 25 MG Tablet PO ×2 (08:35→21:18)
[2020-07-13] MEDS: Furosemide 40 MG/4 ML Vial IV ×2 (08:35→16:14)
[2020-07-13] MEDS: 0.9% Saline Lock 10 ML Syringe IV ×2 (08:35→16:14)
[2020-07-13] MEDS: dexAMETHasone 4 MG Tablet 6 MG PO (08:35)
[2020-07-13] MEDS: Enoxaparin 30 MG/0.3 ML Syringe SC ×2 (08:35→21:18)
--- NOTE | 2020-07-13 08:52 | PN_ITS ---
Patient Problems: Active and Suspected Problems (This Medical Record has been edited. Action required.) Hypoxia (Acute) COVID-19 virus infection (Acute) Reason for Visit: Follow-up for COVID-19 with acute hypoxic respiratory failure Objective: Patient denied any fever or chills. Overall she feels better. On 15 L of high flow oxygen. Patient was put on BiPAP for just half an hour since yesterday. Mild cough. Physical exam General: Alert, Oriented x3, Cooperative HEENT: Atraumatic, PERRLA, EOMI, Normocephalic Oral: No Gingival or Mucosal Lesions/ Ulcerations Neck: Supple, No JVD, Negative Carotid Bruits Lungs: Air entry diminished in bilateral lung bases. No crepitation/rhonchi. Mild tachypnea Cardiovascular: Regular rate, Regular Rhythm, Normal S1, Normal S2, No murmurs Abdomen: Bowel Sounds Present, Soft, Non Tender, Non-Distended : No renal angle tenderness. No suprapubic tenderness. Extremities: No edema, Capillary Refill Less than 3 Seconds. Right arm PICC line. Skin: No rashes, No breakdown Musculoskeletal: No Tenderness to Palpation of Joints or Extremities Neurological: Cranial nerves II-XII grossly intact, Deep Tendon Reflexes 2+/4 and Symmetrical, Neuro grossly intact Psych/Mental Status: Normal Affect, Appropriate. Vitals/I&O's: Vital Signs Temp Pulse Resp BP Pulse Ox 97.6 F L 76 22 H 143/71 H 95 07/13/20 08:19 07/13/20 08:19 07/13/20 08:19 07/13/20 08:19 07/13/20 08:19 Oxygen Flow Rate (L/min) 15 Oxygen Delivery Method Nasal Cannula Weight: 229 lb 4.492 oz Body Mass Index (BMI) 32.8 Intake and Output for Last 24 Hours 07/11/20 07/12/20 07/13/20 23:59 23:59 23:59 Intake Total 640 / 640 1210 / 1610 1000 / 1000 Output Total 1375 / 1375 900 / 1350 750 / 750 Balance -735 / -735 310 / 260 250 / 250 Microbiology Past 72 Hours 07/08/20 15:37 Blood Culture (Wb) - Right Hand Blood Culture - Preliminary No growth in 48 hours. 07/08/20 15:20 Urine Catheter - Howard Urine Culture - Final [facility] Laboratory Results 07/13/20 08:30: Sodium Pending, Potassium Pending, Chloride Pending, Carbon Dioxide Pending, Anion Gap Pending, BUN Pending, Creatinine Pending, Est GFR (MDRD) Af Amer Pending, Est GFR (MDRD) Non-Af Pending, BUN/Creatinine Ratio Pending, Glucose Pending, Calcium Pending Current Medications Acetaminophen (Acetaminophen 325 Mg Tablet) 650 mg PO Q4H PRN PRN PRN Reason: Pain 1-10 or Fever Last Admin: 07/11/20 02:56 Dose: 650 mg Documented by: Al Hydroxide/Mg Hydroxide (Mag Hydrox/Al Hydrox/Simeth 30 Ml Udc) 30 ml PO Q6H PRN PRN PRN Reason: INDIGESATION Last Admin: 07/12/20 14:05 Dose: 30 ml Documented by: Albuterol/Ipratropium (Ipratropium/Albuterol Sulfate 3 Ml Ampul.Neb) 3 ml INHALATION Q6HWA.RT [facility] Last Admin: 07/13/20 07:06 Dose: 3 ml Documented by: Calamine/Phenol (Menthol/Lanolin/Calamine/Znox 113 Gm Tube) 1 applic TOPICAL BID [facility]; Protocol Last Admin: 07/13/20 08:34 Dose: 1 applicatio Documented by: Dexamethasone (Dexamethasone 4 Mg Tablet) 6 mg PO DAILY [facility] Last Admin: 07/13/20 08:35 Dose: 6 mg Documented by: Enoxaparin Sodium (Enoxaparin 30 Mg/0.3 Ml Syringe) 30 mg SC BID [facility] Last Admin: 07/13/20 08:35 Dose: 30 mg Documented by: Furosemide (Furosemide 40 Mg/4 Ml Vial) 40 mg IV BID@1000,1800 [facility] Last Admin: 07/13/20 08:35 Dose: 40 mg Documented by: Guaifenesin (Guaifenesin 1,200 Mg Tablet) 1,200 mg PO BID [facility] Haloperidol Lactate (Haloperidol Lactate 5 Mg/Ml Vial) 2 mg IM QHS PRN PRN Reason: INSOMNIA Ceftriaxone Sodium (Rocephin) 1 gm in 50 mls @ 100 mls/hr IV Q24H [facility] Last Infusion: 07/12/20 23:32 Dose: Infused Documented by: Nystatin (Nystatin Powder 15gm Bottle) 1 applic TOPICAL BID [facility]; Protocol Last Admin: 07/13/20 08:34 Dose: 1 applicatio Documented by: Prochlorperazine Edisylate (Prochlorperazine 10 Mg/2 Ml Vial) 5 mg IV Q6H PRN PRN PRN Reason: NAUSEA/VOMITING Quetiapine Fumarate (Quetiapine 25 Mg Tablet) 25 mg PO BID [facility] Last Admin: 07/13/20 08:35 Dose: 25 mg Documented by: Sodium Chloride (0.9% Saline Lock 10 Ml Syringe) 10 - 40 ml IV UD PRN PRN Reason: SALINE FLUSH Last Admin: 07/13/20 08:35 Dose: 40 ml Documented by: Sodium Chloride (0.9% Saline Lock 10 Ml Syringe) 10 - 40 ml IV UD PRN PRN Reason: Closed End PICC Flush Sodium Chloride (0.9 % Nacl (Sterile) Posiflush 10 Ml) 10 - 40 ml IV UD PRN PRN Reason: Port access or dressing change STROKE Vital Signs/Narrative: Vital Signs Temp Pulse Resp BP Pulse Ox 07/13/20 08:19 97.6 F L 76 22 H 143/71 H 95 07/13/20 07:06 78 20 H 97 Medical Necessity - Tobacco Use Smoking Status: Unknown if ever smoked Tobacco Use: Non-smoker Assessment/Plan All Active Problems (This Medical Record has been edited. Action required.) Hypoxia (Acute) COVID-19 virus infection (Acute) Respiratory failure with hypoxia (Acute) This 84-year-old female was brought in for shortness of breath and hypoxia 88% on 50 L of oxygen from extended-care facility with 2-day history of COVID-19 positive and hypoxia. Patient is DNR CC arrest with no intubation #1 COVID-19 pneumonia: Patient is admitted on MedSurg. On remdesivir, Decadron. ID consult. -patient will be admitted to MedSur 2, she will receive remdesivir, dexamethasone, and she will be seen by infectious diseases. D-dimer mildly elevated 0.82 but age corrected calculated D-dimer is 0.85 therefore in normal limit. ABG 7.1 / on 15 L nonrebreather mask. Troponin mildly elevated 0.269, BNP 1165. 12/4: No fever. PICC line is inserted. Chest x-ray is ordered. To confirmation, and start remdesivir. Meantime patient is getting ceftriaxone IM. I talked to the patient's daughter Arianna over phone [phone] and clinical updates were given including poor prognosis because of severe hypoxia. She has baseline history of COPD, heart failure and chronic kidney disease. Over the next 2 days she will make decision on DNR CC/hospice care if she does not improve or deteriorate. 07/12: Patient mentation has improved. 07/13: I talked to the patient's daughter Arianna and her granddaughter on 07/12 over the phone and clinical updates were given. Continue the oxygen to keep pulse ox 94%. Today will be her last dose of remdesivir. Had mild nausea and indigestion and symptomatic treatment was given. #2 acute hypoxic and hypercarbic combined respiratory failure secondary to C OVID-19 pneumonia with history of COPD-pattern carrier has been consulted and consult reviewed and appreciated. On BiPAP alternating with AIR VO. No COPD exacerbation. On bronchodilator as needed. .5: On high oxygen 15 L. BiPAP 65%. On ceftriaxone on remdesivir and Decadron. #3 stage IV chronic kidney disease-in May 2020 1.78. Admitted with his last creatinine 55/2.29. 07/09: Currently BUN/creatinine 62/2.03. BUN did not improve with IV fluid. 07/12: BUN/creatinine 67/1.66. 07/13: BUN/creatinine 61/1.57. Gradual improvement #4 elevated troponin-May be inflammatory from COVID-19 infection. Patient does not have chest pain. #5 Possible colonization of Providencia stuartii or partially treated acute cystitis-Providencia stuartii UA WBC more than 100, RBC 0-5, LE 500, nitrite negative. Preliminary urine culture shows Providencia stuartii 50,000-80,000 probably incompletely treated does not meet pathologic range. Sensitive to ceftriaxone patient had 5 days of IV ceftriaxone therefore will discontinue. Blood culture negative for more than 48 hours. No fever since admission. #6 HFpEF, chronic in nature: Echo in 2017 shows stage I diastolic dysfunction, EF 65% LA moderately enlarged and aortic is sclerosis no stenosis. BNP elevated. #7 metabolic encephalopathy, metabolic/infectious encephalopathy: Correct underlying disorder. Started on diet. As per nursing staff patient in afternoon more awake Prognosis guarded TO POOR. Patient is a DNR CC arrest with no intubation. Total time of the visit including total time spent in counseling or coordination of care, (more than 50% of the total time, spent in obtaining medical information from nurses and other ancillary care providers,explaining to the patient about labs, imaging, diagnosis and management), consult with consultants, talking to the daughter on phone, review of labs and imaging is 30 minutes. Microbiology Past 72 Hours 07/08/20 15:20 Urine Catheter - Howard Urine Culture - Final Providencia stuartii Clinical Impression(s) from Imaging Studies Chest X-Ray 07/08/20 15:43 IMPRESSION: 1. Hazy opacities consistent with pneumonia, including possible Covid pneumonia. Microbiology Past 72 Hours Microbiology Past 72 Hours 07/08/20 15:37 Blood Culture (Wb) - Right Hand Blood Culture - Preliminary No growth in 48 hours. 07/08/20 15:20 Urine Catheter - Howard Urine Culture - Final Providencia stuartii Laboratory Results 07/13/20 08:30: Sodium 143, Potassium 3.7, Chloride 102, Carbon Dioxide 37.0 H, Anion Gap 4 L, BUN 61 H, Creatinine 1.37 H, Estim Creat Clear Calc 32.47, Est GFR (MDRD) Af Amer 47 L, Est GFR (MDRD) Non-Af 39 L, BUN/Creatinine Ratio 44.5 H , Glucose 125 H, Calcium 8.5 Inpatient E&M: 69948 Subs Hosp L2
[2020-07-13 08:54] LABS: Anion Gap 4 (5-15); BUN 61 mg/dL (7-18); BUN/Creat Ratio 44.5 RATIO (10-20); Calcium,Total 8.5 mg/dL (8.5-10.1); Chloride 102 mmol/L (98-107); Creatinine, Serum 1.37 mg/dL (0.55-1.02); EST Glomerular Filtration Rate 39 mL/min (>60); Est Glom Filt Rate - Afr Amer 47 mL/min (>60); Estimated Creatinine Clearance 32.47 ml/min; Glucose 125 mg/dL (74-106); Potassium 3.7 mmol/L (3.5-5.1); Sodium Level 143 mmol/L (136-145)
[2020-07-13] MEDS: guaiFENesin 1,200 MG Tablet 1200 MG PO ×2 (11:56→21:18)
[2020-07-14] VITALS (11 sets, daily range): BP systolic 139–153; BP diastolic 68–80; PULSE 77–91; RESP 18–24; TEMP 36.6–37; O2SAT 92–97
[2020-07-14] MEDS: Acetaminophen 325 MG Tablet 650 MG PO (02:16)
[2020-07-14 05:05] LABS: Absolute Lymphocyte Count 0.65 X10^3/uL (0.83-4.51); Absolute Neutrophil Count 10.3 X10^3/uL (2.0-7.7); Basophil# 0.05 X10^3/uL; Basophil% 0.4 % (0-1); Eosinophil# 0.01 X10^3/uL; Eosinophils% 0.1 % (0-5); Hematocrit 48.8 % (37-47); Hemoglobin 15.6 g/dL (12.0-15.0); Lymphocyte # 0.65 X10^3/ul (4.0); Lymphocyte % 5.3 % (19-41); Mean Corpuscular Hgb 29.1 pg (27.0-32.0); Mean Platelet Vol. 10.2 fl (6.2-12.0); Monocyte# 0.93 X10^3/uL; Monocyte% 7.6 % (0-10); NRBC Flagged by Analyzer 0 % (0-5); Neutrophil # 10.32 X10^3/uL (2.7-7.7); Neutrophil % 84.8 % (47-70); Platelet Count 397 K/mm3 (150-450); RBC Distribution Width CV 13.5 % (11.6-14.6); RBC Distribution Width SD 45.2 fl (35.1-43.9); Red Blood Count 5.36 M/mm3 (4.2-5.4); White Blood Count 12.2 K/mm3 (4.4-11.0)
[2020-07-14 05:29] LABS: ALB/GLOB Ratio 0.6 RATIO (0.9-2.4); AST(SGOT) 38 U/L (15-37); Alanine Aminotransfer ALT/SGPT 61 U/L (13-56); Albumin, Serum 2.2 g/dL (3.2-5.0); Alkaline Phosphatase 70 U/L (45-117); Anion Gap 7 (5-15); BUN 67 mg/dL (7-18); BUN/Creat Ratio 42.7 RATIO (10-20); Calcium,Total 8.3 mg/dL (8.5-10.1); Chloride 98 mmol/L (98-107); Creatinine, Serum 1.57 mg/dL (0.55-1.02); EST Glomerular Filtration Rate 33 mL/min (>60); Est Glom Filt Rate - Afr Amer 40 mL/min (>60); Estimated Creatinine Clearance 28.33 ml/min; Globulin 3.8 g/dL (2.2-4.2); Glucose 143 mg/dL (74-106); Sodium Level 138 mmol/L (136-145)
[2020-07-14] MEDS: Ipratropium/Albuterol Sulfate 3 ML AMPUL.NEB INHALATION ×3 (06:55→19:18)
[2020-07-14] MEDS: Nystatin Powder 15gm Bottle 1 APPLIC TOPICAL ×2 (08:08→21:27)
[2020-07-14] MEDS: Menthol/Lanolin/Calamine/Znox 113 GM Tube 1 APPLIC TOPICAL ×2 (08:08→21:26)
[2020-07-14] MEDS: 0.9% Saline Lock 10 ML Syringe IV ×2 (08:10→18:11)
[2020-07-14] MEDS: dexAMETHasone 4 MG Tablet 6 MG PO (08:10)
[2020-07-14] MEDS: Enoxaparin 30 MG/0.3 ML Syringe SC ×2 (08:11→21:27)
[2020-07-14] MEDS: guaiFENesin 1,200 MG Tablet 1200 MG PO ×2 (08:11→21:27)
[2020-07-14] MEDS: QUEtiapine 25 MG Tablet PO ×2 (08:11→21:27)
[2020-07-14] MEDS: Furosemide 40 MG/4 ML Vial IV ×2 (08:11→18:12)
--- NOTE | 2020-07-14 08:43 | CASEMGMT ---
LW/Healthcare POA in summary tab of teressa, daughter Arianna Laguerre listed as medical POA. LORAINE Castro
--- NOTE | 2020-07-14 09:41 | PN_ITS ---
Patient Problems: Active and Suspected Problems (This Medical Record has been edited. Action required.) COVID-19 virus infection (Acute) Subjective: Chief complaint: Follow-up after admission for acute COVID-19 pneumonia and acute hypoxic and hypercapnic respiratory failure. Patient seen and examined. No acute events overnight. She denied worsening shortness of breath. Denied fever or chills. She remained on oxygen at 8 L nasal cannula. She was on airvo. She is afebrile, blood pressure and heart rate are stable. - Physical Exam Vitals/I&O's: Vital Signs Temp Pulse Resp BP Pulse Ox 97.9 F 77 18 149/68 H 95 07/14/20 07:51 07/14/20 07:51 07/14/20 07:51 07/14/20 07:51 07/14/20 07:51 Oxygen Flow Rate (L/min) 8 Oxygen Delivery Method Nasal Cannula Weight: 229 lb 4.492 oz Body Mass Index (BMI) 32.8 Intake and Output for Last 24 Hours 07/12/20 07/13/20 07/14/20 23:59 23:59 23:59 Intake Total 1210 / 1610 2100 / 2580 980 / 980 Output Total 900 / 1350 1650 / 2350 700 / 700 Balance 310 / 260 450 / 230 280 / 280 General: Alert, Cooperative, Well developed, - - Minimally short of breath. HEENT: Atraumatic, PERRLA, EOMI, Normocephalic Oral: Moist Mucosa, No Gingival or Mucosal Lesions/ Ulcerations Neck: Supple, No JVD, Negative Carotid Bruits, Trachea Midline, Thyroid Normal Size and Texture Lungs: Clear to auscultation, No rhonchi, No wheeze, No rales, Diminished Cardiovascular: Regular rate, Regular Rhythm, Normal S1, Normal S2, PMI Normal Abdomen: Bowel Sounds Present, Soft, Non Tender, Non-Distended, No Hepato- splenomegaly Extremities: No clubbing, No cyanosis, No edema Skin: No rashes, No breakdown Lymphatic: No Cervical, Supraclavicular, or Inguinal Adenopathy Neurological: Cranial nerves II-XII grossly intact, Neuro grossly intact Psych/Mental Status: Normal Affect, Appropriate Microbiology Past 72 Hours 07/08/20 15:37 Blood Culture (Wb) - Right Hand Blood Culture - Final No growth in 5 days. Laboratory Results 07/14/20 04:35: WBC 12.2 H, RBC 5.36, Hgb 15.6 H, Hct 48.8 H, MCV 91.0, MCH 29.1, MCHC 32.0, RDW Std Deviation 45.2 H, RDW Coeff of Teo 13.5, Plt Count 397, MPV 10.2, Immature Gran % (Auto) 1.800 H, Neut % (Auto) 84.8 H, Lymph % (Auto) 5.3 L, [place] % (Auto) 7.6, Eos % (Auto) 0.1, Baso % (Auto) 0.4, Absolute Neuts (auto) 10.3 H, Absolute Lymphs (auto) 0.65 L, Nucleated RBC % 0 07/14/20 04:35: Sodium 138, Potassium 4.0, Chloride 98, Carbon Dioxide 33.0 H, Anion Gap 7, BUN 67 H, Creatinine 1.57 H, Estim Creat Clear Calc 28.33, Est GFR (MDRD) Af Amer 40 L, Est GFR (MDRD) Non-Af 33 L, BUN/Creatinine Ratio 42.7 H, Glucose 143 H, Calcium 8.3 L, Total Bilirubin 0.70, AST 38 H, ALT 61 H, Alkaline Phosphatase 70, Total Protein 6.0 L, Albumin 2.2 L, Globulin 3.8, Al bumin/Globulin Ratio 0.6 L Current Medications Acetaminophen (Acetaminophen 325 Mg Tablet) 650 mg PO Q4H PRN PRN PRN Reason: Pain 1-10 or Fever Last Admin: 07/14/20 02:16 Dose: 650 mg Documented by: Al Hydroxide/Mg Hydroxide (Mag Hydrox/Al Hydrox/Simeth 30 Ml Udc) 30 ml PO Q6H PRN PRN PRN Reason: INDIGESATION Last Admin: 07/12/20 14:05 Dose: 30 ml Documented by: Albuterol/Ipratropium (Ipratropium/Albuterol Sulfate 3 Ml Ampul.Neb) 3 ml INHALATION Q6HWA.RT [facility] Last Admin: 07/14/20 06:55 Dose: 3 ml Documented by: Calamine/Phenol (Menthol/Lanolin/Calamine/Znox 113 Gm Tube) 1 applic TOPICAL BID [facility]; Protocol Last Admin: 07/14/20 08:08 Dose: 1 applicatio Documented by: Dexamethasone (Dexamethasone 4 Mg Tablet) 6 mg PO DAILY [facility] Last Admin: 07/14/20 08:10 Dose: 6 mg Documented by: Enoxaparin Sodium (Enoxaparin 30 Mg/0.3 Ml Syringe) 30 mg SC BID [facility] Last Admin: 07/14/20 08:11 Dose: 30 mg Documented by: Furosemide (Furosemide 40 Mg/4 Ml Vial) 40 mg IV BID@1000,1800 [facility] Last Admin: 07/14/20 08:11 Dose: 40 mg Documented by: Guaifenesin (Guaifenesin 1,200 Mg Tablet) 1,200 mg PO BID [facility] Last Admin: 07/14/20 08:11 Dose: 1,200 mg Documented by: Haloperidol Lactate (Haloperidol Lactate 5 Mg/Ml Vial) 2 mg IM QHS PRN PRN Reason: INSOMNIA Nystatin (Nystatin Powder 15gm Bottle) 1 applic TOPICAL BID [facility]; Protocol Last Admin: 07/14/20 08:08 Dose: 1 applicatio Documented by: Prochlorperazine Edisylate (Prochlorperazine 10 Mg/2 Ml Vial) 5 mg IV Q6H PRN PRN PRN Reason: NAUSEA/VOMITING Quetiapine Fumarate (Quetiapine 25 Mg Tablet) 25 mg PO BID [facility] Last Admin: 07/14/20 08:11 Dose: 25 mg Documented by: Sodium Chloride (0.9% Saline Lock 10 Ml Syringe) 10 - 40 ml IV UD PRN PRN Reason: SALINE FLUSH Last Admin: 07/14/20 08:10 Dose: 10 ml Documented by: Sodium Chloride (0.9% Saline Lock 10 Ml Syringe) 10 - 40 ml IV UD PRN PRN Reason: Closed End PICC Flush Sodium Chloride (0.9 % Nacl (Sterile) Posiflush 10 Ml) 10 - 40 ml IV UD PRN PRN Reason: Port access or dressing change Medical Necessity - Tobacco Use Smoking Status: Unknown if ever smoked Tobacco Use: Non-smoker Assessment/Plan All Active Problems (This Medical Record has been edited. Action required.) Acute respiratory failure with hypoxia and hypercapnia (Acute) COVID-19 virus infection (Acute) This is an 84 years old female patient presented to the emergency room because of shortness of breath, found to have acute COVID-19 pneumonia complicated by acute hypoxic and hypercapnic respiratory failure. #1 acute COVID-19 pneumonia: She is on IV Decadron and IV remdesivir. Also, she is on IV Lasix. Currently, she is on 8 L of oxygen, she was on 15 L yesterday. Blood culture showed no growth in 5 days. Other vital signs are stable. Pulmonology and infectious disease are on the case. Plan to continue same treatment. #2 acute on chronic hypoxic and hypercapnic respiratory failure: Secondary to #1. Currently, she is on 8 L. Plan as above. #3 encephalopathy: Probably metabolic secondary to acute infection. This morning, she was alert and oriented x2. Plan to monitor. #4 stage III chronic kidney disease: Baseline creatinine has been around 1.5 to 2 mg/dL. Today's creatinine 1.57, stable at baseline. #5 hypertension: Currently, blood pressure stable. Norvasc is on hold. #6 hypothyroidism: We will continue levothyroxine. #7 chronic diastolic CHF: Seems to be compensated, stable. She is on IV Lasix not for the CHF exacerbation. #8 CODE STATUS: DNR CCA, no intubation. #9 DVT prophylaxis: Subcu Lovenox twice daily. This note was generated with [employer] dictation software. It may contain incorrect words, spelling, and punctuation that were not noted in checking the note before signing. Inpatient E&M: 87237 Subs Hosp L2
[2020-07-14] MEDS: [UNRECOGNIZED DRUG - REMARK] 125 MG IV (12:39)
--- NOTE | 2020-07-14 13:07 | CASEMGMT ---
Updates faxed to [facility]. LORAINE Castro
--- NOTE | 2020-07-14 13:34 | PCM.PN.PUL ---
Patient Problems: Active and Suspected Problems (This Medical Record has been edited. Action required.) COVID-19 virus infection (Acute) Subjective: Patient did okay overnight. Patient's oxygenation continues to improve. Patient does report that she feels tired and weak, but no significant GI symptoms have been reported. Patient does not report spending much time outside of bed. - Physical Exam Vitals/I&O's: Vital Signs Temp Pulse Resp BP Pulse Ox 36.6 C 80 25 H 149/68 H 95 07/14/20 07:51 07/14/20 13:20 07/14/20 13:20 07/14/20 07:51 07/14/20 07:51 Oxygen Flow Rate (L/min) 8 Oxygen Delivery Method Nasal Cannula Weight: 104 kg Body Mass Index (BMI) 32.8 Intake and Output for Last 24 Hours 07/12/20 07/13/20 07/14/20 23:59 23:59 23:59 Intake Total 1210 / 1610 2100 / 2580 980 / 980 Output Total 900 / 1350 1650 / 2350 700 / 700 Balance 310 / 260 450 / 230 280 / 280 General: Alert, Oriented x3, Cooperative, No apparent distress, - - Tolerating lunch on my evaluation HEENT: Atraumatic, PERRLA, EOMI, Normocephalic, - - No scleral icterus or injection noted Oral: Moist Mucosa, No Gingival or Mucosal Lesions/ Ulcerations, - - Edentulous Neck: Supple, No Nodes, Trachea Midline Lungs: No rhonchi, No wheeze, No rales, Diminished Cardiovascular: Regular rate, Regular Rhythm, Normal S1, Normal S2, No murmurs, No rub noted, No Gallop Abdomen: Bowel Sounds Present, Soft, Non Tender, Non-Distended, Obese Extremities: No clubbing, No cyanosis, Edema Skin: No rashes, No breakdown Musculoskeletal: No Tenderness to Palpation of Joints or Extremities Lymphatic: No Cervical, Supraclavicular, or Inguinal Adenopathy Neurological: Cranial nerves II-XII grossly intact, Neuro grossly intact, Motor Exam 5/5 strength throughout Psych/Mental Status: Alert and oriented to time, place, person, mood and affect Microbiology Past 72 Hours 07/08/20 15:37 Blood Culture (Wb) - Right Hand Blood Culture - Final No growth in 5 days. Laboratory Results 07/14/20 04:35: WBC 12.2 H, RBC 5.36, Hgb 15.6 H, Hct 48.8 H, MCV 91.0, MCH 29.1, MCHC 32.0, RDW Std Deviation 45.2 H, RDW Coeff of Teo 13.5, Plt Count 397, MPV 10.2, Immature Gran % (Auto) 1.800 H, Neut % (Auto) 84.8 H, Lymph % (Auto) 5.3 L, [place] % (Auto) 7.6, Eos % (Auto) 0.1, Baso % (Auto) 0.4, Absolute Neuts (auto) 10.3 H, Absolute Lymphs (auto) 0.65 L, Nucleated RBC % 0 07/14/20 04:35: Sodium 138, Potassium 4.0, Chloride 98, Carbon Dioxide 33.0 H, Anion Gap 7, BUN 67 H, Creatinine 1.57 H, Estim Creat Clear Calc 28.33, Est GFR (MDRD) Af Amer 40 L, Est GFR (MDRD) Non-Af 33 L, BUN/Creatinine Ratio 42.7 H, Glucose 143 H, Calcium 8.3 L, Total Bilirubin 0.70, AST 38 H, ALT 61 H, Alkaline Phosphatase 70, Total Protein 6.0 L, Albumin 2.2 L, Globulin 3.8, Albumin/Globulin Ratio 0.6 L Current Medications Acetaminophen (Acetaminophen 325 Mg Tablet) 650 mg PO Q4H PRN PRN PRN Reason: Pain 1-10 or Fever Last Admin: 07/14/20 02:16 Dose: 650 mg Documented by: Al Hydroxide/Mg Hydroxide (Mag Hydrox/Al Hydrox/Simeth 30 Ml Udc) 30 ml PO Q6H PRN PRN PRN Reason: INDIGESATION Last Admin: 07/12/20 14:05 Dose: 30 ml Documented by: Albuterol/Ipratropium (Ipratropium/Albuterol Sulfate 3 Ml Ampul.Neb) 3 ml INHALATION Q6HWA.RT [facility] Last Admin: 07/14/20 13:20 Dose: 3 ml Documented by: Calamine/Phenol (Menthol/Lanolin/Calamine/Znox 113 Gm Tube) 1 applic TOPICAL BID [facility]; Protocol Last Admin: 07/14/20 08:08 Dose: 1 applicatio Documented by: Dexamethasone (Dexamethasone 4 Mg Tablet) 6 mg PO DAILY [facility] Last Admin: 07/14/20 08:10 Dose: 6 mg Documented by: Enoxaparin Sodium (Enoxaparin 30 Mg/0.3 Ml Syringe) 30 mg SC BID [facility] Last Admin: 07/14/20 08:11 Dose: 30 mg Documented by: Furosemide (Furosemide 40 Mg/4 Ml Vial) 40 mg IV BID@1000,1800 [facility] Last Admin: 07/14/20 08:11 Dose: 40 mg Documented by: Guaifenesin (Guaifenesin 1,200 Mg Tablet) 1,200 mg PO BID [facility] Last Admin: 07/14/20 08:11 Dose: 1,200 mg Documented by: Haloperidol Lactate (Haloperidol Lactate 5 Mg/Ml Vial) 2 mg IM QHS PRN PRN Reason: INSOMNIA Remdesivir 100 mg/ Sodium (Chloride) 250 mls @ 125 mls/hr IV X1 ONE Stop: 07/14/20 13:59 Last Admin: 07/14/20 12:39 Dose: 125 mls/hr Documented by: Levothyroxine Sodium (Levothyroxine 100 Mcg Tablet) 100 mcg PO QHS [facility] Nystatin (Nystatin Powder 15gm Bottle) 1 applic TOPICAL BID [facility]; Protocol Last Admin: 07/14/20 08:08 Dose: 1 applicatio Documented by: Prochlorperazine Edisylate (Prochlorperazine 10 Mg/2 Ml Vial) 5 mg IV Q6H PRN PRN PRN Reason: NAUSEA/VOMITING Quetiapine Fumarate (Quetiapine 25 Mg Tablet) 25 mg PO BID [facility] Last Admin: 07/14/20 08:11 Dose: 25 mg Documented by: Sodium Chloride (0.9% Saline Lock 10 Ml Syringe) 10 - 40 ml IV UD PRN PRN Reason: SALINE FLUSH Last Admin: 07/14/20 08:10 Dose: 10 ml Documented by: Sodium Chloride (0.9% Saline Lock 10 Ml Syringe) 10 - 40 ml IV UD PRN PRN Reason: Closed End PICC Flush Sodium Chloride (0.9 % Nacl (Sterile) Posiflush 10 Ml) 10 - 40 ml IV UD PRN PRN Reason: Port access or dressing change Medical Necessity - Tobacco Use Smoking Status: Unknown if ever smoked Tobacco Use: Non-smoker Assessment/Plan All Active Problems (This Medical Record has been edited. Action required.) Acute respiratory failure with hypoxia and hypercapnia (Acute) COVID-19 virus infection (Acute) RECOMMENDATIONS: 1. Wean supplemental oxygen to maintain saturations at or above 90%. 2. Continue scheduled bronchodilator therapy. 3. BiPAP with sleep, wean oxygen as tolerated by nasal cannula during the day 4. Avoid sedating medications. 5. Continue Decadron as ordered. 6. Continue twice daily scheduled IV Lasix, as tolerated by hemodynamics and renal function. 7. Encourage incentive spirometer use and mobilize patient as tolerated. IMPRESSIONS: 1. Acute combined respiratory failure secondary to COVID-19 pneumonia Clinical concern for underlying obstructive lung disease as well contributing to the patient's presenting symptoms. Although the patient initially required noninvasive positive pressure ventilatory support, she has been weaned to supplemental oxygen via nasal cannula. Recommend continuing to wean oxygen to maintain saturations at or above 90%. Infectious diseases is following. Clinical response is suggestive of multiple etiologies including COVID-19 and acute on chronic diastolic CHF. Continue with diuresis as oxygenation continues to improve. Encourage incentive spirometer and mobilization as tolerated. 2. Encephalopathy Improved. Likely metabolic in etiology with CO2 retention contributing. The patient's acid-base status has improved with BiPAP support. Recommend avoiding sedating medications. Continue BiPAP therapy as needed. 3. Heart failure with preserved ejection fraction Prior echocardiogram from 2017 did reveal evidence of stage I diastolic dysfunction along with mild pulmonary hypertension. Accordingly, the patient will be maintained on IV diuretic therapy. Response to diuretic therapy is suggestive of a component of acute on chronic diastolic CHF 4. Advanced age/hypothyroidism/hypertension/history of opiate dependency Complicates care, management, recovery and prognosis. Continue home medications as indicated. Inpatient E&M: 51210 Subs Hosp L2
[2020-07-14 16:01] LABS: Bedside Glucose 232 mg/dL (70-110)
--- NOTE | 2020-07-14 16:12 | PN.ID_ITS ---
Patient Problems: Active and Suspected Problems (This Medical Record has been edited. Action required.) COVID-19 virus infection (Acute) Subjective: Feeling about the same, no fever, no n/v/d. - Physical Exam Vitals/I&O's: Vital Signs Temp Pulse Resp BP Pulse Ox 97.9 F 84 18 141/75 H 92 07/14/20 15:44 07/14/20 15:44 07/14/20 15:44 07/14/20 15:44 07/14/20 15:44 Oxygen Flow Rate (L/min) 7 Oxygen Delivery Method Nasal Cannula Weight: 104 kg Body Mass Index (BMI) 32.8 Intake and Output for Last 24 Hours 07/12/20 07/13/20 07/14/20 23:59 23:59 23:59 Intake Total 1210 / 1610 2100 / 2580 1230 / 1230 Output Total 900 / 1350 1650 / 2350 700 / 700 Balance 310 / 260 450 / 230 530 / 530 General: Alert, Cooperative, No apparent distress Lungs: Diminished Cardiovascular: Regular rate, Regular Rhythm Abdomen: Soft, Non Tender, Non-Distended Skin: No rashes Microbiology Past 72 Hours 07/08/20 15:37 Blood Culture (Wb) - Right Hand Blood Culture - Final No growth in 5 days. Laboratory Results 07/14/20 04:35: WBC 12.2 H, RBC 5.36, Hgb 15.6 H, Hct 48.8 H, MCV 91.0, MCH 29.1, MCHC 32.0, RDW Std Deviation 45.2 H, RDW Coeff of Teo 13.5, Plt Count 397, MPV 10.2, Immature Gran % (Auto) 1.800 H, Neut % (Auto) 84.8 H, Lymph % (Auto) 5.3 L, [place] % (Auto) 7.6, Eos % (Auto) 0.1, Baso % (Auto) 0.4, Absolute Neuts (auto) 10.3 H, Absolute Lymphs (auto) 0.65 L, Nucleated RBC % 0 07/14/20 04:35: Sodium 138, Potassium 4.0, Chloride 98, Carbon Dioxide 33.0 H, Anion Gap 7, BUN 67 H, Creatinine 1.57 H, Estim Creat Clear Calc 28.33, Est GFR (MDRD) Af Amer 40 L, Est GFR (MDRD) Non-Af 33 L, BUN/Creatinine Ratio 42.7 H, Glucose 143 H, Calcium 8.3 L, Total Bilirubin 0.70, AST 38 H, ALT 61 H, Alkaline Phosphatase 70, Total Protein 6.0 L, Albumin 2.2 L, Globulin 3.8, Albumin/Globulin Ratio 0.6 L 07/14/20 15:39: POC Glucose 232 H Current Medications Acetaminophen (Acetaminophen 325 Mg Tablet) 650 mg PO Q4H PRN PRN PRN Reason: Pain 1-10 or Fever Last Admin: 07/14/20 02:16 Dose: 650 mg Documented by: Al Hydroxide/Mg Hydroxide (Mag Hydrox/Al Hydrox/Simeth 30 Ml Udc) 30 ml PO Q6H PRN PRN PRN Reason: INDIGESATION Last Admin: 07/12/20 14:05 Dose: 30 ml Documented by: Albuterol/Ipratropium (Ipratropium/Albuterol Sulfate 3 Ml Ampul.Neb) 3 ml INHA LATION Q6HWA.RT [facility] Last Admin: 07/14/20 13:20 Dose: 3 ml Documented by: Calamine/Phenol (Menthol/Lanolin/Calamine/Znox 113 Gm Tube) 1 applic TOPICAL BID [facility]; Protocol Last Admin: 07/14/20 08:08 Dose: 1 applicatio Documented by: Dexamethasone (Dexamethasone 4 Mg Tablet) 6 mg PO DAILY [facility] Last Admin: 07/14/20 08:10 Dose: 6 mg Documented by: Enoxaparin Sodium (Enoxaparin 30 Mg/0.3 Ml Syringe) 30 mg SC BID [facility] Last Admin: 07/14/20 08:11 Dose: 30 mg Documented by: Furosemide (Furosemide 40 Mg/4 Ml Vial) 40 mg IV BID@1000,1800 [facility] Last Admin: 07/14/20 08:11 Dose: 40 mg Documented by: Guaifenesin (Guaifenesin 1,200 Mg Tablet) 1,200 mg PO BID [facility] Last Admin: 07/14/20 08:11 Dose: 1,200 mg Documented by: Haloperidol Lactate (Haloperidol Lactate 5 Mg/Ml Vial) 2 mg IM QHS PRN PRN Reason: INSOMNIA Levothyroxine Sodium (Levothyroxine 100 Mcg Tablet) 100 mcg PO QHS [facility] Nystatin (Nystatin Powder 15gm Bottle) 1 applic TOPICAL BID [facility]; Protocol Last Admin: 07/14/20 08:08 Dose: 1 applicatio Documented by: Prochlorperazine Edisylate (Prochlorperazine 10 Mg/2 Ml Vial) 5 mg IV Q6H PRN PRN PRN Reason: NAUSEA/VOMITING Quetiapine Fumarate (Quetiapine 25 Mg Tablet) 25 mg PO BID [facility] Last Admin: 07/14/20 08:11 Dose: 25 mg Documented by: Sodium Chloride (0.9% Saline Lock 10 Ml Syringe) 10 - 40 ml IV UD PRN PRN Reason: SALINE FLUSH Last Admin: 07/14/20 08:10 Dose: 10 ml Documented by: Sodium Chloride (0.9% Saline Lock 10 Ml Syringe) 10 - 40 ml IV UD PRN PRN Reason: Closed End PICC Flush Sodium Chloride (0.9 % Nacl (Sterile) Posiflush 10 Ml) 10 - 40 ml IV UD PRN PRN Reason: Port access or dressing change Medical Necessity - Tobacco Use Smoking Status: Unknown if ever smoked Tobacco Use: Non-smoker Route of nutrition/ use of supplements: [] Nutritional Intake: [] IV Site: [] Howard Catheter: [] - Assessment/Plan Antibiotics: [] Assessment/Plan: [] Active and Suspected Problems (This Medical Record has been edited. Action required.) Hypoxia (Acute) COVID-19 virus infection (Acute) covid with hypoxia, encephalopathy - dex, remdesivir, lovenox 30mg bid. Mental status improved. On ceftriaxone for providencia uti. Pulm following. D-dimer 0.8. O2 much improved, now down to 8L. Will follow
[2020-07-14] MEDS: Levothyroxine 100 MCG Tablet PO (21:27)
[2020-07-15] VITALS (11 sets, daily range): BP systolic 130–148; BP diastolic 76–79; PULSE 78–87; RESP 17–20; TEMP 36.4–37; O2SAT 92–96
[2020-07-15] MEDS: Ipratropium/Albuterol Sulfate 3 ML AMPUL.NEB INHALATION ×3 (07:15→20:15)
[2020-07-15] MEDS: Menthol/Lanolin/Calamine/Znox 113 GM Tube 1 APPLIC TOPICAL ×2 (08:12→20:49)
[2020-07-15] MEDS: dexAMETHasone 4 MG Tablet 6 MG PO (08:13)
[2020-07-15] MEDS: guaiFENesin 1,200 MG Tablet 1200 MG PO ×2 (08:14→20:50)
[2020-07-15] MEDS: Nystatin Powder 15gm Bottle 1 APPLIC TOPICAL ×2 (08:14→20:50)
[2020-07-15] MEDS: Furosemide 40 MG/4 ML Vial IV ×2 (08:14→18:27)
[2020-07-15] MEDS: Enoxaparin 30 MG/0.3 ML Syringe SC ×2 (08:14→20:50)
[2020-07-15] MEDS: QUEtiapine 25 MG Tablet PO ×2 (08:15→20:50)
--- NOTE | 2020-07-15 09:27 | PCM.PROGNOTE ---
Patient Problems: Active and Suspected Problems (This Medical Record has been edited. Action required.) COVID-19 virus infection (Acute) Subjective: Chief complaint: Follow-up after admission for acute COVID-19 pneumonia and acute hypoxic and hypercapnic respiratory failure. Patient seen and examined. No acute events overnight. Today, she is feeling better, shortness of breath has been stable. Still complaining of mild cough. Oxygen requirement has been decreasing, she is down to 6 L of oxygen and pulse ox is 95%. Other vitals are stable. - Physical Exam Vitals/I&O's: Vital Signs Temp Pulse Resp BP Pulse Ox 98.2 F 87 18 144/77 H 95 07/15/20 07:58 07/15/20 07:58 07/15/20 08:03 07/15/20 07:58 07/15/20 07:58 Oxygen Flow Rate (L/min) 6 Oxygen Delivery Method Nasal Cannula Weight: 229 lb 4.492 oz Body Mass Index (BMI) 32.8 Intake and Output for Last 24 Hours 07/13/20 07/14/20 07/15/20 23:59 23:59 23:59 Intake Total 2100 / 2580 1230 / 1480 370 / 370 Output Total 1650 / 2350 1170 / 1620 450 / 450 Balance 450 / 230 60 / -140 -80 / -80 General: Alert, Oriented x3, Cooperative, No apparent distress HEENT: Atraumatic, PERRLA, EOMI, Normocephalic Oral: Moist Mucosa, No Gingival or Mucosal Lesions/ Ulcerations Neck: Supple, No JVD, Negative Carotid Bruits, Trachea Midline, Thyroid Normal Size and Texture Lungs: Clear to auscultation, No rhonchi, No wheeze, No rales, Diminished Cardiovascular: Regular rate, Regular Rhythm, Normal S1, Normal S2, PMI Normal Abdomen: Bowel Sounds Present, Soft, Non Tender, Non-Distended, No Hepato-splenomegaly, Obese Extremities: No clubbing, No cyanosis, No edema Skin: No rashes, No breakdown Lymphatic: No Cervical, Supraclavicular, or Inguinal Adenopathy Neurological: Cranial nerves II-XII grossly intact, Motor Exam 5/5 strength throughout Psych/Mental Status: Normal Affect, Appropriate Microbiology Past 72 Hours 07/08/20 15:37 Blood Culture (Wb) - Right Hand Blood Culture - Final No growth in 5 days. Laboratory Results 07/14/20 15:39: POC Glucose 232 H Current Medications Acetaminophen (Acetaminophen 325 Mg Tablet) 650 mg PO Q4H PRN PRN PRN Reason: Pain 1-10 or Fever Last Admin: 07/14/20 02:16 Dose: 650 mg Documented by: Al Hydroxide/Mg Hydroxide (Mag Hydrox/Al Hydrox/Simeth 30 Ml Udc) 30 ml PO Q6H PRN PRN PRN Reason: INDIGESATION Last Admin: 07/12/20 14:05 Dose: 30 ml Documented by: Albuterol/Ipratropium (Ipratropium/Albuterol Sulfate 3 Ml Ampul.Neb) 3 ml INHALATION Q6HWA.RT [facility] Last Admin: 07/15/20 07:15 Dose: 3 ml Documented by: Calamine/Phenol (Menthol/Lanolin/Calamine/Znox 113 Gm Tube) 1 applic TOPICAL BID [facility]; Protocol Last Admin: 07/15/20 08:12 Dose: 1 applicatio Documented by: Dexamethasone (Dexamethasone 4 Mg Tablet) 6 mg PO DAILY [facility] Last Admin: 07/15/20 08:13 Dose: 6 mg Documented by: Enoxaparin Sodium (Enoxaparin 30 Mg/0.3 Ml Syringe) 30 mg SC BID [facility] Last Admin: 07/15/20 08:14 Dose: 30 mg Documented by: Furosemide (Furosemide 40 Mg/4 Ml Vial) 40 mg IV BID@1000,1800 [facility] Last Admin: 07/15/20 08:14 Dose: 40 mg Documented by: Guaifenesin (Guaifenesin 1,200 Mg Tablet) 1,200 mg PO BID [facility] Last Admin: 07/15/20 08:14 Dose: 1,200 mg Documented by: Haloperidol Lactate (Haloperidol Lactate 5 Mg/Ml Vial) 2 mg IM QHS PRN PRN Reason: INSOMNIA Levothyroxine Sodium (Levothyroxine 100 Mcg Tablet) 100 mcg PO QHS [facility] Last Admin: 07/14/20 21:27 Dose: 100 mcg Documented by: Nystatin (Nystatin Powder 15gm Bottle) 1 applic TOPICAL BID [facility]; Protocol Last Admin: 07/15/20 08:14 Dose: 1 applicatio Documented by: Prochlorperazine Edisylate (Prochlorperazine 10 Mg/2 Ml Vial) 5 mg IV Q6H PRN PRN PRN Reason: NAUSEA/VOMITING Quetiapine Fumarate (Quetiapine 25 Mg Tablet) 25 mg PO BID [facility] Last Admin: 07/15/20 08:15 Dose: 25 mg Documented by: Sodium Chloride (0.9% Saline Lock 10 Ml Syringe) 10 - 40 ml IV UD PRN PRN Reason: SALINE FLUSH Last Admin: 07/14/20 18:11 Dose: 10 ml Documented by: Sodium Chloride (0.9% Saline Lock 10 Ml Syringe) 10 - 40 ml IV UD PRN PRN Reason: Closed End PICC Flush Sodium Chloride (0.9 % Nacl (Sterile) Posiflush 10 Ml) 10 - 40 ml IV UD PRN PRN Reason: Port access or dressing change Medical Necessity - Tobacco Use Smoking Status: Unknown if ever smoked Tobacco Use: Non-smoker Assessment/Plan All Active Problems (This Medical Record has been edited. Action required.) Acute respiratory failure with hypoxia and hypercapnia (Acute) COVID-19 virus infection (Acute) This is an 84 years old female patient presented to the emergency room because of shortness of breath, found to have acute COVID-19 pneumonia complicated by acute hypoxic and hypercapnic respiratory failure. #1 acute COVID-19 pneumonia: She completed IV remdesivir, she is on IV Decadron and Lovenox. Also, she is on IV Lasix. Her symptoms as well as oxygenation has been improving, she is down to 6 L with pulse ox of 95%. Blood culture showed no growth in 5 days. Other vital signs are stable. Pulmonology and infectious disease are on the case. Plan to continue same treatment, ambulatory pulse oximetry tomorrow morning. #2 acute on chronic hypoxic and hypercapnic respiratory failure: Secondary to #1. Currently, she is on 6 L, it is getting better. Plan as above. #3 encephalopathy: Probably metabolic secondary to acute infection. This morning, she was alert and oriented x2. Plan to monitor. #4 stage III chronic kidney disease: Baseline creatinine has been around 1.5 to 2 mg/dL. Yesterday's creatinine 1.57, stable at baseline. #5 hypertension: Currently, blood pressure stable. Norvasc is on hold. #6 hypothyroidism:continue levothyroxine. #7 chronic diastolic CHF: Seems to be compensated, stable. She is on IV Lasix not for the CHF exacerbation. #8 CODE STATUS: DNR CCA, no intubation. #9 DVT prophylaxis: Subcu Lovenox twice daily. This note was generated with [employer] dictation software. It may contain incorrect words, spelling, and punctuation that were not noted in checking the note before signing. Inpatient E&M: 05405 Subs Hosp L2
--- NOTE | 2020-07-15 12:37 | CASEMGMT ---
Pt may be ready for discharge tomorrow. SW left [place] a message and faxed updates. LORAINE Castro
--- NOTE | 2020-07-15 15:07 | PN_ITS ---
Patient Problems: Active and Suspected Problems (This Medical Record has been edited. Action required.) COVID-19 virus infection (Acute) Subjective: Patient did well overnight. Patient states that she feels subjectively improved compared to previous. Patient is still having a mild cough that is nonproductive. Oxygen requirements have decreased to the day and she is currently on 5 L nasal cannula and maintaining appropriate saturations. Patient is reporting a headache, but also believes this is improving compared to previo us. - Physical Exam Vitals/I&O's: Vital Signs Temp Pulse Resp BP Pulse Ox 36.7 C 86 18 130/78 H 92 07/15/20 14:46 07/15/20 14:46 07/15/20 14:46 07/15/20 14:46 07/15/20 14:51 Oxygen Flow Rate (L/min) 5 Oxygen Delivery Method Nasal Cannula Weight: 104 kg Body Mass Index (BMI) 32.8 Intake and Output for Last 24 Hours 07/13/20 07/14/20 07/15/20 23:59 23:59 23:59 Intake Total 2100 / 2580 1230 / 1480 370 / 370 Output Total 1650 / 2350 1170 / 1620 1450 / 1450 Balance 450 / 230 60 / -140 -1080 / -1080 General: Alert, Oriented x3, Cooperative, No apparent distress, - - Obese. No conversational dyspnea. HEENT: Atraumatic, PERRLA, EOMI, Normocephalic, - - Nasal cannula in place. Oral: Moist Mucosa, No Gingival or Mucosal Lesions/ Ulcerations Neck: Supple, No JVD, No Nodes, Trachea Midline Lungs: No rhonchi, No wheeze, No rales, Diminished Cardiovascular: Regular rate, Regular Rhythm, Normal S1, Normal S2, No murmurs, No rub noted, No Gallop Abdomen: Bowel Sounds Present, Soft, Non Tender, Non-Distended, Obese Extremities: No clubbing, No cyanosis, Edema - Trace lower extremity Skin: - - No change compared to previous Musculoskeletal: No Tenderness to Palpation of Joints or Extremities Lymphatic: No Cervical, Supraclavicular, or Inguinal Adenopathy Neurological: Cranial nerves II-XII grossly intact, Neuro grossly intact, Motor Exam 5/5 strength throughout Psych/Mental Status: Normal Affect, Appropriate Microbiology Past 72 Hours 07/08/20 15:37 Blood Culture (Wb) - Right Hand Blood Culture - Final No growth in 5 days. Laboratory Results 07/14/20 15:39: POC Glucose 232 H Current Medications Acetaminophen (Acetaminophen 325 Mg Tablet) 650 mg PO Q4H PRN PRN PRN Reason: Pain 1-10 or Fever Last Admin: 07/14/20 02:16 Dose: 650 mg Documented by: Al Hydroxide/Mg Hydroxide (Mag Hydrox/Al Hydrox/Simeth 30 Ml Udc) 30 ml PO Q6H PRN PRN PRN Reason: INDIGESATION Last Admin: 07/12/20 14:05 Dose: 30 ml Documented by: Albuterol/Ipratropium (Ipratropium/Albuterol Sulfate 3 Ml Ampul.Neb) 3 ml INHALATION Q6HWA.RT [facility] Last Admin: 07/15/20 12:48 Dose: 3 ml Documented by: Calamine/Phenol (Menthol/Lanolin/Calamine/Znox 113 Gm Tube) 1 applic TOPICAL BID [facility]; Protocol Last Admin: 07/15/20 08:12 Dose: 1 applicatio Documented by: Dexamethasone (Dexamethasone 4 Mg Tablet) 6 mg PO DAILY [facility] Last Admin: 07/15/20 08:13 Dose: 6 mg Documented by: Enoxaparin Sodium (Enoxaparin 30 Mg/0.3 Ml Syringe) 30 mg SC BID [facility] Last Admin: 07/15/20 08:14 Dose: 30 mg Documented by: Furosemide (Furosemide 40 Mg/4 Ml Vial) 40 mg IV BID@1000,1800 [facility] Last Admin: 07/15/20 08:14 Dose: 40 mg Documented by: Guaifenesin (Guaifenesin 1,200 Mg Tablet) 1,200 mg PO BID [facility] Last Admin: 07/15/20 08:14 Dose: 1,200 mg Documented by: Haloperidol Lactate (Haloperidol Lactate 5 Mg/Ml Vial) 2 mg IM QHS PRN PRN Reason: INSOMNIA Levothyroxine Sodium (Levothyroxine 100 Mcg Tablet) 100 mcg PO QHS [facility] Last Admin: 07/14/20 21:27 Dose: 100 mcg Documented by: Nystatin (Nystatin Powder 15gm Bottle) 1 applic TOPICAL BID [facility]; Protocol Last Admin: 07/15/20 08:14 Dose: 1 applicatio Documented by: Prochlorperazine Edisylate (Prochlorperazine 10 Mg/2 Ml Vial) 5 mg IV Q6H PRN PRN PRN Reason: NAUSEA/VOMITING Quetiapine Fumarate (Quetiapine 25 Mg Tablet) 25 mg PO BID [facility] Last Admin: 07/15/20 08:15 Dose: 25 mg Documented by: Sodium Chloride (0.9% Saline Lock 10 Ml Syringe) 10 - 40 ml IV UD PRN PRN Reason: SALINE FLUSH Last Admin: 07/14/20 18:11 Dose: 10 ml Documented by: Sodium Chloride (0.9% Saline Lock 10 Ml Syringe) 10 - 40 ml IV UD PRN PRN Reason: Closed End PICC Flush Sodium Chloride (0.9 % Nacl (Sterile) Posiflush 10 Ml) 10 - 40 ml IV UD PRN PRN Reason: Port access or dressing change Medical Necessity - Tobacco Use Smoking Status: Unknown if ever smoked Tobacco Use: Non-smoker Assessment/Plan All Active Problems (This Medical Record has been edited. Action required.) Acute respiratory failure with hypoxia and hypercapnia (Acute) COVID-19 virus infection (Acute) RECOMMENDATIONS: 1. Wean supplemental oxygen to maintain saturations at or above 90%. 2. Continue scheduled bronchodilator therapy. 3. BiPAP with sleep, wean oxygen as tolerated by nasal cannula during the day 4. Avoid sedating medications. 5. Continue Decadron as ordered. 6. Continue twice daily scheduled IV Lasix, as tolerated by hemodynamics and renal function. Recheck BMP in the morning 7. Encourage incentive spirometer use and mobilize patient as tolerated. IMPRESSIONS: 1. Acute combined respiratory failure secondary to COVID-19 pneumonia Clinical concern for underlying obstructive lung disease as well contributing to the patient's presenting symptoms. Although the patient initially required noninvasive positive pressure ventilatory support, she has been weaned to supplemental oxygen via nasal cannula. Recommend continuing to wean oxygen to maintain saturations at or above 90%. Infectious diseases is following. Clinical response is suggestive of multiple etiologies including COVID-19 and acute on chronic diastolic CHF. Continue with diuresis as oxygenation continues to improve. Encourage incentive spirometer and mobilization as tolerated. We will recheck chemistries tomorrow and replace electrolytes as necessary. Potential evaluation for discharge if able to tolerate movement with 6 L or less nasal cannula. 2. Encephalopathy Improved. Likely metabolic in etiology with CO2 retention contributing. The patient's acid-base status has improved with BiPAP support. Recommend avoiding sedating medications. Continue BiPAP therapy as needed. 3. Heart failure with preserved ejection fraction Prior echocardiogram from 2017 did reveal evidence of stage I diastolic dysfunction along with mild pulmonary hypertension. Accordingly, the patient will be maintained on IV diuretic therapy. Response to diuretic therapy is suggestive of a component of acute on chronic diastolic CHF 4. Advanced age/hypothyroidism/hypertension/history of opiate dependency Complicates care, management, recovery and prognosis. Continue home medications as indicated. Inpatient E&M: 18118 Subs Hosp L2
--- NOTE | 2020-07-15 20:10 | NURSING ---
emergency documentation
--- NOTE | 2020-07-15 20:20 | CPS ---
decreased O2 to 4 lpm
[2020-07-15] MEDS: Levothyroxine 100 MCG Tablet PO (20:50)
[2020-07-16] MEDS: 0.9% Saline Lock 10 ML Syringe IV ×2 (02:30→08:12)
[2020-07-16 02:32] VITALS: BP 119/78; PULSE 89; RESP 18; TEMP 36.7; O2SAT 94
[2020-07-16] MEDS: Mag Hydrox/Al Hydrox/Simeth 30 ML UDC PO (04:13)
[2020-07-16 07:49] LABS: Absolute Lymphocyte Count 0.69 X10^3/uL (0.83-4.51); Absolute Neutrophil Count 12.1 X10^3/uL (2.0-7.7); Basophil# 0.04 X10^3/uL; Basophil% 0.3 % (0-1); Hematocrit 51.8 % (37-47); Hemoglobin 16.1 g/dL (12.0-15.0); Lymphocyte # 0.69 X10^3/ul (4.0); Lymphocyte % 4.8 % (19-41); Mean Corp Hgb Conc 31.1 g/dL (32-36); Mean Corpuscular Hgb 27.9 pg (27.0-32.0); Mean Corpuscular Volume 89.6 fL (81-99); Mean Platelet Vol. 10.2 fl (6.2-12.0); Monocyte# 1.36 X10^3/uL; Monocyte% 9.4 % (0-10); NRBC Flagged by Analyzer 0 % (0-5); Neutrophil # 12.13 X10^3/uL (2.7-7.7); Neutrophil % 83.4 % (47-70); Platelet Count 514 K/mm3 (150-450); RBC Distribution Width CV 13.4 % (11.6-14.6); RBC Distribution Width SD 44.6 fl (35.1-43.9); Red Blood Count 5.78 M/mm3 (4.2-5.4); White Blood Count 14.5 K/mm3 (4.4-11.0)
[2020-07-16] MEDS: Enoxaparin 30 MG/0.3 ML Syringe SC (08:08)
[2020-07-16] MEDS: Menthol/Lanolin/Calamine/Znox 113 GM Tube 1 APPLIC TOPICAL (08:08)
[2020-07-16] MEDS: dexAMETHasone 4 MG Tablet 6 MG PO (08:09)
[2020-07-16] MEDS: guaiFENesin 1,200 MG Tablet 1200 MG PO (08:09)
[2020-07-16] MEDS: Furosemide 40 MG/4 ML Vial IV (08:09)
[2020-07-16] MEDS: QUEtiapine 25 MG Tablet PO (08:10)
[2020-07-16] MEDS: Nystatin Powder 15gm Bottle 1 APPLIC TOPICAL (08:10)
[2020-07-16 08:17] VITALS: BP 147/88; PULSE 82; RESP 16; TEMP 36.5; O2SAT 86; O2SAT 92
[2020-07-16 08:19] LABS: ALB/GLOB Ratio 0.8 RATIO (0.9-2.4); AST(SGOT) 28 U/L (15-37); Alanine Aminotransfer ALT/SGPT 55 U/L (13-56); Albumin, Serum 2.5 g/dL (3.2-5.0); Alkaline Phosphatase 75 U/L (45-117); Anion Gap 9 (5-15); BUN 78 mg/dL (7-18); BUN/Creat Ratio 57.4 RATIO (10-20); Calcium,Total 8.7 mg/dL (8.5-10.1); Chloride 95 mmol/L (98-107); Creatinine, Serum 1.36 mg/dL (0.55-1.02); EST Glomerular Filtration Rate 39 mL/min (>60); Est Glom Filt Rate - Afr Amer 48 mL/min (>60); Globulin 3.3 g/dL (2.2-4.2); Glucose 118 mg/dL (74-106); Protein, Total 5.8 g/dL (6.4-8.2); Sodium Level 137 mmol/L (136-145)
--- NOTE | 2020-07-16 08:52 | PCM.PN.PUL ---
Patient Problems: Active and Suspected Problems (This Medical Record has been edited. Action required.) COVID-19 virus infection (Acute) Subjective: Patient did well overnight. No acute issues were reported. Patient is reporting abdominal discomfort, but no hematemesis or melena has been reported. Patient feels subjectively improved from a respiratory standpoint and has been tolerating 4 L nasal cannula overnight. Patient is from a [place] [facility] feel she is strong enough to go back. - Physical Exam Vitals/I&O's: Vital Signs Temp Pulse Resp BP Pulse Ox 36.5 C L 82 16 147/88 H 92 07/16/20 08:17 07/16/20 08:17 07/16/20 08:17 07/16/20 08:17 07/16/20 08:17 Oxygen Flow Rate (L/min) 4 Oxygen Delivery Method Nasal Cannula Weight: 104 kg Body Mass Index (BMI) 32.8 Intake and Output for Last 24 Hours 07/14/20 07/15/20 07/16/20 23:59 23:59 23:59 Intake Total 1230 / 1480 370 / 370 Output Total 1170 / 1620 1999 / 1999 550 / 550 Balance 60 / -140 -1630 / -1630 -550 / -550 General: Alert, Oriented x3, Cooperative, No apparent distress, Well developed, Well nourished, - - Obese. Speaking in full sentences. HEENT: Atraumatic, PERRLA, EOMI, Normocephalic, - - No scleral icterus or injection noted Oral: Moist Mucosa, No Gingival or Mucosal Lesions/ Ulcerations, - - Carotid posterior pharynx Neck: Supple, No Nodes, Trachea Midline Lungs: No rhonchi, No wheeze, No rales, Diminished Cardiovascular: Regular rate, Regular Rhythm, Normal S1, Normal S2, No murmurs, No rub noted, No Gallop Abdomen: Bowel Sounds Present, Soft, Non Tender, Non-Distended, Obese Extremities: No clubbing, No cyanosis Skin: - - No change from previous Musculoskeletal: No Tenderness to Palpation of Joints or Extremities Lymphatic: No Cervical, Supraclavicular, or Inguinal Adenopathy Neurological: Cranial nerves II-XII grossly intact, Neuro grossly intact, Motor Exam 5/5 strength throughout Psych/Mental Status: Alert and oriented to time, place, person, mood and affect Microbiology Past 72 Hours 07/08/20 15:37 Blood Culture (Wb) - Right Hand Blood Culture - Final No growth in 5 days. Laboratory Results 07/16/20 06:05: WBC 14.5 H, RBC 5.78 H, Hgb 16.1 H, Hct 51.8 H, MCV 89.6, MCH 27.9, MCHC 31.1 L, RDW Std Deviation 44.6 H, RDW Coeff of Teo 13.4, Plt Count 514 H, MPV 10.2, Immature Gran % (Auto) 2.100 H, Neut % (Auto) 83.4 H, Lymph % (Auto) 4.8 L, [place] % (Auto) 9.4, Eos % (Auto) 0.0, Baso % (Auto) 0.3, Absolute Neuts (auto) 12.1 H, Absolute Lymphs (auto) 0.69 L, Nucleated RBC % 0 07/16/20 06:05: Sodium 137, Potassium 4.0, Chloride 95 L, Carbon Dioxide 33.0 H, Anion Gap 9, BUN 78 H, Creatinine 1.36 H, Estim Creat Clear Calc 32.70, Est GFR (MDRD) Af Amer 48 L, Est GFR (MDRD) Non-Af 39 L, BUN/Creatinine Ratio 57.4 H, Glucose 118 H, Calcium 8.7, Total Bilirubin 1.10 H, AST 28, ALT 55, Alkaline Phosphatase 75, Total Protein 5.8 L, Albumin 2.5 L, Globulin 3.3, Albumin/Globulin Ratio 0.8 L Current Medications Acetaminophen (Acetaminophen 325 Mg Tablet) 650 mg PO Q4H PRN PRN PRN Reason: Pain 1-10 or Fever Last Admin: 07/14/20 02:16 Dose: 650 mg Documented by: Al Hydroxide/Mg Hydroxide (Mag Hydrox/Al Hydrox/Simeth 30 Ml Udc) 30 ml PO Q6H PRN PRN PRN Reason: INDIGESATION Last Admin: 07/16/20 04:13 Dose: 30 ml Documented by: Calamine/Phenol (Menthol/Lanolin/Calamine/Znox 113 Gm Tube) 1 applic TOPICAL BID [facility]; Protocol Last Admin: 07/16/20 08:08 Dose: 1 applicatio Documented by: Dexamethasone (Dexamethasone 4 Mg Tablet) 6 mg PO DAILY [facility] Last Admin: 07/16/20 08:09 Dose: 6 mg Documented by: Enoxaparin Sodium (Enoxaparin 30 Mg/0.3 Ml Syringe) 30 mg SC BID [facility] Last Admin: 07/16/20 08:08 Dose: 30 mg Documented by: Furosemide (Furosemide 40 Mg/4 Ml Vial) 40 mg IV BID@1000,1800 [facility] Last Admin: 07/16/20 08:09 Dose: 40 mg Documented by: Guaifenesin (Guaifenesin 1,200 Mg Tablet) 1,200 mg PO BID [facility] Last Admin: 07/16/20 08:09 Dose: 1,200 mg Documented by: Haloperidol Lactate (Haloperidol Lactate 5 Mg/Ml Vial) 2 mg IM QHS PRN PRN Reason: INSOMNIA Levothyroxine Sodium (Levothyroxine 100 Mcg Tablet) 100 mcg PO QHS [facility] Last Admin: 07/15/20 20:50 Dose: 100 mcg Documented by: Nystatin (Nystatin Powder 15gm Bottle) 1 applic TOPICAL BID [facility]; Protocol Last Admin: 07/16/20 08:10 Dose: 1 applicatio Documented by: Prochlorperazine Edisylate (Prochlorperazine 10 Mg/2 Ml Vial) 5 mg IV Q6H PRN PRN PRN Reason: NAUSEA/VOMITING Quetiapine Fumarate (Quetiapine 25 Mg Tablet) 25 mg PO BID [facility] Last Admin: 07/16/20 08:10 Dose: 25 mg Documented by: Sodium Chloride (0.9% Saline Lock 10 Ml Syringe) 10 - 40 ml IV UD PRN PRN Reason: SALINE FLUSH Last Admin: 07/16/20 08:12 Dose: 10 ml Documented by: Sodium Chloride (0.9% Saline Lock 10 Ml Syringe) 10 - 40 ml IV UD PRN PRN Reason: Closed End PICC Flush Sodium Chloride (0.9 % Nacl (Sterile) Posiflush 10 Ml) 10 - 40 ml IV UD PRN PRN Reason: Port access or dressing change Medical Necessity - Tobacco Use Smoking Status: Unknown if ever smoked Tobacco Use: Non-smoker Assessment/Plan All Active Problems (This Medical Record has been edited. Action required.) Acute respiratory failure with hypoxia and hypercapnia (Acute) COVID-19 virus infection (Acute) RECOMMENDATIONS: 1. Wean supplemental oxygen to maintain saturations at or above 90%. 2. Continue scheduled bronchodilator therapy. 3. BiPAP with sleep, wean oxygen as tolerated by nasal cannula during the day 4. Avoid sedating medications. 5. Continue Decadron as ordered. 6. Continue twice daily scheduled IV Lasix, as tolerated by hemodynamics and renal function. Recheck BMP in the morning 7. Encourage incentive spirometer use and mobilize patient as tolerated. 8. Initiate 10 days of high-dose Protonix for probable stress gastritis 9. Okay to discharge from a pulmonary perspective. Patient can follow-up in our office in 4 weeks for reassessment of supplemental oxygen if requested IMPRESSIONS: 1. Acute combined respiratory failure secondary to COVID-19 pneumonia Clinical concern for underlying obstructive lung disease as well contributing to the patient's presenting symptoms. Although the patient initially required noninvasive positive pressure ventilatory support, she has been weaned to supplemental oxygen via nasal cannula. Recommend continuing to wean oxygen to maintain saturations at or above 90%. Infectious diseases is following. Clinical response is suggestive of multiple etiologies including COVID-19 and acute on chronic diastolic CHF. Continue with diuresis as oxygenation continues to improve. Encourage incentive spirometer and mobilization as tolerated. We will recheck chemistries tomorrow and replace electrolytes as necessary. Likely okay to discharge from my perspective. Anticipate aggressive diuresis should be discontinued at the next 24 to 48 hours. 2. Encephalopathy Resolved. Likely metabolic in etiology with CO2 retention contributing. The patient's acid-base status has improved with BiPAP support. Recommend avoiding sedating medications. Continue BiPAP therapy as needed. 3. Heart failure with preserved ejection fraction Prior echocardiogram from 2017 did reveal evidence of stage I diastolic dysfunction along with mild pulmonary hypertension. Accordingly, the patient will be maintained on IV diuretic therapy. Response to diuretic therapy is suggestive of a component of acute on chronic diastolic CHF 4. Advanced age/hypothyroidism/hypertension/history of opiate dependency/stress gastritis Complicates care, management, recovery and prognosis. Continue home medications as indicated. Clinical suspicion for an element of stress gastritis leading to discomfort. Patient is on Decadron therapy. No bleeding has been noted, so a short course of PPI will likely resolve condition. Inpatient E&M: 25980 Subs Hosp L2
[2020-07-16] MEDS: Pantoprazole Sodium 20 MG Tablet PO (09:35)
--- NOTE | 2020-07-16 10:38 | PCM.TXEXTCAR ---
- Diet 07/09/20 14:54 Diet: Regular - No Added Salt Dietary Modifications:: Potassium Restricted Is pt able to select menu?: No - Routine Orders/Code Status O2 Liters per Minute: 4 O2 Frequency: Continuous Keep PO Greater than or Equal to (%): 90 Code Status: DNRCC-A - Wound(s) Cleft Wound Type: Skin Tear Suprapubic Wound Type: Skin Tear - Suggestions for Active Care Change Position every (hours): 3 Hours to sit in a chair: 2 Times a day to sit in chair: 3 - Therapies Weight Bearing: Weight bearing as tolerated Physical Therapy: Eval and Treat Occupational Therapy: Eval and Treat - Allergies/Procedures Done in Hospital Allergies/Adverse Reactions: Allergies Sulfa (Sulfonamide Antibiotics) Allergy (Verified 07/08/20 14:30) Hives morphine Adverse Reaction (Verified 07/08/20 17:39) confusion-difficult to wean off - Type of Care/Length of Stay Estimated LOS: More Than 30 Days Type of Care Needed: Skilled Rehab Potential: Fair Prognosis: Fair - Additional Orders/Day of Discharge Additional Orders: Isolation precautions for COVID-19 for 10 days more. H&P will serve as current which was dated: 07/08/20 Day of Discharge: 07/16/20 - Dietary and Speech Recommendations Dietitian Recommendations/Changes: Will continue dier as ordered (Regular; no added salt; low k+) and po supplements w/ meals. - Follow Up Care Primary Care Physician: Tom Hernandez MD [Primary Care Provider] - Please follow up with your Primary Care Physician in: 1-2 weeks.
[2020-07-16 10:50] VITALS: O2SAT 92
--- NOTE | 2020-07-16 11:34 | DS.PCM_ITS ---
Discharge Date and Diagnosis - Problem List Patient Problems: Active and Suspected Problems (This Medical Record has been edited. Action required.) COVID-19 virus infection (Acute) Date of Admission: 07/08/20 Date of Discharge: 07/16/20 - Primary Discharge Diagnosis Acute Problems: Active Problems (This Medical Record has been edited. Action required.) #1 acute COVID-19 pneumonia. #2 acute on chronic hypoxic and hypercapnic respiratory failure. #3 metabolic encephalopathy. - Secondary Discharge Diagnosis Chronic Problems: Chronic Problems (This Medical Record has been edited. 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 Hazy opacities consistent with pneumonia, including possible Covid pneumonia. Electronically Signed: Jackie Broussard MD at 17:39 EST Tel , Service support , Chest X-Ray 07/10/20 13:10 IMPRESSION: A right-sided PICC line catheter as been placed. The tip is at the junction of the superior vena cava and right atrium. Persistent bilateral pulmonary infiltrates although there has been improvement as compared to prior study. Pending Final Proof Editing Dr. Peraza,/Dr. Loredo, pulmonology. Dr. aCncino, infectious disease. Operations: None Procedures: None Summary of Care Provided: Patient seen and examined on the day of discharge and appeared to be stable to be discharged to the snf facility. Her breathing remained stable, she is down to 4 L of oxygen. Other vital signs are stable. The patient is a 84 year old F presented to the emergency room because of shortness of breath and she was found to have acute COVID-19 pneumonia complicated by acute on chronic hypoxic and hypercapnic respiratory failure as well as metabolic encephalopathy. Her chest x-ray revealed bilateral opacities consistent with COVID-19 pneumonia. Patient was treated with IV dexamethasone, IV remdesivir, Lovenox injections twice daily, bronchodilators as well as oxygen by BiPAP, airvo and later by nasal cannula. Blood culture showed no growth in 5 days. Urine culture revealed Providencia stuartii and this deemed to be a contamination. Initially, she received IV antibiotics. Her hospital course was prolonged because of hypoxia and need for oxygen. Initially, patient needed BiPAP and Airvo. She received IV Lasix for volume overload. With above- mentioned treatment in addition to IV Lasix, her respiratory status very gradually improved over the days. She was able to come down to nasal cannula initially of up to 10 l. Later, her symptoms continued to improve as well as oxygenation and she was able to come down to 4 L of oxygen by nasal cannula. S he completed IV remdesivir and she completed 7 days of dexamethasone. Patient discharged to snf facility in a stable medical condition, discharged on Decadron 6 mg p.o. daily for 3 days more of treatment, no antibiotic given upon discharge, continued on her previous home medications without any changes, instructed for quarantine and isolation precautions at SNF for 10 days more, recommended follow-up with PCP in 1 to 2 weeks. Patient Problems: Active and Suspected Problems (This Medical Record has been edited. Action required.) COVID-19 virus infection (Acute) - Physical Exam Vitals/I&O's: Vital Signs Temp Pulse Resp BP Pulse Ox 97.7 F L 82 16 147/88 H 92 07/16/20 08:17 07/16/20 08:17 07/16/20 08:17 07/16/20 08:17 07/16/20 10:50 Oxygen Flow Rate (L/min) 4 Oxygen Delivery Method Nasal Cannula Weight: 229 lb 4.492 oz Body Mass Index (BMI) 32.8 Intake and Output for Last 24 Hours 07/14/20 07/15/20 07/16/20 23:59 23:59 23:59 Intake Total 1230 / 1480 370 / 370 Output Total 1170 / 1620 1999 / 1999 550 / 550 Balance 60 / -140 -1630 / -1630 -550 / -550 General: Alert, Oriented x3, Cooperative, No apparent distress HEENT: Atraumatic, PERRLA, EOMI, Normocephalic Oral: Moist Mucosa, No Gingival or Mucosal Lesions/ Ulcerations Neck: Supple, No JVD, Negative Carotid Bruits, Trachea Midline, Thyroid Normal Size and Texture Lungs: Clear to auscultation, No rhonchi, No wheeze, No rales, Diminished Cardiovascular: Regular rate, Regular Rhythm, Normal S1, Normal S2, PMI Normal Abdomen: Bowel Sounds Present, Soft, Non Tender, Non-Distended, No Hepato- splenomegaly, Obese Extremities: No clubbing, No cyanosis, Edema Skin: No rashes, No breakdown Lymphatic: No Cervical, Supraclavicular, or Inguinal Adenopathy Neurological: Cranial nerves II-XII grossly intact, Neuro grossly intact Psych/Mental Status: Normal Affect, Appropriate Microbiology Past 72 Hours 07/08/20 15:37 Blood Culture (Wb) - Right Hand Blood Culture - Final No growth in 5 days. Laboratory Results 07/16/20 06:05: WBC 14.5 H, RBC 5.78 H, Hgb 16.1 H, Hct 51.8 H, MCV 89.6, MCH 27.9, MCHC 31.1 L, RDW Std Deviation 44.6 H, RDW Coeff of Teo 13.4, Plt Count 514 H, MPV 10.2, Immature Gran % (Auto) 2.100 H, Neut % (Auto) 83.4 H, Lymph % (Auto) 4.8 L, [place] % (Auto) 9.4, Eos % (Auto) 0.0, Baso % (Auto) 0.3, Absolute Neuts (auto) 12.1 H, Absolute Lymphs (auto) 0.69 L, Nucleated RBC % 0 07/16/20 06:05: Sodium 137, Potassium 4.0, Chloride 95 L, Carbon Dioxide 33.0 H, Anion Gap 9, BUN 78 H, Creatinine 1.36 H, Estim Creat Clear Calc 32.70, Est GFR (MDRD) Af Amer 48 L, Est GFR (MDRD) Non-Af 39 L, BUN/Creatinine Ratio 57.4 H, Glucose 118 H, Calcium 8.7, Total Bilirubin 1.10 H, AST 28, ALT 55, Alkaline Phosphatase 75, Total Protein 5.8 L, Albumin 2.5 L, Globulin 3.3, Albumin/Globulin Ratio 0.8 L Current Medications Acetaminophen (Acetaminophen 325 Mg Tablet) 650 mg PO Q4H PRN PRN PRN Reason: Pain 1-10 or Fever Last Admin: 07/14/20 02:16 Dose: 650 mg Documented by: Al Hydroxide/Mg Hydroxide (Mag Hydrox/Al Hydrox/Simeth 30 Ml Udc) 30 ml PO Q6H PRN PRN PRN Reason: INDIGESATION Last Admin: 07/16/20 04:13 Dose: 30 ml Documented by: Calamine/Phenol (Menthol/Lanolin/Calamine/Znox 113 Gm Tube) 1 applic TOPICAL BID [facility]; Protocol Last Admin: 07/16/20 08:08 Dose: 1 applicatio Documented by: Dexamethasone (Dexamethasone 4 Mg Tablet) 6 mg PO DAILY [facility] Last Admin: 07/16/20 08:09 Dose: 6 mg Documented by: Enoxaparin Sodium (Enoxaparin 30 Mg/0.3 Ml Syringe) 30 mg SC BID [facility] Last Admin: 07/16/20 08:08 Dose: 30 mg Documented by: Furosemide (Furosemide 40 Mg/4 Ml Vial) 40 mg IV BID@1000,1800 [facility] Last Admin: 07/16/20 08:09 Dose: 40 mg Documented by: Guaifenesin (Guaifenesin 1,200 Mg Tablet) 1,200 mg PO BID [facility] Last Admin: 07/16/20 08:09 Dose: 1,200 mg Documented by: Haloperidol Lactate (Haloperidol Lactate 5 Mg/Ml Vial) 2 mg IM QHS PRN PRN Reason: INSOMNIA Levothyroxine Sodium (Levothyroxine 100 Mcg Tablet) 100 mcg PO QHS [facility] Last Admin: 07/15/20 20:50 Dose: 100 mcg Documented by: Nystatin (Nystatin Powder 15gm Bottle) 1 applic TOPICAL BID [facility]; Protocol Last Admin: 07/16/20 08:10 Dose: 1 applicatio Documented by: Pantoprazole Sodium (Pantoprazole Sodium 20 Mg Tablet) 20 mg PO BID [facility] Stop: 07/26/20 10:01 Last Admin: 07/16/20 09:35 Dose: 20 mg Documented by: Prochlorperazine Edisylate (Prochlorperazine 10 Mg/2 Ml Vial) 5 mg IV Q6H PRN PRN PRN Reason: NAUSEA/VOMITING Quetiapine Fumarate (Quetiapine 25 Mg Tablet) 25 mg PO BID [facility] Last Admin: 07/16/20 08:10 Dose: 25 mg Documented by: Sodium Chloride (0.9% Saline Lock 10 Ml Syringe) 10 - 40 ml IV UD PRN PRN Reason: SALINE FLUSH Last Admin: 07/16/20 08:12 Dose: 10 ml Documented by: Sodium Chloride (0.9% Saline Lock 10 Ml Syringe) 10 - 40 ml IV UD PRN PRN Reason: Closed End PICC Flush Sodium Chloride (0.9 % Nacl (Sterile) Posiflush 10 Ml) 10 - 40 ml IV UD PRN PRN Reason: Port access or dressing change Home Medications: Medications to take at Discharge Aspirin [Aspirin, Baby] 81 mg PO DAILY@0800 05/15/16 Levothyroxine [Synthroid] 100 mcg PO QHS 05/15/16 Furosemide 40 mg PO DAILY 09/08/17 Guaifenesin [Mucinex] 600 mg PO BID 09/08/17 Hydrocodone/Acetaminophen [[place] 5-325 Tablet] 1 each PO TID PRN 09/25/18 Albuterol Inhaler [Ventolin Hfa] 2 puff INHALATION Q2H PRN 11/01/18 Amlodipine [Norvasc] 10 mg PO DAILY 07/08/20 Calcium Carbonate/Vitamin D3 [Calcium 600-Vit D3 400 Caplet] 1 tab PO DAILY 07/08/20 Calcium Polycarbophil [Fiber Lax] 1,250 mg PO DAILY 07/08/20 Cholecalciferol (Vitamin D3) [Vitamin D3] 1,000 unit PO DAILY 07/08/20 Gabapentin [Neurontin] 300 mg PO BID 07/08/20 Loratadine 5 mg PO DAILY 07/08/20 Multivitamin with Minerals [Multiple Vitamin] 1 tab PO DAILY 07/08/20 Ropinirole HCl [Requip] 1 mg PO QHS 07/08/20 Zinc 50 mg PO DAILY 07/08/20 Dexamethasone [Decadron] 6 mg PO DAILY 3 Days tab 07/16/20 Following Prescriptions Were Given to Patient: Dexamethasone [Decadron] 6 mg PO DAILY 3 Days tab Prescription Printed Primary Care Physician: Tom Hernandez MD [Primary Care Provider] - Please follow up with your Primary Care Physician in: 1-2 weeks. Disposition: [facility] Care facility Minutes spent on discharge:: 32 Patient Condition:: Stable Medical Necessity - Tobacco Use Smoking Status: Unknown if ever smoked Tobacco Use: Non-smoker Meaningful Use Info Meaningful Use Diagnoses (Choose all that apply): None applicable Inpatient E&M: 36282 Disch Hosp
--- NOTE | 2020-07-16 12:57 | CASEMGMT ---
Social Work Pt ready for discharge today. SW spoke with Baylee at [facility] and they are able to accept pt today. Precert was denied and pt will return under intermediate care. Transportation arranged with [facility] for [facility] transport at 4:00. Orders faxed to [facility] and Baylee at [facility] notified of d/c time. Phone call to pt dgt Arianna and updated on d/c plan and she is agreeable. Nursing made aware of d/c time. FORREST Sam
--- NOTE | 2020-07-22 09:06 | NURSING ---
THIS NURSE CALLED AND SPOKE WITH PTS DAUGHTER DEAN. SHE IS AWARE OF THE RINGS LEFT HERE AND THAT SHE OR ONE OF HER SONS, CAN COME TO THE [employer] [facility] AND THEY WILL CALL US TO BRING THEM DOWN. SHE SAID IT MAY BE A WEEK OR SO.
== END 2020-07-16 18:40 | disposition skilled nursing facility (03) | DRG 177 ==
LOC: ED 15:27 → MS2 17:03
PROVIDERS: Internal Medicine; Internal Medicine Critical Care Medicine; Admitting Provider Internal Medicine; Emergency Provider Student in an Organized Health Care Education/Training Program; PCP Family Medicine; Visit Provider Hospitalist
DX: U07.1 COVID-19 (principal); J12.89 Other viral pneumonia; J96.21 Acute and chronic respiratory failure with hypoxia; G93.41 Metabolic encephalopathy; J96.22 Acute and chronic respiratory failure with hypercapnia; J44.0 Chronic obstructive pulmonary disease with (acute) lower respiratory infection; N18.4 Chronic kidney disease, stage 4 (severe); I50.32 Chronic diastolic (congestive) heart failure; N30.00 Acute cystitis without hematuria; I13.0 Hypertensive heart and chronic kidney disease with heart failure and stage 1 through stage 4 chronic kidney disease, or unspecified chronic kidney disease; D63.1 Anemia in chronic kidney disease; Z66 Do not resuscitate; I25.10 Atherosclerotic heart disease of native coronary artery without angina pectoris; E03.9 Hypothyroidism, unspecified; F32.9 Major depressive disorder, single episode, unspecified; G89.29 Other chronic pain; G62.9 Polyneuropathy, unspecified; Z87.891 Personal history of nicotine dependence; F41.9 Anxiety disorder, unspecified; B96.89 Other specified bacterial agents as the cause of diseases classified elsewhere
CPT/HCPCS: 36415; 36569; 36600; 51702; 71045; 80048; 80053; 81001; 82803; 82962; 83605; 83735; 83880; 84075; 84145; 84484; 85025; 85027; 85379; 86140; 87040; 87077; 87086; 87088; 87186; 93005; 94002; 94003; 94640; 97162; 97802; 99285; J7030; J7050; A4216; J1940

== ENCOUNTER → 2020-08-04 04:00 | Outpatient (REF) | payer MEDICARE, MEDICAID, SELFPAY ==
[2020-07-08 17:43] VITALS: BMI 32.8
[2020-08-04 07:05] LABS: Hematocrit 38.3 % (37-47); Hemoglobin 11.6 g/dL (12.0-15.0); Mean Corp Hgb Conc 30.3 g/dL (32-36); Mean Corpuscular Hgb 28.6 pg (27.0-32.0); Mean Corpuscular Volume 94.6 fL (81-99); Mean Platelet Vol. 10.1 fl (6.2-12.0); Platelet Count 175 K/mm3 (150-450); RBC Distribution Width CV 14.8 % (11.6-14.6); RBC Distribution Width SD 51.4 fl (35.1-43.9); Red Blood Count 4.05 M/mm3 (4.2-5.4); White Blood Count 7.7 K/mm3 (4.4-11.0)
[2020-08-04 07:33] LABS: Anion Gap 3 (5-15); BUN 31 mg/dL (7-18); BUN/Creat Ratio 32.3 RATIO (10-20); Calcium,Total 8.8 mg/dL (8.5-10.1); Chloride 104 mmol/L (98-107); Creatinine, Serum 0.96 mg/dL (0.55-1.02); EST Glomerular Filtration Rate 59 mL/min (>60); Est Glom Filt Rate - Afr Amer 71 mL/min (>60); Glucose 88 mg/dL (74-106); Potassium 4.2 mmol/L (3.5-5.1); Sodium Level 140 mmol/L (136-145)
== END ==
LOC: OLS.WHLEAS 04:00
PROVIDERS: PCP Family Medicine; Visit Provider Family Medicine
DX: J44.9 Chronic obstructive pulmonary disease, unspecified (principal); G93.40 Encephalopathy, unspecified; U07.1 COVID-19; J96.01 Acute respiratory failure with hypoxia; I50.32 Chronic diastolic (congestive) heart failure
CPT/HCPCS: 36415; 80048; 85027

== ENCOUNTER → 2020-08-27 05:00 | Outpatient (REF) | payer MEDICARE, MEDICAID, SELFPAY ==
[2020-07-08 17:43] VITALS: BMI 32.8
[2020-08-27 09:15] LABS: Hemoglobin 10.6 g/dL (12.0-15.0); Mean Corp Hgb Conc 31.2 g/dL (32-36); Mean Corpuscular Hgb 29.3 pg (27.0-32.0); Mean Corpuscular Volume 93.9 fL (81-99); Mean Platelet Vol. 9.3 fl (6.2-12.0); Platelet Count 375 K/mm3 (150-450); RBC Distribution Width CV 15.6 % (11.6-14.6); RBC Distribution Width SD 53.3 fl (35.1-43.9); Red Blood Count 3.62 M/mm3 (4.2-5.4); White Blood Count 8.9 K/mm3 (4.4-11.0)
[2020-08-27 09:33] LABS: Anion Gap 2 (5-15); BUN 32 mg/dL (7-18); BUN/Creat Ratio 25.4 RATIO (10-20); Calcium,Total 9.1 mg/dL (8.5-10.1); Chloride 103 mmol/L (98-107); Creatinine, Serum 1.26 mg/dL (0.55-1.02); EST Glomerular Filtration Rate 43 mL/min (>60); Est Glom Filt Rate - Afr Amer 52 mL/min (>60); Glucose 91 mg/dL (74-106); Potassium 4.1 mmol/L (3.5-5.1); Sodium Level 139 mmol/L (136-145); Thyroid Stim Hormone (TSH) 1.93 uIU/mL (0.358-3.74)
== END ==
LOC: OLS.WHLEAS 05:00
PROVIDERS: PCP Family Medicine; Visit Provider Family Medicine
DX: I13.0 Hypertensive heart and chronic kidney disease with heart failure and stage 1 through stage 4 chronic kidney disease, or unspecified chronic kidney disease (principal); N18.30 Chronic kidney disease, stage 3 unspecified; I50.32 Chronic diastolic (congestive) heart failure; J44.9 Chronic obstructive pulmonary disease, unspecified; E03.9 Hypothyroidism, unspecified
CPT/HCPCS: 36415; 80048; 84443; 85027

== ENCOUNTER 2020-10-20 07:45 | Day surgery (SDC) | payer MEDICARE, MEDICAID, SELFPAY ==
[2020-07-08 17:43] VITALS: BMI 32.8
[2020-10-20] VITALS (7 sets, daily range): BP systolic 132–154; BP diastolic 56–80; PULSE 58–67; RESP 14–16; TEMP 36.2–36.8; O2SAT 93–98; BMI 48.2
[2020-10-20] MEDS: Lactated Ringers 1,000 ML 100 ML IV (08:53)
--- NOTE | 2020-10-20 09:14 | RAD_ITS ---
PROCEDURE: Suprascapular nerve block. DATE OF EXAMINATION: 10/20/2020 INDICATION: Female, 84 years old. Chronic pain. FLUOROSCOPY TIME (if supplied): (7 seconds) minutes/seconds. 2 intraoperative images were obtained. Intraoperative imaging provided for right supra scapular nerve block. RAD/Fluoro Guided Needle Placement IMPRESSION: Intraoperative imaging provided for right supra scapular nerve block. Electronically Signed: Juan Iniguez MD at 10:44 EDT , Service support ,
[2020-10-20] MEDS: MethylPREDNISolone Acetate 40 MG/ML Vial IM (09:21)
[2020-10-20] MEDS: Lidocaine 1% (5 ml sdv) 5 ML Vial (09:21)
[2020-10-20] MEDS: Bupivacaine 0.25% 30 ML Vial (09:21)
--- NOTE | 2020-10-20 12:38 | OP.PCM_ITS ---
Report of Operation Date of Procedure: 10/20/20 Description of Surgical Findings:: PREOPERATIVE DIAGNOSIS: Osteoarthritis of the right shoulder. POSTOPERATIVE DIAGNOSIS: Osteoarthritis of the right shoulder. PROCEDURE PERFORMED: Right suprascapular nerve steroid injection under fluoroscopic guidance. ANESTHESIA: MAC. BLOOD LOSS: Minimal. COMPLICATIONS: None. DESCRIPTION OF PROCEDURE: History and physical of today was reviewed. Risks and benefits of the procedure were explained. The patient understood and agreed to proceed. Informed consent was obtained. IV inserted per routine protocol. The patient was taken to the operating room and placed in the prone position. The right shoulder area was prepped and draped in a sterile fashion using iodine x3. Under fluoroscopic guidance on AP view, the right shoulder joint was visualized. The skin and subcutaneous tissue was anesthetized with approximately 1 mL of 1% lidocaine using a 25-gauge regular needle at the vicin ity of the suprascapular notch. Under direct visualization with fluoroscopy on AP view, using a 22-gauge 3-1/2-inch spinal needle, the needle was advanced via the skin directed towards the suprascapular notch and directed towards the suprascapular nerve once the tip of the needle was at the vicinity the suprascapular nerve, after negative aspiration for blood, negative for air and after confirmation on AP as well as oblique view and repeated negative aspiration for blood, a total of 4 mL of preservative-free 0.25% Marcaine with 40 mg of Depo-Medrol was injected easily. The needle was then removed intact. The patient experienced no sign or symptoms of intravascular injection. The patient experienced no paresthesia. The procedure was completed without any apparent difficulty or any complications. The patient appeared to tolerate it well. Assessment and plan: This is an 84-year-old female with osteoarthritis of the right shoulder status post right suprascapular nerve steroid injection under fluoroscopic guidance, patient will continue her current medications, patient will follow in approximately 2 weeks for reevaluation.
== END 2020-10-20 10:56 | disposition home or self-care (01) ==
LOC: SDC 07:47 → AC 07:48
PROVIDERS: PCP Family Medicine; Referring Provider Anesthesiology Pain Medicine; Visit Provider Anesthesiology Pain Medicine
PROC: 3E0U3GC Introduction of Other Therapeutic Substance into Joints, Percutaneous Approach (ICD-10-PCS; CPT 20610; principal; 2020-10-20 09:15)
DX: M19.011 Primary osteoarthritis, right shoulder (principal); J44.9 Chronic obstructive pulmonary disease, unspecified; Z86.19 Personal history of other infectious and parasitic diseases; G25.81 Restless legs syndrome; N18.30 Chronic kidney disease, stage 3 unspecified; I13.0 Hypertensive heart and chronic kidney disease with heart failure and stage 1 through stage 4 chronic kidney disease, or unspecified chronic kidney disease; I50.9 Heart failure, unspecified; Z79.82 Long term (current) use of aspirin; Z79.899 Other long term (current) drug therapy; E03.9 Hypothyroidism, unspecified; Z87.891 Personal history of nicotine dependence; E55.9 Vitamin D deficiency, unspecified; M96.1 Postlaminectomy syndrome, not elsewhere classified; M48.062 Spinal stenosis, lumbar region with neurogenic claudication; M51.37 Other intervertebral disc degeneration, lumbosacral region; Z79.891 Long term (current) use of opiate analgesic; M17.12 Unilateral primary osteoarthritis, left knee
CPT/HCPCS: 20610; 76000; 77002; J7120

== ENCOUNTER → 2020-11-26 05:00 | Outpatient (REF) | payer MEDICARE, MEDICAID, SELFPAY ==
[2020-10-20 08:28] VITALS: BMI 48.2
[2020-11-26 08:59] LABS: Hematocrit 41.2 % (37-47); Hemoglobin 12.5 g/dL (12.0-15.0); Mean Corp Hgb Conc 30.3 g/dL (32-36); Mean Corpuscular Hgb 29.1 pg (27.0-32.0); Mean Corpuscular Volume 95.8 fL (81-99); Mean Platelet Vol. 9.5 fl (6.2-12.0); Platelet Count 381 K/mm3 (150-450); RBC Distribution Width CV 13.4 % (11.6-14.6); RBC Distribution Width SD 47.8 fl (35.1-43.9); White Blood Count 6.6 K/mm3 (4.4-11.0)
[2020-11-26 09:10] LABS: Anion Gap 3 (5-15); BUN 43 mg/dL (7-18); BUN/Creat Ratio 26.5 RATIO (10-20); Calcium,Total 9.8 mg/dL (8.5-10.1); Chloride 105 mmol/L (98-107); Creatinine, Serum 1.62 mg/dL (0.55-1.02); EST Glomerular Filtration Rate 32 mL/min (>60); Est Glom Filt Rate - Afr Amer 39 mL/min (>60); Glucose 99 mg/dL (74-106); Potassium 4.2 mmol/L (3.5-5.1); Sodium Level 140 mmol/L (136-145)
== END ==
LOC: OLS.WHLEAS 05:00
PROVIDERS: PCP Family Medicine; Referring Provider Family Medicine; Visit Provider Family Medicine
DX: I13.0 Hypertensive heart and chronic kidney disease with heart failure and stage 1 through stage 4 chronic kidney disease, or unspecified chronic kidney disease (principal); I50.32 Chronic diastolic (congestive) heart failure; N18.30 Chronic kidney disease, stage 3 unspecified; J44.9 Chronic obstructive pulmonary disease, unspecified
CPT/HCPCS: 36415; 80048; 85027

== ENCOUNTER 2020-12-08 09:11 | Day surgery (SDC) | payer MEDICARE, MEDICAID, SELFPAY ==
[2020-10-20 08:28] VITALS: BMI 48.2
[2020-12-08] VITALS (8 sets, daily range): BP systolic 130–153; BP diastolic 45–64; PULSE 47–61; RESP 16; TEMP 36.2–36.8; O2SAT 92–97; BMI 47.5
[2020-12-08] MEDS: Lactated Ringers 1,000 ML 100 ML IV (09:35)
--- NOTE | 2020-12-08 10:28 | RAD_ITS ---
STUDY: X-RAY - RIGHT SHOULDER REASON FOR EXAM: Right suprascapular nerve radiofrequency ablation. TECHNIQUE: 4 fluoroscopic images of the shoulder. COMPARISON: None. FINDINGS: There is a needle overlying the superior shoulder. Electronically Signed: Jw Sparks MD at 12:36 EDT Tel , Service support , RAD/Shoulder min 2 Views
[2020-12-08] MEDS: Lidocaine 1% (30 ml sdv) 30 ML Vial (10:38)
[2020-12-08] MEDS: Bupivacaine 0.25% 30 ML Vial (10:38)
[2020-12-08] MEDS: MethylPREDNISolone Acetate 40 MG/ML Vial IM (10:38)
--- NOTE | 2020-12-08 10:58 | PCM.OPRPT ---
Problems Associated Problem List Diagnoses (1) Primary osteoarthritis of right shoulder: Report of Operation Date of Procedure: 12/08/20 Pre-Operative Diagnosis: Osteoarthritis of the right shoulder Post-Operative Diagnosis: Osteoarthritis of the right shoulder Surgery/Procedure Performed:: Right-sided radiofrequency ablation of the suprascapular nerve under fluoroscopic guidance Type of Anesthesia: MAC Estimated Blood Loss (mL): minimal Description of Procedure: DESCRIPTION OF PROCEDURE: History and physical of today was reviewed. Risks and benefits of the procedure were explained. The patient understood and agreed to proceed. Informed consent was obtained. IV inserted per routine protocol. The patient was taken to the operating room and placed in the prone position. The right shoulder area was prepped and draped in a sterile fashion using iodine x3. Under fluoroscopic guidance on AP view, the right shoulder joint was visualized. The skin and subcutaneous tissue was anesthetized with approximately 5 mL of 1% lidocaine using a 25-gauge regular needle at the vicinity of the suprascapular notch. Under direct visualization with fluoroscopy on AP view, using a 22-gauge 10 cm with a 10 mm active curved radiofrequency ablation needle, the needle was advanced via the skin directed towards the suprascapular notch and directed towards the suprascapular nerve once the tip of the needle was at the vicinity the suprascapular nerve, after negative aspiration for blood, negative for air and after confirmation on AP as well as oblique view and repeated negative aspiration for blood, the radiofrequency ablation probe was then inserted under direct visual visualization with fluoroscopy impedance was then recorded to be 270 ohm motor evoked potential with then initiated to 1.5 V without any motor response the probe was then removed intact and a total of 1 cc of 1% lidocaine was then injected after repeated negative aspiration after repeated confirmation on AP as well as oblique view the radiofrequency ablation probe was then reinserted at the area and radiofrequency ablation was then initiated to 80 ?C for 90 seconds once completed the probe was then removed intact and a total of 4 mL of preservative-free 0.25% Marcaine with 40 mg of Depo-Medrol was injected easily. The needle was then removed intact. The patient experienced no sign or symptoms of intravascular injection. The patient experienced no paresthesia. The procedure was completed without any apparent difficulty or any complications. The patient appeared to tolerate it well. Assessment and plan: This is an 84-year-old female with osteoarthritis of the right shoulder status post right suprascapular nerve radiofrequency ablation under fluoroscopic guidance, patient will continue her current medications, patient will follow in approximately 2 weeks for reevaluation. Complications None
== END 2020-12-08 12:05 | disposition home or self-care (01) ==
LOC: SDC 09:12 → AC 09:13
PROVIDERS: Referring Provider Anesthesiology Pain Medicine; Visit Provider Anesthesiology Pain Medicine
PROC: (CPT 64640; principal; 2020-12-08 10:45)
DX: M19.011 Primary osteoarthritis, right shoulder (principal); J44.9 Chronic obstructive pulmonary disease, unspecified; E03.9 Hypothyroidism, unspecified; I50.9 Heart failure, unspecified; I13.0 Hypertensive heart and chronic kidney disease with heart failure and stage 1 through stage 4 chronic kidney disease, or unspecified chronic kidney disease; N18.30 Chronic kidney disease, stage 3 unspecified; Z79.899 Other long term (current) drug therapy; Z79.82 Long term (current) use of aspirin; Z86.14 Personal history of Methicillin resistant Staphylococcus aureus infection; Z87.891 Personal history of nicotine dependence; F32.9 Major depressive disorder, single episode, unspecified
CPT/HCPCS: 01991; 64640; 73030; 76000; J7120

== ENCOUNTER → 2021-02-25 05:00 | Outpatient (REF) | payer MEDICARE, MEDICAID, SELFPAY ==
[2020-12-08 09:55] VITALS: BMI 47.5
[2021-02-25 08:24] LABS: Hemoglobin 12.1 g/dL (12.0-15.0); Mean Corp Hgb Conc 30.3 g/dL (32-36); Mean Corpuscular Hgb 28.5 pg (27.0-32.0); Mean Corpuscular Volume 94.1 fL (81-99); Mean Platelet Vol. 9.4 fl (6.2-12.0); Platelet Count 330 K/mm3 (150-450); RBC Distribution Width CV 16.3 % (11.6-14.6); RBC Distribution Width SD 56.7 fl (35.1-43.9); Red Blood Count 4.25 M/mm3 (4.2-5.4); White Blood Count 6.3 K/mm3 (4.4-11.0)
[2021-02-25 08:47] LABS: Anion Gap 5 (5-15); BUN 33 mg/dL (7-18); BUN/Creat Ratio 21.2 RATIO (10-20); Calcium,Total 9.1 mg/dL (8.5-10.1); Chloride 106 mmol/L (98-107); Creatinine, Serum 1.56 mg/dL (0.55-1.02); EST Glomerular Filtration Rate 33 mL/min (>60); Est Glom Filt Rate - Afr Amer 41 mL/min (>60); Glucose 95 mg/dL (74-106); Potassium 3.9 mmol/L (3.5-5.1); Sodium Level 142 mmol/L (136-145); Thyroid Stim Hormone (TSH) 1.59 uIU/mL (0.358-3.74)
[2021-03-09 07:50] VITALS: BMI 46.4
== END ==
LOC: OLS.WHLEAS 05:00
PROVIDERS: Visit Provider Family Medicine
DX: J44.9 Chronic obstructive pulmonary disease, unspecified (principal); I50.32 Chronic diastolic (congestive) heart failure; M62.81 Muscle weakness (generalized); R26.2 Difficulty in walking, not elsewhere classified; I12.9 Hypertensive chronic kidney disease with stage 1 through stage 4 chronic kidney disease, or unspecified chronic kidney disease; N18.9 Chronic kidney disease, unspecified; E03.9 Hypothyroidism, unspecified
CPT/HCPCS: 36415; 80048; 84443; 85027

== ENCOUNTER 2021-03-09 07:30 | Day surgery (SDC) | payer MEDICARE, MEDICAID, SELFPAY ==
[2020-12-08 09:55] VITALS: BMI 47.5
[2021-03-09] VITALS (8 sets, daily range): BP systolic 117–175; BP diastolic 55–82; PULSE 59–93; RESP 16–18; TEMP 36.2–36.4; O2SAT 95–97; BMI 46.4
[2021-03-09] MEDS: Lactated Ringers 1,000 ML 100 ML IV (08:18)
--- NOTE | 2021-03-09 08:48 | RAD_ITS ---
PROCEDURE: IR FLUORO GUIDE INJECTION OF SPINE DATE OF EXAMINATION: 03/09/2021 INDICATION: Female, 85 years old. PHYSICIAN: Dr. Jaylen Mayen FLUOROSCOPY TIME (if supplied): (25) seconds, 4 fluoroscopic images were obtained. RADIATION DOSAGE (If Supplied By Facility): CTDIvol = ( ) mGy, DLP = ( ) mGycm CONSENT: The risks, benefits and alternatives to the procedure were explained to the patient, and the patient agreed to the procedure and signed the consent. SEDATION: under direction of Dr. Jaylen Mayen The procedure was performed with injection by Dr. JAYLEN ERICKSON and the images show needle placement along the lateral aspect of the cervical spine on the right. The procedure was completed to Dr. ERICKSON''s satisfaction. A timeout was performed to confirm the patient''s identity, the type of procedure, to be performed and the site of entry. RAD/Cerv Spine 4 or 5 Views IMPRESSION: A right-sided cervical nerve block was performed from C4 through C6 on the right. Electronically Signed: Tom Hidalgo DO at 7:49 EDT Tel , Service support ,
[2021-03-09] MEDS: MethylPREDNISolone Acetate 80 MG/ML Vial (08:58)
[2021-03-09] MEDS: Bupivacaine 0.25% 30 ML Vial (08:58)
--- NOTE | 2021-03-09 13:33 | OP.PCM_ITS ---
Report of Operation Date of Procedure: 03/09/21 Pre-Operative Diagnosis: Cervical spondylosis, cervical degenerative disc disea se, cervical facet arthropathy Post-Operative Diagnosis: Cervical spondylosis, cervical degenerative disc disease, cervical facet arthropathy Surgery/Procedure Performed:: Right-sided cervical medial branch block at C4, C5, C6, and C7 Type of Anesthesia: MAC Estimated Blood Loss (mL): Minimal Description of Procedure: DESCRIPTION OF PROCEDURE: History and physical of today was reviewed. Risks and benefits of the procedure were explained. The patient understood and agreed to proceed. Informed consent was obtained. IV inserted per routine protocol. The patient was taken to the operating room and placed in the prone position with a pillow positioned underneath the chest. The neck area was prepped and draped in a sterile fashion using iodine x3. Under fluoroscopy guidance on an AP view, the C4 through C7 vertebral bodies were visualized at approximately 10-degree angle, starting on the right C4, ending on the right C7, passing through the C5 and C6. Using a 25-gauge 3-1/2-inch spinal needle, the needle was advanced via the skin. The tip of the needle was maneuvered and directed towards the epiphyseal junction of each corresponding vertebra. Once the tip of the needle was at the vicinity of the medial branch, the needle was pulled approximately 2 mm off the bone. After negative aspiration of blood or CSF and confirmation on AP, oblique as well as lateral view, a total of 4 mL of preservative-free 0.25% Marcaine was injected in divided doses between those four levels. The needles were then removed intact. The patient experienced no sign or symptoms of intrathecal or intravascular injection. The patient experienced no paresthesia. The procedure was completed without any apparent difficulty or any complications. The patient appeared to tolerate it well. ASSESSMENT AND PLAN: This is a 85-year-old female with cervical spondylosis, cervical degenerative disc disease, cervical facet arthropathy status post right-sided cervical medial branch block at C4-C7, patient will continue her current medications, patient will follow in approximately 1 week for reevaluation. Complications None
== END 2021-03-09 10:28 | disposition home or self-care (01) ==
LOC: SDC 07:31 → AC 07:32
PROVIDERS: Referring Provider Anesthesiology Pain Medicine; Visit Provider Anesthesiology Pain Medicine
PROC: 3E0U3BZ Introduction of Anesthetic Agent into Joints, Percutaneous Approach (ICD-10-PCS; CPT 64490; principal; 2021-03-09 08:55)
DX: M47.812 Spondylosis without myelopathy or radiculopathy, cervical region (principal); M50.31 Other cervical disc degeneration, high cervical region; M46.92 Unspecified inflammatory spondylopathy, cervical region; I13.0 Hypertensive heart and chronic kidney disease with heart failure and stage 1 through stage 4 chronic kidney disease, or unspecified chronic kidney disease; I50.9 Heart failure, unspecified; N18.30 Chronic kidney disease, stage 3 unspecified; I42.9 Cardiomyopathy, unspecified; J44.9 Chronic obstructive pulmonary disease, unspecified; E03.9 Hypothyroidism, unspecified; E55.9 Vitamin D deficiency, unspecified; E53.8 Deficiency of other specified B group vitamins; Z79.82 Long term (current) use of aspirin; Z79.891 Long term (current) use of opiate analgesic; Z79.899 Other long term (current) drug therapy; Z87.891 Personal history of nicotine dependence
CPT/HCPCS: 64491; 64492; 64490; 72050; J7120

== ENCOUNTER → 2021-05-27 05:00 | Outpatient (REF) | payer MEDICARE, MEDICAID, SELFPAY ==
[2021-05-27 07:34] LABS: Hematocrit 39.8 % (37-47); Hemoglobin 12.2 g/dL (12.0-15.0); Mean Corp Hgb Conc 30.7 g/dL (32-36); Mean Corpuscular Hgb 29.7 pg (27.0-32.0); Mean Corpuscular Volume 96.8 fL (81-99); Mean Platelet Vol. 9.6 fl (6.2-12.0); Platelet Count 332 K/mm3 (150-450); RBC Distribution Width CV 14.4 % (11.6-14.6); RBC Distribution Width SD 51.3 fl (35.1-43.9); Red Blood Count 4.11 M/mm3 (4.2-5.4); White Blood Count 5.9 K/mm3 (4.4-11.0)
[2021-05-27 07:52] LABS: Anion Gap 4 (5-15); BUN 40 mg/dL (7-18); BUN/Creat Ratio 22.7 RATIO (10-20); Calcium,Total 9.2 mg/dL (8.5-10.1); Chloride 109 mmol/L (98-107); Creatinine, Serum 1.76 mg/dL (0.55-1.02); EST Glomerular Filtration Rate 29 mL/min (>60); Est Glom Filt Rate - Afr Amer 35 mL/min (>60); Glucose 92 mg/dL (74-106); Potassium 4.8 mmol/L (3.5-5.1); Sodium Level 141 mmol/L (136-145)
== END ==
LOC: OLS.WHLEAS 05:00
PROVIDERS: Visit Provider Family Medicine
DX: J44.9 Chronic obstructive pulmonary disease, unspecified (principal); I13.0 Hypertensive heart and chronic kidney disease with heart failure and stage 1 through stage 4 chronic kidney disease, or unspecified chronic kidney disease; I50.32 Chronic diastolic (congestive) heart failure; N18.9 Chronic kidney disease, unspecified; M62.81 Muscle weakness (generalized); R26.2 Difficulty in walking, not elsewhere classified
CPT/HCPCS: 36415; 80048; 85027

== ENCOUNTER 2021-08-10 07:16 | Day surgery (SDC) | payer MEDICARE, MEDICAID, SELFPAY ==
--- NOTE | 2021-08-06 17:02 | HP.PCM_ITS ---
History and Physical Date of Admission: 08/10/21 Chief Complaint: Pain in neck/shoulder, left leg in the left ankle and foot History of Present Illness: This is a 85 Y/O Female who was evaluated by our office today as a follow up. Pain: neck/shoulder, left leg,left ankle/foot Quality: constant (worse at night) Region: Pain in the right shoulder, right neck, left leg into the left ankle and foot Severity: buring,occasional sharp electrical jabs Timing: years Aggravated by: weather, sitting in wheelchair for long periods of time. Relieved by: injection,not moving Pain score (out of 10): 11/15 Other info: Patient is here for a follow up. Reports pain is starting to come back in shoulder and in her neck. Reports constant dull aching in lower back. Reports she still has some burning pain in the left leg ankle and foot and states it is more of a burning and gets occasional sharp electrical shocks.States the pain is worse at night. Patient reports pain in left knee. Pt states the pain that is interfering with her ADL's is her neck/ shoulder pain, is interested in repeating the injection she had done in March as it really helped to manage her pain. Review of Systems: Patient denies any recent fever, chills, headache, change in weight without trying, vision or hearing problems. No cp, pnd, orthopnea, or peripheral edema.They note no lumps or swollen glands, no new rashes, changing moles, or change in bowel or bladder function. Mood has been good overall. Past Medical History: h/o CHF h/o HTN h/o chronic kidney disease stage 3 h/o cardiomyopathy h/o hypothyroid h/o vitamin B12 deficiency h/o vitamin D deficiency h/o MRSA h/o depression h/o seizures s/p hysterectomy s/p Left ankle sx. X7 s/p back surgery x2 Family History: Family History: Adopted/NA ======== Structured Family History ======== Patient does not know family's health history Social History: Patient denies any tobacco use or recreational drug use. Denies alcohol consumption. Pipe Smoker: No Cigar Smoker: No Chewing Tobacco User: No] Living situation: Occupation: retired Tobacco: former smoker EtOH: denies Rec. drugs: denies [Tobacco: Former smoker (0.5 pk yrs / 61 yrs quit) Start Date: 02/24/2015 End Date: 02/24/2015 Pipe Smoker: No Cigar Smoker: No Chewing Tobacco User: No] Allergies: sulfa drug, morphine Medications: 1) acetaminophen 325 mg oral tablet, 2 tabs po q6 hrs prn 2) albuterol sulfate, 2 puffs every 2 hrs prn 3) Allergy (Loratadine) 10 mg oral tablet, Take 1 tablet by mouth every morning 4) amLODIPine 10 mg oral tablet, One tablet daily 5) aspirin 81 mg oral tablet, One tablet daily 6) Benadryl 25 mg oral capsule, Take 1 tablet by mouth every 6 hours prn 7) benzonatate 100 mg oral capsule, Take 1 tablet by mouth 3 Times a Day prn 8) Calcium 600+D oral tablet, Take 1 tablet by mouth every morning 9) Cymbalta 30 mg oral delayed release capsule, Take 1 tablet by mouth every morning 10) docusate sodium 100 mg oral capsule, One tablet daily prn 11) Dulcolax Laxative 10 mg rectal suppository, as directed prn 12) Ear Wax Removal 6.5% otic solution, 3 gtts effected ear qhs x3 days prn 13) fiber-lax tabs, 2 tabs po qday 14) furosemide 40 mg oral tablet, Take 1 tablet by mouth once daily 15) gabapentin 300 mg oral capsule, 1 PO BID 16) Jocelyne-Lanta oral suspension, 15 ml q4 hrs prn 17) hydrocortisone 1% topical cream, as directed tid prn 18) ipratropium 21 mcg/inh (0.03%) nasal spray, 1 spray each nostril q4 hrs prn 19) levothyroxine 100 mcg (0.1 mg) oral tablet, Take 1 tablet by mouth once daily 20) loratadine 10 mg oral tablet, Take 1 tablet by mouth once daily 21) Milk of Magnesia 8% oral suspension, as directed prn 22) Mucinex 600 mg oral tablet, extended release, Take 2 tablet by mouth 2 times a Day 23) Multiple Vitamins oral tablet, Take 1 tablet by mouth once daily 24) natural balance tears eyedrop, 2 gtts each eye qid prn 25) [place] 5 mg-325 mg oral tablet, 1 PO TID PRN pain. 26) nystatin 100,000 units/g topical cream, tid as directed 27) ProAir HFA 90 mcg/inh inhalation aerosol, 2 puffs every 4 hours prn 28) Proctosol-HC 2.5% rectal cream with applicator, as directed tid prn 29) PT Eval and Treat, Home Health Nursing for Admin and Discharge 30) PT to eval and treat 31) rOPINIRole 1 mg oral tablet, Take 1 tablet by mouth every evening 32) Senna 8.6 mg oral tablet, Take 1 tablet by mouth 2 times a Day 33) sodium phosphate 3 mmol/mL injectable solution, as directed prn 34) Vitamin D3 1000 intl units (25 mcg) oral tablet, Take 1 tablet by mouth every morning 35) Voltaren 1% topical gel, qid as directed 36) xray of left knee 37) xray of the lumbar spine, 3-4 views. Physical Examination: Ht/Ln: 57 in BP: 145/61 Pulse: 61 RR: 16 Temp: 97.3F Well nourished and well developed in no acute distress. Alert and oriented to person, place and time. Affect is normal and appropriate. Mucosa pink and moist. Respirations even and unlabored. Neck is supple without significant lymphadenopathy or thyromegaly. Abdomen soft & non-tender. No HSM or masses appreciated. Extremities show no cyanosis, clubbing, or edema. Pt is in a motorized wheel chair Decrease ROM of bilateral shoulders due to pain Pain elicited with light palpation of shoulders bilaterally Cervical paraspinal muscle tenderness Bilateral cervical facet loading is positive SLR is positive on the left. Motor and sensory exam is unchanged. 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 Reviewed her halfway medications. SOAPP score is 4 PEG was reviewed today. OARRS was reviewed today and compliant. UDS was reviewed and was compliant. Xray of shoulders bilaterally was reviewed with the pt today and they appear to understand Xray of the cervical spine was reviewed with the pt today and they appear to understand Life style modifications were also discussed today and the pt appears to understand. Weight loss was recommended today through diet and exercise. There are no signs of diversion or addiction with the pt, there is also no signs of abuse or misuse, continues to do well with their medications without any side effects, we will continue monitoring the pt closely. Risks and benefits of the above meds were discussed with the pt and they appear to understand. The common side effects of the medications were discussed and all of their que stions and concerns were answered and they appear to understand. Pt is to continue with her HEP. Pt has tried multiple modalities with no success, we will schedule the pt for a right cervical medial branch nerve block C4-C7 under fluoroscopy We have discussed the risks, benefits as well as alternatives of the procedure and the patient appears to understand and would like to proceed with the above plan. The above plan was discussed today with the pt in details and they appear to understand and agrees to continue with the plan.
[2021-08-10] VITALS (7 sets, daily range): BP systolic 155–186; BP diastolic 47–73; PULSE 59–62; RESP 16–20; TEMP 36.2–36.4; O2SAT 92–99; BMI 47.5
--- NOTE | 2021-08-10 08:00 | RAD_ITS ---
PROCEDURE: Left C4-C7 medial branch block. DATE OF EXAMINATION: 08/10/2021. INDICATION: Female, 85 years old. Chronic neck pain. FLUOROSCOPY TIME (if supplied): (10.6 seconds) minutes/seconds. 4 spot views were obtained. Intraoperative imaging provided for left C4-C7 medial branch block. RAD/Cerv Spine 4 or 5 Views IMPRESSION: Intraoperative imaging provided for left C4-C7 medial branch block. Electronically Signed: Juan Iniguez MD at 14:30 EST , Service support ,
[2021-08-10] MEDS: Lactated Ringers 1,000 ML 15 ML IV (08:21)
--- NOTE | 2021-08-10 09:48 | OP.PCM_ITS ---
Report of Operation Date of Procedure: 08/10/21 Pre-Operative Diagnosis: Cervical spondylosis, cervical degenerative disc disea se, cervical facet arthropathy Post-Operative Diagnosis: Cervical spondylosis, cervical degenerative disc disease, cervical facet arthropathy Surgery/Procedure Performed:: Left sided cervical medial branch block, C4, C5, C6, and C7. Type of Anesthesia: MAC Estimated Blood Loss (mL): Minimal Description of Procedure: DESCRIPTION OF PROCEDURE: History and physical of today was reviewed. Risks and benefits of the procedure were explained. The patient understood and agreed to proceed. Informed consent was obtained. IV inserted per routine protocol. The patient was taken to the operating room and placed in the prone position with a pillow positioned underneath the chest. The neck area was prepped and draped in a sterile fashion using iodine x3. Under fluoroscopy guidance on an AP view, the C4 through C7 vertebral bodies were visualized at approximately 10-degree angle, starting on the left C4, ending on the left C7, passing through the C5 and C6. Using a 25-gauge 3-1/2-inch spinal needle, the needle was advanced via the skin. The tip of the needle was maneuvered and directed towards the epiphyseal junction of each corresponding vertebra. Once the tip of the needle was at the vicinity of the medial branch, the needle was pulled approximately 2 mm off the bone. After negative aspiration of blood or CSF and confirmation on AP, oblique as well as lateral view, a total of 4 mL of preservative-free 0.25% Marcaine with 80 mg of Depo- Medrol was injected in divided doses between those four levels. The needles were then removed intact. The patient experienced no sign or symptoms of intrathecal or intravascular injection. The patient experienced no paresthesia. The procedure was completed without any apparent difficulty or any complications. The patient appeared to tolerate it well. ASSESSMENT AND PLAN: This is a 85-year-old female with cervical spondylosis, cervical degenerative disc disease, cervical facet arthropathy status post left-sided cervical medial branch block C4-C7, patient will continue her current medications, patient will follow in approximately 1 week for reevaluation. Complications None
== END 2021-08-10 23:59 | disposition home or self-care (01) ==
LOC: SDC 07:22 → AC 07:51
PROVIDERS: Referring Provider Anesthesiology Pain Medicine; Visit Provider Anesthesiology Pain Medicine
PROC: 3E0S3BZ Introduction of Anesthetic Agent into Epidural Space, Percutaneous Approach (ICD-10-PCS; CPT 62320; principal; 2021-08-10 08:35)
DX: M50.30 Other cervical disc degeneration, unspecified cervical region (principal); J44.9 Chronic obstructive pulmonary disease, unspecified; I13.0 Hypertensive heart and chronic kidney disease with heart failure and stage 1 through stage 4 chronic kidney disease, or unspecified chronic kidney disease; I50.9 Heart failure, unspecified; N18.30 Chronic kidney disease, stage 3 unspecified; M47.812 Spondylosis without myelopathy or radiculopathy, cervical region; M48.062 Spinal stenosis, lumbar region with neurogenic claudication; M48.02 Spinal stenosis, cervical region; M47.27 Other spondylosis with radiculopathy, lumbosacral region; Z87.891 Personal history of nicotine dependence; M19.012 Primary osteoarthritis, left shoulder; M96.1 Postlaminectomy syndrome, not elsewhere classified; F32.A Depression, unspecified; Z79.899 Other long term (current) drug therapy; Z79.82 Long term (current) use of aspirin; E03.9 Hypothyroidism, unspecified; Z79.890 Hormone replacement therapy; Z86.14 Personal history of Methicillin resistant Staphylococcus aureus infection; M12.9 Arthropathy, unspecified; M79.7 Fibromyalgia; Z79.891 Long term (current) use of opiate analgesic
CPT/HCPCS: 64490; 64492; 64491; 72050; J7120; J3490

== ENCOUNTER → 2021-08-26 | Outpatient (REF) | payer MEDICARE, MEDICAID, SELFPAY ==
[2021-08-26 08:50] LABS: Hematocrit 44.7 % (37-47); Hemoglobin 13.3 g/dL (12.0-15.0); Mean Corp Hgb Conc 29.8 g/dL (32-36); Mean Corpuscular Hgb 28.7 pg (27.0-32.0); Mean Corpuscular Volume 96.5 fL (81-99); Mean Platelet Vol. 9.8 fl (6.2-12.0); Platelet Count 344 K/mm3 (150-450); RBC Distribution Width CV 14.4 % (11.6-14.6); RBC Distribution Width SD 51.7 fl (35.1-43.9); Red Blood Count 4.63 M/mm3 (4.2-5.4); White Blood Count 6.4 K/mm3 (4.4-11.0)
[2021-08-26 09:17] LABS: Anion Gap 5 (5-15); BUN 49 mg/dL (7-18); Calcium,Total 9.2 mg/dL (8.5-10.1); Chloride 106 mmol/L (98-107); Creatinine, Serum 1.58 mg/dL (0.55-1.02); EST Glomerular Filtration Rate 33 mL/min (>60); Est Glom Filt Rate - Afr Amer 40 mL/min (>60); Glucose 89 mg/dL (74-106); Potassium 4.3 mmol/L (3.5-5.1); Sodium Level 142 mmol/L (136-145); Thyroid Stim Hormone (TSH) 1.44 uIU/mL (0.358-3.74)
== END | disposition home or self-care (01) ==
LOC: OLS.WHLEAS 05:00
PROVIDERS: Visit Provider Family Medicine
DX: J44.9 Chronic obstructive pulmonary disease, unspecified (principal); I50.32 Chronic diastolic (congestive) heart failure; M62.81 Muscle weakness (generalized); R26.2 Difficulty in walking, not elsewhere classified; I12.9 Hypertensive chronic kidney disease with stage 1 through stage 4 chronic kidney disease, or unspecified chronic kidney disease; E03.9 Hypothyroidism, unspecified; N18.9 Chronic kidney disease, unspecified
CPT/HCPCS: 36415; 80048; 84443; 85027

== ENCOUNTER 2021-08-31 14:58 | Inpatient (IN) | payer MEDICARE, MEDICAID, SELFPAY ==
[2021-08-31] VITALS (8 sets, daily range): BP systolic 160–211; BP diastolic 62–80; PULSE 65–77; RESP 12–19; TEMP 36.3–36.4; O2SAT 90–99; BMI 48.5; BMI 45.9
--- NOTE | 2021-08-31 15:34 | EKG12_ITS ---
Test Reason : WEAKNESS Blood Pressure : / mmHG Vent. Rate : 070 BPM Atrial Rate : 070 BPM P-R Int : 124 ms QRS Dur : 106 ms QT Int : 408 ms P-R-T Axes : 043 -28 132 degrees QTc Int : 440 ms Somatic/Motion Artifact Normal sinus rhythm Incomplete left bundle branch block Abnormal ECG Confirmed by DOROTHY IBARRA, ROLAND ([id number]), visual effects editor SHABANA IZQUIERDO ([id number]) on 09/02/2021 9:14:46 AM Referred By: TL Confirmed By:ROLAND DE LA CRUZ MD
--- NOTE | 2021-08-31 15:37 | EDS_ITS ---
HPI History of Present Illness Chief Complaint: Weakness Informant: patient and EMS Narrative Narrative: Sent in by EMS from [facility] for increasing confusion and hypoxia. Patient was 86% on room air responded to 2 L nasal cannula. History of CHF. Denies sleep apnea history. However patient is slightly confused. She reports she has been feeling sick for the past few days states had vomiting starting 3 days ago last emesis was yesterday. Denies hematemesis. Today reports large amount of diarrhea nonbloody. Reports headache symptoms. Denies any changes in loss of taste or smell. She reports she had Covid when it first started back in 2019. Reporting not vaccinated. States there has been exposures. She reports coughing today. She arrived 90% on room air. Reviewing records apparently has had acute respiratory with hypoxia and hypercapnia in the past. Also from EMS report noted there was a Covid testing done at the facility today and was negative. Prior similar symptoms: Yes [facility] Medical History (Updated 08/31/21 @ 19:[address] Serene Ribeiro, DO) Anemia in chronic kidney disease Chronic pain of left knee CKD (chronic kidney disease) stage 3, GFR 30-59 ml/min Congestive heart failure (CHF) COPD (chronic obstructive pulmonary disease) COVID-19 virus infection Degeneration of intervertebral disc of lumbosacral region Depression Failed back surgical syndrome HTN (hypertension) Hypothyroidism Hypothyroidism Kidney disease Neuropathy Primary osteoarthritis of right shoulder Radiculopathy of lumbosacral region Spinal stenosis of lumbosacral region Tremor Unilateral primary osteoarthritis, left knee Home Medications aspirin 81 mg PO DAILY@0800 05/15/16 [History Last Taken 08/31/21] guaifenesin [Mucus Relief ER] 600 mg PO BID 09/08/17 [History Last Taken 08/31/21] albuterol sulfate [Ventolin HFA] 2 puff INHALATION Q2H PRN 11/01/18 [History Last Taken Unknown] amlodipine 10 mg PO DAILY 07/08/20 [History Last Taken 08/31/21] gabapentin 600 mg PO QHS 07/08/20 [History Last Taken 08/30/21] loratadine 5 mg PO DAILY 07/08/20 [History Last Taken 08/31/21] baclofen 10 mg PO QHS 08/31/21 [History Last Taken 08/30/21] diclofenac sodium 1 g TOPICAL TID 08/31/21 [History Last Taken 08/31/21] duloxetine [Cymbalta] 30 mg PO DAILY 08/31/21 [History Last Taken 08/31/21] furosemide 60 mg PO DAILY 08/31/21 [History Last Taken 08/31/21] hydrocodone-acetaminophen 1 tab PO TID 08/31/21 [History Last Taken 08/31/21] ropinirole 1 mg PO QHS 08/31/21 [History Last Taken 08/30/21] sennosides-docusate sodium [Senexon-S] 1 tab PO BID 08/31/21 [History Last Taken 08/31/21] Allergy/AdvReac Type Severity Reaction Status Date / Time Sulfa (Sulfonamide Allergy Hives Verified 08/31/21 15:02 Antibiotics) morphine AdvReac confusion-difficult Verified 08/31/21 15:02 to wean off Surgical History (Updated 08/31/21 @ 18:[address] Serene Ribeiro DO) H/O: hysterectomy History of ankle surgery Previous back surgery Social History (Updated 08/31/21 @ 19:[address] Serene Ribeiro DO) Smoking Status: Former smoker pack-years: 30 substance use type: does not use ROS ROS ED Constitutional Constitutional ED: Denies chills, fever(s) or sweats Eyes Eyes: Denies change in vision ENT ENT ED: Denies dysphagia or sore throat Cardiovascular Cardiovascular: Denies chest pain, leg edema, palpitations or racing heartbeat Respiratory/Chest Respiratory/Chest: Reports cough; Denies dyspnea or dyspnea on exertion Gastrointestinal Gastrointestinal: Reports diarrhea and vomiting; Denies abdominal pain or nausea Genitourinary Genitourinary ED: Denies dysuria, hematuria or urinary frequency Musculoskeletal Musculoskeletal: Denies back pain, extremity pain or neck pain Integumentary Denies rash or wounds Neurologic Neurologic: Reports headache(s); Denies paresthesias or weakness EXAM Physical Exam Const Vital Signs: 08/31/21 15:00 08/31/21 16:14 08/31/21 16:21 Temperature 97.5 F L Temperature Source Temporal Pulse Rate 68 Respiratory Rate 14 Respiratory Pattern Normal Blood Pressure 160/75 H Blood Pressure Mean 103 Pulse Ox 90 98 Oxygen Delivery Method Room Air Nasal Cannula Oxygen Flow Rate (L/min) 2 Fraction of Inspired Oxygen (FIO2) 08/31/21 18:16 Temperature Temperature Source Pulse Rate 67 Respiratory Rate 19 H Respiratory Pattern Blood Pressure 211/78 H Blood Pressure Mean 122 Pulse Ox 98 Oxygen Delivery Method Nasal Cannula Oxygen Flow Rate (L/min) Fraction of Inspired Oxygen (FIO2) 2 Positive well nourished and well developed Constitutional Narrative: Patient is alert and oriented x3 however would be somnolent during evaluation and waking to command. However would have mixup in answering questions about location where she came from. She would respond with [facility]. General Appearance ED: well developed HEENT Reports moist mucous membranes normocephalic and atraumatic Eyes PERRL, EOMs intact bilaterally and conjunctivae normal General Eye ED: Yes normal appearance of both eyes Neck no lymphadenopathy and supple General: Negative for tenderness Chest Wall Chest: Negative for tenderness Resp normal respiratory effort and normal air movement Effort and Inspection: symmetric chest movement; Negative for respiratory distress Cardio regular rate, regular rhythm and no murmurs Peripheral Pulses: pulses 2+ throughout GI normal to inspection, nondistended, normoactive bowel sounds and non-tender Palpation: Negative for guarding or rebound tenderness present Back/Spine no CVA tenderness and no thoracic nor lumbar tenderness Extremity normal to inspection General Extremety ED: Negative for edema or tenderness General Extremity: Negative for edema Neuro oriented x3 and no sensory deficits noted Sensorium / Orientation: awake and alert Skin no rashes or lesions noted and no wounds MDM MDM MDM Narrative Medical decision making narrative: Patient afebrile, stable on 2 L of oxygen. She is in no respiratory distress. With her somnolence and COPD history, ABG was obtained and her PaCO2 was 63. This appears to be her baseline from previous blood gases. Laboratory work noted white count of 20.6, elevated neutrophils. Chest x-ray concerns for perihilar infiltrates, urine cath also positive for infection. Urine culture sent. Patient 1 out of 4 SIRS criteria with a leukocytosis. Patient nondialysis patient, she is from nursing facility, she was low risk for Pseudomonas concerns therefore she was covered Rocephin and Zithromax for community-acquired pneumonia. Creatinine 1.8 up from 1.5, patient mild confusion likely from her infection. She has no focal neurological deficits. Her blood pressure was elevated persistently in the 200s, a dose of hydralazine was ordered. I spoke with hospitalist Dr. Ribeiro, requested adding blood cultures, lactic acid was added. She will be covered more broadly in the hospital with her leukocytosis. Covid testing returned negative. Patient will be admitted to PCU. Lab Data Attestation: I reviewed the patient's lab results. Labs: Laboratory Results - last 24 hr 08/31/21 08/31/21 08/31/21 15:57 15:57 16:15 WBC 20.6 H RBC 4.64 Hgb 13.4 Hct 44.0 MCV 94.8 MCH 28.9 MCHC 30.5 L RDW Std Deviation 52.8 H RDW Coeff of Teo 14.9 H Plt Count 303 MPV 10.2 Immature Gran % (Auto) 0.500 Neut % (Auto) 87.8 H Lymph % (Auto) 3.9 L [place] % (Auto) 7.2 Eos % (Auto) 0.2 Baso % (Auto) 0.4 Absolute Neuts (auto) 18.1 H Absolute Lymphs (auto) 0.80 L Nucleated RBC % 0 Sodium 144 Potassium 5.0 Chloride 109 H Carbon Dioxide 30.0 Anion Gap 5 BUN 49 H Creatinine 1.81 H Estim Creat Clear Calc 38.43 Est GFR (MDRD) Af Amer 34 L Est GFR (MDRD) Non-Af 28 L BUN/Creatinine Ratio 27.1 H Glucose 124 H Calcium 9.4 Total Bilirubin 0.70 AST 33 ALT 38 Alkaline Phosphatase 118 H Total Protein 7.0 Albumin 2.8 L Globulin 4.2 Albumin/Globulin Ratio 0.7 L Urine Color Yellow Urine Clarity Cloudy Urine pH 7.0 Ur Specific [place] 1.015 Urine Protein 100 H Urine Glucose (UA) Normal Urine Ketones 5 H Urine Occult Blood 150 H Urine Nitrite Negative Urine Bilirubin Negative Urine Urobilinogen Normal Ur Leukocyte Esterase 500 H Urine RBC 0 SEEN Urine WBC >100 SEEN Ur Squamous Epith Cells 0-5 SEEN Urine Bacteria 4+ Urine Mucus 0 SEEN ABG Data ABG results: ABG 08/31/21 16:06 Specimen Type ART Sample Site L Radial pH 7.31 L Bicarbonate Actual 32.1 H Total CO2 34 Base Excess 6 H O2 Saturation 93 L ABG pCO2 63.7 H ABG pO2 76 Harshad Test Positive O2 Delivery Device Cannula Liter Flow 2.0 Radiography Chest X-Ray - ED: 1 View, Read by ED Physician and Read by Radiologist Diagnostic Testing: Clinical Impression(s) from Imaging Studies Chest X-Ray 08/31/21 16:38 IMPRESSION: Mild left perihilar and right basilar infection or inflammation. at 1658 Reported and signed by: Mildred Pan MD Electronically Signed: Mildred Pan MD at 16:57 EST Tel , Service support , EKG Initial EKG: Attestation: I personally reviewed and interpreted this EKG as follows: Comments: Sinus rate of 70, no ST changes. T wave inversions extreme lateral leads. Interventricular delay. Artifact noted baseline. Discharge Plan Dx/Rx/DC Orders Clinical Impression: Pneumonia, Acute UTI, Encephalopathy acute, ALEJANDRO (acute kidney injury), Hypoxia Disposition Disposition: Acute Care Hospital [facility] Discharge Date/Time: 08/31/21 18:53
[2021-08-31 16:10] LABS: Allen Test Positive; Base Excess 6 mmol/L (-2 to +2); Bicarbonate 32.1 mmol/L (22-26); Blood Gas Specimen Type ART; O2 Delivery Device Cannula; PO2 76 mmHG (75-100); SITE L Radial; SO2 93 % (95-99); Total Carbon Dioxide 34 mmol/L; pCO2 63.7 mmHg (35-45); pH 7.31 (7.35-7.45)
[2021-08-31 16:18] LABS: Mucous, Urine 0 SEEN /hpf (<or=2+); Red Blood Cells-Urine 0 SEEN /hpf (0-5)
--- NOTE | 2021-08-31 16:38 | RAD_ITS ---
HISTORY: cough. TECHNIQUE: XR Chest 1 View. # of images incl. paperwork: 2. COMPARISON: 07/08/2020. FINDINGS: CARDIOMEDIASTINAL STRUCTURES: Cardiac silhouette enlarged. Mediastinal contour unchanged with calcification of the aorta. LUNGS: Low lung volumes with mild left perihilar and right basilar opacities. PLEURA: No pleural effusion or pneumothorax. OSSEOUS STRUCTURES: Bilateral shoulder arthritis. RAD/Chest 1 View (Portable) IMPRESSION: Mild left perihilar and right basilar infection or inflammation. at 1658 Reported and signed by: Mildred Pan MD Electronically Signed: Mildred Pan MD at 16:57 EST Tel , Service support ,
[2021-08-31 16:41] LABS: Absolute Neutrophil Count 18.1 X10^3/uL (2.0-7.7); Basophil# 0.08 X10^3/uL; Basophil% 0.4 % (0-1); Eosinophil# 0.04 X10^3/uL; Eosinophils% 0.2 % (0-5); Hemoglobin 13.4 g/dL (12.0-15.0); Lymphocyte % 3.9 % (19-41); Mean Corp Hgb Conc 30.5 g/dL (32-36); Mean Corpuscular Hgb 28.9 pg (27.0-32.0); Mean Corpuscular Volume 94.8 fL (81-99); Mean Platelet Vol. 10.2 fl (6.2-12.0); Monocyte# 1.48 X10^3/uL; Monocyte% 7.2 % (0-10); NRBC Flagged by Analyzer 0 % (0-5); Neutrophil # 18.12 X10^3/uL (2.7-7.7); Neutrophil % 87.8 % (47-70); Platelet Count 303 K/mm3 (150-450); RBC Distribution Width CV 14.9 % (11.6-14.6); RBC Distribution Width SD 52.8 fl (35.1-43.9); Red Blood Count 4.64 M/mm3 (4.2-5.4); White Blood Count 20.6 K/mm3 (4.4-11.0)
[2021-08-31 16:44] LABS: ALB/GLOB Ratio 0.7 RATIO (0.9-2.4); AST(SGOT) 33 U/L (15-37); Alanine Aminotransfer ALT/SGPT 38 U/L (13-56); Albumin, Serum 2.8 g/dL (3.2-5.0); Alkaline Phosphatase 118 U/L (45-117); Anion Gap 5 (5-15); BUN 49 mg/dL (7-18); BUN/Creat Ratio 27.1 RATIO (10-20); Calcium,Total 9.4 mg/dL (8.5-10.1); Chloride 109 mmol/L (98-107); Creatinine, Serum 1.81 mg/dL (0.55-1.02); EST Glomerular Filtration Rate 28 mL/min (>60); Est Glom Filt Rate - Afr Amer 34 mL/min (>60); Estimated Creatinine Clearance 38.43 ml/min; Globulin 4.2 g/dL (2.2-4.2); Glucose 124 mg/dL (74-106); Sodium Level 144 mmol/L (136-145)
[2021-08-31 17:00] LABS: Color, Urine Yellow (Yellow); Glucose, Dipstick Normal (Normal); Ketone-Dipstick 5 mg/dl (Negative); Leukocyte Esterase-Dipstick 500 /ul (Negative); Nitrite-Dipstick Negative (Negative); Occult Blood-Urine 150 /ul (Negative); Protein-Dipstick 100 mg/dl (Negative); Specific Gravity, Urine 1.015 (1.002-1.030); Urine Bilirubin Dipstick Negative (Negative); Urine Clarity Cloudy (Clear); Urine Urobilinogen Normal (Normal)
[2021-08-31 17:22] LABS: Bacteria 4+ /hpf (None Seen); Squamous Epithelial Cells - UA 0-5 SEEN /hpf (5-10); White Blood Cells >100 SEEN /hpf (0-5)
[2021-08-31] MEDS: Ceftriaxone 1 GM/50 ML BAG IV (17:56)
--- NOTE | 2021-08-31 18:22 | PCM.HP.STD ---
HPI - General General Date of Admission: 08/31/21 Date of Service: 08/31/21 Chief Complaint: Confusion/hypoxia HPI Narrative KAILASH GILES, is a 85 F who presented to the emergency department [facility] on 08/31/2021 from [facility] the [facility] at which she resides, by EMS for confusion and hypoxia. The patient was found to be 86% on room air at the nursing facility and having some slight confusion and therefore the squad was called. The patient is somnolent but does awaken and is alert and oriented x3 and is able to give somewhat of a history. She indicates she started feeling poorly 3 to 4 days ago. She had some vomiting 3 days ago with her last emesis being yesterday. She states she had 1 large bowel movement today that was loose in nature but denies any abdominal pain, however upon my exam with palpation she had diffuse abdominal tenderness. The stool was nonbloody in nature. She complains of chills but no documented fever. She had Covid back in 2019 and has not been vaccinated. She was tested for Covid today at the facility and it was negative. She complains of some mild dysuria with intermittent cough that is predominantly nonproductive and some shortness of breath. She denies any chest pain. We do have documentation from the facility that notes that she is a DNR CCA with no intubation. In the emergency department she was afebrile with a heart rate of 59, elevated blood pressures, normal respiratory rate, but she was hypoxic at 90% on room air which easily corrected when placed on 2 L nasal cannula. Her CBC shows a marked white count elevation at 20.6 and a left shift. Her CMP shows normal electrolytes however her potassium is borderline at 5.0. An elevated BUN and creatinine are noted however they seem to be close to her baseline at 49 and 1.81. It appears her baseline serum creatinine is 1.55-1.7. Her LFTs are within normal limits. Lactic acid is pending on admission. A UA was performed and shows leukoesterase, white blood cells and 4+ bacteria. Given her somnolence and her hypoxia an ABG was performed and showed a pH of 7.31/PCO2 of 63.7 and a PO2 of 76 mmHg on 2 L nasal cannula. Her chest x-ray shows of mild left perihilar and right basilar infiltrate. Her EKG did not show any signs of ST-T wave changes consistent with acute ischemia. In the emergency department she was treated with IV fluids and antibiotics as well as IV medication for her blood pressure and request for admission was made. [facility] Medical History (Updated 08/31/21 @ 19:[address] Serene Ribeiro DO) Anemia in chronic kidney disease Chronic pain of left knee CKD (chronic kidney disease) stage 3, GFR 30-59 ml/min Congestive heart failure (CHF) COPD (chronic obstructive pulmonary disease) COVID-19 virus infection Degeneration of intervertebral disc of lumbosacral region Depression Failed back surgical syndrome HTN (hypertension) Hypothyroidism Hypothyroidism Kidney disease Neuropathy Primary osteoarthritis of right shoulder Radiculopathy of lumbosacral region Spinal stenosis of lumbosacral region Tremor Unilateral primary osteoarthritis, left knee Home Medications aspirin 81 mg PO DAILY@0800 05/15/16 [History Last Taken 07/08/20 08:00] guaifenesin [Mucus Relief ER] 600 mg PO BID 09/08/17 [History Last Taken 07/08/20 08:00] albuterol sulfate [Ventolin HFA] 2 puff INHALATION Q2H PRN 11/01/18 [History Last Taken Unknown] amlodipine 10 mg PO DAILY 07/08/20 [History Last Taken 03/09/21] gabapentin 300 mg PO BID 07/08/20 [History Last Taken 07/08/20 08:00] loratadine 5 mg PO DAILY 07/08/20 [History Last Taken 07/08/20 08:00] baclofen 10 mg PO QHS 08/31/21 [History Last Taken 08/30/21] diclofenac sodium 1 g TOPICAL TID 08/31/21 [History Last Taken 08/31/21] duloxetine [Cymbalta] 30 mg PO DAILY 08/31/21 [History Last Taken 08/31/21] furosemide 60 mg PO DAILY 08/31/21 [History Last Taken 08/31/21] hydrocodone-acetaminophen 1 tab PO TID 08/31/21 [History Last Taken 08/31/21] ropinirole 1 mg PO QHS 08/31/21 [History Last Taken 08/30/21] sennosides-docusate sodium [Senexon-S] 1 tab PO BID 08/31/21 [History Last Taken 08/31/21] Allergy/AdvReac Type Severity Reaction Status Date / Time Sulfa (Sulfonamide Allergy Hives Verified 08/31/21 15:02 Antibiotics) morphine AdvReac confusion-difficult Verified 08/31/21 15:02 to wean off adopted Surgical History (Updated 08/31/21 @ 18:[address] Serene Ribeiro, DO) H/O: hysterectomy History of ankle surgery Previous back surgery Social History (Updated 08/31/21 @ 19:[address] Serene Ribeiro, DO) Smoking Status: Former smoker pack-years: 30 substance use type: does not use ROS ROS Narrative Difficult due to encephalopathy Constitutional Constitutional: Reports chills, fatigue, malaise and weakness Eyes Eyes: Denies blurry vision, change in eye color, change in vision, discharge from eye(s), double vision, erythema, eye pain, loss of vision or other ENT HEENT: Denies abnormal hearing, dysphagia, ear pain, epistaxis, headache(s), hearing loss, nasal congestion, nasal discharge, post nasal drip, sinus pressure, sore throat or other Cardiovascular Cardiovascular: Reports dyspnea on exertion; Denies chest pain, claudication, edema, lightheadedness, orthopnea, palpitations, paroxysmal nocturnal dyspnea, rapid heart rate, syncope or other Respiratory/Chest Respiratory/Chest: Reports cough, dyspnea, shortness of breath at rest and shortness of breath with exertion; Denies excessive phlegm production, hemoptysis, productive cough, wheezing or other Gastrointestinal Gastrointestinal: Reports abdominal pain and diarrhea; Denies coffee ground emesis, constipation, dyspepsia, hematemesis, hematochezia, loose stools, melena, nausea, vomiting or other Genitourinary Genitourinary: Reports burning urination, dysuria and urinary frequency; Denies difficulty urinating, hematuria, nocturia, urinary hesitancy, urinary incontinence, urinary urgency or other Musculoskeletal Musculoskeletal: Reports back pain, joint pain, joint stiffness and neck pain; Denies arthralgias, joint swelling, myalgias or other Neurologic Neurologic: Reports abnormal gait and confusion; Denies abnormal speech, disequilibrium, dizziness, focal weakness, headache(s), numbness, paresthesias, seizure-like activity, seizures, syncope, tingling, tremor(s) or other Psychiatric Psychiatric: Reports depression; Denies anxiety, homicidal ideation, suicidal ideation or other Endocrine Endocrinology: Denies change in body appearance, cold intolerance, excessive sweating, heat intolerance, polydipsia, polyuria or other Hematologic/Lymphatic Hematologic/Lymphatic: Denies anemia, easy bleeding, easy bruising, lymphadenopathy or other Allergic/Immunologic Allergic/Immunologic: Denies rhinitis, hives, eczemia, asthma or other Vital Signs Vital Signs Vital Signs: 08/31/21 15:00 08/31/21 16:14 08/31/21 16:21 Temperature 97.5 F L Temperature Source Temporal Pulse Rate 68 Respiratory Rate 14 Respiratory Pattern Normal Blood Pressure 160/75 H Blood Pressure Mean 103 Pulse Ox 90 98 Oxygen Delivery Method Room Air Nasal Cannula Oxygen Flow Rate (L/min) 2 Fraction of Inspired Oxygen (FIO2) 08/31/21 18:16 Temperature Temperature Source Pulse Rate 67 Respiratory Rate 19 H Respiratory Pattern Blood Pressure 211/78 H Blood Pressure Mean 122 Pulse Ox 98 Oxygen Delivery Method Nasal Cannula Oxygen Flow Rate (L/min) Fraction of Inspired Oxygen (FIO2) 2 Weight Weight: 109.1 kg Body Mass Index (BMI) 48.5 Physical Exam Const alert, oriented x3 and well nourished Constitutional Narrative: Morbidly obese white female, patient is alert and oriented however she is fairly somnolent and needs to be awakened consistently to tactile stimulus, appears ill but nontoxic, patient does follow all commands General Appearance: cooperative HEENT normocephalic, head/scalp atraumatic and moist oral mucous membranes HEENT Narrative: Mallampati 3-4, edentulous, no thrush, hard of hearing Eyes PERRL, EOMs intact bilaterally and conjunctivae normal Eyes Narrative: No scleral icterus Neck Neck Narrative: Neck is short and thick, trachea midline, no thyroid enlargement noted Resp normal respiratory effort, no retractions, no use of accessory muscles and clear to auscultation bilaterally Resp Narrative: Diffusely diminished but clear Auscultation: Negative for crackles, rales, rhonchi or wheezes Cardio regular rate, regular rhythm, S1 normal heart sound, S2 normal heart sound, no murmurs, no rub, no gallops, no clicks and no JVD Cardio Narrative: Distant auscultation secondary to body habitus GI normal to inspection, nondistended, normoactive bowel sounds, soft to palpation and non-distended Palpation: tender other (Mild diffuse tenderness) Extremity no clubbing, cyanosis or edema Extremity Narrative: Decreased mobility at bilateral shoulders secondary to pain Peripheral Pulses: Yes pulses 2+ throughout Skin no rashes or lesions noted, no wounds, skin turgor normal, no jaundice, no petechiae and no mottling Neuro oriented x3, CN's II-XII intact bilaterally, moves all extremities and no focal motor deficits Neuro Narrative: Sleepy but awakens with tactile stimulus or loud verbal stimulus Sensorium / Orientation: oriented to person, oriented to place and oriented to time Speech: speech normal Psych affect normal Results Lab / Micro Data Attestation: I reviewed the patient's lab results. Result Diagrams: 08/31/21 15:57 08/31/21 15:57 Labs: Laboratory Results - last 24 hr 08/31/21 15:57: WBC 20.6 H, RBC 4.64, Hgb 13.4, Hct 44.0, MCV 94.8, MCH 28.9, MCHC 30.5 L, RDW Std Deviation 52.8 H, RDW Coeff of Teo 14.9 H, Plt Count 303, MPV 10.2, Immature Gran % (Auto) 0.500, Neut % (Auto) 87.8 H, Lymph % (Auto) 3.9 L, Mathews % (Auto) 7.2, Eos % (Auto) 0.2, Baso % (Auto) 0.4, Absolute Neuts (auto) 18.1 H, Absolute Lymphs (auto) 0.80 L, Nucleated RBC % 0 08/31/21 15:57: Sodium 144, Potassium 5.0, Chloride 109 H, Carbon Dioxide 30.0, Anion Gap 5, BUN 49 H, Creatinine 1.81 H, Estim Creat Clear Calc 38.43, Est GFR (MDRD) Af Amer 34 L, Est GFR (MDRD) Non-Af 28 L, BUN/Creatinine Ratio 27.1 H, Glucose 124 H, Calcium 9.4, Total Bilirubin 0.70, AST 33, ALT 38, Alkaline Phosphatase 118 H, Total Protein 7.0, Albumin 2.8 L, Globulin 4.2, Albumin/Globulin Ratio 0.7 L 08/31/21 16:15: Urine Color Yellow, Urine Clarity Cloudy, Urine pH 7.0, Ur Specific Slovan 1.015, Urine Protein 100 H, Urine Glucose (UA) Normal, Urine Ketones 5 H, Urine Occult Blood 150 H, Urine Nitrite Negative, Urine Bilirubin Negative, Urine Urobilinogen Normal, Ur Leukocyte Esterase 500 H, Urine RBC 0 SEEN, Urine WBC >100 SEEN, Ur Squamous Epith Cells 0-5 SEEN, Urine Bacteria 4+, Urine Mucus 0 SEEN Micro: Microbiology 08/31/21 15:40 Nasal Secretion SARS-CoV-2 Antigen (Rapid) - Final ABG Data ABG results: ABG 08/31/21 16:06 Specimen Type ART Sample Site L Radial pH 7.31 L Bicarbonate Actual 32.1 H Total CO2 34 Base Excess 6 H O2 Saturation 93 L ABG pCO2 63.7 H ABG pO2 76 Harshad Test Positive O2 Delivery Device Cannula Liter Flow 2.0 Radiology Impression Chest X-Ray 08/31/21 16:38 IMPRESSION: Mild left perihilar and right basilar infection or inflammation. at 1658 Reported and signed by: Mildred Pan MD Electronically Signed: Mildred Pan MD at 16:57 EST Tel , Service support , Assessment & Plan Assessment/Plan (1) Acute UTI: (2) Pneumonia: (3) Encephalopathy acute: (4) Acute on chronic respiratory failure with hypoxia and hypercapnia: (5) Hypoxia: PLAN: Acute hypoxic and acute on chronic hypercapnic respiratory failure secondary to suspected pneumonia -Currently requiring 2 L nasal cannula to maintain oxygen saturations -ABG shows mild respiratory acidosis with a pH of 7.31 and an elevated PCO2 -Utilize BiPAP for now until mentation improves -Check strep pneumo and Legionella antigens -Blood cultures -Check sputum culture -Urine culture -Covid was negative at her ECF -Continue broad-spectrum antibiotics with Vanco and Zosyn -Scheduled and as needed aerosols -I-S as able Acute urinary tract infection -Urine culture pending -Broad-spectrum antibiotics -All cultures -UA is indicative of infection Acute metabolic encephalopathy -Suspect related to acute infection and hypercapnia -Should improve with treatment of hypercapnia and infection -Monitor clinically -Okay for p.o. diet as long as patient is awake -Hold sedating medications Abdominal pain -Patient was very unclear on history and exam -This persists would recommend CT of her abdomen and pelvis tomorrow -Had some nausea and vomiting but nothing in the last 24 hours -One episode of large loose stool earlier today but no persistent diarrhea CKD stage IIIb-IV -Baseline serum creatinine appears to be 1.5-1.75 -Current serum creatinine 1.81 -Hold home Lasix -Hold gabapentin -Avoid nephrotoxins -Gentle hydration with 1 L -Repeat CMP in a.m. Hypertension -Continue home amlodipine -As needed hydralazine for systolic pressure greater than 160 HFpEF -Compensated diastolic heart failure -Monitor clinically -1 L pending of IV fluids at this time and then reevaluate -holding home Lasix at this time for mild increase in serum creatinine Chronic pain/DJD C-spine L-spine -Hold home pain medications -Hold home gabapentin -Reevaluate when mental status improves Restless leg syndrome -Hold home Requip -Restart when mental status improves Suspected COPD -Would recommend outpatient PFTs after discharge -Patient has a [id number] history of smoking -Quit remotely Morbid obesity -BMI is 48.6 -Recommend weight loss -Complicates treatment, prognosis, outcomes Suspected ROBERTO -Would recommend outpatient polysomnography -Patient denies ever being diagnosed with sleep apnea previously -Continuous BiPAP for now -Would recommend nightly BiPAP once patient is clinically improved History of hypothyroidism -Patient has been treated in the past with levothyroxine but currently not on med list -Check TSH DVT prophylaxis -Heparin 5000 units subcu 3 times daily -SCDs CODE STATUS -DNR CCA no intubation as per documentation from the nursing facility on admission Charges/Coding Visit Charges Inpatient E&M: 49417 Init Hosp L3
[2021-08-31] MEDS: hydrALAZINE 20 MG/ML Vial 10 MG IV (18:49)
[2021-08-31 19:06] LABS: Lactic Acid 0.4 mmol/L (0.4-1.9)
--- NOTE | 2021-08-31 19:49 | PCM.RX.CS ---
Consult Pharmacy has been consulted to manage selected antiobiotic: Vancomycin Type of Consult: New start Suspected Infection: Sepsis Labs: Sodium 144 mmol/L (136-145) 08/31/21 15:57 Potassium 5.0 mmol/L (3.5-5.1) 08/31/21 15:57 Chloride 109 mmol/L (98-107) H 08/31/21 15:57 Carbon Dioxide 30.0 mmol/L (21.0-32.0) 08/31/21 15:57 Anion Gap 5 (5-15) 08/31/21 15:57 BUN 49 mg/dL (7-18) H 08/31/21 15:57 Creatinine 1.81 mg/dL (0.55-1.02) H 08/31/21 15:57 Est GFR (MDRD) Af Amer 34 mL/min (>60) L 08/31/21 15:57 Est GFR (MDRD) Non-Af 28 mL/min (>60) L 08/31/21 15:57 BUN/Creatinine Ratio 27.1 RATIO (10-20) H 08/31/21 15:57 Glucose 124 mg/dL (74-106) H 08/31/21 15:57 Microbiology: Microbiology 08/31/21 15:40 Nasal Secretion SARS-CoV-2 Antigen (Rapid) - Final Goal Trough: 15-20 mcg/mL Pharmacy Plan for Drug Dosing: NEW START IV VANCOMYCIN Consulting Physician: dr. lissy brock Indication: sepsis Goal Trough: 15-20 SrCr: 1.81 CrCl: 28 mls/min (using an adjusted body weight of 71kg) Comments: pt to receive a 2000mg x1 loading dose on 08/31/21 at ~2000 Vancomcyin Dose: based on pts weight and renal function, recommend an intial dose of 1250mg q24h starting 09/01/21 at 2000. trough before the 3rd total dose Pending Level: 09/02/21 at 1930 Pharmacy Service will continue to monitor and adjust dosing as required. Follow-Up Labs: Trough Vancomycin - 09/02/21 at 1930
[2021-08-31] MEDS: Ipratropium/Albuterol Sulfate 3 ML AMPUL.NEB INHALATION (19:57)
--- NOTE | 2021-08-31 20:24 | PCS.PANDOC ---
PANDEMIC DOCUMENTATION INITIATED: Date: 03/23/2021 Time: 190
[2021-08-31 20:26] LABS: Thyroid Stim Hormone (TSH) 0.53 uIU/mL (0.358-3.74)
[2021-08-31] MEDS: 0.9% Normal Saline 1,000 ML 75 ML IV (20:32)
[2021-08-31] MEDS: 0.9% Saline Lock 10 ML Syringe IV (20:33)
[2021-08-31] MEDS: Heparin Injection (Vial) 5,000 UNIT/ML VIAL 5000 UNIT SC (21:00)
[2021-09-01] VITALS (17 sets, daily range): BP systolic 159–168; BP diastolic 55–78; PULSE 76–89; RESP 12–20; TEMP 36.6–37.3; O2SAT 92–98
[2021-09-01] MEDS: Heparin Injection (Vial) 5,000 UNIT/ML VIAL 5000 UNIT SC ×3 (05:20→22:14)
[2021-09-01 06:24] LABS: Absolute Lymphocyte Count 0.53 X10^3/uL (0.83-4.51); Absolute Neutrophil Count 15.1 X10^3/uL (2.0-7.7); Basophil# 0.06 X10^3/uL; Basophil% 0.4 % (0-1); Eosinophil# 0.12 X10^3/uL; Eosinophils% 0.7 % (0-5); Hematocrit 40.4 % (37-47); Hemoglobin 12.5 g/dL (12.0-15.0); Lymphocyte # 0.53 X10^3/ul (0.83-4.51); Lymphocyte % 3.1 % (19-41); Mean Corp Hgb Conc 30.9 g/dL (32-36); Mean Corpuscular Hgb 29.2 pg (27.0-32.0); Mean Corpuscular Volume 94.4 fL (81-99); Mean Platelet Vol. 9.9 fl (6.2-12.0); Monocyte# 1.04 X10^3/uL; Monocyte% 6.1 % (0-10); NRBC Flagged by Analyzer 0 % (0-5); Neutrophil # 15.08 X10^3/uL (2.7-7.7); POSITIVE DIFFERENTIAL YES; Platelet Count 270 K/mm3 (150-450); RBC Distribution Width SD 52.6 fl (35.1-43.9); Red Blood Count 4.28 M/mm3 (4.2-5.4)
[2021-09-01 06:37] LABS: Differential Indicated SCAN CRITERIA MET
[2021-09-01 06:42] LABS: Anisocytosis 1+
[2021-09-01] MEDS: guaiFENesin 600 MG Tablet PO ×2 (08:04→22:15)
[2021-09-01] MEDS: amLODIPine 10 MG Tablet PO (08:05)
[2021-09-01] MEDS: Loratadine 10 MG Tablet 5 MG PO (08:05)
[2021-09-01] MEDS: Multivitamins,Ther W-Minerals Tablet 1 TABLET PO (08:05)
[2021-09-01] MEDS: Aspirin 81 MG TAB.CHEW PO (08:05)
[2021-09-01] MEDS: Acetaminophen 325 MG Tablet 650 MG PO (08:07)
[2021-09-01 08:09] LABS: ALB/GLOB Ratio 0.6 RATIO (0.9-2.4); AST(SGOT) 12 U/L (15-37); Alanine Aminotransfer ALT/SGPT 24 U/L (13-56); Albumin, Serum 2.3 g/dL (3.2-5.0); Alkaline Phosphatase 106 U/L (45-117); Anion Gap 6 (5-15); BUN 40 mg/dL (7-18); Chloride 113 mmol/L (98-107); Creatinine, Serum 1.48 mg/dL (0.55-1.02); EST Glomerular Filtration Rate 36 mL/min (>60); Est Glom Filt Rate - Afr Amer 43 mL/min (>60); Estimated Creatinine Clearance 44.45 ml/min; Globulin 3.7 g/dL (2.2-4.2); Glucose 102 mg/dL (74-106); Magnesium 2.2 mg/dL (1.6-2.6); Phosphorus 2.7 mg/dL (2.5-4.9); Potassium 3.6 mmol/L (3.5-5.1); Sodium Level 147 mmol/L (136-145)
--- NOTE | 2021-09-01 09:14 | CASEMGMT ---
Patient is from [place]. faxed updates to [place]. 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
--- NOTE | 2021-09-01 10:35 | PN.HOSP_ITS ---
Documented by User: Tom PERAZA 09/01/21 10:52 Subjective Subjective Patient is a 85-year-old female lying resting in bed, alert and orient x3. Patient reports that her shortness of breath and diarrhea have significantly improved from admission, although is not back to baseline. Denies development of any new symptoms overnight. Does not appear in acute distress. Objective Data Objective Data Vital Signs: Vital Signs Temp Pulse Resp BP Pulse Ox 98 F 78 16 164/73 H 95 09/01/21 07:57 09/01/21 07:57 09/01/21 07:57 09/01/21 07:57 09/01/21 10:26 Oxygen Flow Rate (L/min) 2 Oxygen Delivery Method Nasal Cannula Weight: 227 lb 8.273 oz Body Mass Index (BMI) 45.9 Intake & Output: Intake and Output for Last 24 Hours 08/30/21 08/31/21 09/01/21 23:59 23:59 23:59 Intake Total 1345 / 1345 1050 / 1050 Output Total 400 / 400 Balance 1345 / 1345 650 / 650 Lab / Micro Data Result Diagrams: 09/01/21 05:43 09/01/21 05:43 Labs: Laboratory Results - last 24 hr 08/31/21 15:57: WBC 20.6 H, RBC 4.64, Hgb 13.4, Hct 44.0, MCV 94.8, MCH 28.9, MCHC 30.5 L, RDW Std Deviation 52.8 H, RDW Coeff of Teo 14.9 H, Plt Count 303, MPV 10.2, Immature Gran % (Auto) 0.500, Neut % (Auto) 87.8 H, Lymph % (Auto) 3.9 L, Davidson % (Auto) 7.2, Eos % (Auto) 0.2, Baso % (Auto) 0.4, Absolute Neuts (auto) 18.1 H, Absolute Lymphs (auto) 0.80 L, Nucleated RBC % 0 08/31/21 15:57: Sodium 144, Potassium 5.0, Chloride 109 H, Carbon Dioxide 30.0, Anion Gap 5, BUN 49 H, Creatinine 1.81 H, Estim Creat Clear Calc 38.43, Est GFR (MDRD) Af Amer 34 L, Est GFR (MDRD) Non-Af 28 L, BUN/Creatinine Ratio 27.1 H, Glucose 124 H, Calcium 9.4, Total Bilirubin 0.70, AST 33, ALT 38, Alkaline Phosphatase 118 H, Total Protein 7.0, Albumin 2.8 L, Globulin 4.2, Albumin/Globulin Ratio 0.7 L 08/31/21 15:57: TSH 0.53 08/31/21 16:15: Urine Color Yellow, Urine Clarity Cloudy, Urine pH 7.0, Ur Specific [place] 1.015, Urine Protein 100 H, Urine Glucose (UA) Normal, Urine Ketones 5 H, Urine Occult Blood 150 H, Urine Nitrite Negative, Urine Bilirubin Negative, Urine Urobilinogen Normal, Ur Leukocyte Esterase 500 H, Urine RBC 0 SEEN, Urine WBC >100 SEEN, Ur Squamous Epith Cells 0-5 SEEN, Urine Bacteria 4+, Urine Mucus 0 SEEN 08/31/21 18:25: Lactic Acid 0.4 09/01/21 05:43: WBC 17.0 H, RBC 4.28, Hgb 12.5, Hct 40.4, MCV 94.4, MCH 29.2, MCHC 30.9 L, RDW Std Deviation 52.6 H, RDW Coeff of Toe 15.0 H, Plt Count 270, MPV 9.9, Immature Gran % (Auto) 0.700, Neut % (Auto) 89.0 H, Lymph % (Auto) 3.1 L, Davidson % (Auto) 6.1, Eos % (Auto) 0.7, Baso % (Auto) 0.4, Absolute Neuts (auto) 15.1 H, Absolute Lymphs (auto) 0.53 L, Nucleated RBC % 0, Anisocytosis 1+ 09/01/21 05:43: Sodium 147 H, Potassium 3.6, Chloride 113 H, Carbon Dioxide 28.0, Anion Gap 6, BUN 40 H, Creatinine 1.48 H, Estim Creat Clear Calc 44.45, Est GFR (MDRD) Af Amer 43 L, Est GFR (MDRD) Non-Af 36 L, BUN/Creatinine Ratio 27.0 H, Glucose 102, Calcium 9.0, Phosphorus 2.7, Magnesium 2.2, Total Bilirubin 0.60, AST 12 L, ALT 24, Alkaline Phosphatase 106, Total Protein 6.0 L, Albumin 2.3 L, Globulin 3.7, Albumin/Globulin Ratio 0.6 L, TSH 0.50 Micro: Microbiology 08/31/21 16:15 Urine Catheter - Catheter Legionella Antigen - Final 08/31/21 16:15 Urine Catheter - Catheter Streptococcus pneumoniae Antigen (M - Final 08/31/21 20:05 Mucosa - Nasopharyngeal Rapid RSV (DFA) - Final 08/31/21 20:05 Mucosa - Nasopharyngeal Influenza Types A,B Direct FA (ELDER) - Final 08/31/21 15:40 Nasal Secretion SARS-CoV-2 Antigen (Rapid) - Final ABG Data ABG results: ABG 08/31/21 16:06 Specimen Type ART Sample Site L Radial pH 7.31 L Bicarbonate Actual 32.1 H Total CO2 34 Base Excess 6 H O2 Saturation 93 L ABG pCO2 63.7 H ABG pO2 76 Harshad Test Positive O2 Delivery Device Cannula Liter Flow 2.0 Radiography Diagnostic Testing: Radiology Impression Chest X-Ray 08/31/21 16:38 IMPRESSION: Mild left perihilar and right basilar infection or inflammation. at 1658 Reported and signed by: Mildred Pan MD Electronically Signed: Mildred Pan MD at 16:57 EST Tel , Service support , Physical Exam Const alert, oriented x3 and no apparent distress HEENT head/scalp atraumatic and moist oral mucous membranes Head and Scalp: normocephalic Eyes PERRL, EOMs intact bilaterally and conjunctivae normal Neck no lymphadenopathy, supple and no JVD Resp normal air movement, no retractions and no use of accessory muscles Effort and Inspection: labored Auscultation: diminished lung sounds Cardio regular rate, regular rhythm, no murmurs and no JVD GI normal to inspection, nondistended, normoactive bowel sounds, soft to palpation and non-tender Extremity normal to inspection, full ROM and no clubbing, cyanosis or edema Skin no rashes or lesions noted, no wounds and skin turgor normal Neuro CN's II-XII intact bilaterally Psych affect normal Assessment & Plan Assessment/Plan (1) Acute on chronic respiratory failure with hypoxia and hypercapnia: (2) Pneumonia: (3) Acute UTI: (4) Encephalopathy acute: PLAN: Day 1 Discharge planning: Current plan is for patient to discharge back to SNF when medically ready. 1) acute hypoxic and chronic hypercapnic respiratory failure secondary to suspected HCAP Stable, currently satting 95% on 2 L via nasal cannula. ABG on admission showed mild respiratory acidosis with a pH of 7.31 and an elevated PCO2. Influenza and viral respiratory panel negative, strep pneumo and Legionella urinary antigen is negative, urine culture and blood cultures pending. Rapid Covid is negative. We will continue broad-spectrum antibiotics with vancomycin and Zosyn, bronchodilators ordered and encourage incentive spirometry. 2) acute UTI UA on admission demonstrated yellow cloudy urine with negative nitrites, 500 leukocyte esterase, greater than 100 urine WBCs and 4+ bacteria. Urine culture pending as above. We will continue broad-spectrum antibiotics as above and await cultures. 3) acute metabolic encephalopathy Resolved, believed to be the result of #1 and 2. Plan; as above, we will continue to monitor. 4) abdominal pain Patient did report abdominal pain and diarrhea on admission. Reports abdominal pain has improved and denies any episodes of diarrhea since being admitted. Covid PCR ordered as above, will continue as needed Zofran and Imodium. 5) CKD stage IIIb Creatinine is at baseline at 1.48, after administration of 1 L of fluids at admission. Will continue to hold home Lasix and gabapentin and avoid other known nephrotoxic's. We will continue to monitor. 6) HTN Continue home amlodipine, as needed hydralazine ordered, hold Lasix as above. 7) HFpEF Not in acute exacerbation, do not believe is contributing to #1. Last echocardiogram from 2012 showed normal LV size and systolic function, mild concentric LVH and an EF of 65%. Holding home Lasix as above. We will continue to monitor. 8) RLS Hold home Requip. 9) history of hypothyroidism TSH within normal limits, not currently on Synthroid. DVT prophylaxis - heparin plus SCDs Patient seen by Tom Lopez PA-C, under the supervision of Dr. Strange. Documented by User: Dr. Steven Strange MD 09/01/21 17:14 Subjective Subjective The patient was admitted with hypoxia 86% on room air, confusion. Patient also has diarrhea for 2 days which resolved. No abdominal pain. Objective Data Lab / Micro Data Result Diagrams: 09/01/21 05:43 09/01/21 05:43 Physical Exam Narrative General: Alert, Oriented x3, Cooperative HEENT: Atraumatic, PERRLA, EOMI, Normocephalic Oral: No Gingival or Mucosal Lesions/ Ulcerations Neck: Supple, No JVD, Negative Carotid Bruits Lungs: Air entry diminished in bilateral lung bases. Bilateral lung bases coarse crepitations present. Cardiovascular: Sinus rhythm, regular rate, Regular Rhythm, Normal S1, Normal S2, systolic murmur LLSB Abdomen: Bowel Sounds Present, Soft, Non Tender, Non-Distended : No renal angle tenderness. No suprapubic tenderness. Extremities: No edema, Capillary Refill Less than 3 Seconds Skin: No rashes, No breakdown Musculoskeletal: No Tenderness to Palpation of Joints or Extremities Neurological: Cranial nerves II-XII grossly intact, DTR 2+/4 and muscle strength 5/5 at major joints of lower extremities Psych/Mental Status: Normal Affect, Appropriate. Assessment & Plan Assessment/Plan (1) Acute on chronic respiratory failure with hypoxia and hypercapnia: PLAN: This patient was seen in conjunction with KARMEN Cole. I have independently interviewed and examined the patient and reviewed pertinent history, examination findings, laboratory and plan of management. I have reviewed the note and agree with the documented findings with the few addition al points. In brief, patient is admitted for confusion, hypoxia and shortness of breath. ABG consistent with acute hypoxic and hypercarbic respiratory failure. Urinary antigens negative. Influenza negative. Patient on broad-spectrum antibiotic vancomycin and Zosyn. Chest x-ray individually reviewed and shows left perihilar and right basilar infiltrate/consolidation. Urine culture consistent with UTI/cystitis Proteus species more than 100,000 colonies. And had vaccine with J&J. Leukocytosis improving. NC high, ALC 0.53. Patient also has ALEJANDRO on CKD stage IIIb creatinine improved to 1.4 1:08 liter of IV fluid. Mild hypernatremia and hyperchloremia IV fluid normal saline. IV fluid is discontinued Other comorbidities as mentioned above I have discussed my assessment with KARMEN Cole and orders have been reviewed. Total time of the visit includes total time spent in counseling or coordination of care, (more than 50% of the total time, spent in obtaining medical information from nurses and other ancillary care providers,explaining to the patient about labs, imaging, diagnosis and management), discussion with business transformation consultant, review of labs and imaging is 30 minutes; I spent more than half time out of total time seen by KARMEN and myself Charges/Coding Visit Charges Inpatient E&M: 25353 Subs Hosp L2
[2021-09-01] MEDS: Ipratropium/Albuterol Sulfate 3 ML AMPUL.NEB INHALATION ×3 (11:02→19:15)
[2021-09-01] MEDS: hydrALAZINE 20 MG/ML Vial 10 MG IV (17:18)
[2021-09-01] MEDS: 0.9% Saline Lock 10 ML Syringe IV ×2 (17:19→17:42)
[2021-09-01] MEDS: Furosemide 40 MG/4 ML Vial IV (17:42)
[2021-09-01] MEDS: HYDROcodone Bitartrate/Apap 5/325 Tablet PO (22:14)
[2021-09-02] VITALS (8 sets, daily range): BP systolic 143–155; BP diastolic 85–98; PULSE 74–86; RESP 12–18; TEMP 37.1; O2SAT 94–97
[2021-09-02] MEDS: Heparin Injection (Vial) 5,000 UNIT/ML VIAL 5000 UNIT SC (06:14)
[2021-09-02] MEDS: Ipratropium/Albuterol Sulfate 3 ML AMPUL.NEB INHALATION ×2 (07:06→10:41)
--- NOTE | 2021-09-02 09:54 | PCM.DC ---
Discharge Instructions Diet Discharge Diet: No restrictions Activity Discharge Activity: Return to Normal Activity Weight Bearing Status: Weight bearing as tolerated Dressing / Incision Call your doctor if you observe: Fever of 101 or Higher, Numbness or Tingling, Shortness of breath, Dizziness, Chest pain, Increased palpitations (irregular heartbeat) and Calf discomfort Follow Up Care Please Follow Up With: Primary care provider When: Within the next two weeks. Test Results: Test results from this visit will be discussed in further detail at your follow-up appointment, if applicable. Discharge Plan Admission Admit Date/Time: 08/31/21 18:23 Primary Reason for Your Visit: Shortness of breath + confusion Attending Provider: Steven Strange Primary Care Provider: Tom Hernandez Discharge Orders/Prescriptions Prescriptions: New amoxicillin-pot clavulanate 875-125 mg tablet 1 tab PO BID Qty: 10 RF: 0 Continued aspirin 81 MG tablet,chewable 81 mg PO DAILY@0800 RF: 0 guaifenesin [Mucus Relief ER] 600 MG tablet 600 mg PO BID RF: 0 albuterol sulfate [Ventolin HFA] 1 INHALER inhaler 2 puff inhalation Q2H PRN (Reason: Sob &/Or Wheezing) RF: 0 gabapentin 300 MG capsule 600 mg PO QHS RF: 0 loratadine 10 MG tablet 5 mg PO DAILY RF: 0 amlodipine 10 MG tablet 10 mg PO DAILY RF: 0 ropinirole 1 mg tablet 1 mg PO QHS RF: 0 hydrocodone-acetaminophen 5-325 mg tablet 1 tab PO TID RF: 0 sennosides-docusate sodium [Senexon-S] 8.6-50 mg tablet 1 tab PO BID RF: 0 baclofen 10 mg Tablet 10 mg PO QHS RF: 0 furosemide 20 mg tablet 60 mg PO DAILY RF: 0 duloxetine [Cymbalta] 30 mg capsule,delayed release(DR/EC) 30 mg PO DAILY RF: 0 diclofenac sodium 1 % gel 1 g TOPICAL TID RF: 0 Referrals / Follow Up: Tom Hernandez MD [Primary Care Provider] - Within 2 Weeks Disposition Disposition (needs filled in before D/C Order can be placed): Home, Self Care
--- NOTE | 2021-09-02 10:03 | PCM.TXEXTCAR ---
Documented by User: Tom PERAZA 09/02/21 10:57 Diet 08/31/21 19:04 Diet: Cardiac - Heart Healthy Food consistency:: Regular Liquid Consistency:: Regular/Thin Dietary Modifications:: Sodium Restricted Is pt able to select menu?: Yes Diet Comments: only if awake enough Therapies Physical Therapy: Eval and Treat Occupational Therapy: Eval and Treat Problem/Diagnosis (1) Acute on chronic respiratory failure with hypoxia and hypercapnia: Status: Chronic Allergies/Procedures Done in Hospital Allergies Sulfa (Sulfonamide Antibiotics) Allergy (Verified 08/31/21 15:02) Hives morphine Adverse Reaction (Verified 08/31/21 15:02) confusion-difficult to wean off Type of Care/Length of Stay Estimated LOS: More Than 30 Days Type of Care Needed: Skilled Rehab Potential: Fair Prognosis: Fair Additional Orders/Day of Discharge Day of Discharge: 09/02/21 Dietary and Speech Recommendations Dietitian Recommendations/Changes: Cardiac/sodium-restricted diet w/ fluid restriction as needed. ONS not indicated at this time. Discharge Plan Admission Admit Date/Time: 08/31/21 18:23 Primary Reason for Your Visit: Shortness of breath + confusion Attending Provider: Steven Strange Primary Care Provider: Tom Hernandez Discharge Orders/Prescriptions Prescriptions: New amoxicillin-pot clavulanate 875-125 mg tablet 1 tab PO BID Qty: 10 RF: 0 Continued aspirin 81 MG tablet,chewable 81 mg PO DAILY@0800 RF: 0 guaifenesin [Mucus Relief ER] 600 MG tablet 600 mg PO BID RF: 0 albuterol sulfate [Ventolin HFA] 1 INHALER inhaler 2 puff inhalation Q2H PRN (Reason: Sob &/Or Wheezing) RF: 0 gabapentin 300 MG capsule 600 mg PO QHS RF: 0 loratadine 10 MG tablet 5 mg PO DAILY RF: 0 amlodipine 10 MG tablet 10 mg PO DAILY RF: 0 ropinirole 1 mg tablet 1 mg PO QHS RF: 0 hydrocodone-acetaminophen 5-325 mg tablet 1 tab PO TID RF: 0 sennosides-docusate sodium [Senexon-S] 8.6-50 mg tablet 1 tab PO BID RF: 0 baclofen 10 mg Tablet 10 mg PO QHS RF: 0 furosemide 20 mg tablet 60 mg PO DAILY RF: 0 duloxetine [Cymbalta] 30 mg capsule,delayed release(DR/EC) 30 mg PO DAILY RF: 0 diclofenac sodium 1 % gel 1 g TOPICAL TID RF: 0 Referrals / Follow Up: Tom Hernandez MD [Primary Care Provider] - Within 2 Weeks Disposition Disposition (needs filled in before D/C Order can be placed): Home, Self Care Documented by User: Dr. Steven Strange MD 09/02/21 11:34 Routine Orders/Code Status Suppository Type: Dulcolax 10mg Suppository Frequency: Daily PRN Routine Lab Work: CBC (CBC and BMP after 1 week) and BMP Code Status: DNRCC-A Therapies Weight Bearing: Weight bearing as tolerated Extremity Affected:: Bilateral Lower Physical Therapy: Eval and Treat Occupational Therapy: Eval and Treat Speech Therapy: Eval and Treat Allergies/Procedures Done in Hospital Allergies Sulfa (Sulfonamide Antibiotics) Allergy (Verified 08/31/21 15:02) Hives morphine Adverse Reaction (Verified 08/31/21 15:02) confusion-difficult to wean off Additional Orders/Day of Discharge Day of Discharge: 09/02/21 Discharge Plan Admission Admit Date/Time: 08/31/21 18:23 Primary Reason for Your Visit: Shortness of breath + confusion Attending Provider: Steven Strange Primary Care Provider: Tom Hernandez Discharge Orders/Prescriptions Prescriptions: New amoxicillin-pot clavulanate 875-125 mg tablet 1 tab PO BID Qty: 10 RF: 0 Continued aspirin 81 MG tablet,chewable 81 mg PO DAILY@0800 RF: 0 guaifenesin [Mucus Relief ER] 600 MG tablet 600 mg PO BID RF: 0 albuterol sulfate [Ventolin HFA] 1 INHALER inhaler 2 puff inhalation Q2H PRN (Reason: Sob &/Or Wheezing) RF: 0 gabapentin 300 MG capsule 600 mg PO QHS RF: 0 loratadine 10 MG tablet 5 mg PO DAILY RF: 0 amlodipine 10 MG tablet 10 mg PO DAILY RF: 0 ropinirole 1 mg tablet 1 mg PO QHS RF: 0 hydrocodone-acetaminophen 5-325 mg tablet 1 tab PO TID RF: 0 sennosides-docusate sodium [Senexon-S] 8.6-50 mg tablet 1 tab PO BID RF: 0 baclofen 10 mg Tablet 10 mg PO QHS RF: 0 furosemide 20 mg tablet 60 mg PO DAILY RF: 0 duloxetine [Cymbalta] 30 mg capsule,delayed release(DR/EC) 30 mg PO DAILY RF: 0 diclofenac sodium 1 % gel 1 g TOPICAL TID RF: 0 Referrals / Follow Up: Tom Hernandez MD [Primary Care Provider] - Within 2 Weeks Disposition Disposition (needs filled in before D/C Order can be placed): Home, Self Care
--- NOTE | 2021-09-02 10:07 | CASEMGMT ---
JESSICA called Alla at [facility] and left her a voice mail letting her know patient will likely be returning today. JESSICA also faxed updated notes. Eliane HENDERSON
[2021-09-02 10:22] LABS: Absolute Neutrophil Count 13.2 X10^3/uL (2.0-7.7); Basophil# 0.06 X10^3/uL; Basophil% 0.4 % (0-1); Eosinophil# 0.17 X10^3/uL; Eosinophils% 1.1 % (0-5); Hematocrit 42.3 % (37-47); Hemoglobin 12.9 g/dL (12.0-15.0); Lymphocyte % 3.3 % (19-41); Mean Corp Hgb Conc 30.5 g/dL (32-36); Mean Corpuscular Hgb 28.5 pg (27.0-32.0); Mean Corpuscular Volume 93.6 fL (81-99); Mean Platelet Vol. 9.9 fl (6.2-12.0); Monocyte# 1.09 X10^3/uL; Monocyte% 7.2 % (0-10); NRBC Flagged by Analyzer 0 % (0-5); Neutrophil # 13.24 X10^3/uL (2.7-7.7); Neutrophil % 87.5 % (47-70); POSITIVE DIFFERENTIAL YES; Platelet Count 283 K/mm3 (150-450); RBC Distribution Width CV 14.8 % (11.6-14.6); RBC Distribution Width SD 51.2 fl (35.1-43.9); Red Blood Count 4.52 M/mm3 (4.2-5.4); White Blood Count 15.1 K/mm3 (4.4-11.0)
[2021-09-02] MEDS: Multivitamins,Ther W-Minerals Tablet 1 TABLET PO (10:23)
[2021-09-02] MEDS: guaiFENesin 600 MG Tablet PO (10:23)
[2021-09-02] MEDS: amLODIPine 10 MG Tablet PO (10:23)
[2021-09-02] MEDS: Loratadine 10 MG Tablet 5 MG PO (10:23)
[2021-09-02] MEDS: Aspirin 81 MG TAB.CHEW PO (10:23)
[2021-09-02 10:26] LABS: Differential Indicated SCAN CRITERIA MET
[2021-09-02] MEDS: HYDROcodone Bitartrate/Apap 5/325 Tablet PO (10:27)
--- NOTE | 2021-09-02 10:55 | CASEMGMT ---
JESSICA called patient's son, Mahsa who is her Healthcare POA. JESSICA let him know patient will be discharged back to [facility] today. He thanked JESSICA for notifying him and he does not need notified of a pick up man time. JESSICA also called patient's daughter and notified her of d/c back to [facility]. Eliane Singer MSW BEATRIZ
[2021-09-02 11:13] LABS: Anion Gap 9 (5-15); BUN 39 mg/dL (7-18); BUN/Creat Ratio 23.6 RATIO (10-20); Calcium,Total 9.1 mg/dL (8.5-10.1); Chloride 107 mmol/L (98-107); Creatinine, Serum 1.65 mg/dL (0.55-1.02); EST Glomerular Filtration Rate 31 mL/min (>60); Est Glom Filt Rate - Afr Amer 38 mL/min (>60); Estimated Creatinine Clearance 39.87 ml/min; Glucose 159 mg/dL (74-106); Potassium 3.7 mmol/L (3.5-5.1); Sodium Level 140 mmol/L (136-145)
--- NOTE | 2021-09-02 12:50 | DS.PCM_ITS ---
Documented by User: Tom PERAZA 09/02/21 12:57 Providers Date of Admission: 08/31/21 Primary Care Physician: Dr. Tom Hernandez MD Reason For Visit: SEPSIS 2/2 HCAP/UTI Diagnosis Discharge Diagnosis (1) Acute on chronic respiratory failure with hypoxia and hypercapnia: Status: Chronic Code(s): J96.21 - Acute and chronic respiratory failure with hypoxia; J96.22 - Acute and chronic respiratory failure with hypercapnia Medications at Discharge Home Medications aspirin 81 mg PO DAILY@0800 05/15/16 guaifenesin [Mucus Relief ER] 600 mg PO BID 09/08/17 albuterol sulfate [Ventolin HFA] 2 puff INHALATION Q2H PRN 11/01/18 amlodipine 10 mg PO DAILY 07/08/20 gabapentin 600 mg PO QHS 07/08/20 loratadine 5 mg PO DAILY 07/08/20 baclofen 10 mg PO QHS 08/31/21 diclofenac sodium 1 g TOPICAL TID 08/31/21 duloxetine [Cymbalta] 30 mg PO DAILY 08/31/21 furosemide 60 mg PO DAILY 08/31/21 hydrocodone-acetaminophen 1 tab PO TID 08/31/21 ropinirole 1 mg PO QHS 08/31/21 sennosides-docusate sodium [Senexon-S] 1 tab PO BID 08/31/21 amoxicillin-pot clavulanate 1 tab PO BID #10 tab 09/02/21 Hospital Course Summary of Care Provided Minutes Spent on Discharge: 20 Hospital Course: Patient is an 85-year-old female who was admitted to [facility] on 08/31/2021 for evaluation and management of acute hypoxic and chronic hypercapnic respiratory failure secondary to HCAP as well as acute UTI. Course and management as below. 1) acute hypoxic and chronic hypercapnic respiratory failure secondary to suspected HCAP Stable, currently satting 95% on 2 L via nasal cannula. ABG on admission showed mild respiratory acidosis with a pH of 7.31 and an elevated PCO2. Influenza and viral respiratory panel negative, strep pneumo and Legionella urinary antigen is negative. Rapid Covid is negative. Patient was initiated on vancomycin and Zosyn and symptoms improved significantly throughout admission. Will discharge on Augmentin with primary care follow-up within the next 2 weeks 2) acute UTI UA on admission demonstrated yellow cloudy urine with negative nitrites, 500 leukocyte esterase, greater than 100 urine WBCs and 4+ bacteria. Urine culture demonstrated Proteus mirabilis with sensitivities to penicillins. Patient discharged on Augmentin based off of sensitivities. 3) acute metabolic encephalopathy Resolved, believed to be the result of #1 and 2. Plan; as above, we will continue to monitor. 4) abdominal pain Patient did report abdominal pain and diarrhea on admission. Reports abdominal pain has improved and denies any episodes of diarrhea since being admitted. Covid PCR negative. Symptoms were controlled with Imodium and Zofran. 5) CKD stage IIIb Stable at baseline. 6) HTN Continue home BP regimen. 7) HFpEF Not in acute exacerbation, do not believe is contributing to #1. Last echocardiogram from 2012 showed normal LV size and systolic function, mild concentric LVH and an EF of 65%. Continue home CHF regimen. 8) RLS Hold home Requip. 9) history of hypothyroidism TSH within normal limits, not currently on Synthroid. Patient seen by Tom Lopez PA-C, under the supervision of Dr. Strange. Physical Exam Narrative Patient is an 85-year-old female comfortably resting in bed, alert and orient x3. Patient reports that she did have a restless evening of sleep, although her shortness of breath has significantly improved from admission. Denies development of any new symptoms overnight. Does not appear in acute distress. Const alert, oriented x3 and no apparent distress HEENT normocephalic, head/scalp atraumatic and hearing grossly normal bilaterally Eyes PERRL, EOMs intact bilaterally and conjunctivae normal Neck no lymphadenopathy, supple and no JVD Resp normal respiratory effort, no retractions and no use of accessory muscles Auscultation: diminished lung sounds Cardio regular rate, regular rhythm, no murmurs and no JVD GI normal to inspection, nondistended, normoactive bowel sounds, soft to palpation and non-tender Extremity normal to inspection, full ROM and no clubbing, cyanosis or edema Skin no rashes or lesions noted, no wounds and skin turgor normal Neuro CN's II-XII intact bilaterally Psych affect normal Weight / BMI Weight Weight: 227 lb 8.273 oz Body Mass Index (BMI) 45.9 ABG / Lab / Microbiology Data Result Diagrams: 09/02/21 10:16 09/02/21 10:16 Laboratory: Laboratory Results - last 24 hr 09/01/21 10:51: COVID-19 (SOM) Not Detected 09/02/21 10:16: WBC 15.1 H, RBC 4.52, Hgb 12.9, Hct 42.3, MCV 93.6, MCH 28.5, MCHC 30.5 L, RDW Std Deviation 51.2 H, RDW Coeff of Teo 14.8 H, Plt Count 283, MPV 9.9, Immature Gran % (Auto) 0.500, Neut % (Auto) 87.5 H, Lymph % (Auto) 3.3 L, [place] % (Auto) 7.2, Eos % (Auto) 1.1, Baso % (Auto) 0.4, Absolute Neuts (auto) 13.2 H, Absolute Lymphs (auto) 0.50 L, Nucleated RBC % 0, Differential Comment COMMENT 09/02/21 10:16: Sodium 140, Potassium 3.7, Chloride 107, Carbon Dioxide 24.0, Anion Gap 9, BUN 39 H, Creatinine 1.65 H, Estim Creat Clear Calc 39.87, Est GFR (MDRD) Af Amer 38 L, Est GFR (MDRD) Non-Af 31 L, BUN/Creatinine Ratio 23.6 H, Glucose 159 H, Calcium 9.1 Microbiology: Microbiology 08/31/21 16:15 Urine Catheter - Catheter Urine Culture - Final Proteus mirabilis 08/31/21 16:15 Urine Catheter - Catheter Legionella Antigen - Final 08/31/21 16:15 Urine Catheter - Catheter Streptococcus pneumoniae Antigen (M - Final 08/31/21 20:05 Mucosa - Nasopharyngeal Rapid RSV (DFA) - Final 08/31/21 20:05 Mucosa - Nasopharyngeal Influenza Types A,B Direct FA (ELDER) - Final 08/31/21 15:40 Nasal Secretion SARS-CoV-2 Antigen (Rapid) - Final Meaningful Use Info Meaningful Use Diagnoses (Choose all that apply): None applicable Discharge Plan Admission Admit Date/Time: 08/31/21 18:23 Primary Reason for Your Visit: Shortness of breath + confusion Attending Provider: Steven Strange Primary Care Provider: Tom Hernandez Discharge Orders/Prescriptions Prescriptions: New amoxicillin-pot clavulanate 875-125 mg tablet 1 tab PO BID Qty: 10 RF: 0 Continued aspirin 81 MG tablet,chewable 81 mg PO DAILY@0800 RF: 0 guaifenesin [Mucus Relief ER] 600 MG tablet 600 mg PO BID RF: 0 albuterol sulfate [Ventolin HFA] 1 INHALER inhaler 2 puff inhalation Q2H PRN (Reason: Sob &/Or Wheezing) RF: 0 gabapentin 300 MG capsule 600 mg PO QHS RF: 0 loratadine 10 MG tablet 5 mg PO DAILY RF: 0 amlodipine 10 MG tablet 10 mg PO DAILY RF: 0 ropinirole 1 mg tablet 1 mg PO QHS RF: 0 hydrocodone-acetaminophen 5-325 mg tablet 1 tab PO TID RF: 0 sennosides-docusate sodium [Senexon-S] 8.6-50 mg tablet 1 tab PO BID RF: 0 baclofen 10 mg Tablet 10 mg PO QHS RF: 0 duloxetine [Cymbalta] 30 mg capsule,delayed release(DR/EC) 30 mg PO DAILY RF: 0 diclofenac sodium 1 % gel 1 g TOPICAL TID RF: 0 Held furosemide 20 mg tablet 60 mg PO DAILY RF: 0 Hold Instructions: Hold for 5 days then resume. Referrals / Follow Up: Tom Hernandez MD [Primary Care Provider] - Within 2 Weeks Disposition Disposition (needs filled in before D/C Order can be placed): Home, Self Care Documented by User: Dr. Steven Strange MD 09/02/21 16:25 Providers Date of Admission: 08/31/21 Date of Discharge: 09/02/21 Reason For Visit: SEPSIS 2/2 HCAP/UTI Medications at Discharge Home Medications aspirin 81 mg PO DAILY@0800 05/15/16 guaifenesin [Mucus Relief ER] 600 mg PO BID 09/08/17 albuterol sulfate [Ventolin HFA] 2 puff INHALATION Q2H PRN 11/01/18 amlodipine 10 mg PO DAILY 07/08/20 gabapentin 600 mg PO QHS 07/08/20 loratadine 5 mg PO DAILY 07/08/20 baclofen 10 mg PO QHS 08/31/21 diclofenac sodium 1 g TOPICAL TID 08/31/21 duloxetine [Cymbalta] 30 mg PO DAILY 08/31/21 furosemide 60 mg PO DAILY 08/31/21 hydrocodone-acetaminophen 1 tab PO TID 08/31/21 ropinirole 1 mg PO QHS 08/31/21 sennosides-docusate sodium [Senexon-S] 1 tab PO BID 08/31/21 amoxicillin-pot clavulanate 1 tab PO BID #10 tab 09/02/21 Hospital Course Summary of Care Provided Hospital Course: This patient was seen in conjunction with KARMEN Cole. I have independently interviewed and examined the patient and reviewed pertinent history, examination findings, laboratory and plan of management. I have r eviewed the note and agree with the documented findings with the few additional points. In brief, patient is admitted for confusion, hypoxia and shortness of breath. ABG consistent with acute hypoxic and hypercarbic respiratory failure. Urinary antigens negative. Influenza negative. Patient on broad-spectrum antibiotic vancomycin and Zosyn. Chest x-ray individually reviewed and shows left p erihilar and right basilar infiltrate/consolidation. Urine culture consistent with UTI/cystitis Proteus species more than 100,000 colonies. The patient had vaccine with J&J. Leukocytosis improving. ANC high, ALC 0.53. No tachypnea or hypoxia. Shortness of breath resolved. Patient is discharged on Augmentin to complete a total of 8 days. Patient also has ALEJANDRO on CKD stage IIIb creatinine improved to 1.4 1 liter of IV fluid. Mild hypernatremia and hyperchloremia IV fluid normal saline. IV fluid is discontinued. Slight worsening of creatinine 1.65. Patient baseline creatinine fluctuates between 1.5-2.0. Avoid nephrotoxic medication. Hold furosemide for 5 more days. ALEJANDRO resolved. Other comorbidities as mentioned above which includes hypertension, HFpEF, chronic in nature, hypothyroidism and restless leg syndrome I have discussed my assessment with KARMEN Cole and orders have been reviewed. Discharge medication reconciliation done. Discharge follow-up instructions comp leted. Discharge process discussed with the patient and all questions were answered to patient's satisfaction. Total time of the visit includes total time spent in counseling or coordination of care, (more than 50% of the total time, spent in obtaining medical information from nurses and other ancillary care providers,explaining to the patient about labs, imaging, diagnosis and management), discussion with production support consultant, review of labs and imaging is 35 minutes; I spent more than half time out of total time seen by PA and myself Physical Exam Narrative Seen and examined. Patient looks comfortable and breathing. No shortness of breath or dyspnea. No tachypnea or hypoxia. Patient wants to go home. No fever. General: Alert, Oriented x3, Cooperative HEENT: Atraumatic, PERRLA, EOMI, Normocephalic Oral: No Gingival or Mucosal Lesions/ Ulcerations Neck: Supple, No JVD, Negative Carotid Bruits Lungs: Air entry diminished in bilateral lung bases. Bilateral lung bases slight crepitations present. Pulse ox 97% on room air. Cardiovascular: Sinus rhythm, regular rate, Regular Rhythm, Normal S1, Normal S2, systolic murmur LLSB Abdomen: Bowel Sounds Present, Soft, Non Tender, Non-Distended : No renal angle tenderness. No suprapubic tenderness. Extremities: No edema, Capillary Refill Less than 3 Seconds Skin: No rashes, No breakdown Musculoskeletal: No Tenderness to Palpation of Joints or Extremities Neurological: Cranial nerves II-XII grossly intact, DTR 2+/4 and muscle strength 5/5 at major joints of lower extremities Psych/Mental Status: Normal Affect, Appropriate. ABG / Lab / Microbiology Data Result Diagrams: 09/02/21 10:16 09/02/21 10:16 Discharge Plan Admission Admit Date/Time: 08/31/21 18:23 Primary Reason for Your Visit: Shortness of breath + confusion Attending Provider: Steven Strange Primary Care Provider: Tom Hernandez Discharge Orders/Prescriptions Prescriptions: New amoxicillin-pot clavulanate 875-125 mg tablet 1 tab PO BID Qty: 10 RF: 0 Continued aspirin 81 MG tablet,chewable 81 mg PO DAILY@0800 RF: 0 guaifenesin [Mucus Relief ER] 600 MG tablet 600 mg PO BID RF: 0 albuterol sulfate [Ventolin HFA] 1 INHALER inhaler 2 puff inhalation Q2H PRN (Reason: Sob &/Or Wheezing) RF: 0 gabapentin 300 MG capsule 600 mg PO QHS RF: 0 loratadine 10 MG tablet 5 mg PO DAILY RF: 0 amlodipine 10 MG tablet 10 mg PO DAILY RF: 0 ropinirole 1 mg tablet 1 mg PO QHS RF: 0 hydrocodone-acetaminophen 5-325 mg tablet 1 tab PO TID RF: 0 sennosides-docusate sodium [Senexon-S] 8.6-50 mg tablet 1 tab PO BID RF: 0 baclofen 10 mg Tablet 10 mg PO QHS RF: 0 duloxetine [Cymbalta] 30 mg capsule,delayed release(DR/EC) 30 mg PO DAILY RF: 0 diclofenac sodium 1 % gel 1 g TOPICAL TID RF: 0 Held furosemide 20 mg tablet 60 mg PO DAILY RF: 0 Hold Instructions: Hold for 5 days then resume. Referrals / Follow Up: Tom Hernandez MD [Primary Care Provider] - Within 2 Weeks Disposition Disposition (needs filled in before D/C Order can be placed): Home, Self Care Charges/Coding Visit Charges Inpatient E&M: 10639 Disch Hosp
--- NOTE | 2021-09-02 13:48 | NURSING ---
report given to sourav at [facility], no further questions voiced
== END 2021-09-02 13:45 | disposition home or self-care (01) | DRG 193 ==
LOC: ED 16:04 → PCU 18:36
PROVIDERS: Admitting Provider Internal Medicine; Emergency Provider Emergency Medicine; Visit Provider Internal Medicine
DX: J18.9 Pneumonia, unspecified organism (principal); G93.41 Metabolic encephalopathy; J96.21 Acute and chronic respiratory failure with hypoxia; J96.22 Acute and chronic respiratory failure with hypercapnia; N17.9 Acute kidney failure, unspecified; I13.0 Hypertensive heart and chronic kidney disease with heart failure and stage 1 through stage 4 chronic kidney disease, or unspecified chronic kidney disease; J44.0 Chronic obstructive pulmonary disease with (acute) lower respiratory infection; I50.32 Chronic diastolic (congestive) heart failure; Z68.42 Body mass index [BMI] 45.0-49.9, adult; E87.2 Acidosis; N39.0 Urinary tract infection, site not specified; E87.0 Hyperosmolality and hypernatremia; E66.01 Morbid (severe) obesity due to excess calories; N18.32 Chronic kidney disease, stage 3b; G47.33 Obstructive sleep apnea (adult) (pediatric); G25.81 Restless legs syndrome; R19.7 Diarrhea, unspecified; B96.4 Proteus (mirabilis) (morganii) as the cause of diseases classified elsewhere; E03.9 Hypothyroidism, unspecified; G89.29 Other chronic pain; Z79.82 Long term (current) use of aspirin; Z87.891 Personal history of nicotine dependence; Z66 Do not resuscitate; Z86.16 Personal history of COVID-19
CPT/HCPCS: 36415; 36600; 71045; 80048; 80053; 81001; 82803; 83605; 83735; 84100; 84443; 85025; 87040; 87077; 87086; 87088; 87186; 87426; 87449; 87635; 87804; 87807; 93005; 94002; 94003; 94640; 94762; 97162; 97166; 97530; 99251; 99285; J7030; J7040; J7050; P9612; A4216; G0463; J1940; U0003; U0005

== ENCOUNTER 2021-09-04 15:16 | Inpatient (IN) | payer MEDICARE, MEDICAID, SELFPAY ==
[2021-09-04] VITALS (11 sets, daily range): BP systolic 134–149; BP diastolic 53–68; PULSE 52–60; RESP 16–19; TEMP 36.1–37.1; O2SAT 93–100; BMI 39.9; BMI 52.9
--- NOTE | 2021-09-04 15:43 | CT_ITS ---
STUDY: CT BRAIN WITHOUT CONTRAST REASON FOR EXAM: Female, 85 years old. Confusion. Weakness and lethargy beginning yesterday. Recent pneumonia. RADIATION DOSAGE (If Supplied By Facility): CTDIvol = ( 44.99 ) mGy, DLP = ( 829.85 ) mGycm TECHNIQUE: Transaxial CT imaging of the brain was performed without administration of intravenous contrast material. Individualized dose optimization techniques were used for this CT. COMPARISON: Pick one FINDINGS: Normal soft tissue structures. Normal calvarium. There is mild cerebral atrophy with widening of the extra-axial spaces and ventricular dilatation. 2 Normal basal ganglia and thalami. Normal brainstem. Normal cerebellum. There is no intracranial hemorrhage. There are no findings of an acute ischemic infarction. Normal visualized paranasal sinuses. CT/Brain/Head without Contrast IMPRESSION: Chronic involutional changes without evidence of acute intracranial or calvarial abnormality. Electronically Signed: Adiel Peterson DO at 17:15 EST ,
--- NOTE | 2021-09-04 15:43 | EKG12_ITS ---
Test Reason : HR Blood Pressure : / mmHG Vent. Rate : 063 BPM Atrial Rate : 072 BPM P-R Int : 000 ms QRS Dur : 106 ms QT Int : 452 ms P-R-T Axes : 000 -25 085 degrees QTc Int : 462 ms Junctional rhythm Incomplete left bundle branch block Abnormal ECG Confirmed by SLIM IBARRA, SUMAN ([id number]), videotape editor SHABANA IZQUIERDO ([id number]) on 09/07/2021 10:26:15 AM Referred By: RADHA Confirmed By:SUMAN SMALLS MD
[2021-09-04 15:51] LABS: Bedside Glucose 96 mg/dL (70-110)
--- NOTE | 2021-09-04 15:51 | EX.ED.DYSGE1 ---
HPI History of Present Illness Chief Complaint: Confusion Informant: EMS Narrative Narrative: Sent in from [facility] increasing confusion since yesterday. Patient unable to give information at this time. History of COPD CHF on 2 L of oxygen. Patient discharged from hospital 2 days ago. She was admitted to the hospital 4 days ago by myself for pneumonia and UTI. She had mild confusion then likely from her infection. History of hypercapnia with baseline CO2 in the 60s. Evaluation records she is on Augmentin for treatment for both pneumonia and UTI, urine was Proteus Mirabella's pansensitive to penicillins. Patient is a DNR CCA per previous documentation and on detention reports. Prior similar symptoms: Yes PFSH PFSH Medical History Anemia in chronic kidney disease Chronic pain of left knee CKD (chronic kidney disease) stage 3, GFR 30-59 ml/min Congestive heart failure (CHF) COPD (chronic obstructive pulmonary disease) COVID-19 virus infection Degeneration of intervertebral disc of lumbosacral region Depression Failed back surgical syndrome HTN (hypertension) Hypothyroidism Hypothyroidism Kidney disease Neuropathy Primary osteoarthritis of right shoulder Radiculopathy of lumbosacral region Spinal stenosis of lumbosacral region Tremor Unilateral primary osteoarthritis, left knee Home Medications aspirin 81 mg PO DAILY@0800 05/15/16 [History Last Taken 09/04/21] guaifenesin [Mucus Relief ER] 600 mg PO BID 09/08/17 [History Last Taken 09/04/21] albuterol sulfate [Ventolin HFA] 2 puff INHALATION Q2H PRN 11/01/18 [History Last Taken Unknown] amlodipine 10 mg PO DAILY 07/08/20 [History Last Taken 09/04/21] gabapentin 600 mg PO QHS 07/08/20 [History Last Taken 09/03/21] loratadine 5 mg PO DAILY 07/08/20 [History Last Taken 09/04/21] baclofen 10 mg PO QHS 08/31/21 [History Last Taken 09/03/21] diclofenac sodium 1 g TOPICAL TID 08/31/21 [History Last Taken 09/04/21] duloxetine [Cymbalta] 30 mg PO DAILY 08/31/21 [History Last Taken 09/04/21] furosemide 60 mg PO DAILY 08/31/21 [History Last Taken 09/04/21] hydrocodone-acetaminophen 1 tab PO TID 08/31/21 [History Last Taken 09/04/21] ropinirole 1 mg PO QHS 08/31/21 [History Last Taken 09/03/21] sennosides-docusate sodium [Senexon-S] 1 tab PO BID 08/31/21 [History Last Taken 09/04/21] amoxicillin-pot clavulanate 1 tab PO BID #10 tab 09/02/21 [Rx Last Taken 09/04/21] levothyroxine 100 mcg PO QHS 09/04/21 [History Last Taken 09/03/21] Allergy/AdvReac Type Severity Reaction Status Date / Time Sulfa (Sulfonamide Allergy Hives Verified 09/04/21 15:29 Antibiotics) morphine AdvReac confusion-difficult Verified 09/04/21 15:29 to wean off Surgical History H/O: hysterectomy History of ankle surgery Previous back surgery Social History Smoking Status: Former smoker pack-years: 30 substance use type: does not use ROS ROS ED Review of Systems ROS Unobtainable: due to mental condition and due to mental status EXAM Physical Exam Const Vital Signs: 09/04/21 15:19 09/04/21 15:30 09/04/21 16:30 Temperature 97 F L Temperature Source Temporal Pulse Rate 60 55 L Respiratory Rate 18 16 Respiratory Pattern Normal Blood Pressure 148/67 H Blood Pressure Mean 94 Pulse Ox 95 98 98 Oxygen Delivery Method Nasal Cannula Nasal Cannula Oxygen Flow Rate (L/min) 2 2 Fraction of Inspired Oxygen (FIO2) 40 09/04/21 16:52 09/04/21 17:49 09/04/21 17:50 Temperature 96.9 F L 96.9 F L Temperature Source Temporal Temporal Pulse Rate 57 L 57 L Respiratory Rate 18 19 H Respiratory Pattern Blood Pressure 134/68 H 134/68 H Blood Pressure Mean 90 90 Pulse Ox 98 98 Oxygen Delivery Method Bi-pap Bi-pap Bi-pap Oxygen Flow Rate (L/min) Fraction of Inspired Oxygen (FIO2) Positive obese Constitutional Narrative: 2 L of oxygen pulse ox stable, however patient more lethargic minimal rales though. She does withdrawal to pain in all 4 extremities. Nutritional Appearance: obese HEENT Reports moist mucous membranes normocephalic and atraumatic Eyes PERRL, EOMs intact bilaterally and conjunctivae normal General Eye ED: Yes normal appearance of both eyes Neck no lymphadenopathy and supple General: Negative for tenderness Chest Wall Chest: Negative for tenderness Resp normal air movement Resp Narrative: Poor effort. No distress. Effort and Inspection: symmetric chest movement; Negative for respiratory distress Cardio regular rate, regular rhythm and no murmurs Peripheral Pulses: pulses 2+ throughout GI normal to inspection, nondistended, normoactive bowel sounds and non-tender Palpation: Negative for guarding or rebound tenderness present Back/Spine no CVA tenderness and no thoracic nor lumbar tenderness Extremity normal to inspection General Extremety ED: Negative for edema or tenderness General Extremity: Negative for edema Neuro no sensory deficits noted Sensorium / Orientation: awake and lethargic Skin no rashes or lesions noted and no wounds MDM MDM MDM Narrative Medical decision making narrative: Patient more lethargic on my exam however per nursing during initial assessment she was answering questions and moving around. With her being DNR CCA with no intubation, respiratory is present, obtain a blood gas and start the BiPAP. Known pneumonia and UTI on antibiotics of Augmentin. Will check lab work chest x-ray and CT of the head due to increasing confusion. We will plan for admission. CT head negative. Chest x-ray reviewed myself read by radiology worsening left lower lobe infiltrate. She is currently on Augmentin. She is not hypoxic. Additional labs noted acute kidney injury with creatinine 2.57. She is also being treated with Augmentin for UTI. This is sensitive to this. EKG also notes a junctional rhythm she has normal electrolytes. I did add a troponin returned at normal range. I discussed with hospitalist Dr. Ribeiro for admission. Lab Data Attestation: I reviewed the patient's lab results. Labs: Laboratory Results - last 24 hr 09/04/21 09/04/21 09/04/21 15:35 15:35 15:35 WBC 11.3 H RBC 4.26 Hgb 12.3 Hct 41.5 MCV 97.4 MCH 28.9 MCHC 29.6 L RDW Std Deviation 52.6 H RDW Coeff of Teo 14.6 Plt Count 334 MPV 10.0 Immature Gran % (Auto) 1.100 H Neut % (Auto) 80.9 H Lymph % (Auto) 7.[address] [place] % (Auto) 9.5 Eos % (Auto) 0.5 Baso % (Auto) 0.5 Absolute Neuts (auto) 9.2 H Absolute Lymphs (auto) 0.85 Nucleated RBC % 0 PT Cancelled INR Cancelled APTT Cancelled Sodium 137 Potassium 4.7 Chloride 104 Carbon Dioxide 28.0 Anion Gap 5 BUN 55 H Creatinine 2.57 H Estim Creat Clear Calc 14.71 Est GFR (MDRD) Af Amer 23 L Est GFR (MDRD) Non-Af 19 L BUN/Creatinine Ratio 21.4 H Glucose 103 Lactic Acid Calcium 9.0 Total Bilirubin 0.40 AST 18 ALT 18 Alkaline Phosphatase 112 Troponin I High Sens Total Protein 6.8 Albumin 2.3 L Globulin 4.5 H Albumin/Globulin Ratio 0.5 L POC Glucose 09/04/21 09/04/21 09/04/21 15:35 15:48 16:20 WBC RBC Hgb Hct MCV MCH MCHC RDW Std Deviation RDW Coeff of Teo Plt Count MPV Immature Gran % (Auto) Neut % (Auto) Lymph % (Auto) [place] % (Auto) Eos % (Auto) Baso % (Auto) Absolute Neuts (auto) Absolute Lymphs (auto) Nucleated RBC % PT INR APTT Sodium Potassium Chloride Carbon Dioxide Anion Gap BUN Creatinine Estim Creat Clear Calc Est GFR (MDRD) Af Amer Est GFR (MDRD) Non-Af BUN/Creatinine Ratio Glucose Lactic Acid 0.5 Calcium Total Bilirubin AST ALT Alkaline Phosphatase Troponin I High Sens 31 Total Protein Albumin Globulin Albumin/Globulin Ratio POC Glucose 96 09/04/21 16:52 WBC RBC Hgb Hct MCV MCH MCHC RDW Std Deviation RDW Coeff of Teo Plt Count MPV Immature Gran % (Auto) Neut % (Auto) Lymph % (Auto) [place] % (Auto) Eos % (Auto) Baso % (Auto) Absolute Neuts (auto) Absolute Lymphs (auto) Nucleated RBC % PT Cancelled INR Cancelled APTT Cancelled Sodium Potassium Chloride Carbon Dioxide Anion Gap BUN Creatinine Estim Creat Clear Calc Est GFR (MDRD) Af Amer Est GFR (MDRD) Non-Af BUN/Creatinine Ratio Glucose Lactic Acid Calcium Total Bilirubin AST ALT Alkaline Phosphatase Troponin I High Sens Total Protein Albumin Globulin Albumin/Globulin Ratio POC Glucose ABG Data ABG results: ABG 09/04/21 16:10 Specimen Type ART Sample Site L Brach pH 7.21 L Bicarbonate Actual 29.0 H Total CO2 31 Base Excess 1 O2 Saturation 89 L ABG pCO2 72.2 H* ABG pO2 71 L O2 Delivery Device Cannula Liter Flow 2.0 Crit Call To/Read Back Yes Blood Gas Notified Whom tl Radiography Chest X-Ray - ED: 1 View, Read by ED Physician, Read by Radiologist and Left Infiltrate Diagnostic Testing: Clinical Impression(s) from Imaging Studies Brain CT 09/04/21 15:43 IMPRESSION: Chronic involutional changes without evidence of acute intracranial or calvarial abnormality. Electronically Signed: Adiel Peterson DO at 17:15 EST Reading Location ID and State: [employer] / [employer] Tel [phone], Service support , Chest X-Ray 09/04/21 17:06 IMPRESSION: 1. Worsening left lower lobe pulmonary infiltrate. 2. Minimal right basilar atelectasis. Electronically Signed: Adiel Peterson DO at 17:25 EST Reading Location ID and State: [employer] / [employer] Tel [phone], Service support , EKG Initial EKG: Attestation: I personally reviewed and interpreted this EKG as follows: Comments: Junctional rhythm rate of [address] or T wave changes. Discharge Plan Dx/Rx/DC Orders Clinical Impression: Encephalopathy acute, Acute hypercapnic respiratory failure, ALEJANDRO (acute kidney injury), DNR (do not resuscitate), Junctional rhythm, Pneumonia Disposition Disposition: Acute Care [facility] Discharge Date/Time: 09/04/21 18:23
[2021-09-04 16:15] LABS: Base Excess 1 mmol/L (-2 to +2); Blood Gas Specimen Type ART; O2 Delivery Device Cannula; PO2 71 mmHG (75-100); SITE L Brach; SO2 89 % (95-99); Total Carbon Dioxide 31 mmol/L; pCO2 72.2 mmHg (35-45); pH 7.21 (7.35-7.45)
[2021-09-04 16:32] LABS: Absolute Lymphocyte Count 0.85 X10^3/uL (0.83-4.51); Absolute Neutrophil Count 9.2 X10^3/uL (2.0-7.7); Basophil# 0.06 X10^3/uL; Basophil% 0.5 % (0-1); Eosinophil# 0.06 X10^3/uL; Eosinophils% 0.5 % (0-5); Hematocrit 41.5 % (37-47); Hemoglobin 12.3 g/dL (12.0-15.0); Lymphocyte # 0.85 X10^3/ul (0.83-4.51); Lymphocyte % 7.5 % (19-41); Mean Corp Hgb Conc 29.6 g/dL (32-36); Mean Corpuscular Hgb 28.9 pg (27.0-32.0); Mean Corpuscular Volume 97.4 fL (81-99); Monocyte# 1.07 X10^3/uL; Monocyte% 9.5 % (0-10); NRBC Flagged by Analyzer 0 % (0-5); Neutrophil # 9.15 X10^3/uL (2.7-7.7); Neutrophil % 80.9 % (47-70); Platelet Count 334 K/mm3 (150-450); RBC Distribution Width CV 14.6 % (11.6-14.6); RBC Distribution Width SD 52.6 fl (35.1-43.9); Red Blood Count 4.26 M/mm3 (4.2-5.4); White Blood Count 11.3 K/mm3 (4.4-11.0)
[2021-09-04 16:45] LABS: ALB/GLOB Ratio 0.5 RATIO (0.9-2.4); AST(SGOT) 18 U/L (15-37); Alanine Aminotransfer ALT/SGPT 18 U/L (13-56); Albumin, Serum 2.3 g/dL (3.2-5.0); Alkaline Phosphatase 112 U/L (45-117); Anion Gap 5 (5-15); BUN 55 mg/dL (7-18); BUN/Creat Ratio 21.4 RATIO (10-20); Chloride 104 mmol/L (98-107); Creatinine, Serum 2.57 mg/dL (0.55-1.02); EST Glomerular Filtration Rate 19 mL/min (>60); Est Glom Filt Rate - Afr Amer 23 mL/min (>60); Estimated Creatinine Clearance 14.71 ml/min; Globulin 4.5 g/dL (2.2-4.2); Glucose 103 mg/dL (74-106); Potassium 4.7 mmol/L (3.5-5.1); Protein, Total 6.8 g/dL (6.4-8.2); Sodium Level 137 mmol/L (136-145)
[2021-09-04 17:03] LABS: Lactic Acid 0.5 mmol/L (0.4-1.9)
--- NOTE | 2021-09-04 17:06 | RAD_ITS ---
STUDY: X-RAY CHEST REASON FOR EXAM: Female, 85 years old. Confusion. Shortness of breath. TECHNIQUE: Single AP portable view of the chest. COMPARISON: 08/31/2021. FINDINGS: Limited inspiratory effort. There is atelectasis again seen at the right lung base. Question infiltrate retrocardiac left lower lobe. There is no demonstrated pleural abnormality. There is borderline cardiomegaly. Normal mediastinum and yolis. Normal visualized pulmonary arteries. Normal visualized aortic arch and descending thoracic aorta. There are diffuse degenerative changes of the visualized thoracic spine. There is degenerative osteoarthritis of the bilateral shoulders. There is no demonstrated abnormality of the visualized soft tissue structures of the upper abdomen. RAD/Chest 1 View (Portable) IMPRESSION: 1. Worsening left lower lobe pulmonary infiltrate. 2. Minimal right basilar atelectasis. Electronically Signed: Adiel Peterson DO at 17:25 EST ,
--- NOTE | 2021-09-04 17:51 | NURSING ---
110 NATALYA HYPERCAPNIC RESP FAILURE, HX OF COPD, ALEJANDRO, DNR CCA
--- NOTE | 2021-09-04 18:14 | PCM.HP.STD ---
HPI - General General Date of Admission: 09/04/21 Date of Service: 09/04/21 Chief Complaint: Acute mental status change HPI Narrative KAILASH GILES, is a 85 F who presented to the emergency department at [facility] on 09/04/2021 with increasing confusion that started the day prior to admission. The patient was just admitted by me on 08/31/2021 and found to have a Proteus urinary tract infection that appear to be pansensitive and a suspected pneumonia. She was discharged on Augmentin to complete treatment for her UTI and pneumonia on 09/02/2021. Patient apparently demanded discharge at that time. Her presentation today is very similar to what it was previously however she is more confused and somnolent at this time. She is unable to give me any meaningful history with her worsening confusion and she is currently on BiPAP. In the emergency department she was afebrile and her heart rate was found to be 55-57 with her EKG appearing to be junctional. Her blood pressure was stable. Her respiratory rate was 16-19 and her sats were 98% on BiPAP. With her somnolence on presentation ABG was obtained and her pH was found to be 7.21 with a PCO2 of 72.2 and a PO2 of 71. Her baseline PCO2 appears to be 55-65. Her CBC shows a leukocytosis however this is improved from her discharge white cell count and is currently 11.3. The rest of her CBC is is fairly unremarkable. Her her CMP showed normal electrolytes however she has a markedly elevated BUN and creatinine. Her current BUN is 55 and her baseline appears to be about 40. Her current serum creatinine is 2.57 and her baseline appears to be 1.5-1.7. Her serum glucose was 103. Given her increased somnolence a CT of her head was performed and showed chronic involutional changes without evidence of acute changes. Her chest x-ray showed a worsening left lower lobe infiltrate with a minimal right basilar atelectasis. In the emergency department she was placed on BiPAP and request for admission was made. [facility] Medical History Anemia in chronic kidney disease Chronic pain of left knee CKD (chronic kidney disease) stage 3, GFR 30-59 ml/min Congestive heart failure (CHF) COPD (chronic obstructive pulmonary disease) COVID-19 virus infection Degeneration of intervertebral disc of lumbosacral region Depression Failed back surgical syndrome HTN (hypertension) Hypothyroidism Hypothyroidism Kidney disease Neuropathy Primary osteoarthritis of right shoulder Radiculopathy of lumbosacral region Spinal stenosis of lumbosacral region Tremor Unilateral primary osteoarthritis, left knee Home Medications aspirin 81 mg PO DAILY@0800 05/15/16 [History Last Taken 09/04/21] guaifenesin [Mucus Relief ER] 600 mg PO BID 09/08/17 [History Last Taken 09/04/21] albuterol sulfate [Ventolin HFA] 2 puff INHALATION Q2H PRN 11/01/18 [History Last Taken Unknown] amlodipine 10 mg PO DAILY 07/08/20 [History Last Taken 09/04/21] gabapentin 600 mg PO QHS 07/08/20 [History Last Taken 09/03/21] loratadine 5 mg PO DAILY 07/08/20 [History Last Taken 09/04/21] baclofen 10 mg PO QHS 08/31/21 [History Last Taken 09/03/21] diclofenac sodium 1 g TOPICAL TID 08/31/21 [History Last Taken 09/04/21] duloxetine [Cymbalta] 30 mg PO DAILY 08/31/21 [History Last Taken 09/04/21] furosemide 60 mg PO DAILY 08/31/21 [History Last Taken 09/04/21] hydrocodone-acetaminophen 1 tab PO TID 08/31/21 [History Last Taken 09/04/21] ropinirole 1 mg PO QHS 08/31/21 [History Last Taken 09/03/21] sennosides-docusate sodium [Senexon-S] 1 tab PO BID 08/31/21 [History Last Taken 09/04/21] amoxicillin-pot clavulanate 1 tab PO BID #10 tab 09/02/21 [Rx Last Taken 09/04/21] levothyroxine 100 mcg PO QHS 09/04/21 [History Last Taken 09/03/21] Allergy/AdvReac Type Severity Reaction Status Date / Time Sulfa (Sulfonamide Allergy Hives Verified 09/04/21 15:29 Antibiotics) morphine AdvReac confusion-difficult Verified 09/04/21 15:29 to wean off Family History unable to obtain unable to obtain Surgical History H/O: hysterectomy History of ankle surgery Previous back surgery Social History Smoking Status: Former smoker pack-years: 30 substance use type: does not use ROS ROS Narrative Patient was markedly encephalopathic and on BiPAP therefore review of systems was unable to be obtained Review of Systems ROS Unobtainable: due to mental status Vital Signs Vital Signs Vital Signs: 09/04/21 15:19 09/04/21 15:30 09/04/21 16:30 Temperature 97 F L Temperature Source Temporal Pulse Rate 60 55 L Respiratory Rate 18 16 Respiratory Pattern Normal Blood Pressure 148/67 H Blood Pressure Mean 94 Pulse Ox 95 98 98 Oxygen Delivery Method Nasal Cannula Nasal Cannula Oxygen Flow Rate (L/min) 2 2 Fraction of Inspired Oxygen (FIO2) 40 09/04/21 16:52 09/04/21 17:49 09/04/21 17:50 Temperature 96.9 F L 96.9 F L Temperature Source Temporal Temporal Pulse Rate 57 L 57 L Respiratory Rate 18 19 H Respiratory Pattern Blood Pressure 134/68 H 134/68 H Blood Pressure Mean 90 90 Pulse Ox 98 98 Oxygen Delivery Method Bi-pap Bi-pap Bi-pap Oxygen Flow Rate (L/min) Fraction of Inspired Oxygen (FIO2) Weight Weight: 112.4 kg Body Mass Index (BMI) 39.9 Physical Exam Const Constitutional Narrative: Lethargic morbidly obese white female lying in bed, patient did awaken to tactile stimulus but fell asleep quickly and was only alert to self HEENT normocephalic and head/scalp atraumatic HEENT Narrative: Hard of hearing, mucous membranes were dry given the fact she is on BiPAP, Mallampati is 3-4, no thrush, edentulous Eyes PERRL, EOMs intact bilaterally and conjunctivae normal Eyes Narrative: No scleral icterus Neck no lymphadenopathy, supple, no JVD and no carotid bruits Neck Narrative: Trachea midline, short thick neck, no thyroid enlargement Resp normal respiratory effort, no retractions, no use of accessory muscles and clear to auscultation bilaterally Resp Narrative: Diminished diffusely but no adventitious sounds noted Auscultation: Negative for crackles, rales, rhonchi or wheezes Cardio S1 normal heart sound, S2 normal heart sound, no murmurs, no rub, no gallops, no clicks and no JVD Cardio Narrative: Mild bradycardia GI normal to inspection, nondistended, normoactive bowel sounds, soft to palpation, non-tender and non-distended Extremity no clubbing, cyanosis or edema Peripheral Pulses: Yes pulses 2+ throughout Skin no rashes or lesions noted, no wounds, skin turgor normal, no jaundice, no petechiae and no mottling Neuro moves all extremities and no focal motor deficits Neuro Narrative: Was able to follow some commands and did move all extremities spontaneously, confused, lethargic Speech: speech normal Results Lab / Micro Data Result Diagrams: 09/04/21 15:35 09/04/21 15:35 Labs: Laboratory Results - last 24 hr 09/04/21 15:35: WBC 11.3 H, RBC 4.26, Hgb 12.3, Hct 41.5, MCV 97.4, MCH 28.9, MCHC 29.6 L, RDW Std Deviation 52.6 H, RDW Coeff of Teo 14.6, Plt Count 334, MPV 10.0, Immature Gran % (Auto) 1.100 H, Neut % (Auto) 80.9 H, Lymph % (Auto) 7.5 L, [place] % (Auto) 9.5, Eos % (Auto) 0.5, Baso % (Auto) 0.5, Absolute Neuts (auto) 9.2 H, Absolute Lymphs (auto) 0.85, Nucleated RBC % 0 09/04/21 15:35: PT Cancelled, INR Cancelled, APTT Cancelled 09/04/21 15:35: Sodium 137, Potassium 4.7, Chloride 104, Carbon Dioxide 28.0, Anion Gap 5, BUN 55 H, Creatinine 2.57 H, Estim Creat Clear Calc 14.71, Est GFR (MDRD) Af Amer 23 L, Est GFR (MDRD) Non-Af 19 L, BUN/Creatinine Ratio 21.4 H, Glucose 103, Calcium 9.0, Total Bilirubin 0.40, AST 18, ALT 18, Alkaline Phosphatase 112, Total Protein 6.8, Albumin 2.3 L, Globulin 4.5 H, Albumin/Globulin Ratio 0.5 L 09/04/21 15:48: POC Glucose 96 09/04/21 16:20: Lactic Acid 0.5 09/04/21 16:52: PT Cancelled, INR Cancelled, APTT Cancelled ABG Data ABG results: ABG 09/04/21 16:10 Specimen Type ART Sample Site L Brach pH 7.21 L Bicarbonate Actual 29.0 H Total CO2 31 Base Excess 1 O2 Saturation 89 L ABG pCO2 72.2 H* ABG pO2 71 L O2 Delivery Device Cannula Liter Flow 2.0 Crit Call To/Read Back Yes Blood Gas Notified Whom tl Radiology Impression Brain CT 09/04/21 15:43 IMPRESSION: Chronic involutional changes without evidence of acute intracranial or calvarial abnormality. Electronically Signed: Adiel Peterson DO at 17:15 EST Reading Location ID and State: [employer] Tel [phone], Service support , Chest X-Ray 09/04/21 17:06 IMPRESSION: 1. Worsening left lower lobe pulmonary infiltrate. 2. Minimal right basilar atelectasis. Electronically Signed: Adiel Peterson DO at 17:25 EST Reading Location ID and State: [id number] Tel [phone], Service support , Assessment & Plan Assessment/Plan (1) ALEJANDRO (acute kidney injury): (2) Junctional rhythm: (3) Acute UTI: (4) Encephalopathy acute: (5) Pneumonia: (6) Acute on chronic respiratory failure with hypoxia and hypercapnia: PLAN: Acute hypoxic and acute on chronic hypercapnic respiratory failure-multifactorial -Patient was discharged on Augmentin for suspected pneumonia however culture was not able to be obtained -No antigens were negative -Covid test was negative -Suspect her current respiratory status is related to her hypercapnia plus her acute kidney injury and medications -We will continue antibiotics with Unasyn at this time Proteus UTI -Pansensitive organism -We will continue antimicrobials with Unasyn at this time Acute metabolic encephalopathy -Suspect related to hypercapnia/ALEJANDRO with the patient being on sedating medications at baseline -Should improve with treatment of hypercapnia holding medications and improvement in her renal function -Monitor clinically -N.p.o. -Hold sedating medications Junctional rhythm -Monitor on telemetry -Suspect this may be related to her medications and her acute kidney injury -If this is the case it should improve and resolve when she clears her medications and her kidney functions improve -If no improvement would consult cardiology ALEJANDRO /CKD stage IIIb-IV -Baseline serum creatinine appears to be 1.5-1.75 -Current serum creatinine 2.47 -Hold home Lasix -Hold gabapentin -Avoid nephrotoxins -IV fluids at 75 cc/h continuous -Repeat BMP in a.m. Hypertension -Hold home amlodipine -As needed hydralazine for systolic pressure greater than 160 HFpEF -Compensated diastolic heart failure -Monitor clinically - hold home Lasix -IV fluids currently being given secondary to ALEJANDRO Chronic pain/DJD C-spine L-spine -Hold home pain medications -Hold home gabapentin -Reevaluate when mental status improves Restless leg syndrome -Hold home Requip -Restart when mental status improves Suspected COPD -Would recommend outpatient PFTs after discharge -Patient has a [id number] history of smoking -Quit remotely Morbid obesity -BMI is 48.6 -Recommend weight loss -Complicates treatment, prognosis, outcomes Suspected ROBERTO -Would recommend outpatient polysomnography -Patient denies ever being diagnosed with sleep apnea previously -Continuous BiPAP for now -Would recommend nightly BiPAP once patient is clinically improved History of hypothyroidism -Hold levothyroxine -TSH was normal at her last hospitalization DVT prophylaxis -Heparin 5000 units subcu 3 times daily -SCDs CODE STATUS -DNR CCA no intubation as per discussion with the patient at the last admission given her mental status limits her ability at this time to further discuss Charges/Coding Visit Charges Inpatient E&M: 65809 Init Hosp L3
[2021-09-04 18:15] LABS: Troponin-I HS 31 pg/mL (3.0-54.0)
--- NOTE | 2021-09-04 18:41 | PCS.PANDOC ---
PANDEMIC DOCUMENTATION INITIATED: Date: 03/23/2021 Time: 190
[2021-09-04] MEDS: 0.9% Normal Saline 1,000 ML 75 ML IV (19:04)
[2021-09-04 19:09] LABS: International Normalized Ratio 1.1; Prothrombin Time (Protime)PT. 13.9 SECONDS (11.7-14.9)
[2021-09-04 21:06] LABS: Allen Test Positive; Base Excess 0 mmol/L (-2 to +2); Bicarbonate 28.7 mmol/L (22-26); Blood Gas Specimen Type ART; FI02 45; O2 Delivery Device BiPAP; PO2 75 mmHG (75-100); SITE L Radial; SO2 90 % (95-99); Total Carbon Dioxide 31 mmol/L; pH 7.17 (7.35-7.45)
[2021-09-04] MEDS: HYDROcodone Bitartrate/Apap 5/325 Tablet PO (21:44)
[2021-09-04] MEDS: Heparin Injection (Vial) 5,000 UNIT/ML VIAL 5000 UNIT SC (21:44)
[2021-09-04] MEDS: Levothyroxine 100 MCG Tablet PO (21:44)
[2021-09-04] MEDS: Senna/Docusate Sodium 1 Tablet PO (21:45)
[2021-09-04] MEDS: guaiFENesin 600 MG Tablet PO (21:45)
[2021-09-04] MEDS: Pramipexole Di-HCl 0.5 MG Tablet PO (21:45)
[2021-09-04] MEDS: Gabapentin 600 MG Tablet PO (21:45)
[2021-09-04] MEDS: Baclofen 10 MG Tablet PO (21:45)
--- NOTE | 2021-09-05 02:00 | EKG12_ITS ---
Test Reason : JUNCTIONAL Blood Pressure : / mmHG Vent. Rate : 052 BPM Atrial Rate : 047 BPM P-R Int : 000 ms QRS Dur : 108 ms QT Int : 478 ms P-R-T Axes : 000 -23 102 degrees QTc Int : 444 ms Junctional rhythm Incomplete left bundle branch block T wave abnormality, consider lateral ischemia Abnormal ECG When compared with ECG of 31-AUG-2021 15:55, Junctional rhythm has replaced Sinus rhythm Nonspecific T wave abnormality now evident in Anterior leads Confirmed by SLIM IBARRA, SUMAN ([id number]), society editor SHABANA IZQUIERDO ([id number]) on 09/08/2021 8:47:37 AM Referred By: DR GONZALEZ Confirmed By:SUMAN SMALLS MD
[2021-09-05] MEDS: Atropine Sulfate 1% 2 ml Bottle 1 DRP (05:45)
--- NOTE | 2021-09-05 17:29 | PN_ITS ---
DATE OF SERVICE 09/05/21 SUBJECTIVE Patient seen and examined. Patient lethargic, unresponsive at this time. Appears comfortable. Family at bedside. Had extensive discussion with family regarding plan of care. They are requesting to continue comfort measures however they do request IV fluids and antibiotics be continued. Hospice consult placed by social work. OBJECTIVE Physical exam: General appearance: Awake, appropriate, no noted distress HEENT: Normocephalic, head/scalp atraumatic Eyes: Conjunctiva normal and no scleral icterus Neck: Supple, no lymphadenopathy, trachea midline Respiratory: Diminished, clear to auscultation Cardio: Positive aortic murmur, regular rate/rhythm GI: Soft, nondistended, nontender, normal active bowel sounds Extremity: Normal capillary refill, +1 bilateral lower extremity edema Skin: No lesions, no rashes, no breakdown Neuro: No focal motor deficits and no sensory deficits noted Psych: Normal affect Vital signs and lab data reviewed. ASSESSMENT/PLAN 1. Acute on chronic hypoxic and hypercapnic respiratory failure-multifactorial secondary to recent pneumonia as well as suspected underlying ROBERTO and COPD. Complicated by morbid obesity. Family amenable to hospice transition however continuing BiPAP as tolerated/for comfort as well as supplemental oxygen. Hospice order set placed. Hospice consulted per social work. 2. Recent pneumonia/Proteus UTI-continue IV Unasyn. 3. Acute kidney injury on chronic kidney disease stage IIIb-Lasix on hold. Gentle fluids. 4. Metabolic encephalopathy-currently unresponsive. Family amendable to hospice transition as noted above. 5. Junctional rhythm/intermittent nonsustained V. tach-transitioned to comfort measures as noted above. 6. Chronic heart failure with preserved ejection fraction-Lasix on hold due to increased creatinine. 7. Chronic back pain-as needed pain regimen. DVT prophylaxis-Heparin subcu This patient was seen by GOLDEN WakefieldC under the supervision of Dr. Strange. This patient was seen in conjunction with PANTOGRAPHER, Karen. I have independently interviewed and examined the patient and reviewed pertinent history, examination findings, laboratory and plan of management. I have reviewed the note and agree with the documented findings with the few additional points. In brief, patient is 85-year-old female was recently discharged on management of Proteus mirabilis UTI and suspected pneumonia Augmentin to extended-care facility is sent back for increased confusion, decreased responsiveness. Further ABG showed 7.2 1/72/71 with baseline PCO2 55-65. Patient has leukocytosis resolved at discharge but currently 11.3 thousand. BUN/creatinine elevated than her baseline. CT did not show acute change . Physical exam General: Obtunded, semiresponsive, responsive at rest sternal rub but not verbal command. HEENT: Pupils bilateral small. Atraumatic, Normocephalic Oral: Oral mucosa dry. Edentulous. Neck: Supple, No JVD, Negative Carotid Bruits Lungs: Air entry very diminished in bilateral lung bases. No crepitation/rhonchi. On nonrebreather Cardiovascular: Heart sounds muffled, systolic murmur over left second ICS. Abdomen: Bowel Sounds sluggish, Soft, Non Tender, Non-Distended : No renal angle tenderness. No suprapubic tenderness. Extremities: Palpable bilateral lower leg edema, Capillary Refill Less than 3 Seconds Skin: No rashes, No breakdown Musculoskeletal: No Tenderness to Palpation of Joints or Extremities Neurological: Complete neuro exam unobtainable. Does not follow command. Eyes closed. Psych/Mental Status: Unconscious Assessment and plan Patient currently has acute on chronic combined hypoxic and hypercarbic respiratory failure multiple etiologies COPD, obstructive sleep apnea with recent pneumonia. During discharge patient is alert, awake with no significant shortness of breath, chest pain cough or respiratory distress. I spent good time with the family member, patient's son, grandson and granddaughter and they are agreeable for hospice care. CODE STATUS changed to DNR CC. Hospice care consult. The patient's family said during previous time similar thing happened with patient unresponsiveness but patient got better therefore want to give few days but does not want aggressive management. Further discussion with hospice nurse to follow. Other comorbidities include recent pneumonia, Proteus mirabilis UTI: Patient is on IV Unasyn. Acute kidney injury on CKD stage IIIb. Metabolic encephalopathy. Junctional rhythm/intermittent nonsustained V. tach: Patient had runs of V. tach's 8-9 beats. Twelve-lead EKG shows junctional rhythm at 52 beats per, incomplete RBBB, QTC 441 ms. On the monitor sinus bradycardia. Chronic heart failure with preserved EF. I have discussed my assessment with PANTOGRAPHERKaren and orders have been reviewed. Total time of the visit includes total time spent in counseling or coordination of care, (more than 50% of the total time, spent in obtaining medical information from nurses and other ancillary care providers,explaining to the patient about labs, imaging, diagnosis and management), discussion with cyber security consultant, review of labs and imaging is 35 minutes; I spent more than half time out of total time seen by PA and myself
[2021-09-05 19:09] LABS: Anion Gap 9 (5-15); BUN 59 mg/dL (7-18); BUN/Creat Ratio 25.7 RATIO (10-20); Calcium,Total 8.9 mg/dL (8.5-10.1); Chloride 105 mmol/L (98-107); EST Glomerular Filtration Rate 29 mL/min (>60); Est Glom Filt Rate - Afr Amer 35 mL/min (>60); Estimated Creatinine Clearance 30.77 ml/min; Glucose 113 mg/dL (74-106); Magnesium 2.6 mg/dL (1.6-2.6); Phosphorus 6.2 mg/dL (2.5-4.9); Potassium 4.2 mmol/L (3.5-5.1); Sodium Level 138 mmol/L (136-145)
[2021-09-05 19:24] LABS: Base Excess 0 mmol/L (-2 to +2); Bicarbonate 28.2 mmol/L (22-26); Blood Gas Specimen Type ART; FI02 45; Mode AVAPS; O2 Delivery Device BiPAP; PEEP 10; PO2 90 mmHG (75-100); RR 18; SITE L Radial; SO2 94 % (95-99); Total Carbon Dioxide 30 mmol/L; Vt 450; pCO2 72.4 mmHg (35-45)
[2021-09-05 22:20] LABS: Absolute Lymphocyte Count 0.37 X10^3/uL (0.83-4.51); Absolute Neutrophil Count 10.4 X10^3/uL (2.0-7.7); Basophil# 0.04 X10^3/uL; Basophil% 0.3 % (0-1); Differential Indicated SCAN CRITERIA MET; Eosinophil# 0.06 X10^3/uL; Eosinophils% 0.5 % (0-5); Hematocrit 39.5 % (37-47); Hemoglobin 12.1 g/dL (12.0-15.0); Lymphocyte # 0.37 X10^3/ul (0.83-4.51); Lymphocyte % 3.1 % (19-41); Mean Corp Hgb Conc 30.6 g/dL (32-36); Mean Corpuscular Hgb 28.9 pg (27.0-32.0); Mean Corpuscular Volume 94.5 fL (81-99); Mean Platelet Vol. 10.1 fl (6.2-12.0); Monocyte# 1.18 X10^3/uL; Monocyte% 9.7 % (0-10); NRBC Flagged by Analyzer 0 % (0-5); Neutrophil # 10.35 X10^3/uL (2.7-7.7); Neutrophil % 85.4 % (47-70); POSITIVE DIFFERENTIAL YES; Platelet Count 319 K/mm3 (150-450); RBC Distribution Width CV 14.3 % (11.6-14.6); RBC Distribution Width SD 49.9 fl (35.1-43.9); Red Blood Count 4.18 M/mm3 (4.2-5.4); White Blood Count 12.1 K/mm3 (4.4-11.0)
[2021-09-05 22:21] LABS: Differential Comment SCANNED
[2021-09-06] VITALS (16 sets, daily range): BP systolic 129–170; BP diastolic 42–63; PULSE 60–76; RESP 16–18; TEMP 36.4–37.5; O2SAT 93–100
[2021-09-06] MEDS: Dext 5%-0.45% NS 1,000 ML 50 ML IV (07:35)
--- NOTE | 2021-09-06 11:45 | PCM.PN.HOSP ---
Documented by User: Karen Liao NP, FINISHING AND SHIPPING SUPERVISOR-C 09/06/21 12:02 Objective Data Objective Data Vital Signs: Vital Signs Temp Pulse Resp BP Pulse Ox 98.5 F 68 18 150/62 H 98 09/06/21 07:37 09/06/21 10:42 09/06/21 07:37 09/06/21 07:37 09/06/21 08:38 Oxygen Flow Rate (L/min) 4 Oxygen Delivery Method Nasal Cannula Weight: 244 lb 11.41 oz Body Mass Index (BMI) 52.9 Intake & Output: Intake and Output for Last 24 Hours 09/04/21 09/05/21 09/06/21 23:59 23:59 23:59 Intake Total 373.25 / 373.25 Output Total 0 / 0 200 / 200 0 / 0 Balance 373.25 / 373.25 -200 / -200 Lab / Micro Data Result Diagrams: 09/06/21 12:51 09/06/21 12:51 Labs: Laboratory Results - last 24 hr 09/05/21 04:30: WBC 12.1 H, RBC 4.18 L, Hgb 12.1, Hct 39.5, MCV 94.5, MCH 28.9, MCHC 30.6 L, RDW Std Deviation 49.9 H, RDW Coeff of Teo 14.3, Plt Count 319, MPV 10.1, Immature Gran % (Auto) 1.000 H, Neut % (Auto) 85.4 H, Lymph % (Auto) 3.1 L, [place] % (Auto) 9.7, Eos % (Auto) 0.5, Baso % (Auto) 0.3, Absolute Neuts (auto) 10.4 H, Absolute Lymphs (auto) 0.37 L, Nucleated RBC % 0, Differential Comment SCANNED 09/05/21 04:30: Sodium 138, Potassium 4.2, Chloride 105, Carbon Dioxide 24.0, Anion Gap 9, BUN 59 H, Creatinine 2.30 H, Estim Creat Clear Calc 30.77, Est GFR (MDRD) Af Amer 35 L, Est GFR (MDRD) Non-Af 29 L, BUN/Creatinine Ratio 25.7 H, Glucose 113 H, Calcium 8.9, Phosphorus 6.2 H, Magnesium 2.6 ABG Data ABG results: ABG 09/05/21 02:12 Specimen Type ART Sample Site L Radial pH 7.20 L Bicarbonate Actual 28.2 H Total CO2 30 Base Excess 0 O2 Saturation 94 L O2 % 45 ABG pCO2 72.4 H* ABG pO2 90 Harshad Test N/A Respiration Rate 18 O2 Delivery Device BiPAP Vent Mode AVAPS Tidal Volume 450 POC PEEP 10 Crit Call To/Read Back Yes Blood Gas Notified Whom Clinical Comments p high 26 p low 16 Assessment & Plan Assessment/Plan (1) Acute on chronic respiratory failure with hypoxia and hypercapnia: (2) Encephalopathy acute: PLAN: 1. Acute on chronic hypoxic and hypercapnic respiratory failure-multifactorial secondary to recent pneumonia/Covid as well as suspected underlying ROBERTO and COPD. Complicated by morbid obesity. Following admission patient was noted to have periods of apnea as well as significant lethargy. Family initially discussed hospice however patient improve dramatically with BiPAP treatment. Continue BiPAP as tolerated. Will discuss with case management obtaining BiPAP for SNF. 2. Recent pneumonia/Proteus UTI-continue IV Unasyn. Plan to complete 7 days of antibiotics including recent admission. 3. Acute kidney injury on chronic kidney disease stage IIIb-gentle IV fluids, trend BMP. 4. Metabolic encephalopathy-mental status significantly improved following treatment with BiPAP. Currently at baseline. 5. Junctional rhythm-currently resolved. 6. Chronic heart failure with preserved ejection fraction-Lasix on hold due to increased creatinine. 7. Chronic back pain-as needed pain regimen. 8. Hypertension-resume home amlodipine regimen. 9. Restless leg syndrome-on Requip. DVT prophylaxis-Heparin subcu This patient was seen by FRIDA Wakefield under the supervision of Dr. Strange. Documented by User: Dr. Steven Strange MD 09/06/21 13:38 Objective Data Lab / Micro Data Result Diagrams: 09/06/21 12:51 09/06/21 12:51 Physical Exam Narrative General: Alert, Oriented x3, Cooperative. Patient follows simple command HEENT: Atraumatic, PERRLA, EOMI, Normocephalic Oral: No Gingival or Mucosal Lesions/ Ulcerations Neck: Supple, No JVD, Negative Carotid Bruits Lungs: Air entry diminished in bilateral lung bases. No crepitation/rhonchi Cardiovascular: Sinus rhythm with PVCs, Normal S1, Normal S2, systolic murmur LLSB Abdomen: Bowel Sounds Present, Soft, Non Tender, Non-Distended : No renal angle tenderness. No suprapubic tenderness. Extremities: Mild bilateral ankle edema edema, Capillary Refill Less than 3 Seconds Skin: No rashes, No breakdown Musculoskeletal: No Tenderness to Palpation of Joints or Extremities Neurological: Cranial nerves II-XII grossly intact, DTR 2+/4 Psych/Mental Status: Awake, flat affect Assessment & Plan Assessment/Plan (1) Acute on chronic respiratory failure with hypoxia and hypercapnia: PLAN: This patient was seen in conjunction with FINISHING AND SHIPPING SUPERVISOR, Karen. I have independently interviewed and examined the patient and reviewed pertinent history, examination findings, laboratory and plan of management. I have reviewed the note and agree with the documented findings with the few additional points. In brief, patient is 85-year-old female was recently discharged on management of Proteus mirabilis UTI and suspected pneumonia Augmentin to extended-care facility is sent back for increased confusion, decreased responsiveness. ABG showed 7.2 with baseline PCO2 55-65. Patient has leukocytosis resolved at discharge but currently 14.2 thousand. BUN/creatinine elevated than her baseline. CT did not show acute change. Patient has acute on chronic combined hypoxic and hypercarbic respiratory failure multiple etiologies COPD, obstructive sleep apnea with recent pneumonia with acute encephalopathy most probably due to CO2 narcosis at time of admission. During discharge patient is alert, awake with no significant shortness of breath, chest pain cough or respiratory distress. 09/06: On 09/05, CODE STATUS was changed to DNRCC hospice care. Hospice nurse saw the patient and they wanted to see how she does in the next few days. Today, she is awake alert and oriented x3. She follows commands. Patient family report hospice and she is back to DNRCC arrest with no intubation. IV Unasyn since admission and continued. Acute encephalopathy most likely metabolic is resolved. Other comorbidities include recent pneumonia, Proteus mirabilis UTI: Patient is on IV Unasyn. Acute kidney injury on CKD stage IIIb. Metabolic encephalopathy. Junctional rhythm/intermittent nonsustained V. tach: Patient had runs of V. tach's 8-9 beats. Twelve-lead EKG shows junctional rhythm at 52 beats per, incomplete RBBB, QTC 441 ms. On 09/06, patient is sinus rhythm at 70 bpm Chronic heart failure with preserved EF. I have discussed my assessment with FINISHING AND SHIPPING SUPERVISORKaren and orders have been reviewed. I talked with the patient's granddaughter present in the room. Advised BiPAP during the night and naps. Total time of the visit includes total time spent in counseling or coordination of care, (more than 50% of the total time, spent in obtaining medical information from nurses and other ancillary care providers,explaining to the patient about labs, imaging, diagnosis and management), discussion with retail wireless sales consultant, review of labs and imaging is 35 minutes; I spent more than half time out of total time seen by FINISHING AND SHIPPING SUPERVISOR and myself Charges/Coding Visit Charges Inpatient E&M: 03871 Subs Hosp L2
[2021-09-06] MEDS: 0.9% Normal Saline 1,000 ML 60 ML IV (12:44)
[2021-09-06 13:07] LABS: Absolute Lymphocyte Count 0.39 X10^3/uL (0.83-4.51); Basophil# 0.08 X10^3/uL; Basophil% 0.6 % (0-1); Eosinophil# 0.06 X10^3/uL; Eosinophils% 0.4 % (0-5); Hematocrit 40.7 % (37-47); Lymphocyte # 0.39 X10^3/ul (0.83-4.51); Lymphocyte % 2.7 % (19-41); Mean Corp Hgb Conc 29.5 g/dL (32-36); Mean Corpuscular Hgb 28.2 pg (27.0-32.0); Mean Corpuscular Volume 95.5 fL (81-99); Mean Platelet Vol. 9.6 fl (6.2-12.0); Monocyte# 1.24 X10^3/uL; Monocyte% 8.7 % (0-10); NRBC Flagged by Analyzer 0.1 % (0-5); Neutrophil # 12.02 X10^3/uL (2.7-7.7); Neutrophil % 84.6 % (47-70); POSITIVE DIFFERENTIAL YES; Platelet Count 407 K/mm3 (150-450); RBC Distribution Width SD 49.2 fl (35.1-43.9); Red Blood Count 4.26 M/mm3 (4.2-5.4); White Blood Count 14.2 K/mm3 (4.4-11.0)
[2021-09-06 13:11] LABS: Differential Indicated SCAN CRITERIA MET
[2021-09-06 13:13] LABS: Anion Gap 6 (5-15); BUN 55 mg/dL (7-18); BUN/Creat Ratio 27.2 RATIO (10-20); Calcium,Total 8.7 mg/dL (8.5-10.1); Chloride 106 mmol/L (98-107); Creatinine, Serum 2.02 mg/dL (0.55-1.02); EST Glomerular Filtration Rate 25 mL/min (>60); Est Glom Filt Rate - Afr Amer 30 mL/min (>60); Estimated Creatinine Clearance 35.03 ml/min; Glucose 172 mg/dL (74-106); Potassium 3.8 mmol/L (3.5-5.1); Sodium Level 139 mmol/L (136-145)
[2021-09-06] MEDS: amLODIPine 10 MG Tablet PO (13:21)
[2021-09-06] MEDS: Acetaminophen 325 MG Tablet 650 MG PO (13:21)
[2021-09-06] MEDS: Ondansetron 4 MG/2 ML Vial IV (15:53)
[2021-09-06] MEDS: Heparin Injection (Vial) 5,000 UNIT/ML VIAL 5000 UNIT SC (21:46)
[2021-09-06] MEDS: Levothyroxine 100 MCG Tablet PO (21:46)
[2021-09-06] MEDS: Pramipexole Di-HCl 0.5 MG Tablet PO (21:46)
[2021-09-07] VITALS (12 sets, daily range): BP systolic 134–155; BP diastolic 50–69; PULSE 57–72; RESP 18–60; TEMP 35.8–36.6; O2SAT 73–99
[2021-09-07] MEDS: Acetaminophen 325 MG Tablet 650 MG PO ×2 (00:53→14:12)
[2021-09-07] MEDS: 0.9% Normal Saline 1,000 ML 60 ML IV (05:29)
[2021-09-07 05:53] LABS: Absolute Neutrophil Count 10.8 X10^3/uL (2.0-7.7); Basophil# 0.08 X10^3/uL; Basophil% 0.6 % (0-1); Eosinophils% 0.8 % (0-5); Hematocrit 37.3 % (37-47); Hemoglobin 10.9 g/dL (12.0-15.0); Lymphocyte % 4.5 % (19-41); Mean Corp Hgb Conc 29.2 g/dL (32-36); Mean Corpuscular Hgb 28.1 pg (27.0-32.0); Mean Corpuscular Volume 96.1 fL (81-99); Mean Platelet Vol. 9.8 fl (6.2-12.0); Monocyte# 1.15 X10^3/uL; Monocyte% 8.7 % (0-10); NRBC Flagged by Analyzer 0 % (0-5); Neutrophil # 10.81 X10^3/uL (2.7-7.7); Neutrophil % 81.3 % (47-70); POSITIVE DIFFERENTIAL YES; Platelet Count 393 K/mm3 (150-450); RBC Distribution Width SD 49.8 fl (35.1-43.9); Red Blood Count 3.88 M/mm3 (4.2-5.4); White Blood Count 13.3 K/mm3 (4.4-11.0)
[2021-09-07 06:07] LABS: Differential Indicated SCAN CRITERIA MET
[2021-09-07 06:14] LABS: Anion Gap 6 (5-15); BUN 57 mg/dL (7-18); BUN/Creat Ratio 31.8 RATIO (10-20); Calcium,Total 8.6 mg/dL (8.5-10.1); Chloride 106 mmol/L (98-107); Creatinine, Serum 1.79 mg/dL (0.55-1.02); EST Glomerular Filtration Rate 29 mL/min (>60); Est Glom Filt Rate - Afr Amer 35 mL/min (>60); Estimated Creatinine Clearance 39.53 ml/min; Glucose 125 mg/dL (74-106); Potassium 3.9 mmol/L (3.5-5.1); Sodium Level 137 mmol/L (136-145)
[2021-09-07] MEDS: Heparin Injection (Vial) 5,000 UNIT/ML VIAL 5000 UNIT SC (08:29)
[2021-09-07] MEDS: amLODIPine 10 MG Tablet PO (08:29)
[2021-09-07] MEDS: DULoxetine Hcl 30 MG Capsule PO (08:30)
[2021-09-07] MEDS: Aspirin E.C. 81 MG Tablet PO (08:30)
--- NOTE | 2021-09-07 09:54 | CASEMGMT ---
Addendum entered by Eliane Singer 09/07/21 10:08: JESSICA received return call from Alla at [facility]. They can get a bipap for patient as long as they have the settings. Patient will need a prior authorization before returning. JESSICA faxed bipap settings and updates. Await pre-cert. Plan: d/c back to [facility] pending insurance approval. Eliane HENDERSON Original Note: Physician said patient needs a bipap at the skilled nursing. JESSICA called Alla at [facility] and left her a voice mail asking about a bipap and if patient needs a pre-cert to return. JESSICA did print out bipap settings to fax. However, patient has been on AVAPS setting which nursing homes cannot do. JESSICA called Respiratory therapist, Corazon and patient can go on the bipap settings she had earlier this visit. JESSICA faxed this to [facility]. Eliane HENDERSON
--- NOTE | 2021-09-07 11:26 | PCM.PN.HOSP ---
Documented by User: Karen Liao NP, PROCUREMENT INTERN-C 09/07/21 11:33 Subjective Subjective Patient seen and examined. Remains alert and appropriate. Awaiting pre-CERT to SNF. Denies new symptoms or complaints. Objective Data Objective Data Vital Signs: Vital Signs Temp Pulse Resp BP Pulse Ox 96.8 F L 62 18 150/69 H 97 09/07/21 08:21 09/07/21 08:21 09/07/21 08:21 09/07/21 08:21 09/07/21 08:21 Oxygen Flow Rate (L/min) 4 Oxygen Delivery Method Nasal Cannula Weight: 244 lb 11.41 oz Body Mass Index (BMI) 52.9 Intake & Output: Intake and Output for Last 24 Hours 09/05/21 09/06/21 09/07/21 23:59 23:59 23:59 Intake Total 112 / 112 1424.33 / 1424.33 2090.75 / 2090.75 Output Total 200 / 200 1050 / 1050 400 / 400 Balance -88 / -88 374.33 / 374.33 1690.75 / 1690.75 Lab / Micro Data Result Diagrams: 09/07/21 04:51 09/07/21 04:51 Labs: Laboratory Results - last 24 hr 09/06/21 12:51: WBC 14.2 H, RBC 4.26, Hgb 12.0, Hct 40.7, MCV 95.5, MCH 28.2, MCHC 29.5 L, RDW Std Deviation 49.2 H, RDW Coeff of Teo 14.0, Plt Count 407, MPV 9.6, Immature Gran % (Auto) 3.000 H, Neut % (Auto) 84.6 H, Lymph % (Auto) 2.7 L, [place] % (Auto) 8.7, Eos % (Auto) 0.4, Baso % (Auto) 0.6, Absolute Neuts (auto) 12.0 H, Absolute Lymphs (auto) 0.39 L, Nucleated RBC % 0.1 09/06/21 12:51: Sodium 139, Potassium 3.8, Chloride 106, Carbon Dioxide 27.0, Anion Gap 6, BUN 55 H, Creatinine 2.02 H, Estim Creat Clear Calc 35.03, Est GFR (MDRD) Af Amer 30 L, Est GFR (MDRD) Non-Af 25 L, BUN/Creatinine Ratio 27.2 H, Glucose 172 H, Calcium 8.7 09/07/21 04:51: WBC 13.3 H, RBC 3.88 L, Hgb 10.9 L, Hct 37.3, MCV 96.1, MCH 28.1, MCHC 29.2 L, RDW Std Deviation 49.8 H, RDW Coeff of Teo 14.0, Plt Count 393, MPV 9.8, Immature Gran % (Auto) 4.100 H, Neut % (Auto) 81.3 H, Lymph % (Auto) 4.5 L, [place] % (Auto) 8.7, Eos % (Auto) 0.8, Baso % (Auto) 0.6, Absolute Neuts (auto) 10.8 H, Absolute Lymphs (auto) 0.60 L, Nucleated RBC % 0 09/07/21 04:51: Sodium 137, Potassium 3.9, Chloride 106, Carbon Dioxide 25.0, Anion Gap 6, BUN 57 H, Creatinine 1.79 H, Estim Creat Clear Calc 39.53, Est GFR (MDRD) Af Amer 35 L, Est GFR (MDRD) Non-Af 29 L, BUN/Creatinine Ratio 31.8 H, Glucose 125 H, Calcium 8.6 Physical Exam Const alert, oriented x3 and no apparent distress Orientation / Consciousness: awake, oriented to person, oriented to place and oriented to time HEENT normocephalic and moist oral mucous membranes Eyes PERRL, EOMs intact bilaterally and conjunctivae normal Neck no lymphadenopathy Resp clear to auscultation bilaterally Auscultation: diminished lung sounds Cardio regular rate, regular rhythm and no murmurs Peripheral Pulses: pulses 2+ throughout GI normal to inspection, nondistended, normoactive bowel sounds, non-tender and non-distended Extremity normal to inspection Skin no rashes or lesions noted Lesions: no lesions Rashes: no rashes Trauma: no lacerations or abrasions Neuro CN's II-XII intact bilaterally, no focal motor deficits, no sensory deficits noted and deep tendon reflexes 2+ bilaterally Psych mental status grossly normal and affect normal Assessment & Plan Assessment/Plan (1) Encephalopathy acute: (2) Acute hypercapnic respiratory failure: PLAN: 1. Acute on chronic hypoxic and hypercapnic respiratory failure-multifactorial secondary to recent pneumonia/Covid as well as suspected underlying ROBERTO and COPD. Complicated by morbid obesity. Significantly improved with BiPAP. Continue BiPAP nightly and with naps. Will discuss with case management obtaining BiPAP for SNF. 2. Recent pneumonia/Proteus UTI-continue IV Unasyn with stop date 09/07/2021. 3. Acute kidney injury on chronic kidney disease stage IIIb-resolved with IV fluids. Trend BMP. 4. Metabolic encephalopathy secondary to hypercapnia and acute kidney injury-mental status significantly improved following treatment with BiPAP. Currently at baseline. Plan to reduce baclofen, duloxetine and Lasix home dosing at discharge. 5. Junctional rhythm-currently resolved. 6. Chronic heart failure with preserved ejection fraction-Lasix on hold due to increased creatinine. 7. Chronic back pain-as needed pain regimen. 8. Hypertension-resume home amlodipine regimen. 9. Restless leg syndrome-on Requip. DVT prophylaxis-Heparin subcu This patient was seen by Karen Liao NP-C under the supervision of Dr. Ribeiro. Documented by User: Dr. Serene Ribeiro DO 09/07/21 15:49 Subjective Subjective This patient was seen in conjunction with Karen Liao NP. The following is representation my independent history and physical examination. Please see below for addendum the above. The patient is now back to baseline. She states she does not really remember anything that happened prior to admission. Her granddaughter is at the bedside does confirm that her oral intake was poor after discharge initially and that does help explain why her kidney function was worse 48 hours after discharge. She does not wear BiPAP at baseline however we are in the process of getting 1 at the facility for her. Objective Data Lab / Micro Data Result Diagrams: 09/07/21 04:51 09/07/21 04:51 Physical Exam Const alert, oriented x3 and no apparent distress Constitutional Narrative: morbidly obese white female sitting up in bed, appears well and comfortable, granddaughter at bedside Orientation / Consciousness: awake, oriented to person, oriented to place and oriented to time Exam Limitations: no limitations Nutritional Appearance: morbidly obese HEENT normocephalic, head/scalp atraumatic, moist oral mucous membranes and oropharynx normal HEENT Narrative: Mallampati is 3-4, no thrush Head and Scalp: normocephalic Resp no retractions, no use of accessory muscles and clear to auscultation bilaterally Resp Narrative: Diminished diffusely but no adventitious sounds noted Auscultation: diminished lung sounds; Negative for crackles, rales, rhonchi or wheezes Cardio regular rate, regular rhythm, S1 normal heart sound, S2 normal heart sound, no murmurs, no rub, no gallops, no clicks and no JVD Peripheral Pulses: pulses 2+ throughout GI normal to inspection, nondistended, normoactive bowel sounds, soft to palpation, non-tender and non-distended Extremity normal to inspection and no clubbing, cyanosis or edema Peripheral Pulses: Yes pulses 2+ throughout Skin Lesions: no lesions Rashes: no rashes Trauma: no lacerations or abrasions Neuro oriented x3, CN's II-XII intact bilaterally, moves all extremities, no focal motor deficits, no sensory deficits noted and deep tendon reflexes 2+ bilaterally Sensorium / Orientation: awake and alert Speech: speech normal Psych mental status grossly normal Assessment & Plan Assessment/Plan (1) Encephalopathy acute: (2) ALEJANDRO (acute kidney injury): (3) Junctional rhythm: (4) Acute on chronic respiratory failure with hypoxia and hypercapnia: (5) Acute UTI: PLAN: Assesment: Acute hypoxic and acute on chronic hypercapnic respiratory failure-resolved Proteus urinary tract infection-antibiotics completed Acute metabolic encephalopathy-resolved Junctional rhythm-resolved ALEJANDRO-resolved CKD stage IIIb-IV Hypertension HFpEF and compensated Chronic pain DJD of the cervical spine/lumbar spine Restless leg syndrome Suspected COPD Morbid obesity Suspected ROBERTO Hypothyroidism Plan: -Antibiotics to be completed today -Renal function is much improved and back to baseline -Working on disposition with discharge back to facility--> need to assure the patient will have access to BiPAP for naps and nocturnally after discharge -Pre-CERT is currently pending--> patient is stable for discharge once pre-CERT obtained Charges/Coding Visit Charges Inpatient E&M: 03550 Subs Hosp L2
--- NOTE | 2021-09-07 16:24 | TREXTCAR_ITS ---
Documented by User: Karen Liao NP, AEROSPACE TECHNICIAN-C 09/07/21 16:36 Diet 09/06/21 07:38 Diet: Cardiac - Heart Healthy Is pt able to select menu?: Yes Diet Comments: ok for sips with meds and per pt request Routine Orders/Code Status Enema Type: Fleetz Enema Frequency: Daily PRN Suppository Type: Dulcolax 10mg Suppository Frequency: Daily PRN O2 Liters per Minute: 2 O2 Frequency: Continuous Keep PO Greater than or Equal to (%): 90 Routine Lab Work: - (BMP tuesday09/09/21 then Weekly CBC, BMP) Code Status: DNRCC-A (no intubation) Suggestions for Active Care Change Position every (hours): 2 Therapies Physical Therapy: Eval and Treat Occupational Therapy: Eval and Treat Problem/Diagnosis (1) Encephalopathy acute: Status: Acute (2) ALEJANDRO (acute kidney injury): Status: Acute (3) Junctional rhythm: Status: Acute (4) Acute on chronic respiratory failure with hypoxia and hypercapnia: Status: Chronic (5) Acute UTI: Status: Acute Allergies/Procedures Done in Hospital Allergies Sulfa (Sulfonamide Antibiotics) Allergy (Verified 09/04/21 15:29) Hives morphine Adverse Reaction (Verified 09/04/21 15:29) confusion-difficult to wean off Procedures: None Type of Care/Length of Stay Estimated LOS: More Than 30 Days Type of Care Needed: Skilled Rehab Potential: Fair Prognosis: Fair Additional Orders/Day of Discharge H&P will serve as current which was dated: 09/04/21 Day of Discharge: 09/07/21 Dietary and Speech Recommendations Dietitian Recommendations/Changes: Cardiac/sodium-restricted diet with fluid restriction as indicated; monitor need to restrict protein due to CKD stage 4. If comfort care desired, regular/no added salt diet as tolerated. ONS as needed as diet advanced. Discharge Plan Admission Admit Date/Time: 09/04/21 18:07 Primary Reason for Your Visit: Acute on chronic hypoxic and hypercapnic respiratory failure Attending Provider: Serene Ribeiro Primary Care Provider: Tom Hernandez Instructions Additional Instructions / Restrictions: BIPAP QHS and with naps- see attached BIPAP settings. Discharge Orders/Prescriptions Prescriptions: New acetaminophen [Tylenol] 325 mg Tablet 650 mg PO Q6H PRN PRN (Reason: Pain 1-10 Or Fever) Qty: 0 RF: 0 Continued aspirin 81 MG tablet,chewable 81 mg PO DAILY@0800 RF: 0 albuterol sulfate [Ventolin HFA] 1 INHALER inhaler 2 puff inhalation Q2H PRN (Reason: Sob &/Or Wheezing) RF: 0 gabapentin 300 MG capsule 600 mg PO QHS RF: 0 loratadine 10 MG tablet 5 mg PO DAILY RF: 0 amlodipine 10 MG tablet 10 mg PO DAILY RF: 0 ropinirole 1 mg tablet 1 mg PO QHS RF: 0 sennosides-docusate sodium [Senexon-S] 8.6-50 mg tablet 1 tab PO BID RF: 0 duloxetine [Cymbalta] 30 mg capsule,delayed release(DR/EC) 30 mg PO DAILY RF: 0 diclofenac sodium 1 % gel 1 g TOPICAL TID RF: 0 levothyroxine 100 mcg tablet 100 mcg PO QHS RF: 0 Changed baclofen 10 mg Tablet 5 mg PO QHS Qty: 0 RF: 0 furosemide 20 mg tablet 40 mg PO DAILY Qty: 0 RF: 0 Discontinued guaifenesin [Mucus Relief ER] 600 MG tablet 600 mg PO BID RF: 0 hydrocodone-acetaminophen 5-325 mg tablet 1 tab PO TID RF: 0 amoxicillin-pot clavulanate 875-125 mg tablet 1 tab PO BID Qty: 10 RF: 0 Referrals / Follow Up: Tom Hernandez MD [Primary Care Provider] - In 1 Week Disposition Disposition (needs filled in before D/C Order can be placed): Longterm Facility Documented by User: Dr. Serene Ribeiro DO 09/07/21 16:49 Allergies/Procedures Done in Hospital Allergies Sulfa (Sulfonamide Antibiotics) Allergy (Verified 09/04/21 15:29) Hives morphine Adverse Reaction (Verified 09/04/21 15:29) confusion-difficult to wean off Discharge Plan Admission Admit Date/Time: 09/04/21 18:07 Primary Reason for Your Visit: Acute on chronic hypoxic and hypercapnic respiratory failure Attending Provider: Serene Ribeiro Primary Care Provider: Tom Hernandez Instructions Additional Instructions / Restrictions: BIPAP QHS and with naps- see attached BIPAP settings. Discharge Orders/Prescriptions Prescriptions: New acetaminophen [Tylenol] 325 mg Tablet 650 mg PO Q6H PRN PRN (Reason: Pain 1-10 Or Fever) Qty: 0 RF: 0 Continued aspirin 81 MG tablet,chewable 81 mg PO DAILY@0800 RF: 0 albuterol sulfate [Ventolin HFA] 1 INHALER inhaler 2 puff inhalation Q2H PRN (Reason: Sob &/Or Wheezing) RF: 0 gabapentin 300 MG capsule 600 mg PO QHS RF: 0 loratadine 10 MG tablet 5 mg PO DAILY RF: 0 amlodipine 10 MG tablet 10 mg PO DAILY RF: 0 ropinirole 1 mg tablet 1 mg PO QHS RF: 0 sennosides-docusate sodium [Senexon-S] 8.6-50 mg tablet 1 tab PO BID RF: 0 duloxetine [Cymbalta] 30 mg capsule,delayed release(DR/EC) 30 mg PO DAILY RF: 0 diclofenac sodium 1 % gel 1 g TOPICAL TID RF: 0 levothyroxine 100 mcg tablet 100 mcg PO QHS RF: 0 Changed baclofen 10 mg Tablet 5 mg PO QHS Qty: 0 RF: 0 furosemide 20 mg tablet 40 mg PO DAILY Qty: 0 RF: 0 Discontinued guaifenesin [Mucus Relief ER] 600 MG tablet 600 mg PO BID RF: 0 hydrocodone-acetaminophen 5-325 mg tablet 1 tab PO TID RF: 0 amoxicillin-pot clavulanate 875-125 mg tablet 1 tab PO BID Qty: 10 RF: 0 Referrals / Follow Up: Tom Hernandez MD [Primary Care Provider] - In 1 Week Disposition Disposition (needs filled in before D/C Order can be placed): Longterm Facility
--- NOTE | 2021-09-07 16:36 | DS.PCM_ITS ---
Documented by User: Karen Liao NP, GUIDANCE ADVISER-C 09/07/21 16:41 Providers Date of Admission: 09/04/21 Date of Discharge: 09/07/21 Primary Care Physician: Dr. Tom Hernandez MD Reason For Visit: ACUTE ON CHRONIC HYPERCAPNIC RESPIRATORY FAILURE Diagnosis Discharge Diagnosis (1) Encephalopathy acute: Status: Acute Code(s): G93.40 - Encephalopathy, unspecified (2) ALEJANDRO (acute kidney injury): Status: Acute Code(s): N17.9 - Acute kidney failure, unspecified (3) Junctional rhythm: Status: Acute Code(s): I49.8 - Other specified cardiac arrhythmias (4) Acute on chronic respiratory failure with hypoxia and hypercapnia: Status: Chronic Code(s): J96.21 - Acute and chronic respiratory failure with hypoxia; J96.22 - Acute and chronic respiratory failure with hypercapnia (5) Acute UTI: Status: Acute Code(s): N39.0 - Urinary tract infection, site not specified Medications at Discharge Home Medications aspirin 81 mg PO DAILY@0800 05/15/16 albuterol sulfate [Ventolin HFA] 2 puff INHALATION Q2H PRN 11/01/18 amlodipine 10 mg PO DAILY 07/08/20 gabapentin 600 mg PO QHS 07/08/20 loratadine 5 mg PO DAILY 07/08/20 diclofenac sodium 1 g TOPICAL TID 08/31/21 duloxetine [Cymbalta] 30 mg PO DAILY 08/31/21 ropinirole 1 mg PO QHS 08/31/21 sennosides-docusate sodium [Senexon-S] 1 tab PO BID 08/31/21 levothyroxine 100 mcg PO QHS 09/04/21 acetaminophen [Tylenol] 650 mg PO Q6H PRN PRN #0 tab 09/07/21 baclofen 5 mg PO QHS #0 tab 09/07/21 furosemide 40 mg PO DAILY #0 tab 09/07/21 Hospital Course Operations None Procedures None Summary of Care Provided Minutes Spent on Discharge: 35 Hospital Course: Patient is an 85-year-old female admitted 09/04/2021 due to altered mental status. 1. Acute on chronic hypoxic and hypercapnic respiratory failure-multifactorial secondary to recent pneumonia/Covid as well as suspected underlying ROBERTO and COPD. Complicated by morbid obesity. Significantly improved with BiPAP. Continue BiPAP nightly and with naps. Continue incentive spirometer. Will discuss with case management and BiPAP will be set up at SNF as patient has had recurrent altered mental status secondary to hypercapnia. Follow-up with PCP in 1 week. 2. Recent pneumonia/Proteus UTI-continue IV Unasyn with stop date 09/07/2021. 3. Acute kidney injury on chronic kidney disease stage IIIb-resolved with IV fluids. Trend BMP at SNF. Lasix reduced to 40 mg daily. Trend BMP at SNF. May need further reduction or discontinuation of Lasix pending further BMP monitoring. 4. Metabolic encephalopathy secondary to hypercapnia and acute kidney injury- mental status significantly improved following treatment with BiPAP. Currently at baseline. Plan to reduce baclofen, narcotic regimen at discharge. 5. Junctional rhythm-currently resolved. 6. Chronic heart failure with preserved ejection fraction-Lasix reduced as noted above. 7. Chronic back pain-as needed Tylenol. Avoid narcotics. 8. Hypertension-resume home amlodipine regimen. 9. Restless leg syndrome-on Requip. Physical Exam Const alert, oriented x3 and no apparent distress Orientation / Consciousness: awake, oriented to person, oriented to place and oriented to time HEENT normocephalic and moist oral mucous membranes Eyes PERRL, EOMs intact bilaterally and conjunctivae normal Neck no lymphadenopathy Resp clear to auscultation bilaterally Auscultation: diminished lung sounds Cardio regular rate, regular rhythm and no murmurs Peripheral Pulses: pulses 2+ throughout GI normal to inspection, nondistended, normoactive bowel sounds, non-tender and non-distended Extremity normal to inspection Skin no rashes or lesions noted Lesions: no lesions Rashes: no rashes Trauma: no lacerations or abrasions Neuro CN's II-XII intact bilaterally, no focal motor deficits, no sensory deficits noted and deep tendon reflexes 2+ bilaterally Psych mental status grossly normal and affect normal Patient seen and examined prior to discharge. Physical assessment as noted above. Patient is stable for discharge with follow up recommendations as noted above. This patient was seen by FRIDA Wakefield under the supervision of Dr. Ribeiro. Weight / BMI Weight Weight: 244 lb 11.41 oz Body Mass Index (BMI) 52.9 ABG / Lab / Microbiology Data Result Diagrams: 09/07/21 04:51 09/07/21 04:51 Laboratory: Laboratory Results - last 24 hr 09/07/21 04:51: WBC 13.3 H, RBC 3.88 L, Hgb 10.9 L, Hct 37.3, MCV 96.1, MCH 28.1, MCHC 29.2 L, RDW Std Deviation 49.8 H, RDW Coeff of Teo 14.0, Plt Count 393, MPV 9.8, Immature Gran % (Auto) 4.100 H, Neut % (Auto) 81.3 H, Lymph % (Auto) 4.5 L, [place] % (Auto) 8.7, Eos % (Auto) 0.8, Baso % (Auto) 0.6, Absolute Neuts (auto) 10.8 H, Absolute Lymphs (auto) 0.60 L, Nucleated RBC % 0 09/07/21 04:51: Sodium 137, Potassium 3.9, Chloride 106, Carbon Dioxide 25.0, Anion Gap 6, BUN 57 H, Creatinine 1.79 H, Estim Creat Clear Calc 39.53, Est GFR (MDRD) Af Amer 35 L, Est GFR (MDRD) Non-Af 29 L, BUN/Creatinine Ratio 31.8 H, Glucose 125 H, Calcium 8.6 Meaningful Use Info Meaningful Use Diagnoses (Choose all that apply): None applicable Discharge Plan Admission Admit Date/Time: 09/04/21 18:07 Primary Reason for Your Visit: Acute on chronic hypoxic and hypercapnic respiratory failure Attending Provider: Serene Ribeiro Primary Care Provider: Tom Hernandez Instructions Additional Instructions / Restrictions: BIPAP QHS and with naps- see attached BIPAP settings. Discharge Orders/Prescriptions Prescriptions: New acetaminophen [Tylenol] 325 mg Tablet 650 mg PO Q6H PRN PRN (Reason: Pain 1-10 Or Fever) Qty: 0 RF: 0 Continued aspirin 81 MG tablet,chewable 81 mg PO DAILY@0800 RF: 0 albuterol sulfate [Ventolin HFA] 1 INHALER inhaler 2 puff inhalation Q2H PRN (Reason: Sob &/Or Wheezing) RF: 0 gabapentin 300 MG capsule 600 mg PO QHS RF: 0 loratadine 10 MG tablet 5 mg PO DAILY RF: 0 amlodipine 10 MG tablet 10 mg PO DAILY RF: 0 ropinirole 1 mg tablet 1 mg PO QHS RF: 0 sennosides-docusate sodium [Senexon-S] 8.6-50 mg tablet 1 tab PO BID RF: 0 duloxetine [Cymbalta] 30 mg capsule,delayed release(DR/EC) 30 mg PO DAILY RF: 0 diclofenac sodium 1 % gel 1 g TOPICAL TID RF: 0 levothyroxine 100 mcg tablet 100 mcg PO QHS RF: 0 Changed baclofen 10 mg Tablet 5 mg PO QHS Qty: 0 RF: 0 furosemide 20 mg tablet 40 mg PO DAILY Qty: 0 RF: 0 Discontinued guaifenesin [Mucus Relief ER] 600 MG tablet 600 mg PO BID RF: 0 hydrocodone-acetaminophen 5-325 mg tablet 1 tab PO TID RF: 0 amoxicillin-pot clavulanate 875-125 mg tablet 1 tab PO BID Qty: 10 RF: 0 Referrals / Follow Up: Tom Hernandez MD [Primary Care Provider] - In 1 Week Disposition Disposition (needs filled in before D/C Order can be placed): [facility] Facility Documented by User: Dr. Serene Ribeiro DO 09/07/21 16:58 Providers Date of Admission: 09/04/21 Reason For Visit: ACUTE ON CHRONIC HYPERCAPNIC RESPIRATORY FAILURE Medications at Discharge Home Medications aspirin 81 mg PO DAILY@0800 05/15/16 albuterol sulfate [Ventolin HFA] 2 puff INHALATION Q2H PRN 11/01/18 amlodipine 10 mg PO DAILY 07/08/20 gabapentin 600 mg PO QHS 07/08/20 loratadine 5 mg PO DAILY 07/08/20 diclofenac sodium 1 g TOPICAL TID 08/31/21 duloxetine [Cymbalta] 30 mg PO DAILY 08/31/21 ropinirole 1 mg PO QHS 08/31/21 sennosides-docusate sodium [Senexon-S] 1 tab PO BID 08/31/21 levothyroxine 100 mcg PO QHS 09/04/21 acetaminophen [Tylenol] 650 mg PO Q6H PRN PRN #0 tab 09/07/21 baclofen 5 mg PO QHS #0 tab 09/07/21 furosemide 40 mg PO DAILY #0 tab 09/07/21 Hospital Course Operations None Procedures None Summary of Care Provided Minutes Spent on Discharge: 42 Hospital Course: Mrs. Moon is an 85-year-old female who presented to the emergency department which [facility] on 09/04/2021 with increasing confusion that started the day prior to admission. She had a recent admission from 08/31/2021 through 09/02/2021 where she was found to have a Proteus urinary tract infection that appear to be pansensitive and a suspected pneumonia. She was discharged on Augmentin at that time as she demanded discharge. Her presentation on 09/04/2021 was very similar to the presentation on 08/31 however she had increasing confusion and worsening renal function at that time. Upon admission for this hospitalization she was found to have a heart rate between 55 and 57 and EKG appeared to be junctional. Her vitals were otherwise stable and her oxygen saturation was 98% on BiPAP. An ABG was obtained upon admission and she was found to have a pH of 7.21 with a PCO2 of 72.2 and a PO2 of 71. Her baseline PCO2 appears to be 55-65. She does not wear BiPAP at baseline at her facility. The rest of her CBC was fairly unremarkable. Her CMP showed normal electrolytes however she had a markedly elevated BUN and creatinine which was new for her compared to discharge on 09/02. Her serum glucose was 103 at the time of admission. Given her increased somnolence a CT of her head was perf ormed and showed chronic involutional changes but no acute changes. She was placed on BiPAP in the emergency department and request for admission was made. Given her presentation of a suspected that her metabolic encephalopathy was related to her hypercapnia with CO2 narcosis and her worsened renal function. Her baseline serum creatinine is 1.5-1.75 and her serum creatinine on admission was 2.47. Her CO2 narcosis in combination with her ALEJANDRO and her medications including Cymbalta, baclofen, narcotics, and gabapentin are likely responsible for her encephalopathy. With continued noninvasive ventilation and IV hydration along with continued treatment for her Proteus urinary tract infection she clinically improved within 48 hours of admission back to her baseline. Her junctional rhythm resolved with correction of her renal function as well. At the time of discharge she had completed of course of antibiotics for her UTI and therefore antibiotics were discontinued. She had been on 60 mg of oral Lasix at home we have reduced this dose to 40 mg and recommend a repeat BMP be performed on 09/09/2021 and that she have weekly evaluation of her renal function. Her gabapentin and ropinirole were continued however her baclofen was decreased to 5 mg. She may need further reduction of her Lasix depending on her renal function. Her granddaughter did clarify that her oral intake was extremely poor after discharge on 09/02/2021 and I suspect this is responsible for her worsening renal function along with continued Lasix dosing. We have arranged that she will continue to be on BiPAP with naps and at at bedtime at the nursing facility. As noted above her baseline PCO2 looks to be 55-65 indicating she has chronic hypercapnia likely related to obstructive sleep apnea and obesity hypoventilation syndrome. With continued BiPAP treatment with naps and nocturnally this should eliminate CO2 narcosis is being responsible for worsening mental status as long as she is compliant. This was discussed with her prior to discharge and her family is aware as they were at bedside during our conversation as well. Patient was requiring 2 L at rest to maintain oxygen saturations greater than 88%. Her goal oxygen status should be 88 to 92% and no higher given her chronic hypercapnia. She was able to be discharged in stable condition back to [facility] on 09/07/2021. 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 Restless leg syndrome Suspected COPD Morbid obesity Suspected ROBERTO Hypothyroidism Physical Exam Const alert, oriented x3 and no apparent distress Constitutional Narrative: morbidly obese white female sitting up in bed, appears well and comfortable, granddaughter at bedside Orientation / Consciousness: awake, oriented to person, oriented to place and oriented to time Exam Limitations: no limitations Nutritional Appearance: morbidly obese HEENT normocephalic, head/scalp atraumatic, moist oral mucous membranes and oropharynx normal Eyes PERRL, EOMs intact bilaterally and conjunctivae normal Eyes Narrative: No scleral icterus Neck no lymphadenopathy, supple, no JVD and no carotid bruits Neck Narrative: Trachea midline, short thick neck, no thyroid enlargement Resp no retractions, no use of accessory muscles and clear to auscultation bilaterally Resp Narrative: Diminished diffusely but no adventitious sounds noted Auscultation: diminished lung sounds; Negative for crackles, rales, rhonchi or wheezes Cardio regular rate, regular rhythm, S1 normal heart sound, S2 normal heart sound, no murmurs, no rub, no gallops, no clicks and no JVD Cardio Narrative: Mild bradycardia Peripheral Pulses: pulses 2+ throughout GI normal to inspection, nondistended, normoactive bowel sounds, soft to palpation, non-tender and non-distended Extremity normal to inspection and no clubbing, cyanosis or edema Skin no rashes or lesions noted, no wounds, skin turgor normal, no jaundice, no petechiae and no mottling Lesions: no lesions Rashes: no rashes Trauma: no lacerations or abrasions Neuro oriented x3, CN's II-XII intact bilaterally, moves all extremities, no focal motor deficits, no sensory deficits noted and deep tendon reflexes 2+ bilaterally Neuro Narrative: Was able to follow some commands and did move all extremities spontaneously, confused, lethargic Sensorium / Orientation: awake and alert Speech: speech normal Psych mental status grossly normal and affect normal Psych Narrative: Jovial and very pleasant ABG / Lab / Microbiology Data Result Diagrams: 09/07/21 04:51 09/07/21 04:51 Discharge Plan Admission Admit Date/Time: 09/04/21 18:07 Primary Reason for Your Visit: Acute on chronic hypoxic and hypercapnic respiratory failure Attending Provider: Serene Ribeiro Primary Care Provider: Tom Hernandez Instructions Additional Instructions / Restrictions: BIPAP QHS and with naps- see attached BIPAP settings. Discharge Orders/Prescriptions Prescriptions: New acetaminophen [Tylenol] 325 mg Tablet 650 mg PO Q6H PRN PRN (Reason: Pain 1-10 Or Fever) Qty: 0 RF: 0 Continued aspirin 81 MG tablet,chewable 81 mg PO DAILY@0800 RF: 0 albuterol sulfate [Ventolin HFA] 1 INHALER inhaler 2 puff inhalation Q2H PRN (Reason: Sob &/Or Wheezing) RF: 0 gabapentin 300 MG capsule 600 mg PO QHS RF: 0 loratadine 10 MG tablet 5 mg PO DAILY RF: 0 amlodipine 10 MG tablet 10 mg PO DAILY RF: 0 ropinirole 1 mg tablet 1 mg PO QHS RF: 0 sennosides-docusate sodium [Senexon-S] 8.6-50 mg tablet 1 tab PO BID RF: 0 duloxetine [Cymbalta] 30 mg capsule,delayed release(DR/EC) 30 mg PO DAILY RF: 0 diclofenac sodium 1 % gel 1 g TOPICAL TID RF: 0 levothyroxine 100 mcg tablet 100 mcg PO QHS RF: 0 Changed baclofen 10 mg Tablet 5 mg PO QHS Qty: 0 RF: 0 furosemide 20 mg tablet 40 mg PO DAILY Qty: 0 RF: 0 Discontinued guaifenesin [Mucus Relief ER] 600 MG tablet 600 mg PO BID RF: 0 hydrocodone-acetaminophen 5-325 mg tablet 1 tab PO TID RF: 0 amoxicillin-pot clavulanate 875-125 mg tablet 1 tab PO BID Qty: 10 RF: 0 Referrals / Follow Up: Tom Hernandez MD [Primary Care Provider] - In 1 Week Disposition Disposition (needs filled in before D/C Order can be placed): [facility] Facility Charges/Coding Visit Charges Inpatient E&M: 22880 SNF Disch >30 Min
--- NOTE | 2021-09-07 16:52 | CASEMGMT ---
JESSICA received a call from Alla at [facility] and patient was approved. JESSICA let her know physician will send patient today. JESSICA notified RN that patient needs a rapid COVID test before returning. JESSICA spoke with patient and her son and let them know patient will be headed back to [facility] today. Patient's son asked about the bipap. JESSICA let him know SW spoke with Alla earlier and faxed her the bipap settings. Alla said they have bipaps at the facility. Patient's son thanked JESSICA. JESSICA left a green sheet on chart with instructions. JESSICA notified scrap charger and secretary specialist of green sheet. Plan: d/c back to [facility] under skilled level of care. [facility] transport via cot. Eliane HENDERSON
== END 2021-09-07 18:10 | disposition skilled nursing facility (03) | DRG 189 ==
LOC: ED 17:30 → PCU 18:03
PROVIDERS: Nurse Practitioner Family; Admitting Provider Internal Medicine; Emergency Provider Emergency Medicine; PCP Family Medicine; Visit Provider Internal Medicine
DX: J96.21 Acute and chronic respiratory failure with hypoxia (principal); G93.41 Metabolic encephalopathy; J18.9 Pneumonia, unspecified organism; I13.0 Hypertensive heart and chronic kidney disease with heart failure and stage 1 through stage 4 chronic kidney disease, or unspecified chronic kidney disease; E66.2 Morbid (severe) obesity with alveolar hypoventilation; Z68.43 Body mass index [BMI] 50.0-59.9, adult; N17.9 Acute kidney failure, unspecified; I50.32 Chronic diastolic (congestive) heart failure; J44.0 Chronic obstructive pulmonary disease with (acute) lower respiratory infection; N39.0 Urinary tract infection, site not specified; J96.22 Acute and chronic respiratory failure with hypercapnia; N18.32 Chronic kidney disease, stage 3b; B96.4 Proteus (mirabilis) (morganii) as the cause of diseases classified elsewhere; G25.81 Restless legs syndrome; E03.9 Hypothyroidism, unspecified; I45.19 Other right bundle-branch block; M47.816 Spondylosis without myelopathy or radiculopathy, lumbar region; I49.8 Other specified cardiac arrhythmias; M47.812 Spondylosis without myelopathy or radiculopathy, cervical region; Z87.891 Personal history of nicotine dependence; Z79.82 Long term (current) use of aspirin; G89.29 Other chronic pain; Z66 Do not resuscitate; Z09 Encounter for follow-up examination after completed treatment for conditions other than malignant neoplasm; Z87.01 Personal history of pneumonia (recurrent); Z86.16 Personal history of COVID-19
CPT/HCPCS: 36415; 36600; 70450; 71045; 80048; 80053; 82803; 82962; 83605; 83735; 84100; 84484; 85025; 85610; 85730; 87426; 93005; 94002; 94003; 97110; 97163; 97166; 97530; 97535; 99251; 99285; J7030; A4216; G0463; J0295; J2405; J7799

== ENCOUNTER → 2021-09-09 | Outpatient (REF) | payer SELFPAY ==
[2021-09-09 09:14] LABS: Absolute Lymphocyte Count 0.47 X10^3/uL (0.83-4.51); Absolute Neutrophil Count 12.1 X10^3/uL (2.0-7.7); Basophil# 0.09 X10^3/uL; Basophil% 0.6 % (0-1); Eosinophil# 0.19 X10^3/uL; Eosinophils% 1.3 % (0-5); Hematocrit 38.1 % (37-47); Hemoglobin 11.1 g/dL (12.0-15.0); Lymphocyte # 0.47 X10^3/ul (0.83-4.51); Lymphocyte % 3.3 % (19-41); Mean Corp Hgb Conc 29.1 g/dL (32-36); Mean Corpuscular Hgb 28.1 pg (27.0-32.0); Mean Corpuscular Volume 96.5 fL (81-99); Mean Platelet Vol. 9.8 fl (6.2-12.0); Monocyte# 1.01 X10^3/uL; NRBC Flagged by Analyzer 0 % (0-5); Neutrophil % 84.2 % (47-70); POSITIVE DIFFERENTIAL YES; Platelet Count 498 K/mm3 (150-450); RBC Distribution Width CV 14.4 % (11.6-14.6); RBC Distribution Width SD 50.7 fl (35.1-43.9); Red Blood Count 3.95 M/mm3 (4.2-5.4); White Blood Count 14.4 K/mm3 (4.4-11.0)
[2021-09-09 09:17] LABS: Differential Indicated SCAN CRITERIA MET
[2021-09-09 09:35] LABS: Anion Gap 3 (5-15); BUN 57 mg/dL (7-18); BUN/Creat Ratio 34.5 RATIO (10-20); Calcium,Total 9.4 mg/dL (8.5-10.1); Chloride 105 mmol/L (98-107); Creatinine, Serum 1.65 mg/dL (0.55-1.02); EST Glomerular Filtration Rate 31 mL/min (>60); Est Glom Filt Rate - Afr Amer 38 mL/min (>60); Glucose 109 mg/dL (74-106); Potassium 4.7 mmol/L (3.5-5.1); Sodium Level 139 mmol/L (136-145)
== END | disposition home or self-care (01) ==
LOC: OLS.WHLEAS 04:00
PROVIDERS: PCP Family Medicine; Referring Provider Family Medicine; Visit Provider Family Medicine
DX: J44.9 Chronic obstructive pulmonary disease, unspecified (principal); I13.0 Hypertensive heart and chronic kidney disease with heart failure and stage 1 through stage 4 chronic kidney disease, or unspecified chronic kidney disease; I50.32 Chronic diastolic (congestive) heart failure; N18.9 Chronic kidney disease, unspecified
CPT/HCPCS: 36415; 80048; 85025

== ENCOUNTER → 2021-09-16 | Outpatient (REF) | payer SELFPAY ==
[2021-09-16 09:01] LABS: Hematocrit 36.2 % (37-47); Hemoglobin 10.9 g/dL (12.0-15.0); Mean Corp Hgb Conc 30.1 g/dL (32-36); Mean Corpuscular Hgb 29.5 pg (27.0-32.0); Mean Corpuscular Volume 97.8 fL (81-99); Mean Platelet Vol. 9.5 fl (6.2-12.0); Platelet Count 632 K/mm3 (150-450); RBC Distribution Width CV 14.4 % (11.6-14.6); RBC Distribution Width SD 51.9 fl (35.1-43.9); White Blood Count 7.6 K/mm3 (4.4-11.0)
[2021-09-16 09:11] LABS: Anion Gap 3 (5-15); BUN 36 mg/dL (7-18); BUN/Creat Ratio 26.7 RATIO (10-20); Calcium,Total 8.9 mg/dL (8.5-10.1); Chloride 103 mmol/L (98-107); Creatinine, Serum 1.35 mg/dL (0.55-1.02); EST Glomerular Filtration Rate 40 mL/min (>60); Est Glom Filt Rate - Afr Amer 48 mL/min (>60); Glucose 92 mg/dL (74-106); Sodium Level 139 mmol/L (136-145)
== END | disposition home or self-care (01) ==
LOC: OLS.WHLEAS 05:00
PROVIDERS: PCP Family Medicine; Referring Provider Family Medicine; Visit Provider Family Medicine
DX: N18.30 Chronic kidney disease, stage 3 unspecified (principal); N17.9 Acute kidney failure, unspecified; J44.9 Chronic obstructive pulmonary disease, unspecified; J96.20 Acute and chronic respiratory failure, unspecified whether with hypoxia or hypercapnia; J18.9 Pneumonia, unspecified organism; N39.0 Urinary tract infection, site not specified
CPT/HCPCS: 36415; 80048; 85027

== ENCOUNTER → 2021-10-07 | Outpatient (REF) | payer MEDICARE, MEDICAID, SELFPAY ==
[2021-10-07 09:28] LABS: Hematocrit 34.5 % (37-47); Hemoglobin 10.2 g/dL (12.0-15.0); Mean Corp Hgb Conc 29.6 g/dL (32-36); Mean Corpuscular Hgb 28.3 pg (27.0-32.0); Mean Corpuscular Volume 95.8 fL (81-99); Mean Platelet Vol. 9.4 fl (6.2-12.0); Platelet Count 274 K/mm3 (150-450); RBC Distribution Width SD 52.8 fl (35.1-43.9); White Blood Count 5.2 K/mm3 (4.4-11.0)
[2021-10-07 09:33] LABS: Anion Gap 1 (5-15); BUN 24 mg/dL (7-18); BUN/Creat Ratio 15.3 RATIO (10-20); Calcium,Total 9.6 mg/dL (8.5-10.1); Chloride 100 mmol/L (98-107); Creatinine, Serum 1.57 mg/dL (0.55-1.02); EST Glomerular Filtration Rate 33 mL/min (>60); Est Glom Filt Rate - Afr Amer 40 mL/min (>60); Glucose 87 mg/dL (74-106); Sodium Level 141 mmol/L (136-145)
== END | disposition home or self-care (01) ==
LOC: OLS.WHLEAS 04:00
PROVIDERS: PCP Family Medicine; Referring Provider Family Medicine; Visit Provider Family Medicine
DX: J96.20 Acute and chronic respiratory failure, unspecified whether with hypoxia or hypercapnia (principal); J44.9 Chronic obstructive pulmonary disease, unspecified; N18.30 Chronic kidney disease, stage 3 unspecified; J18.9 Pneumonia, unspecified organism; N39.0 Urinary tract infection, site not specified
CPT/HCPCS: 36415; 80048; 85027

== ENCOUNTER 2021-10-15 04:00 | Outpatient (REF) | payer MEDICARE, MEDICAID, SELFPAY ==
[2021-10-15 08:19] LABS: Color, Urine Yellow (Yellow); Glucose, Dipstick Normal (Normal); Ketone-Dipstick Negative (Negative); Leukocyte Esterase-Dipstick 500 /ul (Negative); Nitrite-Dipstick Positive (Negative); Occult Blood-Urine 150 /ul (Negative); Protein-Dipstick 100 mg/dl (Negative); Urine Bilirubin Dipstick Negative (Negative); Urine Clarity Cloudy (Clear); Urine Urobilinogen Normal (Normal); Urine pH 6.5 (5.0 - 8.0)
== END 2021-10-15 23:59 | disposition home or self-care (01) ==
LOC: OLS.WHLEAS 04:00
PROVIDERS: PCP Family Medicine; Visit Provider Family Medicine
DX: R32 Unspecified urinary incontinence (principal); N17.9 Acute kidney failure, unspecified; J44.9 Chronic obstructive pulmonary disease, unspecified; J96.20 Acute and chronic respiratory failure, unspecified whether with hypoxia or hypercapnia; J18.9 Pneumonia, unspecified organism; N39.0 Urinary tract infection, site not specified
CPT/HCPCS: 81002; 87086; 87088

== ENCOUNTER 2021-10-26 06:22 | Day surgery (SDC) | payer MEDICARE, MEDICAID, SELFPAY ==
[2021-10-26] VITALS (7 sets, daily range): BP systolic 145–178; BP diastolic 58–70; PULSE 56–64; RESP 16–20; TEMP 36.4–36.8; O2SAT 92–97; BMI 51.9
[2021-10-26] MEDS: Lactated Ringers 1,000 ML 15 ML IV (07:15)
--- NOTE | 2021-10-26 07:52 | RAD_ITS ---
STUDY: X-RAY - CERVICAL SPINE REASON FOR EXAM: Female, 85 years old. MEDIAL BRANCH BLOCK C4-C7, LEFT TECHNIQUE: 5 intraoperative view(s) of the cervical spine were obtained. COMPARISON: None FINDINGS: Intraoperative imaging provided for left C4-C7 medial branch block. RAD/Cerv Spine 4 or 5 Views IMPRESSION: Intraoperative imaging provided for left C4-C7 medial branch block. Electronically Signed: Juan Iniguez MD at 12:34 EDT ,
[2021-10-26] MEDS: Lidocaine 1% (5 ml sdv) 5 ML Vial (07:59)
[2021-10-26] MEDS: MethylPREDNISolone Acetate 80 MG/ML Vial (07:59)
--- NOTE | 2021-10-26 15:59 | OP.PCM_ITS ---
Report of Operation Date of Procedure: 10/26/21 Description of Surgical Findings:: PROCEDURE: Left-sided cervical medial branch block at C4, C5, C6, C7 PREOPERATIVE DIAGNOSES: Cervical spondylosis, cervical degenerative disc disease, and cervical facet arthropathy POSTOPERATIVE DIAGNOSES: Cervical spondylosis, cervical degenerative disc disease, and cervical facet arthropathy ANESTHESIA: MAC COMPLICATIONS: None BLOOD LOSS: Minimal PROCEDURE IN DETAIL: History and physical today was reviewed. Risks and benefits of the procedure were explained. The patient understood, agreed to our procedure, and informed consent was obtained. IV inserted per routine protocol. The patient was taken to the operating room, placed in a prone position with a pillow positioned underneath the chest. The neck area was prepped and draped in a sterile fashion using iodine x3. Under fluoroscopy guidance, on AP view, C4 through C7 vertebral bodies were visualized. Skin and subcutaneous tissues were anesthetized with approximately 10 mL of 1% lidocaine using a 25- gauge regular needle. Under direct visualization with fluoroscopy at approximately 15-degree angle, starting on the left C4, ending on the left C7, passing through the C5-C6 using a 25-gauge 3-1/2 inch spinal needle the needle was advanced via the skin the tip of the needle's maneuver and directed towards the medial branch in the lateral aspect of the facet joints at each corresponding level once the tip of the needle was at the vicinity of the medial branch and in contact with the bone the needle pulled approximately 2 mm of the bone after negative aspiration for blood or CSF a total of 3 mL of preservative-free 0.25% Marcaine with 40 mg Depo-M edrol was injected in divided doses between those 4 levels. The needles were then removed intact. The patient experienced no signs or symptoms of intrathecal, intravascular injection. The patient experienced no paraesthesia. The procedure was completed without any apparent difficulty, any complication. The patient appeared to tolerate well. Sensory as well as motor exam was unchanged from prior to procedure. ASSESSMENT AND PLAN: This is a 85-year-old female with cervical spondylosis, cervical degenerative disc disease, and cervical facet arthropathy, status post left-sided cervical medial branch block at C4-C7. The patient will continue her current medications. The patient will follow up in approximately 1-2 weeks fo reevaluation.
== END 2021-10-26 23:59 | disposition home or self-care (01) ==
LOC: SDC 06:23 → AC 06:25
PROVIDERS: PCP Family Medicine; Referring Provider Anesthesiology Pain Medicine; Visit Provider Anesthesiology Pain Medicine
PROC: 3E0U3BZ Introduction of Anesthetic Agent into Joints, Percutaneous Approach (ICD-10-PCS; CPT 64490; principal; 2021-10-26 07:55)
DX: M47.812 Spondylosis without myelopathy or radiculopathy, cervical region (principal); J44.9 Chronic obstructive pulmonary disease, unspecified; I13.0 Hypertensive heart and chronic kidney disease with heart failure and stage 1 through stage 4 chronic kidney disease, or unspecified chronic kidney disease; I50.9 Heart failure, unspecified; I42.9 Cardiomyopathy, unspecified; N18.30 Chronic kidney disease, stage 3 unspecified; M50.30 Other cervical disc degeneration, unspecified cervical region; E03.9 Hypothyroidism, unspecified; E55.9 Vitamin D deficiency, unspecified; Z86.14 Personal history of Methicillin resistant Staphylococcus aureus infection; Z87.891 Personal history of nicotine dependence; Z79.899 Other long term (current) drug therapy; Z79.890 Hormone replacement therapy; F32.A Depression, unspecified; M96.1 Postlaminectomy syndrome, not elsewhere classified; M79.7 Fibromyalgia; M17.12 Unilateral primary osteoarthritis, left knee; M51.17 Intervertebral disc disorders with radiculopathy, lumbosacral region; Z79.891 Long term (current) use of opiate analgesic; Z66 Do not resuscitate
CPT/HCPCS: 64492; 64491; 01992; 64490; 72040; 72050; J7120

== ENCOUNTER → 2021-11-06 | Outpatient (REF) | payer MEDICARE, MEDICAID, SELFPAY ==
[2021-11-06 06:11] LABS: Hematocrit 35.9 % (37-47); Hemoglobin 11.1 g/dL (12.0-15.0); Mean Corp Hgb Conc 30.9 g/dL (32-36); Mean Corpuscular Hgb 28.8 pg (27.0-32.0); Mean Platelet Vol. 9.7 fl (6.2-12.0); Platelet Count 278 K/mm3 (150-450); RBC Distribution Width SD 51.5 fl (35.1-43.9); Red Blood Count 3.86 M/mm3 (4.2-5.4); White Blood Count 6.3 K/mm3 (4.4-11.0)
[2021-11-06 06:34] LABS: Anion Gap 4 (5-15); BUN 49 mg/dL (7-18); BUN/Creat Ratio 30.8 RATIO (10-20); Calcium,Total 9.1 mg/dL (8.5-10.1); Chloride 104 mmol/L (98-107); Creatinine, Serum 1.59 mg/dL (0.55-1.02); EST Glomerular Filtration Rate 33 mL/min (>60); Est Glom Filt Rate - Afr Amer 40 mL/min (>60); Glucose 105 mg/dL (74-106); Sodium Level 141 mmol/L (136-145)
== END | disposition home or self-care (01) ==
LOC: OLS.WHLEAS 05:00
PROVIDERS: PCP Family Medicine; Visit Provider Family Medicine
DX: N18.30 Chronic kidney disease, stage 3 unspecified (principal); N17.9 Acute kidney failure, unspecified; J44.9 Chronic obstructive pulmonary disease, unspecified; J96.20 Acute and chronic respiratory failure, unspecified whether with hypoxia or hypercapnia; J18.9 Pneumonia, unspecified organism; N39.0 Urinary tract infection, site not specified
CPT/HCPCS: 36415; 80048; 85027

== ENCOUNTER → 2021-12-09 | Outpatient (REF) | payer MEDICARE, MEDICAID, SELFPAY ==
[2021-12-09 08:10] LABS: Hemoglobin 11.7 g/dL (12.0-15.0); Mean Corpuscular Hgb 28.3 pg (27.0-32.0); Mean Corpuscular Volume 94.4 fL (81-99); Mean Platelet Vol. 9.7 fl (6.2-12.0); Platelet Count 392 K/mm3 (150-450); RBC Distribution Width CV 14.2 % (11.6-14.6); RBC Distribution Width SD 49.3 fl (35.1-43.9); Red Blood Count 4.13 M/mm3 (4.2-5.4); White Blood Count 6.4 K/mm3 (4.4-11.0)
[2021-12-09 08:24] LABS: Anion Gap 5 (5-15); BUN 40 mg/dL (7-18); BUN/Creat Ratio 24.4 RATIO (10-20); Calcium,Total 9.4 mg/dL (8.5-10.1); Chloride 103 mmol/L (98-107); Creatinine, Serum 1.64 mg/dL (0.55-1.02); EST Glomerular Filtration Rate 32 mL/min (>60); Est Glom Filt Rate - Afr Amer 38 mL/min (>60); Glucose 110 mg/dL (74-106); Potassium 3.7 mmol/L (3.5-5.1); Sodium Level 140 mmol/L (136-145)
== END | disposition home or self-care (01) ==
LOC: OLS.WHLEAS 05:00
PROVIDERS: PCP Family Medicine; Visit Provider Family Medicine
DX: J44.9 Chronic obstructive pulmonary disease, unspecified (principal); I50.32 Chronic diastolic (congestive) heart failure; I13.0 Hypertensive heart and chronic kidney disease with heart failure and stage 1 through stage 4 chronic kidney disease, or unspecified chronic kidney disease; J96.10 Chronic respiratory failure, unspecified whether with hypoxia or hypercapnia; N18.30 Chronic kidney disease, stage 3 unspecified
CPT/HCPCS: 36415; 80048; 85027

== ENCOUNTER → 2022-01-06 | Outpatient (REF) | payer MEDICARE, MEDICAID, SELFPAY ==
[2022-01-06 11:01] LABS: Hematocrit 40.6 % (37-47); Hemoglobin 12.1 g/dL (12.0-15.0); Mean Corp Hgb Conc 29.8 g/dL (32-36); Mean Corpuscular Hgb 28.1 pg (27.0-32.0); Mean Corpuscular Volume 94.4 fL (81-99); Mean Platelet Vol. 9.5 fl (6.2-12.0); Platelet Count 336 K/mm3 (150-450); RBC Distribution Width CV 14.6 % (11.6-14.6); RBC Distribution Width SD 49.8 fl (35.1-43.9); White Blood Count 5.6 K/mm3 (4.4-11.0)
[2022-01-06 11:20] LABS: Anion Gap 7 (5-15); BUN 36 mg/dL (7-18); BUN/Creat Ratio 21.3 RATIO (10-20); Calcium,Total 9.1 mg/dL (8.5-10.1); Chloride 103 mmol/L (98-107); Creatinine, Serum 1.69 mg/dL (0.55-1.02); EST Glomerular Filtration Rate 30 mL/min (>60); Est Glom Filt Rate - Afr Amer 37 mL/min (>60); Glucose 102 mg/dL (74-106); Potassium 4.1 mmol/L (3.5-5.1); Sodium Level 143 mmol/L (136-145)
== END | disposition home or self-care (01) ==
LOC: OLS.WHLEAS 07:50
PROVIDERS: PCP Family Medicine; Visit Provider Family Medicine
DX: I13.0 Hypertensive heart and chronic kidney disease with heart failure and stage 1 through stage 4 chronic kidney disease, or unspecified chronic kidney disease (principal); J44.9 Chronic obstructive pulmonary disease, unspecified; I50.32 Chronic diastolic (congestive) heart failure; J96.10 Chronic respiratory failure, unspecified whether with hypoxia or hypercapnia; N18.30 Chronic kidney disease, stage 3 unspecified
CPT/HCPCS: 36415; 80048; 85027

== ENCOUNTER 2022-01-25 07:59 | Day surgery (SDC) | payer MEDICARE, MEDICAID, SELFPAY ==
[2022-01-25] VITALS (8 sets, daily range): BP systolic 138–184; BP diastolic 68–90; PULSE 57–76; RESP 16; TEMP 36.4–36.7; O2SAT 92–95; BMI 37.5
[2022-01-25] MEDS: Lactated Ringers 1,000 ML 15 ML IV (08:50)
[2022-01-25] MEDS: Lidocaine 1% (5 ml sdv) 5 ML Vial (09:22)
--- NOTE | 2022-01-25 09:23 | RAD_ITS ---
PROCEDURE: Left C4-C7 radiofrequency ablation. DATE OF EXAMINATION: 01/29/2022 INDICATION: Pain. Fluoroscopy time and images: 2 minutes 4 seconds. 7 fluoroscopic images submitted. Findings/ RAD/Cerv Spine 2 or 3 Views IMPRESSION: Limited intraoperative spot images of left C4-C7 ablation. Please see intraoperative report for detailed findings. Electronically Signed: Michael Milton, at 11:44 EDT ,
[2022-01-25] MEDS: Bupivacaine Mpf 0.5% 30 ML VIAL (09:32)
[2022-01-25] MEDS: 0.9% Normal Saline (Pres. free 10 ML Vial (09:32)
[2022-01-25] MEDS: MethylPREDNISolone Acetate 80 MG/ML Vial (09:32)
--- NOTE | 2022-01-25 15:37 | OP.PCM_ITS ---
Report of Operation Date of Procedure: 01/25/22 Description of Surgical Findings:: PREOPERATIVE DIAGNOSIS: Cervical spondylosis, cervical degenerative disc disease, cervical facet arthropathy POSTOPERATIVE DIAGNOSIS: Cervical spondylosis, cervical degenerative disc disease, cervical facet arthropathy PROCEDURE PERFORMED: Left-sided radiofrequency ablation of the medial branch at C4, C5, C6, and C7. ANESTHESIA: MAC. BLOOD LOSS: Minimal. COMPLICATIONS: None. DESCRIPTION OF PROCEDURE: History and physical of today was reviewed. Risks and benefits of the procedure were explained. The patient understood and agreed to proceed. Informed consent was obtained. IV inserted per routine protocol. The patient was taken to the operating room and placed in the prone position with a pillow positioned underneath the chest. The neck area was prepped and draped in a sterile fashion using iodine x3. Under fluoroscopy guidance on an AP view, the C4 through C7 vertebral bodies were visualized. The skin and subcutaneous tissue was anesthetized with approximately 10 mL of 1% lidocaine using a 25-gauge regular needle. Under direct visualization on fluoroscopy on a lateral view, using a 21-gauge 10-cm with a 10-mm curved active-tip radiofrequency ablation needle, the needle was passed through the skin. The tip of the needle was maneuvered and directed towards the epiphyseal junction of each corresponding vertebra, starting on the left C4, ending on the left C7, passing through the C5 and C6. Once the tip of the needle was at the vicinity of the medial branch and at the middle of the trapezoid on the lateral view, the stylette of each needle was then removed. After negative aspiration of blood or CSF and confirmation on AP, oblique as well as lateral view, radiofrequency ablation probe was then inserted at each level. Impedance was then recorded at C4 to be 275 ohm, at C5 to be 236 ohm, at C6 to be 221 ohm, and at C7 to be 235 ohm. Motor-evoked potential was then initiated to 1.5 volt without any motor response to each corresponding level or the left arm. The probe was then removed intact and a total of 4 mL of preservative-free 1% lidocaine was injected in divided doses between those four levels after negative aspiration of blood or CSF. After repeated confirmation, the radiofrequency ablation probe was then inserted and after repeated confirmation on AP, oblique as well as lateral view, radiofrequency ablation was then initiated to approximately 80 degree Celsius for 60 second at each level. Once concluded, the probe was then removed intact. A total of 4 mL of preservative-free 0.25% Marcaine with 40 mg of Depo-Medrol was injected in divided doses between those four levels. The needles were then removed intact. The patient experienced no sign or symptoms of intrathecal or intravascular injection. The patient experienced no paresthesia. The procedure was completed without any apparent difficulty or any complications. The patient appeared to tolerate it well. Sensory as well as motor exam was unchanged from prior to the procedure. ASSESSMENT AND PLAN: This is an 86-year-old female with cervical spondylosis, cervical degenerative d isc disease, cervical facet arthropathy, status post left-sided cervical radiofrequency ablation of the medial branch C4-C7, patient will continue her current medications, patient will follow in approximately 2 weeks for reevaluation.
== END 2022-01-25 11:22 | disposition home or self-care (01) ==
LOC: SDC 08:00 → AC 08:02
PROVIDERS: PCP Family Medicine; Referring Provider Anesthesiology Pain Medicine; Visit Provider Anesthesiology Pain Medicine
PROC: (CPT 64633; principal; 2022-01-25 09:25)
DX: M47.812 Spondylosis without myelopathy or radiculopathy, cervical region (principal); J44.9 Chronic obstructive pulmonary disease, unspecified; I13.0 Hypertensive heart and chronic kidney disease with heart failure and stage 1 through stage 4 chronic kidney disease, or unspecified chronic kidney disease; I50.9 Heart failure, unspecified; M50.30 Other cervical disc degeneration, unspecified cervical region; N18.9 Chronic kidney disease, unspecified; I25.10 Atherosclerotic heart disease of native coronary artery without angina pectoris; E03.9 Hypothyroidism, unspecified; Z79.890 Hormone replacement therapy; Z79.82 Long term (current) use of aspirin; Z79.899 Other long term (current) drug therapy
CPT/HCPCS: 64633; 64634; 72040; 76000; J7120; J3490

== ENCOUNTER → 2022-02-10 05:00 | Outpatient (REF) | payer MEDICARE, MEDICAID, SELFPAY ==
[2022-02-10 07:51] LABS: Hematocrit 38.5 % (37-47); Hemoglobin 11.2 g/dL (12.0-15.0); Mean Corp Hgb Conc 29.1 g/dL (32-36); Mean Corpuscular Hgb 27.5 pg (27.0-32.0); Mean Corpuscular Volume 94.4 fL (81-99); Mean Platelet Vol. 9.8 fl (6.2-12.0); Platelet Count 297 K/mm3 (150-450); RBC Distribution Width CV 15.3 % (11.6-14.6); RBC Distribution Width SD 52.9 fl (35.1-43.9); Red Blood Count 4.08 M/mm3 (4.2-5.4); White Blood Count 6.6 K/mm3 (4.4-11.0)
[2022-02-10 08:28] LABS: Anion Gap 5 (5-15); BUN 39 mg/dL (7-18); BUN/Creat Ratio 25.5 RATIO (10-20); Calcium,Total 8.9 mg/dL (8.5-10.1); Chloride 106 mmol/L (98-107); Creatinine, Serum 1.53 mg/dL (0.55-1.02); EST Glomerular Filtration Rate 34 mL/min (>60); Est Glom Filt Rate - Afr Amer 41 mL/min (>60); Glucose 101 mg/dL (74-106); Potassium 3.9 mmol/L (3.5-5.1); Sodium Level 143 mmol/L (136-145)
== END ==
LOC: OLS.WHLEAS 05:00
PROVIDERS: PCP Family Medicine; Visit Provider Family Medicine
DX: I13.0 Hypertensive heart and chronic kidney disease with heart failure and stage 1 through stage 4 chronic kidney disease, or unspecified chronic kidney disease (principal); N18.30 Chronic kidney disease, stage 3 unspecified; I50.32 Chronic diastolic (congestive) heart failure; J44.9 Chronic obstructive pulmonary disease, unspecified; J96.10 Chronic respiratory failure, unspecified whether with hypoxia or hypercapnia
CPT/HCPCS: 36415; 80048; 85027

== ENCOUNTER → 2022-02-24 | Outpatient (REF) | payer MEDICARE, MEDICAID, SELFPAY ==
[2022-02-24 09:55] LABS: Thyroid Stim Hormone (TSH) 1.74 uIU/mL (0.358-3.74)
== END | disposition home or self-care (01) ==
LOC: OLS.WHLEAS 06:40
PROVIDERS: PCP Family Medicine; Visit Provider Family Medicine
DX: E03.9 Hypothyroidism, unspecified (principal); N17.9 Acute kidney failure, unspecified; J44.9 Chronic obstructive pulmonary disease, unspecified; J96.20 Acute and chronic respiratory failure, unspecified whether with hypoxia or hypercapnia; J18.9 Pneumonia, unspecified organism; N39.0 Urinary tract infection, site not specified
CPT/HCPCS: 36415; 84443

== ENCOUNTER → 2022-03-10 | Outpatient (REF) | payer MEDICARE, MEDICAID, SELFPAY ==
[2022-03-10 09:55] LABS: Hematocrit 41.6 % (37-47); Hemoglobin 12.1 g/dL (12.0-15.0); Mean Corp Hgb Conc 29.1 g/dL (32-36); Mean Corpuscular Hgb 28.3 pg (27.0-32.0); Mean Corpuscular Volume 97.2 fL (81-99); Mean Platelet Vol. 9.5 fl (6.2-12.0); Platelet Count 308 K/mm3 (150-450); RBC Distribution Width SD 57.7 fl (35.1-43.9); Red Blood Count 4.28 M/mm3 (4.2-5.4)
[2022-03-10 10:12] LABS: Anion Gap 3 (5-15); BUN 46 mg/dL (7-18); BUN/Creat Ratio 23.7 RATIO (10-20); Calcium,Total 8.8 mg/dL (8.5-10.1); Chloride 102 mmol/L (98-107); Creatinine, Serum 1.94 mg/dL (0.55-1.02); EST Glomerular Filtration Rate 26 mL/min (>60); Est Glom Filt Rate - Afr Amer 31 mL/min (>60); Glucose 116 mg/dL (74-106); Potassium 4.9 mmol/L (3.5-5.1); Sodium Level 140 mmol/L (136-145)
== END ==
LOC: OLS.WHLEAS 05:00
PROVIDERS: PCP Family Medicine; Visit Provider Family Medicine
DX: I13.0 Hypertensive heart and chronic kidney disease with heart failure and stage 1 through stage 4 chronic kidney disease, or unspecified chronic kidney disease (principal); N18.30 Chronic kidney disease, stage 3 unspecified; J44.9 Chronic obstructive pulmonary disease, unspecified; I50.32 Chronic diastolic (congestive) heart failure; J96.10 Chronic respiratory failure, unspecified whether with hypoxia or hypercapnia
CPT/HCPCS: 36415; 80048; 85027

== ENCOUNTER → 2022-03-12 | Outpatient (REF) | payer MEDICARE, MEDICAID, SELFPAY ==
[2022-03-12 10:18] LABS: Hematocrit 43.5 % (37-47); Hemoglobin 12.1 g/dL (12.0-15.0); Mean Corp Hgb Conc 27.8 g/dL (32-36); Mean Corpuscular Hgb 27.7 pg (27.0-32.0); Mean Corpuscular Volume 99.5 fL (81-99); Mean Platelet Vol. 9.6 fl (6.2-12.0); Platelet Count 279 K/mm3 (150-450); RBC Distribution Width CV 15.9 % (11.6-14.6); RBC Distribution Width SD 58.8 fl (35.1-43.9); Red Blood Count 4.37 M/mm3 (4.2-5.4); White Blood Count 6.2 K/mm3 (4.4-11.0)
[2022-03-12 11:00] LABS: ALB/GLOB Ratio 0.9 RATIO (0.9-2.4); AST(SGOT) 14 U/L (15-37); Alanine Aminotransfer ALT/SGPT 18 U/L (13-56); Albumin, Serum 3.2 g/dL (3.2-5.0); Alkaline Phosphatase 81 U/L (45-117); Anion Gap 4 (5-15); BUN 55 mg/dL (7-18); BUN/Creat Ratio 22.2 RATIO (10-20); Calcium,Total 8.8 mg/dL (8.5-10.1); Chloride 102 mmol/L (98-107); Creatinine, Serum 2.48 mg/dL (0.55-1.02); EST Glomerular Filtration Rate 20 mL/min (>60); Est Glom Filt Rate - Afr Amer 24 mL/min (>60); Globulin 3.4 g/dL (2.2-4.2); Glucose 145 mg/dL (74-106); Potassium 5.2 mmol/L (3.5-5.1); Protein, Total 6.6 g/dL (6.4-8.2); Sodium Level 140 mmol/L (136-145); Thyroid Stim Hormone (TSH) 1.25 uIU/mL (0.358-3.74)
== END ==
LOC: OLS.WHLEAS 09:30
PROVIDERS: PCP Family Medicine; Visit Provider Family Medicine
DX: I13.0 Hypertensive heart and chronic kidney disease with heart failure and stage 1 through stage 4 chronic kidney disease, or unspecified chronic kidney disease (principal); J44.9 Chronic obstructive pulmonary disease, unspecified; I50.32 Chronic diastolic (congestive) heart failure; J96.10 Chronic respiratory failure, unspecified whether with hypoxia or hypercapnia; N18.9 Chronic kidney disease, unspecified
CPT/HCPCS: 36415; 80053; 84443; 85027

== ENCOUNTER 2022-03-13 11:10 | Inpatient (IN) | payer MEDICARE, MEDICAID, SELFPAY ==
[2022-03-13] VITALS (16 sets, daily range): BP systolic 127–188; BP diastolic 45–132; PULSE 36–75; RESP 11–25; TEMP 36.3–36.6; O2SAT 92–98; BMI 48.1; BMI 46.0
--- NOTE | 2022-03-13 11:24 | RAD_ITS ---
STUDY: X-RAY CHEST REASON FOR EXAM: Female, 86 years old. AMS TECHNIQUE: XR Chest 1 View COMPARISON: 09.04.21 FINDINGS: There are bilateral pleural effusions. There are bilateral infiltrates. Normal size heart. Normal mediastinum and yolis. Normal visualized pulmonary arteries. There is atherosclerotic calcification of the aortic arch with tortuosity. There are diffuse degenerative changes of the visualized thoracic spine. There is degenerative osteoarthritis of the bilateral shoulders. There is no demonstrated abnormality of the visualized soft tissue structures of the upper abdomen. RAD/Chest 1 View (Portable) IMPRESSION: Pulmonary findings appear worse. Electronically Signed: Garfield Cleveland MD at 14:54 EDT ,
--- NOTE | 2022-03-13 11:25 | EKG12_ITS ---
Test Reason : AMS Blood Pressure : / mmHG Vent. Rate : 047 BPM Atrial Rate : 047 BPM P-R Int : 138 ms QRS Dur : 104 ms QT Int : 450 ms P-R-T Axes : 009 -10 107 degrees QTc Int : 398 ms Sinus bradycardia Abnormal QRS-T angle, consider primary T wave abnormality Abnormal ECG Confirmed by SLIM IBARRA, SUMAN ([id number]), film and video editor SHABANA IZQUIERDO ([id number]) on 03/15/2022 1:14:25 PM Referred By: MARIA G/KIRILL Confirmed By:SUMAN SMALLS MD
--- NOTE | 2022-03-13 11:35 | CT_ITS ---
STUDY: CT BRAIN WITHOUT CONTRAST REASON FOR EXAM: Female, 86 years old. Altered mental status. RADIATION DOSAGE (If Supplied By Facility): CTDIvol = ( 44.99 ) mGy, DLP = ( 829.85 ) mGycm TECHNIQUE: Transaxial CT imaging of the brain was performed without administration of intravenous contrast material. Individualized dose optimization techniques were used for this CT. COMPARISON: 09/04/2021. FINDINGS: Normal soft tissue structures. Normal calvarium. There is mild cerebral atrophy with widening of the extra-axial spaces and ventricular dilatation. There are areas of decreased attenuation within the white matter tracts of the supratentorial brain, consistent with microvascular disease changes. Small old lacunar infarct in the left basal ganglia or prominent vascular space. Normal brainstem. Normal cerebellum. There is no intracranial hemorrhage. There are no findings of an acute ischemic infarction. Normal visualized paranasal sinuses. CT/Brain/Head without Contrast IMPRESSION: Chronic involutional changes of the brain. No acute intracranial process. Electronically Signed: Sergio Naik MD at 13:08 EDT ,
--- NOTE | 2022-03-13 11:37 | EX.ED.DYSGE1 ---
HPI History of Present Illness Chief Complaint: Alt LOC Informant: EMS, PCP and SNF Narrative Narrative: Patient is an 86-year-old female with history of chronic pain, COPD on 2 L nasal cannula at baseline, hypertension, ROBERTO and chronic heart failure with preserved ejection fraction presenting with altered mental status. Apparently patient's been more confused for the past few days at her nursing facility. She is resident of [facility]. She has had an uptrending creatinine and abnormal urinalysis per report. Her creatinine was 1.61 on 08 March. Patient apparently pulled out her IV and was more confused and combative today so she was brought to the emergency room for further evaluation. [facility] Medical History Anemia in chronic kidney disease Anxiety Chronic pain of left knee CKD (chronic kidney disease) stage 3, GFR 30-59 ml/min Congestive heart failure (CHF) COPD (chronic obstructive pulmonary disease) COVID-19 virus infection Degeneration of intervertebral disc of lumbosacral region Depression DNR (do not resuscitate) Epilepsy Failed back surgical syndrome HTN (hypertension) Hypothyroidism Hypothyroidism Kidney disease Neuropathy Primary osteoarthritis of right shoulder Radiculopathy of lumbosacral region Spinal stenosis of lumbosacral region Tremor Unilateral primary osteoarthritis, left knee Home Medications aspirin 81 mg chewable tablet 81 mg PO DAILY@0800 heart health 05/15/16 [History Last Taken 09/04/21] albuterol sulfate 90 mcg/actuation aerosol inhaler (Ventolin HFA) 2 puff inhalation Q2H PRN Sob &/Or Wheezing 11/01/18 [History Last Taken Unknown] amlodipine 10 mg tablet 10 mg PO DAILY htn 07/08/20 [History Last Taken 01/25/22 07:00] gabapentin 300 mg capsule 600 mg PO QHS nerve pain 07/08/20 [History Last Taken 09/03/21] loratadine 10 mg tablet 5 mg PO DAILY allergies 07/08/20 [History Last Taken 09/04/21] diclofenac sodium 1 % topical gel 1 g topical TID PAIN 08/31/21 [History Last Taken 09/04/21] duloxetine 30 mg capsule,delayed release (Cymbalta) 30 mg PO DAILY DEPRESSION 08/31/21 [History Last Taken 09/04/21] ropinirole 1 mg tablet 1 mg PO QHS RLS 08/31/21 [History Last Taken 09/03/21] sennosides 8.6 mg-docusate sodium 50 mg tablet (Senexon-S) 1 tab PO BID CONSTIPTION 08/31/21 [History Last Taken 09/04/21] levothyroxine 100 mcg tablet 100 mcg PO QHS THYROID 09/04/21 [History Last Taken 09/03/21] acetaminophen 325 mg tablet (Tylenol) 650 mg PO Q6H PRN PRN Pain 1-10 Or Fever #0 tabs 09/07/21 [Rx Last Taken Unknown] baclofen 10 mg tablet 5 mg PO QHS muscle relaxer #0 tabs 09/07/21 [Rx Last Taken 09/03/21] hydrocodone-acetaminophen 5-325mg 5mg-325mg 1 tab PO Q6H PRN PRN Pain 10/26/21 [History Last Taken Unknown] furosemide 20 mg tablet 20 mg PO DAILY FLUID 03/13/22 [History Last Taken Unknown] losartan 25 mg tablet 25 mg PO DAILY 03/13/22 [History Last Taken Unknown] Allergy/AdvReac Type Severity Reaction Status Date / Time Sulfa (Sulfonamide Allergy Hives Verified 03/13/22 12:07 Antibiotics) morphine AdvReac confusion-difficult Verified 03/13/22 12:07 to wean off Surgical History H/O: hysterectomy History of ankle surgery Previous back surgery Social History Smoking Status: Former smoker pack-years: 30 substance use type: does not use ROS ROS ED Review of Systems ROS Unobtainable: due to encephalopathy EXAM Physical Exam Const Vital Signs: 03/13/22 11:12 03/13/22 11:21 03/13/22 11:45 Temperature 97.3 F L Temperature Source Temporal Pulse Rate 73 47 L Respiratory Rate 16 11 L Respiratory Effort Normal Respiratory Pattern Normal Blood Pressure 156/61 H Blood Pressure Mean 92 Pulse Ox 98 97 Oxygen Delivery Method Nasal Cannula Oxygen Flow Rate (L/min) 2 Fraction of Inspired Oxygen (FIO2) 45 03/13/22 12:04 03/13/22 13:12 03/13/22 14:14 Temperature Temperature Source Pulse Rate 44 L 50 L Respiratory Rate 17 18 Respiratory Effort Respiratory Pattern Blood Pressure 148/87 H Blood Pressure Mean 107 Pulse Ox 94 92 Oxygen Delivery Method Nasal Cannula Oxygen Flow Rate (L/min) 4 Fraction of Inspired Oxygen (FIO2) 45 03/13/22 14:58 Temperature 97.8 F Temperature Source Temporal Pulse Rate 44 L Respiratory Rate 25 H Respiratory Effort Respiratory Pattern Blood Pressure 139/52 H Blood Pressure Mean 81 Pulse Ox 98 Oxygen Delivery Method Bi-pap Oxygen Flow Rate (L/min) Fraction of Inspired Oxygen (FIO2) Positive well nourished, well developed and obese General Appearance ED: well developed Nutritional Appearance: obese HEENT Reports moist mucous membranes Eyes PERRL and EOMs intact bilaterally Neck supple and no JVD Chest Wall inspection of chest normal and palpation of chest normal Resp normal respiratory effort and clear to auscultation bilaterally Resp Narrative: shallow respirations Cardio regular rhythm Rate: bradycardia GI normal to inspection, nondistended, normoactive bowel sounds and non-tender Extremity General Extremety ED: Yes edema; Negative for tenderness General Extremity: edema Neuro Neuro Narrative: Arouses to verbal stimuli but follows minimal commands Sensorium / Orientation: lethargic Motor Exam: general weakness Skin no rashes or lesions noted and no wounds MDM MDM MDM Narrative Medical decision making narrative: Patient arrives to the ER for altered mental status. Vital signs are stable however patient appears significantly encephalopathic. No focal deficits appreciated on exam. Patient does have pinpoint pupils so intranasal Narcan is given as she is on chronic [place]. She does not respond to this. ABG is obtained. ABG shows acute on chronic respiratory acidosis with acute on chronic hypoxia. Patient is placed on BiPAP. She overall tolerates it however as she starts to become more alert she then wants to take off her BiPAP. Discussed with the patient's daughter who is her medical POA who states that she would not want intubation and is a DNR CCA. Patient is found to have acute kidney injury with a creatinine of 2.60. Her potassium is mildly elevated 5.9 however she does not have acute EKG changes consistent with hyperkalemia. Patient is given IV fluids in the emergency room. Chest x-ray looks like pulmonary vascular congestion versus infiltrate as interpreted by myself and radiology. Patient does not have any fever, leukocytosis or other findings consistent with pneumonia. Urinalysis is consistent with UTI. Patient will be admitted for further treatment of her respiratory failure as well as your renal insufficiency. Patient and family agreeable this plan of care. Lab Data Labs: Laboratory Results - last 24 hr 03/13/22 03/13/22 03/13/22 11:43 11:45 11:45 WBC 6.0 RBC 4.49 Hgb 12.5 Hct 46.1 MCV 102.7 H MCH 27.8 MCHC 27.1 L RDW Std Deviation 59.7 H RDW Coeff of Teo 15.7 H Plt Count 240 MPV 9.6 Immature Gran % (Auto) 1.000 H Neut % (Auto) 81.2 H Lymph % (Auto) 7.2 L [place] % (Auto) 9.4 Eos % (Auto) 0.5 Baso % (Auto) 0.7 Absolute Neuts (auto) 4.9 Absolute Lymphs (auto) 0.43 L Nucleated RBC % 0 Differential Comment SCANNED Sodium 139 Potassium 5.9 H Chloride 102 Carbon Dioxide 35.0 H Anion Gap 2 L BUN 64 H Creatinine 2.60 H Estim Creat Clear Calc 26.01 Est GFR (MDRD) Af Amer 22 L Est GFR (MDRD) Non-Af 19 L BUN/Creatinine Ratio 24.6 H Glucose 112 H Lactic Acid 0.5 Calcium 8.9 Urine Color Urine Clarity Urine pH Ur Specific [place] Urine Protein Urine Glucose (UA) Urine Ketones Urine Occult Blood Urine Nitrite Urine Bilirubin Urine Urobilinogen Ur Leukocyte Esterase Urine RBC Urine WBC Ur Squamous Epith Cells Urine Bacteria Urine Mucus 03/13/22 13:10 WBC RBC Hgb Hct MCV MCH MCHC RDW Std Deviation RDW Coeff of Teo Plt Count MPV Immature Gran % (Auto) Neut % (Auto) Lymph % (Auto) [place]oula % (Auto) Eos % (Auto) Baso % (Auto) Absolute Neuts (auto) Absolute Lymphs (auto) Nucleated RBC % Differential Comment Sodium Potassium Chloride Carbon Dioxide Anion Gap BUN Creatinine Estim Creat Clear Calc Est GFR (MDRD) Af Amer Est GFR (MDRD) Non-Af BUN/Creatinine Ratio Glucose Lactic Acid Calcium Urine Color Yellow Urine Clarity Sl. Cloudy Urine pH 5.0 Ur Specific [place] 1.020 Urine Protein 30 H Urine Glucose (UA) Normal Urine Ketones Negative Urine Occult Blood 10 H Urine Nitrite Negative Urine Bilirubin Negative Urine Urobilinogen Normal Ur Leukocyte Esterase 100 H Urine RBC 0 SEEN Urine WBC 10-25 SEEN Ur Squamous Epith Cells 5-10 SEEN Urine Bacteria 2+ Urine Mucus 0 SEEN ABG Data ABG results: ABG 03/13/22 11:39 Specimen Type ART Sample Site R Radial pH 7.16 L* Bicarbonate Actual 39.2 H Total CO2 43 Base Excess 10 H O2 Saturation 83 L ABG pCO2 110.8 H* ABG pO2 66 L Harshad Test Positive O2 Delivery Device Cannula Liter Flow 2.0 Crit Call To/Read Back Yes Blood Gas Not[facility] Diagnostic Testing: Clinical Impression(s) from Imaging Studies Chest X-Ray 03/13/22 11:24 IMPRESSION: Pulmonary findings appear worse. Electronically Signed: Garfield Cleveland MD at 14:54 EDT , Brain CT 03/13/22 11:35 IMPRESSION: Chronic involutional changes of the brain. No acute intracranial process. Electronically Signed: Sergio Naik MD at 13:08 EDT , Rhythm Strip Rhythm Strip: Bradycardia Rate: 47 Ectopy: None EKG Initial EKG: Attestation: I personally reviewed and interpreted this EKG as follows: Comments: Sinus bradycardia Rate of 47 Left axis deviation Normal QTC and QRS Normal ST segments Critical Care Time Critical Care Time: Yes Critical care time (excluding procedures): 30-74 minutes (35), Discussing w/Patient &/or Family/Assistant Reading Teacher, Arranging Admission or Transfer, Performing Direct Patient Care at Bedside and - (Patient is acute on chronic respiratory failure with hypoxia and hypercapnia requiring BiPAP, frequent observation. She also has multiple comorbidities and time spent counseling with family treatment options.) Discharge Plan Dx/Rx/DC Orders Clinical Impression: Acute UTI, Acute on chronic respiratory failure with hypoxia and hypercapnia, Acute hyperkalemia, Acute kidney injury Disposition Disposition: [facility] Discharge Date/Time: 03/13/22 15:42
[2022-03-13 11:45] LABS: Allen Test Positive; Base Excess 10 mmol/L (-2 to +2); Bicarbonate 39.2 mmol/L (22-26); Blood Gas Specimen Type ART; O2 Delivery Device Cannula; PO2 66 mmHG (75-100); SITE R Radial; SO2 83 % (95-99); Total Carbon Dioxide 43 mmol/L; pCO2 110.8 mmHg (35-45); pH 7.16 (7.35-7.45)
[2022-03-13] MEDS: 0.9% Normal Saline 1,000 ML 150 ML IV (11:58)
[2022-03-13 11:59] LABS: Absolute Lymphocyte Count 0.43 X10^3/uL (0.83-4.51); Absolute Neutrophil Count 4.9 X10^3/uL (2.0-7.7); Basophil# 0.04 X10^3/uL; Basophil% 0.7 % (0-1); Eosinophil# 0.03 X10^3/uL; Eosinophils% 0.5 % (0-5); Hematocrit 46.1 % (37-47); Hemoglobin 12.5 g/dL (12.0-15.0); Lymphocyte # 0.43 X10^3/ul (0.83-4.51); Lymphocyte % 7.2 % (19-41); Mean Corp Hgb Conc 27.1 g/dL (32-36); Mean Corpuscular Hgb 27.8 pg (27.0-32.0); Mean Corpuscular Volume 102.7 fL (81-99); Mean Platelet Vol. 9.6 fl (6.2-12.0); Monocyte# 0.56 X10^3/uL; Monocyte% 9.4 % (0-10); NRBC Flagged by Analyzer 0 % (0-5); Neutrophil # 4.85 X10^3/uL (2.7-7.7); Neutrophil % 81.2 % (47-70); POSITIVE DIFFERENTIAL YES; Platelet Count 240 K/mm3 (150-450); RBC Distribution Width CV 15.7 % (11.6-14.6); RBC Distribution Width SD 59.7 fl (35.1-43.9); Red Blood Count 4.49 M/mm3 (4.2-5.4)
[2022-03-13 12:00] LABS: Differential Indicated SCAN CRITERIA MET
[2022-03-13] MEDS: Naloxone 2 MG/2 ML Syringe 0.4 MG NASAL (12:02)
[2022-03-13 12:06] LABS: Anion Gap 2 (5-15); BUN 64 mg/dL (7-18); BUN/Creat Ratio 24.6 RATIO (10-20); Calcium,Total 8.9 mg/dL (8.5-10.1); Chloride 102 mmol/L (98-107); EST Glomerular Filtration Rate 19 mL/min (>60); Est Glom Filt Rate - Afr Amer 22 mL/min (>60); Estimated Creatinine Clearance 26.01 ml/min; Glucose 112 mg/dL (74-106); Potassium 5.9 mmol/L (3.5-5.1); Sodium Level 139 mmol/L (136-145)
[2022-03-13 12:21] LABS: Lactic Acid 0.5 mmol/L (0.4-1.9)
[2022-03-13 12:31] LABS: Differential Comment SCANNED
--- NOTE | 2022-03-13 12:54 | CPS ---
Transported patient to CT Scan on BiPAP. Patient awoke in real and took mask off, refusing to wear it. Patient placed on nasal cannula. RN aware.
[2022-03-13 13:15] LABS: Mucous, Urine 0 SEEN /hpf (<or=2+); Red Blood Cells-Urine 0 SEEN /hpf (0-5)
[2022-03-13 13:17] LABS: Color, Urine Yellow (Yellow); Glucose, Dipstick Normal (Normal); Ketone-Dipstick Negative (Negative); Leukocyte Esterase-Dipstick 100 /ul (Negative); Nitrite-Dipstick Negative (Negative); Occult Blood-Urine 10 /ul (Negative); Protein-Dipstick 30 mg/dl (Negative); Urine Bilirubin Dipstick Negative (Negative); Urine Clarity Sl. Cloudy (Clear); Urine Urobilinogen Normal (Normal)
[2022-03-13 13:37] LABS: Bacteria 2+ /hpf (None Seen); Squamous Epithelial Cells - UA 5-10 SEEN /hpf (5-10); White Blood Cells 10-25 SEEN /hpf (0-5)
--- NOTE | 2022-03-13 15:23 | CM.ED ---
JESSICA sent email to Alla Aceves at [facility] advising her that patient was admitted to PCU and inquiring about if patient needs precert to return. JESSICA called Alla and left voice mail inquiring about if patient needs precert to return to [facility] and requesting follow up with Eliane Sexton Plan: Return to [facility] Sharda Ramos
--- NOTE | 2022-03-13 15:53 | PCM.HP.STD ---
Documented by User: Candis Hodges NP-C 03/13/22 16:06 HPI - General General Date of Admission: 03/13/22 Date of Service: 03/13/22 Chief Complaint: Shortness of breath, altered mental status HPI Narrative KAILASH GILES, is a 86 F who presents altered mental status and shortness of breath. [facility] and refuses to wear BiPAP despite knowing that she has severe COPD and needs the BiPAP. Patient's daughter reports that this has been an ongoing issue and that there have been multiple people that have discussed with him on the importance of wearing the BiPAP and what will happen if the BiPAP is not used. Patient's blood gas in ER shows respiratory acidosis. Patient also has a history of restless leg syndrome, hypothyroidism, hypertension, chronic pain, depression. [facility] Medical History Anemia in chronic kidney disease Anxiety Chronic pain of left knee CKD (chronic kidney disease) stage 3, GFR 30-59 ml/min Congestive heart failure (CHF) COPD (chronic obstructive pulmonary disease) COVID-19 virus infection Degeneration of intervertebral disc of lumbosacral region Depression DNR (do not resuscitate) Epilepsy Failed back surgical syndrome HTN (hypertension) Hypothyroidism Hypothyroidism Kidney disease Neuropathy Primary osteoarthritis of right shoulder Radiculopathy of lumbosacral region Spinal stenosis of lumbosacral region Tremor Unilateral primary osteoarthritis, left knee Home Medications aspirin 81 mg chewable tablet 81 mg PO DAILY@0800 heart health 05/15/16 [History Last Taken 09/04/21] albuterol sulfate 90 mcg/actuation aerosol inhaler (Ventolin HFA) 2 puff inhalation Q2H PRN Sob &/Or Wheezing 11/01/18 [History Last Taken Unknown] amlodipine 10 mg tablet 10 mg PO DAILY htn 07/08/20 [History Last Taken 01/25/22 07:00] gabapentin 300 mg capsule 600 mg PO QHS nerve pain 07/08/20 [History Last Taken 09/03/21] loratadine 10 mg tablet 5 mg PO DAILY allergies 07/08/20 [History Last Taken 09/04/21] diclofenac sodium 1 % topical gel 1 g topical TID PAIN 08/31/21 [History Last Taken 09/04/21] duloxetine 30 mg capsule,delayed release (Cymbalta) 30 mg PO DAILY DEPRESSION 08/31/21 [History Last Taken 09/04/21] ropinirole 1 mg tablet 1 mg PO QHS RLS 08/31/21 [History Last Taken 09/03/21] sennosides 8.6 mg-docusate sodium 50 mg tablet (Senexon-S) 1 tab PO BID CONSTIPTION 08/31/21 [History Last Taken 09/04/21] levothyroxine 100 mcg tablet 100 mcg PO QHS THYROID 09/04/21 [History Last Taken 09/03/21] acetaminophen 325 mg tablet (Tylenol) 650 mg PO Q6H PRN PRN Pain 1-10 Or Fever #0 tabs 09/07/21 [Rx Last Taken Unknown] baclofen 10 mg tablet 5 mg PO QHS muscle relaxer #0 tabs 09/07/21 [Rx Last Taken 09/03/21] hydrocodone-acetaminophen 5-325mg 5mg-325mg 1 tab PO Q6H PRN PRN Pain 10/26/21 [History Last Taken Unknown] furosemide 20 mg tablet 20 mg PO DAILY FLUID 03/13/22 [History Last Taken Unknown] losartan 25 mg tablet 25 mg PO DAILY 03/13/22 [History Last Taken Unknown] Allergy/AdvReac Type Severity Reaction Status Date / Time Sulfa (Sulfonamide Allergy Hives Verified 03/13/22 12:07 Antibiotics) morphine AdvReac confusion-difficult Verified 03/13/22 12:07 to wean off Family History unable to obtain Surgical History H/O: hysterectomy History of ankle surgery Previous back surgery Social History Smoking Status: Former smoker pack-years: 30 substance use type: does not use ROS Review of Systems ROS Unobtainable: due to mental status Vital Signs Vital Signs Vital Signs: 03/13/22 11:12 03/13/22 11:21 03/13/22 11:45 Temperature 97.3 F L Temperature Source Temporal Pulse Rate 73 47 L Respiratory Rate 16 11 L Respiratory Effort Normal Respiratory Pattern Normal Blood Pressure 156/61 H Blood Pressure Mean 92 Pulse Ox 98 97 Oxygen Delivery Method Nasal Cannula Oxygen Flow Rate (L/min) 2 Fraction of Inspired Oxygen (FIO2) 45 03/13/22 12:04 03/13/22 13:12 03/13/22 14:14 Temperature Temperature Source Pulse Rate 44 L 50 L Respiratory Rate 17 18 Respiratory Effort Respiratory Pattern Blood Pressure 148/87 H Blood Pressure Mean 107 Pulse Ox 94 92 Oxygen Delivery Method Nasal Cannula Oxygen Flow Rate (L/min) 4 Fraction of Inspired Oxygen (FIO2) 45 03/13/22 14:58 03/13/22 15:39 Temperature 97.8 F 97.5 F L Temperature Source Temporal Temporal Pulse Rate 44 L 46 L Respiratory Rate 25 H 16 Respiratory Effort Respiratory Pattern Blood Pressure 139/52 H 144/63 H Blood Pressure Mean 81 90 Pulse Ox 98 95 Oxygen Delivery Method Bi-pap Bi-pap Oxygen Flow Rate (L/min) Fraction of Inspired Oxygen (FIO2) Weight Weight: 238 lb 5.115 oz Body Mass Index (BMI) 48.1 Physical Exam Const Orientation / Consciousness: obtunded HEENT normocephalic and head/scalp atraumatic Eyes conjunctivae normal and no scleral icterus Neck no lymphadenopathy and supple General: trachea midline Resp Effort and Inspection: symmetric chest movement, tachypneic and labored Auscultation: diminished lung sounds Cardio regular rate, regular rhythm, S1 normal heart sound and S2 normal heart sound Rate: bradycardia GI normal to inspection, nondistended, normoactive bowel sounds, soft to palpation and non-tender Extremity normal capillary refill Skin Lesions: no lesions Rashes: no rashes Neuro Sensorium / Orientation: obtunded Results Lab / Micro Data Result Diagrams: 03/13/22 11:45 03/13/22 11:45 Labs: Laboratory Results - last 24 hr 03/13/22 11:43: Lactic Acid 0.5 03/13/22 11:45: WBC 6.0, RBC 4.49, Hgb 12.5, Hct 46.1, MCV 102.7 H, MCH 27.8, MCHC 27.1 L, RDW Std Deviation 59.7 H, RDW Coeff of Teo 15.7 H, Plt Count 240, MPV 9.6, Immature Gran % (Auto) 1.000 H, Neut % (Auto) 81.2 H, Lymph % (Auto) 7.2 L, Sevier % (Auto) 9.4, Eos % (Auto) 0.5, Baso % (Auto) 0.7, Absolute Neuts (auto) 4.9, Absolute Lymphs (auto) 0.43 L, Nucleated RBC % 0, Differential Comment SCANNED 03/13/22 11:45: Sodium 139, Potassium 5.9 H, Chloride 102, Carbon Dioxide 35.0 H, Anion Gap 2 L, BUN 64 H, Creatinine 2.60 H, Estim Creat Clear Calc 26.01, Est GFR (MDRD) Af Amer 22 L, Est GFR (MDRD) Non-Af 19 L, BUN/Creatinine Ratio 24.6 H, Glucose 112 H, Calcium 8.9 03/13/22 13:10: Urine Color Yellow, Urine Clarity Sl. Cloudy, Urine pH 5.0, Ur Specific [place] 1.020, Urine Protein 30 H, Urine Glucose (UA) Normal, Urine Ketones Negative, Urine Occult Blood 10 H, Urine Nitrite Negative, Urine Bilirubin Negative, Urine Urobilinogen Normal, Ur Leukocyte Esterase 100 H, Urine RBC 0 SEEN, Urine WBC 10-25 SEEN, Ur Squamous Epith Cells 5-10 SEEN, Urine Bacteria 2+, Urine Mucus 0 SEEN Micro: Microbiology 03/13/22 11:52 Nasal Secretion SARS-CoV-2 Antigen (Rapid) - Final ABG Data ABG results: ABG 03/13/22 11:39 Specimen Type ART Sample Site R Radial pH 7.16 L* Bicarbonate Actual 39.2 H Total CO2 43 Base Excess 10 H O2 Saturation 83 L ABG pCO2 110.8 H* ABG pO2 66 L Harshad Test Positive O2 Delivery Device Cannula Liter Flow 2.0 Crit Call To/Read Back Yes Blood Gas Notified Whom GODMAN Rhythm Strip Rhythm Strip: Bradycardia Rate: 47 Ectopy: None Radiology Impression Chest X-Ray 03/13/22 11:24 IMPRESSION: Pulmonary findings appear worse. Electronically Signed: Garfield Cleveland MD at 14:54 EDT , Brain CT 03/13/22 11:35 IMPRESSION: Chronic involutional changes of the brain. No acute intracranial process. Electronically Signed: Sergio Naik MD at 13:08 EDT , Assessment & Plan Assessment/Plan (1) Acute kidney injury: (2) Acute hyperkalemia: (3) Acute on chronic respiratory failure with hypoxia and hypercapnia: PLAN: Plan 1. Acute on chronic respiratory failure with hypoxia and hypercapnia -Patient's daughter reports that patient is noncompliant at home with BiPAP/CPAP -Admit to PCU -Continue BiPAP -Consult case management for hospice consult -N.p.o. while on BiPAP -Oxygen therapy per protocol when off BiPAP -CBC and CMP in a.m. -Continuous pulse ox -Blood sugars every 6 while n.p.o. 2. Acute on chronic kidney disease stage IIIb -Baseline creatinine appears to be 1.55-1.65 -Creatinine 2.6 -Normal saline ordered 75 mL/h -Intake and output -CMP daily 3. Acute hyperkalemia -Likely secondary to dehydration -Normal saline 75 mL/h -CMP daily 4. Chronic pain -Hold all p.o. pain medications due to altered mental status 5. Hypertension -We will hold all p.o. medications while on BiPAP -Vital signs per protocol, currently stable -As needed hydralazine IV 6. Hypothyroidism -Hold all p.o. medications while on BiPAP DVT prophylaxis-SCDs This patient was seen by Candis Hodges, MICHELLE-C under the supervision of Dr. Richardson. 31 minutes spent in clinical coordination of patient's plan of care. Documented by User: Dr. Chavo Richardson DO 03/13/22 17:26 HPI - General General Date of Admission: 03/13/22 [facility] Medical History Anemia in chronic kidney disease Anxiety Chronic pain of left knee CKD (chronic kidney disease) stage 3, GFR 30-59 ml/min Congestive heart failure (CHF) COPD (chronic obstructive pulmonary disease) COVID-19 virus infection Degeneration of intervertebral disc of lumbosacral region Depression DNR (do not resuscitate) Epilepsy Failed back surgical syndrome HTN (hypertension) Hypothyroidism Hypothyroidism Kidney disease Neuropathy Primary osteoarthritis of right shoulder Radiculopathy of lumbosacral region Spinal stenosis of lumbosacral region Tremor Unilateral primary osteoarthritis, left knee Home Medications aspirin 81 mg chewable tablet 81 mg PO DAILY@0800 heart health 05/15/16 [History Last Taken 09/04/21] albuterol sulfate 90 mcg/actuation aerosol inhaler (Ventolin HFA) 2 puff inhalation Q2H PRN Sob &/Or Wheezing 11/01/18 [History Last Taken Unknown] amlodipine 10 mg tablet 10 mg PO DAILY htn 07/08/20 [History Last Taken 01/25/22 07:00] gabapentin 300 mg capsule 600 mg PO QHS nerve pain 07/08/20 [History Last Taken 09/03/21] loratadine 10 mg tablet 5 mg PO DAILY allergies 07/08/20 [History Last Taken 09/04/21] diclofenac sodium 1 % topical gel 1 g topical TID PAIN 08/31/21 [History Last Taken 09/04/21] duloxetine 30 mg capsule,delayed release (Cymbalta) 30 mg PO DAILY DEPRESSION 08/31/21 [History Last Taken 09/04/21] ropinirole 1 mg tablet 1 mg PO QHS RLS 08/31/21 [History Last Taken 09/03/21] sennosides 8.6 mg-docusate sodium 50 mg tablet (Senexon-S) 1 tab PO BID CONSTIPTION 08/31/21 [History Last Taken 09/04/21] levothyroxine 100 mcg tablet 100 mcg PO QHS THYROID 09/04/21 [History Last Taken 09/03/21] acetaminophen 325 mg tablet (Tylenol) 650 mg PO Q6H PRN PRN Pain 1-10 Or Fever #0 tabs 09/07/21 [Rx Last Taken Unknown] baclofen 10 mg tablet 5 mg PO QHS muscle relaxer #0 tabs 09/07/21 [Rx Last Taken 09/03/21] hydrocodone-acetaminophen 5-325mg 5mg-325mg 1 tab PO Q6H PRN PRN Pain 10/26/21 [History Last Taken Unknown] furosemide 20 mg tablet 20 mg PO DAILY FLUID 03/13/22 [History Last Taken Unknown] losartan 25 mg tablet 25 mg PO DAILY 03/13/22 [History Last Taken Unknown] Allergy/AdvReac Type Severity Reaction Status Date / Time Sulfa (Sulfonamide Allergy Hives Verified 03/13/22 12:07 Antibiotics) morphine AdvReac confusion-difficult Verified 03/13/22 12:07 to wean off Family History unable to obtain Surgical History H/O: hysterectomy History of ankle surgery Previous back surgery Social History Smoking Status: Former smoker pack-years: 30 substance use type: does not use Results Lab / Micro Data Result Diagrams: 03/13/22 11:45 03/13/22 11:45 Assessment & Plan Assessment/Plan (1) Acute kidney injury: (2) Acute hyperkalemia: (3) Acute on chronic respiratory failure with hypoxia and hypercapnia: Charges/Coding Addendum Addendum: Patient was seen and examined independently of Mireya Hodges, she was brought to the ER today at [facility] from an extended care facility at which she resides due to decreased level of consciousness. On examination she appeared comatose, she has a slight response to painful stimuli but does not respond to verbal stimuli, she does not appear to be in any distress. Vital signs as documented. Skin warm and dry and without overt rashes. Neck without JVD, thyroid appears normal, trachea is midline, neck is supple. Lungs clear, normal air movement was noted. Heart exam notable for regular rhythm, normal sounds and absence of murmurs, rubs or gallops. Abdomen unremarkable and without evidence of organomegaly, masses, or abdominal aortic enlargement, bowel sounds are present in all 4 quadrants, no abdominal tenderness was noted. Patient is morbidly obese. Extremities nonedematous, no cyanosis was noted, no clubbing was noted. Neuro: Cranial nerves II through XII are grossly intact, no focal motor deficits were noted, sensation to light touch and pinprick is intact, motor exam 5/5 throughout. Psych: Patient is alert and oriented x3, she does not appear anxious or depressed, she does not appear agitated. Work-up in the emergency room included a blood gas which revealed the patient to be hypercapnic and hypoxic, patient's urinalysis showed evidence of bacteria but the patient was afebrile and her white blood cell count was normal-I do not think the patient has a cystitis at this time. Labs revealed an elevated creatinine and potassium. Patient appears to be in acute on chronic combined respiratory failure, Mireya Hodges talked at length with the patient's daughter who was present at the time of her examination, the daughter reiterated that the patient is a comfort care no intubation situation. Patient will be admitted to PCU and kept on BiPAP Impression: #1 acute on chronic combined respiratory failure-patient will be admitted to PCU, she will be kept on BiPAP, patient will be kept comfortable, daughter is aware that the patient may ultimately while she is in the hospital. I talked with the daughter by phone, she is in agreeable to her care plan, she states that her daughter would probably not agree with this but the patient's daughter is the POA at this time and she will need to talk with her own daughter to discuss care. #2 acute kidney injury on a backdrop of chronic kidney disease-patient will be given IV fluids, labs will be monitored #3 hyperkalemia-patient is labs will be monitored, I have chosen not to give the patient rectal Kayexalate or insert a NG tube to give the patient Kayexalate. Patient is of advanced age and has severe medical problems. #4 bilateral pleural effusions and infiltrates-I do not think the patient at this time has pneumonia, again the patient is a comfort care. Patient will receive aerosol treatments. Family is agreeable to have hospice see the patient, due to staffing issues, I doubt hospice will be able to come in to evaluate the patient this weekend. I have reviewed Mireya Hodges's history and physical including her medical assessment and plan of care and endorse it with the above additions. Total clinical time spent by myself addressing the patient's medical issues, reviewing the data, and collaborating with patient's care team: 50 minutes Visit Charges Inpatient E&M: [id number] Init Hosp L3
--- NOTE | 2022-03-13 16:24 | NURSING ---
Addendum entered by Karen See 03/13/22 16:51: Spoke with Jose MARTINEZ to requested that pt be seen by hospice as soon as possible, and that daughter is the one who needs contacted. Call placed back to hospice, spoke to Mable who is updating scheduling to get a nurse to PCU to see pt. Original Note: Hospice referral called to [facility] referral line. Spoke with Ekaterina who took patients information over the phone and will pass referral on. Hospice to call son to set a time to meet.
[2022-03-13] MEDS: 0.9% Normal Saline 1,000 ML 75 ML IV (16:48)
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
[2022-03-13] MEDS: hydrALAZINE 20 MG/ML Vial 5 MG IV (18:34)
[2022-03-13] MEDS: amLODIPine 5 MG Tablet PO (18:47)
[2022-03-13] MEDS: Losartan Potassium 25 MG Tablet PO (18:47)
[2022-03-13] MEDS: Gabapentin 400 MG Capsule PO (21:19)
[2022-03-13] MEDS: Levothyroxine 100 MCG Tablet PO (21:20)
[2022-03-13] MEDS: Senna/Docusate Sodium 1 Tablet PO (21:20)
[2022-03-13] MEDS: Pramipexole Di-HCl 0.5 MG Tablet PO (21:21)
[2022-03-13] MEDS: morphine (oral solution) 10MG/0.5ML Syringe 5 MG SL (22:42)
[2022-03-13] MEDS: LORazepam 2 MG/ML Syringe 1 MG IV (23:40)
--- NOTE | 2022-03-13 23:41 | CPS ---
Switched pt to Sleep Lab bipap machine, ABG results were greatly improved from ER . For patient comfort to get her used to a regular mask from a home machine which she has agreed to start wearing again at shelter because she doesn't want to . Sandrita with pt tonight to help keep bipap mask on and help with anxiety and confusion the pt has been expieriencing.
[2022-03-13] MEDS: 0.9% Saline Lock 10 ML Syringe IV ×2 (23:46→23:56)
[2022-03-14] VITALS (18 sets, daily range): BP systolic 113–162; BP diastolic 46–82; PULSE 40–72; RESP 14–23; TEMP 36.3–36.8; O2SAT 91–94
--- NOTE | 2022-03-14 04:34 | CPS ---
Had to switch pt back to V60 bipap due to confusion and agitation. She kept trying to pull mask off, and the sleep lab mask is much easier for her to get off. Putting the hospital bipap back on increased o2 sats and was much better for maintaining consistent pressures without leaks.
--- NOTE | 2022-03-14 05:45 | NURSING ---
all documentation completed by Sabina VALVERDE reviewed by this RN
[2022-03-14 06:13] LABS: Absolute Lymphocyte Count 0.59 X10^3/uL (0.83-4.51); Absolute Neutrophil Count 5.9 X10^3/uL (2.0-7.7); Basophil# 0.07 X10^3/uL; Basophil% 0.9 % (0-1); Eosinophil# 0.24 X10^3/uL; Eosinophils% 3.2 % (0-5); Hematocrit 41.8 % (37-47); Hemoglobin 12.4 g/dL (12.0-15.0); Lymphocyte # 0.59 X10^3/ul (0.83-4.51); Lymphocyte % 7.8 % (19-41); Mean Corp Hgb Conc 29.7 g/dL (32-36); Mean Corpuscular Hgb 28.4 pg (27.0-32.0); Mean Corpuscular Volume 95.9 fL (81-99); Mean Platelet Vol. 9.6 fl (6.2-12.0); Monocyte# 0.75 X10^3/uL; Monocyte% 9.9 % (0-10); NRBC Flagged by Analyzer 0 % (0-5); Neutrophil # 5.87 X10^3/uL (2.7-7.7); Neutrophil % 77.9 % (47-70); POSITIVE DIFFERENTIAL YES; Platelet Count 249 K/mm3 (150-450); RBC Distribution Width CV 15.7 % (11.6-14.6); RBC Distribution Width SD 55.8 fl (35.1-43.9); Red Blood Count 4.36 M/mm3 (4.2-5.4); White Blood Count 7.5 K/mm3 (4.4-11.0)
[2022-03-14 06:27] LABS: Differential Indicated SCAN CRITERIA MET
[2022-03-14] MEDS: Acetaminophen 325 MG Tablet 650 MG PO (06:46)
[2022-03-14 06:48] LABS: Differential Comment SCANNED
[2022-03-14 07:06] LABS: AST(SGOT) 18 U/L (15-37); Alanine Aminotransfer ALT/SGPT 17 U/L (13-56); Albumin, Serum 3.1 g/dL (3.2-5.0); Alkaline Phosphatase 78 U/L (45-117); Anion Gap 2 (5-15); BUN 60 mg/dL (7-18); Calcium,Total 8.6 mg/dL (8.5-10.1); Chloride 104 mmol/L (98-107); Creatinine, Serum 2.22 mg/dL (0.55-1.02); EST Glomerular Filtration Rate 22 mL/min (>60); Est Glom Filt Rate - Afr Amer 27 mL/min (>60); Estimated Creatinine Clearance 29.22 ml/min; Glucose 89 mg/dL (74-106); Potassium 5.2 mmol/L (3.5-5.1); Protein, Total 6.1 g/dL (6.4-8.2); Sodium Level 139 mmol/L (136-145)
[2022-03-14 07:20] LABS: Allen Test POS; Blood Gas Specimen Type ART; SITE L RADIAL
[2022-03-14 07:21] LABS: O2 Delivery Device Bi Pap
[2022-03-14 07:22] LABS: Base Excess 7 mmol/L (-2 to +2); Bicarbonate 32.1 mmol/L (22-26); EPAP 8; IPAP 16; PO2 64 mmHG (75-100); Total Carbon Dioxide 34 mmol/L; pCO2 53.4 mmHg (35-45); pH 7.39 (7.35-7.45)
[2022-03-14 07:23] LABS: SO2 91 % (95-99)
--- NOTE | 2022-03-14 09:09 | PN.HOSP_ITS ---
Subjective Subjective Patient was seen and examined today, she is alert but at times appears somnolent. She is currently on nasal cannula oxygen, her family member is in the room at the time my examination. Objective Data Objective Data Vital Signs: Vital Signs Temp Pulse Resp BP Pulse Ox O2 Del Method O2 Flow Rate 97.9 F 54 L 23 H 125/52 H 93 Nasal Cannula 6 03/14/22 03:06 03/14/22 07:46 03/14/22 07:46 03/14/22 03:06 03/14/22 07:46 03/14/22 07:40 03/14/22 07:40 FiO2 40 03/14/22 07:46 Oxygen Flow Rate (L/min) 6 Oxygen Delivery Method Nasal Cannula Weight: 103.674 kg Body Mass Index (BMI) 46.0 Intake & Output: Intake and Output for Last 24 Hours 03/12/22 03/13/22 03/14/22 23:59 23:59 23:59 Intake Total 725 / 725 551.25 / 551.25 Output Total 0 / 200 200 / 200 Balance 725 / 525 351.25 / 351.25 Lab / Micro Data Result Diagrams: 03/14/22 05:44 03/14/22 05:44 Labs: Laboratory Results - last 24 hr 03/13/22 11:43: Lactic Acid 0.5 03/13/22 11:45: WBC 6.0, RBC 4.49, Hgb 12.5, Hct 46.1, MCV 102.7 H, MCH 27.8, MCHC 27.1 L, RDW Std Deviation 59.7 H, RDW Coeff of Teo 15.7 H, Plt Count 240, MPV 9.6, Immature Gran % (Auto) 1.000 H, Neut % (Auto) 81.2 H, Lymph % (Auto) 7.2 L, [place] % (Auto) 9.4, Eos % (Auto) 0.5, Baso % (Auto) 0.7, Absolute Neuts (auto) 4.9, Absolute Lymphs (auto) 0.43 L, Nucleated RBC % 0, Differential Comment SCANNED 03/13/22 11:45: Sodium 139, Potassium 5.9 H, Chloride 102, Carbon Dioxide 35.0 H , Anion Gap 2 L, BUN 64 H, Creatinine 2.60 H, Estim Creat Clear Calc 26.01, Est GFR (MDRD) Af Amer 22 L, Est GFR (MDRD) Non-Af 19 L, BUN/Creatinine Ratio 24.6 H , Glucose 112 H, Calcium 8.9 03/13/22 13:10: Urine Color Yellow, Urine Clarity Sl. Cloudy, Urine pH 5.0, Ur Specific [place] 1.020, Urine Protein 30 H, Urine Glucose (UA) Normal, Urine Ketones Negative, Urine Occult Blood 10 H, Urine Nitrite Negative, Urine Bilirubin Negative, Urine Urobilinogen Normal, Ur Leukocyte Esterase 100 H, Urine RBC 0 SEEN, Urine WBC 10-25 SEEN, Ur Squamous Epith Cells 5-10 SEEN, Urine Bacteria 2+, Urine Mucus 0 SEEN 03/14/22 05:44: WBC 7.5, RBC 4.36, Hgb 12.4, Hct 41.8, MCV 95.9 D, MCH 28.4, MCHC 29.7 L D, RDW Std Deviation 55.8 H, RDW Coeff of Teo 15.7 H, Plt Count 249, MPV 9.6, Immature Gran % (Auto) 0.300, Neut % (Auto) 77.9 H, Lymph % (Auto) 7.8 L, [place] % (Auto) 9.9, Eos % (Auto) 3.2, Baso % (Auto) 0.9, Absolute Neuts (auto) 5.9, Absolute Lymphs (auto) 0.59 L, Nucleated RBC % 0, Differential Comment SCANNED 03/14/22 05:44: Sodium 139, Potassium 5.2 H, Chloride 104, Carbon Dioxide 33.0 H , Anion Gap 2 L, BUN 60 H, Creatinine 2.22 H, Estim Creat Clear Calc 29.22, Est GFR (MDRD) Af Amer 27 L, Est GFR (MDRD) Non-Af 22 L, BUN/Creatinine Ratio 27.0 H , Glucose 89, Calcium 8.6, Total Bilirubin 0.50, AST 18, ALT 17, Alkaline Phosphatase 78, Total Protein 6.1 L, Albumin 3.1 L, Globulin 3.0, Albumi n/Globulin Ratio 1.0 Micro: Microbiology 03/13/22 11:52 Nasal Secretion SARS-CoV-2 Antigen (Rapid) - Final ABG Data ABG results: ABG 03/13/22 03/13/22 03/13/22 10:28 11:39 22:32 Specimen Type Cancelled ART ART Sample Site Cancelled R Radial L RADIAL pH Cancelled 7.16 L* 7.39 Bicarbonate Actual Cancelled 39.2 H 32.1 H Total CO2 Cancelled 43 34 Base Excess Cancelled 10 H 7 H O2 Saturation Cancelled 83 L 91 L O2 % Cancelled ABG pCO2 Cancelled 110.8 H* 53.4 H ABG pO2 Cancelled 66 L 64 L Harshad Test Cancelled Positive POS Respiration Rate Cancelled O2 Delivery Device Cancelled Cannula Bi Pap Liter Flow Cancelled 2.0 6.0 Minute Volume Cancelled Vent Mode Cancelled Inspiratory Time Cancelled Expiratory Time Cancelled Tidal Volume Cancelled Mean Airway Pressure Cancelled POC PEEP Cancelled Peak Inspir Pressure Cancelled POC Pressure Suppt Cancelled Pressure Control Cancelled Pressure High Cancelled Pressure Low Cancelled Time High Cancelled Time Low Cancelled EPAP Cancelled 8 IPAP Cancelled 16 Blood Gas Comments Cancelled Crit Call To/Read Back Cancelled Yes Blood Gas Notified Whom Cancelled [facility] Blood Gas Notified Time Cancelled Clinical Comments Cancelled Radiography Diagnostic Testing: Radiology Impression Chest X-Ray 03/13/22 11:24 IMPRESSION: Pulmonary findings appear worse. Electronically Signed: Garfield Cleveland MD at 14:54 EDT , Brain CT 03/13/22 11:35 IMPRESSION: Chronic involutional changes of the brain. No acute intracranial process. Electronically Signed: Sergio Naik MD at 13:08 EDT , Rhythm Strip Rhythm Strip: Bradycardia Rate: 47 Ectopy: None Physical Exam Const alert, oriented x3 and no apparent distress General Appearance: cooperative, well kempt and well developed Orientation / Consciousness: awake, oriented to person, oriented to place and oriented to time HEENT normocephalic, head/scalp atraumatic and moist oral mucous membranes Eyes PERRL, EOMs intact bilaterally and conjunctivae normal Neck supple, no JVD and thyroid normal General: trachea midline Resp normal respiratory effort, no retractions and no use of accessory muscles Resp Narrative: Breath sounds are distant bilaterally Auscultation: Negative for rales, rhonchi or wheezes Cardio regular rate, regular rhythm, S1 normal heart sound, S2 normal heart sound, no murmurs, no rub and no gallops GI normal to inspection, nondistended, normoactive bowel sounds, soft to palpation, non-tender and non-distended GI Narrative: Patient is morbidly obese Extremity no clubbing, cyanosis or edema Skin no rashes or lesions noted General Skin Exam: no breakdown Neuro oriented x3, CN's II-XII intact bilaterally, no focal motor deficits and no sen jose armando deficits noted Sensorium / Orientation: awake and alert Speech: speech normal Psych affect normal Assessment & Plan Assessment/Plan (1) Acute on chronic respiratory failure with hypoxia and hypercapnia: PLAN: Plan #1 acute on chronic combined respiratory failure-continue supplemental oxygen at this time, patient is alert, she will need to wear BiPAP at night however while sleeping #2 acute kidney injury on a backdrop of chronic kidney disease-patient will be given IV fluids, labs will be monitored, creatinine is improved today #3 hyperkalemia-patient is labs will be monitored, I do not think the patient needs Kayexalate, her potassium today was 5.2. #4 bilateral pleural effusions and infiltrates-I do not think the patient at this time has pneumonia, again the patient is a comfort care.? Patient will receive aerosol treatments. Hospice is due to meet with the patient and the patient's family. Patient remains a DNR comfort care. Charges/Coding Visit Charges Inpatient E&M: 05771 Subs Hosp L2
[2022-03-14] MEDS: Senna/Docusate Sodium 1 Tablet PO ×2 (09:34→22:09)
[2022-03-14] MEDS: amLODIPine 10 MG Tablet PO (09:34)
[2022-03-14] MEDS: DULoxetine Hcl 30 MG Capsule PO (09:34)
[2022-03-14] MEDS: Losartan Potassium 100 MG Tablet PO (09:37)
[2022-03-14] MEDS: HYDROcodone Bitartrate/Apap 5/325 Tablet PO (15:11)
[2022-03-14] MEDS: Levothyroxine 100 MCG Tablet PO (22:09)
[2022-03-14] MEDS: Pramipexole Di-HCl 0.5 MG Tablet PO (22:09)
[2022-03-14] MEDS: Gabapentin 400 MG Capsule PO (22:09)
[2022-03-14] MEDS: 0.9% Saline Lock 10 ML Syringe IV (22:09)
[2022-03-15] VITALS (11 sets, daily range): BP systolic 139–159; BP diastolic 47–82; PULSE 48–59; RESP 14–22; TEMP 36.3–36.8; O2SAT 92–94
--- NOTE | 2022-03-15 05:17 | NURSING ---
all documentation completed by Sabina reviewed by this RN
--- NOTE | 2022-03-15 06:13 | CPS ---
Pt keeps touching mask on bipap, nurses try to fix but ended up calling RT to reposition mask several times. RT ended changing mask size and then changed back again. Pt had several breaks last night. RT fixed leak and pt still ended up moving the mask. RN aware.
[2022-03-15 06:15] LABS: Anion Gap 3 (5-15); BUN 61 mg/dL (7-18); BUN/Creat Ratio 31.1 RATIO (10-20); Calcium,Total 8.8 mg/dL (8.5-10.1); Chloride 103 mmol/L (98-107); Creatinine, Serum 1.96 mg/dL (0.55-1.02); EST Glomerular Filtration Rate 26 mL/min (>60); Est Glom Filt Rate - Afr Amer 31 mL/min (>60); Glucose 106 mg/dL (74-106); Sodium Level 140 mmol/L (136-145)
[2022-03-15] MEDS: Senna/Docusate Sodium 1 Tablet PO (09:47)
[2022-03-15] MEDS: DULoxetine Hcl 30 MG Capsule PO (09:47)
[2022-03-15] MEDS: amLODIPine 10 MG Tablet PO (09:47)
[2022-03-15] MEDS: Losartan Potassium 100 MG Tablet PO (09:47)
--- NOTE | 2022-03-15 10:24 | CASEMGMT ---
Discharge Athletic Coordinator Vicky d/c assistant executive housekeeper called Beverly with Hospice. Beverly is going to reach out to Arianna about signing for Hospice. Beverly will call Vicky back. Vicky also has a voicemail out to Alla at [place] about patient returning. Plan: [place]. Vicky Don Discharge Athletic Coordinator
--- NOTE | 2022-03-15 11:30 | CASEMGMT ---
Discharge Systems Protection Technician Vicky reached out to Alla at [place]. Patient can return to [place] when medically ready. Beverly from hospice talked to the daughter Arianna. Arianna is not able to meet to sign for hospice this week. Hospice is going to follow patient at [place] and follow up with the family on Tuesday. Plan: [place] Vicky Don Discharge Systems Protection Technician
--- NOTE | 2022-03-15 11:51 | CASEMGMT ---
Discharge Mine Boss Vicky hawley/ramsey assistant refinery operator faxed over patient updates to Alla at [facility]. Plan: [place] Vicky Don Discharge Mine Boss
--- NOTE | 2022-03-15 12:27 | CASEMGMT ---
Social Work Note SW faxed updated clinicals to [facility]. Elen Hernandez COMMUNICATIONS EDITOR, CHIEF COUNSEL
--- NOTE | 2022-03-15 14:30 | PCM.DC.SUM ---
Providers Date of Admission: 03/13/22 Date of Discharge: 03/15/22 Primary Care Physician: Dr. Tom Hernandez MD Consultations 03/13/22 16:06 Consult: Hospice / Palliative Care Routine Consulting Provider: [facility] Reason for Consult: COPD, CHF EMERGENT Consult: No MD Notified: Yes Date Notified: 03/13/22 Time Notified: 16:20 Method of Notification: Answering Service Method of Consult:: In-Person Reason For Visit: ACUTE HYPOXIC RESPIRATORY FAILURE Diagnosis Discharge Diagnosis (1) Acute on chronic respiratory failure with hypoxia and hypercapnia: Status: Chronic Code(s): J96.21 - Acute and chronic respiratory failure with hypoxia; J96.22 - Acute and chronic respiratory failure with hypercapnia Medications at Discharge Home Medications aspirin 81 mg chewable tablet 81 mg PO DAILY@0800 [facility] 05/15/16 albuterol sulfate 90 mcg/actuation aerosol inhaler (Ventolin HFA) 2 puff inhalation Q2H PRN Sob &/Or Wheezing 11/01/18 amlodipine 10 mg tablet 10 mg PO DAILY htn 07/08/20 loratadine 10 mg tablet 5 mg PO DAILY allergies 07/08/20 diclofenac sodium 1 % topical gel 1 g topical TID PAIN 08/31/21 duloxetine 30 mg capsule,delayed release (Cymbalta) 30 mg PO DAILY DEPRESSION 08/31/21 ropinirole 1 mg tablet 1 mg PO QHS RLS 08/31/21 sennosides 8.6 mg-docusate sodium 50 mg tablet (Senexon-S) 1 tab PO BID CONSTIPTION 08/31/21 levothyroxine 100 mcg tablet 100 mcg PO QHS THYROID 09/04/21 acetaminophen 325 mg tablet (Tylenol) 650 mg PO Q6H PRN PRN Pain 1-10 Or Fever #0 tabs 09/07/21 hydrocodone-acetaminophen 5-325mg 5mg-325mg 1 tab PO Q6H PRN PRN Pain 10/26/21 baclofen 10 mg tablet 5 mg PO BID PRN muscle spasms 03/13/22 furosemide 20 mg tablet 20 mg PO DAILY FLUID 03/13/22 losartan 25 mg tablet 25 mg PO DAILY BP 03/13/22 food supplemt, lactose-reduced 0.08 gram-1.5 kcal/mL oral liquid (Ensure Enlive) 120 ml PO 4X/DAY #0 mL 03/15/22 gabapentin 400 mg capsule 400 mg PO QHS #0 caps 03/15/22 Hospital Course Operations None Procedures - (CT brain) Summary of Care Provided Minutes Spent on Discharge: 37 Hospital Course: Mrs. Barker is an 86-year-old white female with recurrent admissions who presented to the emergency department was coming hospital with shortness of breath and altered mental status. The patient lives at a [facility] at baseline and fairly consistently refuses to wear her BiPAP despite knowing that she has severe COPD and obstructive sleep apnea and needs to wear her BiPAP at night. Her daughter reported on admission that this had been going and ongoing issue and from previous interaction with this patient I can confirm this. She developed shortness of breath and confusion on the day of presentation. Work-up in the emergency department included a got blood gas which revealed acute on chronic hypercapnia and chronic hypoxia with an initial pH of 7.16 a PCO2 of 110.8 and a PO2 of 66. Her CBC was overall unimpressive compared to baseline. Her BMP showed hyper kalemia at 5.9 likely related to her acidosis and ALEJANDRO on CKD stage IV. It appears her baseline serum creatinine runs between 1.5 and 2 and she presented with a serum creatinine of 2.6. She was placed on rescue BiPAP and a repeat blood gas was obtained later that day showing a pH of 7.39 a PCO2 of 53 and a PO2 of 64. Her serum creatinine trended down and on the day of discharge was closer to her baseline at 1.96. Blood cultures were negative as was her COVID test. Her mentation dramatically improved however her overall prognosis is poor and she was seen by hospice during her hospitalization. Per documentation her daughter was understanding of the current situation and her mother's refusal for nocturnal BiPAP at the facility and the issues this is caused and hospice was consulted. Hospice did evaluate the patient and family declined hospice services at discharge however the hospice number was given to the family and the anticipation that the patient will not do well long-term and they are to call once they are ready to establish hospice services. Patient's mentation and labs were back to baseline on the day of discharge she was discharged back to her halfway facility in stable condition on 03/15/2022. Discharge diagnoses: Acute on chronic hypercapnic and hypoxic respiratory failure secondary to noncompliance Acute metabolic encephalopathy-resolved ALEJANDRO-resolved CKD stage IIIb-IV Hypertension HFpEF and compensated Chronic pain DJD of the cervical spine/lumbar spine Restless leg syndrome COPD Morbid obesity ROBERTO Hypothyroidism Physical Exam Const alert Constitutional Narrative: The obese elderly white female sitting up in bed, awake, nursing at bedside, patient appears comfortable and nontoxic, patient is oriented to place, year, and present of the [facility], she was mildly confused on the month stating it was May General Appearance: cooperative, comfortable and well developed Orientation / Consciousness: awake, oriented to person and oriented to place Exam Limitations: other limitations Nutritional Appearance: morbidly obese HEENT normocephalic, head/scalp atraumatic, hearing grossly normal bilaterally and moist oral mucous membranes HEENT Narrative: Mallampati is 3-4, patient is a dentulous, no thrush present Eyes PERRL, EOMs intact bilaterally and conjunctivae normal Eyes Narrative: No scleral icterus Neck no lymphadenopathy, supple and no JVD Neck Narrative: Short thick neck, trachea midline, no thyroid enlargement Resp normal respiratory effort, no retractions, no use of accessory muscles and clear to auscultation bilaterally Resp Narrative: Distant, diminished diffusely Auscultation: Negative for crackles, rales, rhonchi or wheezes Cardio regular rate, regular rhythm, S1 normal heart sound, S2 normal heart sound, no murmurs, no rub, no gallops, no clicks and no JVD GI normal to inspection, nondistended, normoactive bowel sounds, soft to palpation, non-tender and non-distended Extremity no clubbing, cyanosis or edema Skin skin turgor normal and no jaundice Skin Narrative: Scattered ecchymosis, no wounds Neuro CN's II-XII intact bilaterally, moves all extremities and no focal motor deficits Neuro Narrative: Analyzed weakness, lower extremity neuropathy Psych affect normal Weight / BMI Weight Weight: 103.674 kg Body Mass Index (BMI) 46.0 ABG / Lab / Microbiology Data Result Diagrams: 03/14/22 05:44 03/15/22 05:07 Laboratory: Laboratory Results - last 24 hr 03/15/22 05:07: Sodium 140, Potassium 5.0, Chloride 103, Carbon Dioxide 34.0 H, Anion Gap 3 L, BUN 61 H, Creatinine 1.96 H, Estim Creat Clear Calc 33.10, Est GFR (MDRD) Af Amer 31 L, Est GFR (MDRD) Non-Af 26 L, BUN/Creatinine Ratio 31.1 H, Glucose 106, Calcium 8.8 Microbiology: Microbiology 03/15/22 13:40 Nasal Secretion SARS-CoV-2 Antigen (Rapid) - Final 03/13/22 12:30 Blood Culture (Wb) - Anticubital Left Blood Culture - Preliminary No growth in 48 hours. 03/13/22 11:45 Blood Culture (Wb) - Anticubital Right Blood Culture - Preliminary No growth in 48 hours. 03/13/22 11:52 Nasal Secretion SARS-CoV-2 Antigen (Rapid) - Final Meaningful Use Info Meaningful Use Diagnoses (Choose all that apply): None applicable Discharge Plan Admission Admit Date/Time: 03/13/22 15:43 Primary Reason for Your Visit: Shortness of Breath/Altered Mental Status Attending Provider: Serene Ribeiro Primary Care Provider: Tom Hernandez Consulting Providers: Ann Ferro ; Abelino Arora ; Gerri Lu ; Carmencita Ball ; Radha Linares JIG BUILDER HELPER ; Chavo Richardson Discharge Orders/Prescriptions Prescriptions: New gabapentin 400 mg Capsule 400 mg PO QHS Qty: 0 0RF Ensure Enlive 0.08 gram-1.5 kcal/mL Liquid 120 ml PO 4X/DAY Qty: 0 0RF Continued aspirin 81 MG tablet,chewable 81 mg PO DAILY@0800 Label Comments: health maintenance albuterol sulfate [Ventolin HFA] 1 INHALER inhaler 2 puff inhalation Q2H PRN (Reason: Sob &/Or Wheezing) loratadine 10 MG tablet 5 mg PO DAILY amlodipine 10 MG tablet 10 mg PO DAILY Label Comments: hypertension ropinirole 1 mg tablet 1 mg PO QHS sennosides-docusate sodium [Senexon-S] 8.6-50 mg tablet 1 tab PO BID duloxetine [Cymbalta] 30 mg capsule,delayed release(DR/EC) 30 mg PO DAILY diclofenac sodium 1 % gel 1 g TOPICAL TID levothyroxine 100 mcg tablet 100 mcg PO QHS acetaminophen [Tylenol] 325 mg Tablet 650 mg PO Q6H PRN PRN (Reason: Pain 1-10 Or Fever) Qty: 0 0RF hydrocodone-acetaminophen 5-325 mg tablet 1 tab PO Q6H PRN PRN (Reason: Pain) losartan 25 mg Tablet 25 mg PO DAILY furosemide 20 mg tablet 20 mg PO DAILY baclofen 10 mg tablet 5 mg PO BID PRN (Reason: muscle spasms) Discontinued gabapentin 300 MG capsule 600 mg PO QHS Referrals / Follow Up: Tom Hernandez MD [Primary Care Provider] - Within 1 Week Disposition Disposition (needs filled in before D/C Order can be placed): [facility] Facility Charges/Coding Visit Charges Inpatient E&M: 47386 SNF Disch >30 Min
--- NOTE | 2022-03-15 14:51 | PCM.TXEXTCAR ---
Diet Diet Order/Speech Therapy: 03/13/22 18:37 Diet: Regular - General Dietary Modifications:: Sodium Restricted Is pt able to select menu?: No Routine Orders/Code Status O2 Liters per Minute: 4-6 and BIPAP at HS with previous settings O2 Frequency: Continuous Keep PO Greater than or Equal to (%): 88 Code Status: DNRCC-A Problem/Diagnosis (1) Acute on chronic respiratory failure with hypoxia and hypercapnia: Status: Chronic Code(s): J96.21 - Acute and chronic respiratory failure with hypoxia; J96.22 - Acute and chronic respiratory failure with hypercapnia Allergies/Procedures Done in Hospital Allergies Sulfa (Sulfonamide Antibiotics) Allergy (Verified 03/13/22 12:07) Hives morphine Adverse Reaction (Verified 03/13/22 12:07) confusion-difficult to wean off Procedures: None Type of Care/Length of Stay Estimated LOS: More Than 30 Days Type of Care Needed: Intermediate Rehab Potential: Poor Prognosis: Poor Additional Orders/Day of Discharge Day of Discharge: 03/15/22 Dietary and Speech Recommendations Dietitian Recommendations/Changes: Will change diet to Regular low sodium d/t CKD and edema Will provide 4 oz ensure enlive w/ medpass 4x/day (chocolate per preference) Will monitor for more restrictive diet pending continued po intake. Discharge Plan Admission Admit Date/Time: 03/13/22 15:43 Primary Reason for Your Visit: Shortness of Breath/Altered Mental Status Attending Provider: Serene Ribeiro Primary Care Provider: Tom Hernandez Consulting Providers: Ann Ferro ; Abelino Arora ; Gerri Lu ; Carmencita Ball ; Radha Linares SPOUTING INSTALLER ; Chavo Richardson Discharge Orders/Prescriptions Prescriptions: New gabapentin 400 mg Capsule 400 mg PO QHS Qty: 0 0RF Ensure Enlive 0.08 gram-1.5 kcal/mL Liquid 120 ml PO 4X/DAY Qty: 0 0RF Continued aspirin 81 MG tablet,chewable 81 mg PO DAILY@0800 Label Comments: health maintenance albuterol sulfate [Ventolin HFA] 1 INHALER inhaler 2 puff inhalation Q2H PRN (Reason: Sob &/Or Wheezing) loratadine 10 MG tablet 5 mg PO DAILY amlodipine 10 MG tablet 10 mg PO DAILY Label Comments: hypertension ropinirole 1 mg tablet 1 mg PO QHS sennosides-docusate sodium [Senexon-S] 8.6-50 mg tablet 1 tab PO BID duloxetine [Cymbalta] 30 mg capsule,delayed release(DR/EC) 30 mg PO DAILY diclofenac sodium 1 % gel 1 g TOPICAL TID levothyroxine 100 mcg tablet 100 mcg PO QHS acetaminophen [Tylenol] 325 mg Tablet 650 mg PO Q6H PRN PRN (Reason: Pain 1-10 Or Fever) Qty: 0 0RF hydrocodone-acetaminophen 5-325 mg tablet 1 tab PO Q6H PRN PRN (Reason: Pain) losartan 25 mg Tablet 25 mg PO DAILY furosemide 20 mg tablet 20 mg PO DAILY baclofen 10 mg tablet 5 mg PO BID PRN (Reason: muscle spasms) Discontinued gabapentin 300 MG capsule 600 mg PO QHS Referrals / Follow Up: Tom Hernandez MD [Primary Care Provider] - Within 1 Week Disposition Disposition (needs filled in before D/C Order can be placed): [facility]
--- NOTE | 2022-03-15 15:05 | CASEMGMT ---
Addendum entered by Elen Hernandez 03/15/22 16:06: SW updated Alla at [facility] on transportation time. Original Note: Discharge Mechanical Handyman Vicky d/c urgent care physician assistant faxed over d/c orders to Alla at [place]. Copied orders and put on chart. dehydrogenation supervisor time is at 16:40. Nurse RN Theo and personal secretary made aware. Vicky called Arianna patients daughter and made Arianna aware. Plan: D/c [place]. Vicky Don Discharge Mechanical Handyman
--- NOTE | 2022-03-15 16:34 | NURSING ---
Report given to Shaylee VALVERDE at [facility]
== END 2022-03-15 16:30 | DRG 189 ==
LOC: ED 12:43 → PCU 15:34
PROVIDERS: Nurse Practitioner Family; Admitting Provider Internal Medicine; Emergency Provider Emergency Medicine; PCP Family Medicine; Visit Provider Internal Medicine
DX: J96.21 Acute and chronic respiratory failure with hypoxia (principal); G93.41 Metabolic encephalopathy; N17.9 Acute kidney failure, unspecified; I13.0 Hypertensive heart and chronic kidney disease with heart failure and stage 1 through stage 4 chronic kidney disease, or unspecified chronic kidney disease; I50.32 Chronic diastolic (congestive) heart failure; Z68.42 Body mass index [BMI] 45.0-49.9, adult; N18.4 Chronic kidney disease, stage 4 (severe); J44.9 Chronic obstructive pulmonary disease, unspecified; G40.909 Epilepsy, unspecified, not intractable, without status epilepticus; J96.22 Acute and chronic respiratory failure with hypercapnia; E03.9 Hypothyroidism, unspecified; F41.9 Anxiety disorder, unspecified; G47.33 Obstructive sleep apnea (adult) (pediatric); G62.9 Polyneuropathy, unspecified; E87.5 Hyperkalemia; G25.81 Restless legs syndrome; M47.812 Spondylosis without myelopathy or radiculopathy, cervical region; M47.816 Spondylosis without myelopathy or radiculopathy, lumbar region; F32.A Depression, unspecified; G89.29 Other chronic pain; Z86.16 Personal history of COVID-19; Z66 Do not resuscitate; Z79.82 Long term (current) use of aspirin; Z79.899 Other long term (current) drug therapy; Z87.891 Personal history of nicotine dependence; E66.9 Obesity, unspecified; Z91.19 Patient's noncompliance with other medical treatment and regimen; Z99.81 Dependence on supplemental oxygen
CPT/HCPCS: 36415; 36600; 70450; 71045; 80048; 80053; 81001; 82803; 83605; 85025; 87040; 87426; 87811; 93005; 94002; 94003; 94762; 97802; 99285; J7030; A4216; J2310